=== PATIENT | male | born 1955 | race Caucasian/White ===

== ENCOUNTER 2016-10-01 12:19 | Emergency (ER) | payer OTHER ==
[~2016-10-01] VITALS: Ht 182.9 cm; Wt 81.6 kg
[~2016-10-01 12:19] MED LIST: ALBUTEROL 3 ML3 ML INH; ALBUTEROL NEB 0.083% INH; ALBUTEROL1.25 MG/1 INH/SOL; ARNUITY ELLIP100 MCG INH; ASPIRIN325 M2 PO; ATENOLOL25 MG PO; AUGMENTIN 875 M1 TAB PO; AUGMENTIN 875-1 EACH PO; AUGMENTIN 875875 MG PO; AZITHROMYCIN250 M1 PO; AZITHROMYCIN250 MG PO; BUPROPION SR150 MG PO; CITALOPRAM HBR40 MG PO; CYCLOBENZAPRINE10 M1 PO; GUAIFENESIN ER600 MG PO; IPRAT-ALBUT 0.5-3 ML IH; LEADER NIC14 MG/24 H TOP; LEVAQUIN500 MG PO; LOPRESSOR 25MG25 MG PO; LOVASTATIN20 M1 PO; LOVASTATIN40 MG PO; MEDROL DOSEPAK1 PAC PO; MELATONIN 3 MG-1 TAB PO; MELATONIN3 MG PO; Mucinex PO; NADOLOL20 MG PO; NAPROSYN500 M1 PO; NICODERM C21 MG/24 H TOP; NICOTINE7 MG/24 HR TOP; OMEGA-3 FISH O1 EAC4 PO; PREDNICOT10 MG PO; PREDNISONE 10MG10 M1 PO; PREDNISONE 10MG10 MG PO; PREDNISONE 20MG20 MG PO; PREDNISONE10 M2 PO; PREDNISONE10 MG PO; PREDNISONE20 MG PO; PREDNISONE50 M1 PO; PREDNISONE50 MG PO; PRILOSEC20 MG PO; PROAIR HFA0.09 MG/Ac INH; PROVENTIL HFA6.7 GM PO; SEREVENT DISKU50 MCG INH; SPIRIVA 18 MCG18 MCG INH; SYMBICORT 80/4.1 PUF INH; TAMIFLU 75MG75 MG PO; TESSALON PERLE100 M1 PO; TIOTROPIUM INH; TYLENOL TAB 32325 MG PO; VIBRAMYCIN 100100 MG PO; ZITHROMAX 500M500 MG PO; ZITHROMAX Z-PA250 M1 PO; ZITHROMAX Z-PA250 MG PO; [UNRECOGNIZED DRUG - OTHER] INH
[2016-10-01 12:39] VITALS: BP 145/86
--- NOTE | 2016-10-01 13:31 | RADIOLOGY REPORT ---
EXAMINATION: XR CHEST CLINICAL INFORMATION: Productive cough. COMPARISON: Portable chest x-ray 09/23/2016, PA and lateral views 05/16/2015. TECHNIQUE: 2 views of the chest were obtained. FINDINGS: The cardiomediastinal silhouette is stable appearing with prominence of the right hilum greater than left. The lungs are hyperexpanded with chronic appearing right apical scarring. Increased markings in the periphery of the lower lobes is stable as well most consistent with patient's known fibrosis. The lungs and pleural spaces otherwise appear clear without evidence of congestion, consolidation, or significant appearing effusion or atelectasis. There is no evidence of pneumothorax or pulmonary edema. Included osseous structures appear largely unremarkable. IMPRESSION: No evidence of an acute intrathoracic process. Stable COPD changes with stable right apical scarring and probable peripheral fibrosis at the bilateral lung bases.
--- NOTE | 2016-10-01 13:37 | ED INFLUENZA/URI COMPLAINT ---
History of Present Illness General Chief Complaint: Upper Respiratory Sx/Fever Stated Complaint: COUGH AND CONGESTION Source: patient Exam Limitations: no limitations Vital Signs & Intake/Output Vital Signs & Intake/Output Vital Signs Date Time Temp Pulse Resp B/P B/P Pulse O2 O2 Flow FiO2 Mean Ox Delivery Rate 10/01 1427 95 06 1411 95 / 1355 95 10/01 1239 97.6 86 16 145/86 94 Room Air Allergies Coded Allergies: budesonide (From SYMBICORT) (Severe, TOUNGE FELT LIKE A CACTUS 02/16/16) formoterol (From SYMBICORT) (Severe, TOUNGE FELT LIKE A CACTUS 02/16/16) codeine (SHAKEY 02/16/16) morphine (BRADYCARDIC 02/16/16) Reconcile Medications Albuterol Sulfate (Proventil Hfa) 6.7 GM HFA.AER.AD 2 PUFF PO 4 TIMES/DAY PRN WHEEZE Aspirin (Aspirin*) 325 MG TABLET 1 TAB PO DAILY HEART HEALTH (Reported) Atenolol 25 MG TABLET 1 TAB PO QPM BP (Reported) Ciprofloxacin HCl (Cipro) 500 MG TABLET 1 TAB PO BID copd exac Citalopram Hydrobromide (Citalopram HBr) 40 MG TABLET 1 TAB PO QPM ANXIETY ( Reported) Ipratropium/Albuterol Sulfate (Iprat-Albut 0.5-3(2.5) MG/3 Ml) 0.5 MG-3 MG (2.5 MG BASE)/3 ML AMPUL.NEB 1 AMP IH 4XD COPD (Reported) Ipratropium/Albuterol Sulfate (Iprat-Albut 0.5-3(2.5) MG/3 Ml) 0.5 MG-3 MG (2.5 MG BASE)/3 ML AMPUL.NEB 1 VIAL INH Q6 PRN COPD Lovastatin 20 MG TABLET CHOLESTEROL (Reported) [place]-3S/Dha/Epa/Fish Oil ([place]-3 Fish Oil 1,000 MG Sfgl) 300-1,000MG CAPSULE 1 CAP PO QPM SUPPLEMENT (Reported) Prednisone 50 MG TABLET 1 TAB PO DAILY copd exac Tiotropium [place] (Spiriva) 18 MCG CAP.W.DEV 1 CAP INH DAILY BREATHING PROBLEMS (Reported) Triage Note: 61 Y/O MALE C/O "CONGESTION" AND SOB SINCE YESTERDAY. STATES HX COPD AND PNEUMONIA, UNSURE IF THESE CURRENT SYMPTOMS FEEL LIKE EITHER - "IM NOT SURE IF ITS PNEMONIA OR MAYBE JUST ALLERGIES". REPORTS COUGH WITH "WHITE OR CLEAR" PHLEGM. HAS BEEN USING PROAIR WITH MINIMAL RELIEF, LAST USE 1 HOUR AGO. ALSO REPORTS DECREASED APPETITE/PO INTAKE. DENIES FEVERS. SAT 94%. AFEBRILE. Triage Nurses Notes Reviewed? yes HPI: Mr. Alvarenga is a 61 yo m w/ PMH of COPD, HTN, HLD, CAD w/ stents in place, is a current smoker presenting to ED for SOB. Patient states there is increased work of breathing started 3 days ago. He ran out of his duoneb solution around the same time. Patient endorses midchest congestion with difficulty clearing this congestion. Sputum produces white color. No blood in sputum. Patient denies any recent travel or immobilization. No history of any known cancers. Patient is unsure if she has an allergy attack or pneumonia. Currently smokes half a pack per day. (SCOTT VILLA MD) Past History Travel History Traveled to [place] past 21 day No Medical History Any Pertinent Medical History? see below for history Neurological: NONE EENT: NONE Cardiovascular: CAD, hypertension, hyperlipidemia, myocardial infarction, CAD WITH STENTS Respiratory: COPD, emphysema, pneumonia Gastrointestinal: NONE Hepatic: NONE Renal: NONE Musculoskeletal: NONE Psychiatric: anxiety Endocrine: NONE Blood Disorders: NONE Cancer(s): NONE ASSOCIATE PARTNER/Reproductive: NONE History of MRSA: No History of VRE: No History of CDIFF: No Surgical History Surgical History: none, left knee surgery for torn cartilage cartilage Psychosocial History Who do you live with Daughter Services at Home None What is your primary language Jamaican Tobacco Use: Current Daily Use Daily Tobacco Use Amount/Type: => 5 Cigarettes daily Family History Family History, If Any: (fallopian tube cancerDECEASED). FATHER (heart attack x 2). MOTHER (lymphoma and alzheimers). Relation not specified for: FH: hypertension Hx Contributory? No (SCOTT VILLA MD) Review of Systems Review of Systems Constitutional: Reports: see HPI. EENTM: Reports: no symptoms. Respiratory: Reports: cough, short of breath, wheezing. Cardiovascular: Reports: no symptoms. GI: Reports: no symptoms. Genitourinary: Reports: no symptoms. Musculoskeletal: Reports: no symptoms. Skin: Reports: no symptoms. Neurological/Psychological: Reports: no symptoms. Hematologic/Endocrine: Reports: no symptoms. Immunologic/Allergic: Reports: no symptoms. All Other Systems: Reviewed and Negative (SCOTT VILLA MD) Physical Exam Physical Exam General Appearance: well developed/nourished, alert, awake, anxious, moderate distress Head: atraumatic, normal appearance Eyes: Bilateral: normal appearance, PERRL, EOMI. Ears, Nose, Throat: normal ENT inspection, moist mucous membrane, hearing grossly normal Neck: normal inspection, supple, full range of motion Respiratory: decreased breath sounds, accessory muscle use, rhonchi, wheezing, moderate WOB w/ tripoding Cardiovascular: regular rate/rhythm Gastrointestinal: normal bowel sounds, soft, non-tender Back: normal inspection, normal range of motion Extremities: normal inspection, normal capillary refill, normal range of motion Neurologic/Psych: no motor/sensory deficits, awake, alert, oriented x 3, normal gait, normal mood/affect Skin: intact, warm/dry, pallor Core Measures Severe Sepsis Present: No Septic Shock Present: No (SCOTT VILLA MD) Progress Differential Diagnosis: influenza, pneumonia, pharyngitis, COPD exacerbation, ACS, pulmonary embolism Initial ED EKG: normal axis, normal intervals, normal p-waves, normal sinus rhythm, rate, no ST T wave changes, abnormal Q waves Prior EKG: unchanged (rate related changes) (SCOTT VILLA MD) Plan of Care: Orders Procedure Date/time Status ARTERIAL BLOOD GAS (GEN) 10/01 1342 Complete D-DIMER 10/01 1342 Complete COMPREHENSIVE METABOLIC PANEL 10/01 1342 Complete CBC WITHOUT DIFFERENTIAL 10/01 1342 Complete EKG 10/01 1338 Active Current Medications Sig/Adrián Start time Last Medication Dose Stop Time Status Admin Albuterol Sulfate 3 ML EVERY 5 MIN 10/01 1345 AC 10/01 (Proventil) 10/03 1346 1426 Ipratropium [place] 2.5 ML EVERY 5 MIN 10/01 1345 AC 10/01 (Atrovent) 10/03 1346 1426 Laboratory Tests 10/01/16 1410: pH 7.44, pCO2 37, pO2 68 L, HCO3 24, ABG O2 Sat (Measured) 95.0 L, P-50 (Temp Corrected) N, Carboxyhemoglobin 6.7 *H, O2 Concentration % .21, O2 Delivery Method RA, Phlebotomy Draw Site LEFT RADIAL 10/01/16 1400: Anion Gap 10, Estimated GFR > 60, BUN/Creatinine Ratio 16.3, Glucose 85, Calcium 9.0, Total Bilirubin 0.5, AST 20, ALT 28, Alkaline Phosphatase 86, Total Protein 6.9, Albumin 4.1, Globulin 2.8, Albumin/Globulin Ratio 1.5, D-Dimer High Sensitivty < 200, CBC w Diff NO MAN DIFF REQ, RBC 5.49, MCV 88.2, MCH 28.8, RDW 15.1 H, MPV 6.7 L, Gran % 87.6 H, Lymphocytes % 8.6 L, Monocytes % 3.0, Eosinophils % 0.8, Basophils % 0 L, Absolute Granulocytes 9.2 H, Absolute Lymphocytes 0.9 L, Absolute Monocytes 0.3, Absolute Eosinophils 0.1, Absolute Basophils 0, PUBS MCHC 32.7 L 61 yo m w/ extensive smoking history presenting to the emergency department for increased shortness of breath and chest congestion. Patient noted to be slightly hypoxic in triage with O2 saturation of 93%. Patient was noted to be wheezing significantly and tripoding position. Ran out of DuoNeb labs at home several days ago. Likely related to medication shortage. Patient denies any fever, chills, or other symptoms to suggest systemic infection such as pneumonia. We will obtain chest x-ray to confirm. Patient normotensive in triage. No risk factors to suggest PE but unable to PERC given the patient's age. D-dimer obtained as the patient is low risk to have a PE and it was within normal limits. Chest x-ray negative for obvious pneumonia. Given the significant wheezing and tripoding, this is likely a COPD exacerbation. Patient was ordered for Solu- Medrol 125 mg IV as well as 3 DuoNeb here in the emergency department. Wheezing improved significantly. Patient's shortness of breath also improved. He was no longer tripoding. Observe the patient for 1.5 hours without any returning symptoms. Given the long history of smoking, will administer ciprofloxacin here in the emergency department as an adjunct therapy for this COPD exacerbation. We'll discharge the patient on Cipro for 4 more days as well as prednisone 60 mg for a total of 5 days steroids. Patient also states he ran out of his DuoNeb solution and would like a refill for that for home. Will DC home with return precautions. Patient understands discharge instructions. (ALLEN WATTERS,SCOTT) Departure Departure Time of Disposition: 1546 Disposition: HOME OR SELF CARE Condition: Stable Clinical Impression Primary Impression: COPD exacerbation Secondary Impressions: Shortness of breath Referrals: HENNY CHAUDHARY MD (PCP/Family) Additional Instructions: Please take the full course of antibiotics and steroids. Use the duoneb nebulization as needed for your COPD. If you have a change in your sputum production, develop a fever, worsening shortness of breath, or any other concerning symptoms, please return to the emergency department for further evaluation. Otherwise, please follow-up with your primary care doctor in 1 week to re-assess your breathing. Departure Forms: Customer Survey General Discharge Information (ALLEN WATTERS,SCOTT) Departure Prescriptions: Current Visit Scripts Ipratropium/Albuterol Sulfate (Iprat-Albut 0.5-3(2.5) MG/3 Ml) 1 VIAL INH Q6 PRN COPD #30 VIAL Prednisone 1 TAB PO DAILY #5 TAB Ciprofloxacin HCl (Cipro) 1 TAB PO BID #10 TAB (IKE WATTERS,SILVANA Varghese)
[2016-10-01 14:05] LABS: ABSOLUTE BASOPHIL COUNT 0 /CUMM (0.0-0.2); ABSOLUTE EOSINOPHIL COUNT 0.1 /CUMM (0.0-0.7); ABSOLUTE GRANULOCYTE CT 9.2 /CUMM (1.4-6.5); ABSOLUTE LYMPH COUNT 0.9 /CUMM (1.2-3.4); ABSOLUTE MONOCYTE COUNT 0.3 /CUMM (0.10-0.60); BASOPHIL % 0 % (0.0-2.0); EOSINOPHIL % 0.8 % (0-5); HEMATOCRIT 48.5 % (42-52); MEAN CORPUSCULAR HGB 28.8 PG (27.0-31.0); MEAN CORPUSCULAR HGB CONC 32.7 G/DL (33.0-37.0); MEAN CORPUSCULAR VOLUME 88.2 FL (80.0-94.0); MEAN PLATELET VOLUME 6.7 FL (7.4-10.4); PLATELET COUNT 248 /CUMM (130-400); RBC DISTRIBUTION WIDTH 15.1 % (11.5-14.5); RED BLOOD CELL CT 5.49 /CUMM (4.70-6.10); WHITE BLOOD CELL COUNT 10.5 /CUMM (4.8-10.8)
[2016-10-01 14:21] LABS: GRANULOCYTE % 87.6 % (42.2-75.2)
[2016-10-01] MEDS ORDERED: IPRAT-ALBUT 0.5-3 ML PO (14:45)
[2016-10-01] MEDS ORDERED: ATENOLOL25 M1 PO (14:46)
[2016-10-01] MEDS ORDERED: SPIRIVA18 MCG INH (14:48)
[2016-10-01] MEDS ORDERED: PREDNISONE50 M1 PO (15:52)
[2016-10-01] MEDS ORDERED: CIPRO500 M1 PO (15:52)
[2016-10-01] MEDS ORDERED: IPRAT-ALBUT 0.5-3 ML INH (16:06)
== END 2016-10-01 16:17 ==
LOC: ERH 12:19
PROVIDERS: Emergency Medicine
DX: J44.1 Chronic obstructive pulmonary disease with (acute) exacerbation (principal); Z72.0 Tobacco use
CPT/HCPCS: 1263; 93005; 93010; 96374; J2930

== ENCOUNTER 2016-10-01 22:51 | Inpatient (IN) | payer OTHER ==
[~2016-10-01] VITALS: Ht 182.9 cm; Wt 81.6 kg
[~2016-10-01 22:51] MED LIST changes: +ATENOLOL25 M1 PO; +CIPRO500 M1 PO; +IPRAT-ALBUT 0.5-3 ML INH; +IPRAT-ALBUT 0.5-3 ML PO; +SPIRIVA18 MCG INH
--- NOTE | 2016-10-01 23:00 | ED DYSPNEA/ASTHMA COMPLAINT ---
History of Present Illness General Chief Complaint: Dyspnea (COPD, CHF, Other) Stated Complaint: BIBA SOB Source: patient, old records, EMS Exam Limitations: no limitations Vital Signs & Intake/Output Vital Signs & Intake/Output Vital Signs Date Time Temp Pulse Resp B/P B/P Pulse O2 O2 Flow FiO2 Mean Ox Delivery Rate 10/02 0521 93 Nasal 3.0L Cannula 10/02 0348 85 128/76 10/02 0348 94 Nasal 3.0L Cannula 10/02 0200 93 Nasal 3.0L Cannula 10/02 0103 98.8 82 22 134/68 92 Nasal 2.0L Cannula 10/02 0014 95 Nasal 2.0L Cannula 10/01 2356 98.0 78 20 1385/74 98 Nasal 2.0L Cannula 10/01 2347 95 Nasal 2.0L Cannula 10/01 2255 98.6 105 20 206/107 87 ED Intake and Output 10/02 0000 10/01 1200 Intake Total Output Total Balance Patient 180 lb Weight Weight Reported by Patient Measurement Method Allergies Coded Allergies: budesonide (From SYMBICORT) (Severe, TOUNGE FELT LIKE A CACTUS 02/16/16) formoterol (From SYMBICORT) (Severe, TOUNGE FELT LIKE A CACTUS 02/16/16) codeine (SHAKEY 02/16/16) morphine (BRADYCARDIC 02/16/16) Reconcile Medications Albuterol Sulfate (Proventil Hfa) 6.7 GM HFA.AER.AD 2 PUFF PO 4 TIMES/DAY PRN WHEEZE Aspirin (Aspirin*) 325 MG TABLET 1 TAB PO DAILY HEART HEALTH (Reported) Atenolol 25 MG TABLET 1 TAB PO QPM BP (Reported) Citalopram Hydrobromide (Citalopram HBr) 40 MG TABLET 1 TAB PO QPM ANXIETY ( Reported) Ipratropium/Albuterol Sulfate (Iprat-Albut 0.5-3(2.5) MG/3 Ml) 0.5 MG-3 MG (2.5 MG BASE)/3 ML AMPUL.NEB 1 VIAL INH Q6 PRN COPD Lovastatin 20 MG TABLET CHOLESTEROL (Reported) [place]-3S/Dha/Epa/Fish Oil ([place]-3 Fish Oil 1,000 MG Sfgl) 300-1,000MG CAPSULE 1 CAP PO QPM SUPPLEMENT (Reported) Tiotropium [place] (Spiriva) 18 MCG CAP.W.DEV 1 CAP INH DAILY BREATHING PROBLEMS (Reported) Triage Nurses Notes Reviewed? yes HPI: Patient was seen in the emergency room earlier today and diagnosed with COPD exacerbation patient felt better after 3 nebulizers, steroids and was sent home on steroids and antibiotics. Patient states his symptoms have been worsening and he can't even speak complete sentences. On EMS arrival patient was pursed lip breathing and speaking in 3 word sentences. Was given a DuoNeb and was brought in for evaluation. Patient denies any chest pain or chest tightness. Patient has a chronic nonproductive cough. There are no fevers or chills. Past History Travel History Traveled to [place] past 21 day No Medical History Any Pertinent Medical History? see below for history Neurological: NONE EENT: NONE Cardiovascular: CAD, hypertension, hyperlipidemia, myocardial infarction, CAD WITH STENTS Respiratory: COPD, emphysema, pneumonia Gastrointestinal: NONE Hepatic: NONE Renal: NONE Musculoskeletal: NONE Psychiatric: anxiety Endocrine: NONE Blood Disorders: NONE Cancer(s): NONE IP ARCHITECT/Reproductive: NONE History of MRSA: No History of VRE: No History of CDIFF: No Surgical History Surgical History: none, left knee surgery for torn cartilage cartilage Psychosocial History Who do you live with Daughter Services at Home None What is your primary language Swazi Tobacco Use: Current Daily Use Daily Tobacco Use Amount/Type: => 5 Cigarettes daily ETOH Use: denies use Illicit Drug Use: denies illicit drug use Family History Family History, If Any: (fallopian tube cancerDECEASED). FATHER (heart attack x 2). MOTHER (lymphoma and alzheimers). Relation not specified for: FH: hypertension Hx Contributory? No Review of Systems Review of Systems Constitutional: Reports: no symptoms. EENTM: Reports: no symptoms. Respiratory: Reports: see HPI, cough, short of breath, wheezing. Cardiovascular: Reports: no symptoms. GI: Reports: no symptoms. Genitourinary: Reports: no symptoms. Musculoskeletal: Reports: no symptoms. Skin: Reports: no symptoms. Neurological/Psychological: Reports: no symptoms. Hematologic/Endocrine: Reports: no symptoms. Immunologic/Allergic: Reports: no symptoms. All Other Systems: Reviewed and Negative Physical Exam Physical Exam General Appearance: well developed/nourished, alert, awake, anxious, moderate distress Head: atraumatic, normal appearance Eyes: Bilateral: PERRL, EOMI. Ears, Nose, Throat: normal pharynx, normal ENT inspection, hearing grossly normal Neck: normal inspection, supple, full range of motion Respiratory: decreased breath sounds, wheezing Cardiovascular: regular rate/rhythm, normal peripheral pulses Gastrointestinal: normal bowel sounds, soft, non-tender, no organomegaly Extremities: normal inspection, normal capillary refill, normal range of motion, no edema Neurologic/Psych: no motor/sensory deficits, awake, alert, oriented x 3, normal gait, normal mood/affect Skin: intact, normal color, warm/dry Lymphatic: no anterior cervical beata Core Measures ACS in differential dx? No Severe Sepsis Present: No Septic Shock Present: No Progress Differential Diagnosis: asthma, AMI, bronchitis, CHF, COPD, pulmonary embolism, pneumonia, pneumothorax Plan of Care: Orders Procedure Date/time Status Heart Healthy Diet 10/02 B Active CBC WITHOUT DIFFERENTIAL 10/02 599 Active BASIC ELECTROLYTES PLUS BUN&CR 10/02 06 Active THERAPIST ORDERS 10/02 0523 Complete Vital Signs 10/02 034 Active Teach/Educate 10/02 034 Active Pain Treatment and Response 10/02 034 Active Nutritional Intake, Monitor 10/02 034 Active Isolation 10/02 034 Active Intake & Output 10/02 0347 Active Patient Care Conference 10/02 0347 Active Activity/Ambulation 10/02 0347 Active Pathway - chart 10/02 0130 Active RAPID VIRAL INFLUENZA A 10/02 0130 Complete STREP PNEUMO URINARY ANTIGEN 10/02 0130 Active LEGIONELLA URINARY ANTIGEN 10/02 0130 Active LOWER RESPIRATORY CULTURE 10/02 0130 Active Code Status 10/02 0123 Active OXYGEN SETUP (GEN) 10/02 0114 Complete Saline Lock 10/02 0114 Active Misc Message 10/02 0114 Active ED Holding Orders 10/02 0114 Active Vital Signs 10/02 0114 Complete Activity/Ambulation 10/02 0114 Complete Code Status 10/02 0114 Complete Patient Data 10/02 0039 Active Admit to inpatient 10/02 0037 Active TRC EVALUATION (GEN) 10/02 UNK Active House Staff 10/02 UNK Active VTE Mechanical Prophylaxis 10/02 UNK Active Vital Signs 10/02 UNK Complete Intake & Output 10/01 2345 Complete ARTERIAL BLOOD GAS (GEN) 10/01 225 Complete BLOOD CULTURE 10/01 225 Active TROPONIN LEVEL 10/01 225 Complete COMPREHENSIVE METABOLIC PANEL 10/01 2258 Complete CBC WITHOUT DIFFERENTIAL 10/01 2258 Complete EKG 10/01 2258 Active Current Medications Sig/Adrián Start time Last Medication Dose Stop Time Status Admin Ondansetron HCl 4 MG ONCE ONE 10/02 2344 AC 10/02 (Zofran) 10/02 Atenolol 25 MG QPM 10/02 2199 AC (Tenormin) Azithromycin 500 MG 22010/02 220 AC (Zithromax) Sodium Chloride 250 ML (Normal Saline 0.9%) Atorvastatin Calcium 5 MG 1700 10/02 170 AC (Lipitor) Aspirin 325 MG DAILY 10/02 1000 AC (Aspirin) Citalopram 40 MG DAILY 10/02 1000 AC Hydrobromide (Celexa) Fish Oil 1,050 MG BID 10/02 1000 AC ([place]-3) Nicotine 21 MG DAILY 10/02 1000 AC (Nicoderm) Tiotropium [place] 1 PUF DAILY 10/02 1000 AC (Spiriva) Heparin Sodium 5,000 UNIT Q8 10/02 06 AC 10/02 (Porcine) 0525 Methylprednisolone 40 MG Q8 10/02 0600 AC 10/02 (Solumedrol) 0525 Melatonin 3 MG AT BEDTIME 10/02 0245 AC 10/02 (Melatonin) 0402 Albuterol Sulfate 2 PUF Q4P PRN 10/02 0200 AC (Ventolin) Ondansetron HCl 4 MG Q6P PRN 10/02 0200 AC (Zofran) Pantoprazole Sodium 40 MG DAILY 10/02 0145 AC 10/02 (Protonix) 0148 Acetaminophen 650 MG Q6P PRN 10/02 0130 AC 10/02 (Tylenol) 0403 Acetaminophen 1,000 MG Q6P PRN 10/02 0130 AC (Ofirmev) Guaifenesin 10 ML Q4P PRN 10/02 013 AC (Robitussin) Laboratory Tests 10/02/16 0005: pH 7.40, pCO2 41, pO2 81, HCO3 25, ABG O2 Sat (Measured) 92.0 L, P-50 (Temp Corrected) N, Carboxyhemoglobin 4.0, O2 Concentration % 2 LPM, Temperature 98.6, O2 Delivery Method N/C, Phlebotomy Draw Site RIGHT RADIAL 10/01/162205: Anion Gap 13, Estimated GFR > 60, BUN/Creatinine Ratio 25.0, Glucose 128 H, Calcium 9.4, Total Bilirubin 0.5, AST 24, ALT 35, Alkaline Phosphatase 86, Troponin I < 0.01, Total Protein 7.3, Albumin 4.5, Globulin 2.8, Albumin/ Globulin Ratio 1.6, CBC w Diff NO MAN DIFF REQ, RBC 5.61, MCV 87.9, MCH 29.0, RDW 15.0 H, MPV 7.1 L, Gran % 94.4 H, Lymphocytes % 4.5 L, Monocytes % 1.1 L, Eosinophils % 0, Basophils % 0 L, Absolute Granulocytes 9.9 H, Absolute Lymphocytes 0.5 L, Absolute Monocytes 0.1 L, Absolute Eosinophils 0, Absolute Basophils 0, PUBS MCHC 33.0 Microbiology 10/02 250 LOWER RESP: Respiratory Culture - RECD 10/02 250 LOWER RESP: Gram Stain - RECD 10/02 250 NASOPHARYN: Influenza Virus A & B Rapid Smear - COMP 10/02 129 URINE ROUT: Legionella Antigen - COLB 10/02 129 URINE ROUT: Streptococcus pneumoniae Antigen (M - COLB 10/01 2314 BLOOD: Blood Culture - RECD 10/01 2305 BLOOD: Blood Culture - RECD Diagnostic Imaging: Viewed by Me: Radiology Read. Discussed w/RAD: Radiology Read. CXR Impression: PATIENT: JORGE A SANTOYO JR PRESENT AGE: 61 PATIENT ACCOUNT NO: [id number] : 53 LOCATION: [facility] ORDERING PHYSICIAN: SHAQUILLE PRIDE MD SERVICE DATE: 10/01/16 EXAM TYPE: RAD - XRY-PORTABLE CHEST XRAY EXAMINATION: XR PORTABLE CHEST CLINICAL INFORMATION: Shortness of breath. COMPARISON: 10/01/2016 TECHNIQUE: Portable frontal view of the chest was obtained. FINDINGS: The lungs are hyperexpanded. Streaky opacities are seen at the lung bases. Persistent right apical opacity without change. No pleural effusion or pneumothorax. The cardiomediastinal silhouette is within normal limits. IMPRESSION: No change from recent prior. Hyperexpanded lungs with basilar scarring. Persistent right apical opacity. DICTATED BY: TAWNYA WATTERS, NIGEL DATE/TIME DICTATED:10/01/162323 [employer] COUNCIL MEMBER:MARGOT DATE/TIME TRANSCRIBED:10/01/162323 CONFIDENTIAL, DO NOT COPY WITHOUT APPROPRIATE AUTHORIZATION. <Electronically signed in Other Vendor System> SIGNED BY: TAWNYA WATTERS,NIGEL 10/01/162328 Initial ED EKG: NSR, nonspecific ST T wave chg Prior EKG: unchanged Departure Departure Disposition: STILL A PATIENT Condition: Fair Clinical Impression Primary Impression: COPD exacerbation Referrals: HENNY CHAUDHARY MD (PCP/Family) Departure Forms: Customer Survey General Discharge Information Admission Note Spoke With: BRITTON GROVER MD Documentation of Exam: Documentation of any treatments & extenuating circumstances including Concerns Regarding Discharge (functional status, medication knowledge or non-compliance, living conditions, etc.) that warrant an admission rather than observation: [ Patient requires admission to the hospital for IV steroids, IV antibiotics, nebulizers, pulmonary consultation. Patient was seen in the ER earlier today and was feeling better however he went home and again felt worse. Patient is at high risk for discharge at this point.] Critical Care Note Critical Care Note Critical Care Time: non-applicable
--- NOTE | 2016-10-01 23:29 | RADIOLOGY REPORT ---
EXAMINATION: XR PORTABLE CHEST CLINICAL INFORMATION: Shortness of breath. COMPARISON: 10/01/2016 TECHNIQUE: Portable frontal view of the chest was obtained. FINDINGS: The lungs are hyperexpanded. Streaky opacities are seen at the lung bases. Persistent right apical opacity without change. No pleural effusion or pneumothorax. The cardiomediastinal silhouette is within normal limits. IMPRESSION: No change from recent prior. Hyperexpanded lungs with basilar scarring. Persistent right apical opacity.
[2016-10-01 23:34] LABS: ABSOLUTE BASOPHIL COUNT 0 /CUMM (0.0-0.2); ABSOLUTE EOSINOPHIL COUNT 0 /CUMM (0.0-0.7); ABSOLUTE GRANULOCYTE CT 9.9 /CUMM (1.4-6.5); ABSOLUTE LYMPH COUNT 0.5 /CUMM (1.2-3.4); ABSOLUTE MONOCYTE COUNT 0.1 /CUMM (0.10-0.60); BASOPHIL % 0 % (0.0-2.0); EOSINOPHIL % 0 % (0-5); HEMATOCRIT 49.3 % (42-52); MEAN CORPUSCULAR VOLUME 87.9 FL (80.0-94.0); MEAN PLATELET VOLUME 7.1 FL (7.4-10.4); PLATELET COUNT 234 /CUMM (130-400); RED BLOOD CELL CT 5.61 /CUMM (4.70-6.10); WHITE BLOOD CELL COUNT 10.4 /CUMM (4.8-10.8)
[2016-10-01 23:38] LABS: GRANULOCYTE % 94.4 % (42.2-75.2)
--- NOTE | 2016-10-01 23:46 | NUR ---
GENNY FROM HOME, PT SEEN SARAH IN ER FOR SOB, REPORTS INCREASED SOB
--- NOTE | 2016-10-02 00:05 | NUR ---
MARIA T SHUT OFF D/T PT REPORTING FEELING NAUSEOUS, DR PRIDE AWARE
--- NOTE | 2016-10-02 00:05 | NUR ---
GENNY FROM HOME, PT SEEN SARAH IN ER FOR SOB, REPORTS INCREASED SOB
--- NOTE | 2016-10-02 00:45 | History & Physical ---
SUSAN JAEMS MD 10/02/16 0044: General Information and HPI MD Statement: I have seen and personally examined JORGE A SANTOYO JR and documented this H&P. The patient is a 61 year old M who presented with a patient stated chief complaint of [shortness of breath and cough]. Source of Information: patient Exam Limitations: no limitations History of Present Illness: 61-year-old male with PMH of COPD not on home O2, AR sp stent in 1988, came in for shortness of breath and cough. He was in his normal state of health up until saturday morning when he started to feel short of breath and ran out of his nebulizer at the same time. He was out mowing the lawn over the weekend. He has cough, minimally productive, clear/ white sputum. Reports chest congestion, orthopnea (uses 2 pillows, unchanged, usually sleeps on his side, normally wakes up around 2am short of breath, relieved with use of nebulizer), nausea, constipation, weight loss (does not know how much). Denies fever, chills, sick contacts, edema. At baseline, he is able to walk 500 feet without feeling short of breath. On 10/01, he walked 20 feet from living room to bathroom, and felt like he "was going to ". That prompted him to come to ED on 10/01/16 am, and was sent home on prednisone taper and ciprofloxacin. As his symptoms worsen, he presented again to the ED on 10/02/16pm. He has not been following up with any staffing mgr since his last admission 1 year prior. SH: lives with daughter. has a dog. 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 worked in [employer]. 8-10 years of soapstone dust exposure, smoked 0.5 ppd now, was 1ppd for about 49 years, he is trying to cut down. Allergies/Medications Allergies: Coded Allergies: budesonide (From SYMBICORT) (Severe, TOUNGE FELT LIKE A CACTUS 02/16/16) formoterol (From SYMBICORT) (Severe, TOUNGE FELT LIKE A CACTUS 02/16/16) codeine (SHAKEY 02/16/16) morphine (BRADYCARDIC 02/16/16) Past History Travel History Traveled to [place] past 21 day No Medical History Neurological: NONE EENT: NONE Cardiovascular: CAD, hypertension, hyperlipidemia, myocardial infarction, CAD WITH STENTS Respiratory: COPD, emphysema, pneumonia Gastrointestinal: NONE Hepatic: NONE Renal: NONE Musculoskeletal: NONE Psychiatric: anxiety Endocrine: NONE Blood Disorders: NONE Cancer(s): NONE CUT TO LENGTH OPERATOR/Reproductive: NONE History of MRSA: No History of VRE: No History of CDIFF: No Surgical History Surgical History: none, left knee surgery for torn cartilage cartilage Past Family/Social History Family History Relations & Conditions if any (fallopian tube cancerDECEASED). FATHER (heart attack x 2). MOTHER (lymphoma and alzheimers). Relation not specified for: FH: hypertension Psychosocial History Where do you live? Home Who Do You Live With? daughter Services at Home: None Primary Language: Italian Smoking Status: Current Everyday Smoker ([id number]) ETOH Use: denies use Illicit Drug Use: denies illicit drug use Living Will? no Functional Ability ADLs Independent: dressing, eating, toileting, bathing. Ambulation: independent IADLs Independent: shopping, housework, finances, food prep, telephone, transportation , medication admin. Employment History Employment Unemployed Profession/Employer soapstone dust exposure Review of Systems Review of Systems Constitutional: Denies: chills, fever. EENTM: Denies: visual changes. Cardiovascular: Denies: chest pain, palpitations, peripheral edema. Respiratory: Reports: cough, short of breath, sputum production, wheezing. GI: Reports: abdominal pain, constipation, nausea. Denies: vomiting. Genitourinary: Denies: dysuria. Exam & Diagnostic Data Last 24 Hrs of Vital Signs/I&O Vital Signs Date Time Temp Pulse Resp B/P B/P Pulse O2 O2 Flow FiO2 Mean Ox Delivery Rate 10/02 0200 93 Nasal 3.0L Cannula 10/02 0103 98.8 82 22 134/68 92 Nasal 2.0L Cannula 10/02 0014 95 Nasal 2.0L Cannula 10/01 2356 98.0 78 20 1385/74 98 Nasal 2.0L Cannula 10/01 2347 95 Nasal 2.0L Cannula 10/01 2255 98.6 105 20 206/107 87 Intake & Output 10/02 0800 10/02 0000 10/01 1600 Intake Total Output Total Balance Patient 81.647 kg Weight Weight Reported by Patient Measurement Method Physical Exam General Appearance Alert, Oriented X3, Cooperative, Mild Distress, audibly wheezing, able to speak in full sentences with significant effort Skin tanned on bilateral upper extremities , seborrheic keratosis on the back , back was wet due to sweats Skin Temp/Moisture Exam: Warm/Dry Sepsis Skin Exam (color): Normal for Ethnicity HEENT Atraumatic, PERRLA, EOMI, Mucous Membr. moist/pink Neck Supple, No JVD, No thryomegaly, +2 Carotid Pulse wo Bruit, No LAD Lymphatic Axillary nl, Cervical nl Cardiovascular Regular Rate, Normal S1, Normal S2, No Murmurs, Gallops, Rubs Lungs diffuse exp wheezing Abdomen Normal Bowel Sounds, Soft, No Tenderness, discomfort on abdominal palpation Neurological Normal Speech, Strength at 5/5 X4 Ext Extremities No Edema, Normal Pulses, No Tenderness/Swelling Vascular Normal Pulses, Pulses Symmetrical Last 24 Hrs of Labs/Poncho: Laboratory Tests 10/02/16 0005: pH 7.40, pCO2 41, pO2 81, HCO3 25, ABG O2 Sat (Measured) 92.0 L, P-50 (Temp Corrected) N, Carboxyhemoglobin 4.0, O2 Concentration % 2 LPM, Temperature 98.6, O2 Delivery Method N/C, Phlebotomy Draw Site RIGHT RADIAL 10/01/16 2206: Anion Gap 13, Estimated GFR > 60, BUN/Creatinine Ratio 25.0, Glucose 128 H, Calcium 9.4, Total Bilirubin 0.5, AST 24, ALT 35, Alkaline Phosphatase 86, Troponin I < 0.01, Total Protein 7.3, Albumin 4.5, Globulin 2.8, Albumin/ Globulin Ratio 1.6, CBC w Diff NO MAN DIFF REQ, RBC 5.61, MCV 87.9, MCH 29.0, RDW 15.0 H, MPV 7.1 L, Gran % 94.4 H, Lymphocytes % 4.5 L, Monocytes % 1.1 L, Eosinophils % 0, Basophils % 0 L, Absolute Granulocytes 9.9 H, Absolute Lymphocytes 0.5 L, Absolute Monocytes 0.1 L, Absolute Eosinophils 0, Absolute Basophils 0, PUBS MCHC 33.0 Microbiology 10/02 129 URINE ROUT: Legionella Antigen - ORD 10/02 129 URINE ROUT: Streptococcus pneumoniae Antigen (M - ORD 10/02 129 LOWER RESP: Respiratory Culture - ORD 10/02 013 LOWER RESP: Gram Stain - ORD 10/02 013 NASOPHARYN: Influenza Virus A & B Rapid Smear - ORD 10/01 2315 BLOOD: Blood Culture - RECD 10/01 230 BLOOD: Blood Culture - RECD Diagnostic Data EKG Results SR 85 Q wave II, III, AvF QTc 457 CXR Results EXAM TYPE: RAD - XRY-PORTABLE CHEST XRAY EXAMINATION: XR PORTABLE CHEST CLINICAL INFORMATION: Shortness of breath. COMPARISON: 10/01/2016 TECHNIQUE: Portable frontal view of the chest was obtained. FINDINGS: The lungs are hyperexpanded. Streaky opacities are seen at the lung bases. Persistent right apical opacity without change. No pleural effusion or pneumothorax. The cardiomediastinal silhouette is within normal limits. IMPRESSION: No change from recent prior. Hyperexpanded lungs with basilar scarring. Persistent right apical opacity. DICTATED BY: TAWNYA WATTERS,NIGEL DATE/TIME DICTATED:10/01/162323 Other Results SERVICE DATE: 08/20/16 EXAM TYPE: CAT - CT LUNG SURV WO IV CONTRAST EXAMINATION: LOW-DOSE SCREENING CT CHEST WITHOUT CONTRAST CLINICAL INFORMATION: 61-year-old male active smoker with 48 pack year history of cigarette smoking. History of chronic obstructive pulmonary disease. COMPARISON: Multiple prior chest CT exams, as mentioned on 04/20/2016, and including 04/20/2016. TECHNIQUE: Multidetector volumetric CT imaging of the chest was obtained noncontrast using low dose screening CT technique. Axial thin section 0.625 mm reformations in soft tissue and lung windows were obtained. Sagittal and coronal reformations were obtained. Axial MIP images were also created and reviewed. TOTAL EXAM DLP: 99.01 mGy-cm. CTDIvol: 2.39 mGy. FINDINGS: LUNGS: Severe pulmonary emphysema. Again, the previously noted thick-walled cavity abutting pleura at the right lung apex remains collapsed and, centrally, it has attenuation in the range of water (15 HU on these noncontrast images). The residual masslike opacity at the apex measures approximately 5 cm AP, 3.3 cm transverse and 4.8 cm craniocaudal, unchanged compared to 04/20/2016, and decreased in size compared to the thick-walled cavity observed on 12/10/2014. The persistent, irregular consolidative opacity extending to the adjacent pleura, anteriorly, remains unchanged. There is chronic volume loss of the right upper lobe. An old, 0.2 cm calcified granuloma is present within the left upper lobe. There is a stable, punctate nodular opacity within the medial basal segment of the left lower lobe (image 398, series 4). No interval development of a suspicious nodule, new mass or pleural effusion. Stable appearance of chronic, reticular opacities of fibrosis with subpleural honeycombing predominantly involving the inferior aspect of each lower lobe. LYMPHATIC STRUCTURES: No pathologic sized axillary, hilar or mediastinal lymph nodes. THYROID GLAND: Unremarkable to the extent seen. CARDIOVASCULAR STRUCTURES: The heart size is normal. Atherosclerotic calcification of the thoracic aorta without aneurysm. Again noted is [id number] three-vessel coronary artery atherosclerotic calcification. No pericardial effusion. Pulmonary arteries are chronically enlarged -- as may be seen in pulmonary arterial hypertension. UPPER ABDOMEN: Again noted are two small cysts in the left lobe of liver. Otherwise, the included portions of the solid organs in the upper abdomen unremarkable on noncontrast imaging. OSSEOUS STRUCTURES: No suspicious focal findings. IMPRESSION: The collapsed, thick-walled cavity of the right upper lobe centrally has water attenuation and remains stable in size compared to 04/20/2016. Note that the thickness of the wall of the cavity is suboptimally evaluated on this noncontrast exam. However, the overall stability of the abnormality compared to 04/20/2016 favors benign disease. No new, suspicious nodules or lymphadenopathy. Lung-RADS CATEGORY Lung RADS category: 2S. Benign appearance or behavior. Nodules with a very low likelihood of becoming a clinically active cancer due to size or lack of growth. Continue annual screening with low-dose CT in 12 months. Probability of malignancy less than 1%. Clinically significant or potentially clinically significant findings (non lung cancer). Management as appropriate to the specific finding. INCIDENTAL FINDINGS (S CATEGORY): - Severe pulmonary emphysema. - Chronic interstitial fibrosis with subpleural honeycombing predominantly involving the inferior aspect of each lower lobe. - [id number] atherosclerotic disease of coronary arteries. - Chronically enlarged pulmonary arteries, suggestive of pulmonary arterial hypertension. RECOMMENDATION: - Recommend cessation of cigarette smoking. - Recommend management of incidental findings, as deemed clinically appropriate. - Recommend low dose chest CT follow-up in 12 months. DICTATED BY: GABRIELA JARQUIN MD DATE/TIME DICTATED:08/20/161134 EXAM TYPE: CARD - ECHOCARDIOGRAM JORGE A SANTOYO Age: 58 : 1955 Gender: M Exam Date: 04/05/2014 10:07 Exam Location: ER Ht (in): 72 Wt (lb): 185 BSA: 2.07 BP: 128 / 81 Ordering Physician: Referring Physician: Technologist: Room Number: 3 Indications: Chest Pain Rhythm: Technical Quality: Fair, Technically difficult study FINDINGS Left Ventricle normal size left ventricle. No obvious regional wall motion abnormalities. Normal left ventricular ejection fraction estimated at 55-60%. Right Ventricle Right ventricle not well visualized, grossly normal. Right Atrium Right atrium not well visualized, grossly normal. Left Atrium Normal left atrial size. Mitral Valve Mitral valve thickened. Trace to mild mitral regurgitation. Aortic Valve Trileaflet aortic valve. Diffuse thickening (sclerosis) of the aortic valve cusps without reduced excursion. No aortic stenosis. No aortic regurgitation. Tricuspid Valve Tricuspid valve not well visualized, grossly normal. Trace to mild tricuspid regurgitation. Right ventricular systolic pressure estimated at 30 mmHg. Pulmonic Valve Pulmonic valve not well visualized. Pericardium No pericardial effusion. Great Vessels Aortic root and proximal ascending aorta not well visualized, grossly normal. CONCLUSIONS 1. This was a technically difficult and limited examination due to the patient' s body habitus. 2. Aortic sclerosis is present with no valvular stenosis or insufficiency. 3. Mitral leaflet thickening is present with minimal to mild mitral insufficiency. 4. There is no significant pericardial fluid present. 5. The left ventricular chamber size is normal. The ejection fraction is normal. There are no obvious resting wall motion abnormalities. 6. The right heart structures were not optimally assessed. Minimal to mild tricuspid insufficiency is present with no evidence of pulmonary hypertension. 7. Lipomatous atrial septal hypertrophy is present. Peerless Control: Do not remove! Max Romero M.D. (Electronically Signed) Final Date: 05 April 2014 20:28 Assessment/Plan Assessment: 61-year-old male with PMH of COPD not on home O2, AR sp stent in 1988, came in for shortness of breath and cough. Patient admitted to for acute hypoxic respiratory failure most likely secondary to COPD exacerbation. Problem list: # Acute hypoxic respiratory failure most likely secondary to COPD exacerbation # Nausea, abdominal discomfort # History of AR # Nicotine dependence # Acute hypoxic respiratory failure most likely secondary to COPD exacerbation - Given ceftriaxone and azithro in ed * Admit to [facility] * Continue azithromycin * TRC nebs * IV solumedrol 40 q8 * Robitussin 10 mg q4p cough * Pulm consult with Dr. St in am * f/u flu, urine legionella, strep pneumo, lrc # Nausea, abdominal discomfort * IV protonix 40 mg daily * Zofran 4 mg Q6P nausea/vomiting # History of AR, HLD * Continue atorvastatin 5 mg daily, aspirin 325 mg daily, atenolol 25 mg qpm # Nicotine dependence Nicotine patch 21 mg daily # Continue home meds citalopram 40 mg daily fish oil melatonin 3 mg Diet: heart healthy PP: tylenol po mild pain, tylenol iv moderate. allergic to morphine/codeine DVT ppx: alps and heparin sc FULL CODE As Ranked By This Provider Problem List: 1. COPD exacerbation Core Measures/Miscellaneous Acute Coronary Syndrome ACS Diagnosis: No Cerebrovascular Accident CVA/TIA Diagnosis: No Congestive Heart Failure CHF Diagnosis: No Venous Thromboembolism VTE Risk Factors: Acute medical illness, Age > 40 No [facility] VTE prophylaxis d/t: No contraindications No VTE Pharm Prophylaxis d/t: No contraindications VTE Diagnosis: No VTE Type: NONE VTE Confirmed by (Test): NONE Severe Sepsis Severe Sepsis Present: No Septic Shock Septic Shock Present: No Miscellaneous Documentation Attending Case Discussed With: ANDREZ GROVER MDSantos Primary Care Physician: JET WATTERS,HENNY Patient sees these Specialists Dr Romero cardiology Dr Gates lung cancer screening Level of Patient Care: General Medicine [facility] 10/02/16 0045: General Information and HPI Allergies/Medications Home Med list Albuterol Sulfate (Proventil Hfa) 6.7 GM HFA.AER.AD 2 PUFF PO 4 TIMES/DAY PRN WHEEZE Aspirin (Aspirin*) 325 MG TABLET 1 TAB PO DAILY HEART HEALTH (Reported) Atenolol 25 MG TABLET 1 TAB PO QPM BP (Reported) Citalopram Hydrobromide (Citalopram HBr) 40 MG TABLET 1 TAB PO QPM ANXIETY ( Reported) Ipratropium/Albuterol Sulfate (Iprat-Albut 0.5-3(2.5) MG/3 Ml) 0.5 MG-3 MG (2.5 MG BASE)/3 ML AMPUL.NEB 1 VIAL INH Q6 PRN COPD Lovastatin 20 MG TABLET CHOLESTEROL (Reported) Wetmore-3S/Dha/Epa/Fish Oil (Wetmore-3 Fish Oil 1,000 MG Sfgl) 300-1,000MG CAPSULE 1 CAP PO QPM SUPPLEMENT (Reported) Tiotropium [place] (Spiriva) 18 MCG CAP.W.DEV 1 CAP INH DAILY BREATHING PROBLEMS (Reported) Resident Review Statement Resident Statement: examined this patient, discussed with international tax manager, agreed with international tax manager, discussed with family, reviewed EMR data (avail), discussed with nursing , discussed with case mgmt, reviewed images, amended to note Other Findings: 61-year-old man with a past medical history of 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 According to the patient has been having increased difficulty breathing since Saturday morning. He states that he ran out of his nebulizers and since then his symptoms started. Endorses cough bringing up scant amount of clear phlegm. Endorses smoking setting that he smokes about half a pack a day and has been doing that for the past 49 years. Denies any chest discomfort, palpitations, nausea, vomiting, does endorse orthopnea and PND, denies any history of sick contact. States that he may have lost a few pounds. Denies any swelling in his lower extremities. Denies any headache, dizziness, lightheadedness. 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 Denies any fever or chills. States that he normally uses his rescue inhalers 1-2 times a day but for since Saturday has been requiring it more often. Vitals at the time of admission blood pressure 138/74, respiratory rate of 20, 25, afebrile saturating 98% on 2 L of oxygen via nasal cannula. On physical exam he is alert and oriented 3 and in mild respiratory distress sitting in bed. HEENT revealed PERRLA, dry mucous membranes. Damage the neck is difficult to appreciate JVD, no cervical lymphadenopathy felt. Cardiovascular exam revealed normal S1, S2, no murmurs rubs or gallops appreciated. Respiratory exam pertinent for bilateral wheezes more so on the right side. Abdominal exam pertinent for mild tenderness in the epigastrium, normal bowel sounds, abdomen soft, and nondistended. Examination of the lower extremities did not reveal any edema. Neuro exam is grossly unremarkable. Labs pertinent for normal white blood cell count 10,400, H&H of 16.3/49.3, normal MCV of 87.9 with a platelet count 234,000. Serum chemistries revealed a sodium of 136, potassium of 4.5, bicarbonate of 24 with an anion gap of 31 BUN 15 creatinine 2.6 with glucose of 128. LFTs unremarkable with an AST/alt of 24/ 75, pulse of 86, first set were negative less than 0.01. Blood gas revealed a pH of 7.4, normal PCO2 of 41, PO2 of 81. Chest x-ray showed hyperexpanded lungs, streaky opacities at lung bases, persistent right apical opacity without change, no pleural effusion or pneumothorax. In the ER he received ceftriaxone, azithromycin, treatment with albuterol as well as Zofran 4 mg IV 1. EKG revealed normal sinus rhythm with a heart rate of 85, Q waves in inferior leads 23 and aVF, unchanged from prior EKG, QTC of 457 with a normal AK interval of 152. Echo done in 2013 showed aortic sclerosis with no valvular stenosis or insufficiency, mitral leaflet thickening, no significant pericardial fluid, normal left ventricular ejection fraction with no obvious regional wall motion abnormalities. Pulmonary function tests done in November 2014 showed severe obstructive lung disease, severe reduction in DLCO findings consistent with emphysema along with significant bronchodilator response Assessment and plan Admit patient to [facility] #Acute hypoxic respiratory failure Most likely secondary to COPD exacerbation versus pneumonia unlikely given he does not have fevers, purulent productive cough. Check urinary antigen for Legionella and strep pneumo, lower respiratory cultures. Follow-up blood cultures 2 Solu-Medrol 40 mg IV every 8 Continue on azithromycin 500 mg daily IV TRC nebs Continue to titrate oxygen to maintain saturations greater than 88%. Pulmonary consult in a.m. with Dr. Redding. #Coronary artery disease status post stents Continue aspirin 325 mg daily, atenolol 25 mg daily, lovastatin 20 mg daily, Wetmore -3 daily #Epigastric pain Most likely secondary to gastritis with PUD Start him on Protonix 40 mg daily DVT prophylaxis Heparin 5000 international units 3 times a day subcutaneous Diet Heart healthy CODE STATUS Full code REILLY WATTERS, [facility] 10/02/16 0413: Attending MD Review Statement Attending Statement Attending MD Statement: examined this patient, discuss w/resident/PA/PROJECT ASST, agreed w/resident/PA/PROJECT ASST Attending Assessment/Plan: 61 yo M current smoker, with h/o severe COPD (not oxygen or steroid dependent) with significant bullous disease and 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 He ran out of his duo nebs. He was seen in the ER earlier today and was discharged on Cipro and prednisone. Returns because breathing did not get better. Denies sick contacts. He does not follow up with a Homicide Squad Sergeant. Of note, patient follows with Dr. Gates for yearly lung cancer screening with CT. Last CT (July 2016): collapsed, thick walled cavity of right upper lobe centrally has water attenuation is stable in size. severe pulmonary emphysema, chronic interstitial fibrosis with subpleural honeycombing inferior aspect of each lower lobe, chronically enlarged pulmonary arteries s/o pulmonary hypertension. Vitals stable except for sats 87% RA --> 93% on 3L. Exam: AAO, diaphoretic, mild respiratory distress, able to speak in full sentences, dry mucous membranes, Chest b/l reduced air entry with expiratory wheezes. Labs: no leukocytosis, granulocyte 94.4, Na 136, glucose 128, trop neg, AB.40/41/81/25, sats 92%. CXR: hyperexpanded lungs with basilar scarring, persistent right apical opacity. EKG: SR, inferior Q waves are old, Qtc 457. Echo (2014): EF 55-60%. Flu swab neg. 1. Acute hypoxic respiratory failure, COPD exacerbation, ongoing smoking. Stable appearance of RUL cavitary lesion, no new consolidation. GM admit, TRC nebs, sputum culture, IV steroids, IV azithromycin, Pulm consult. Smoking cessation counseling. GI ppx PPI. DVT ppx Hep SC. Full code.
--- NOTE | 2016-10-02 02:32 | NUR ---
PT SITTING ON SIDE OF BED, STATES BACK IS HURTING FROM STRETCHER.
--- NOTE | 2016-10-02 02:42 | NUR ---
[facility] ASSIGNMENT [phone]
--- NOTE | 2016-10-02 03:00 | NUR ---
REPORT CALLED TO MARQUIS CHU
[2016-10-02 03:48] VITALS: BP 128/76
--- NOTE | 2016-10-02 04:13 | Admission Certification ---
Admission Certification Certification Statement - As attending physician, I certify that at the time of - admission, based on clinical presentation, severity of - symptoms, need for further diagnostic testing and - therapeutic interventions, and risk of adverse outcomes - without in-hospital treatment, in my clinical assessment, - this patient requires an acute hospital stay for a minimum - of two nights or longer. I have also considered psychsocial - factors such as support system, advanced age, financial - issues, cognitive issues, and failed out-patient treatments, - past re-admission history, safety of patient, and lack of - compliance as applicable. Specific rationale supporting this admission is: Acute hypoxic respiratory failure, COPD exacerbation.
[2016-10-02 08:00] VITALS: BP 126/60
--- NOTE | 2016-10-02 08:22 | Cons- Pulmonary ---
General Information and HPI Consulting Request Date of Consult: 10/02/16 Requested By: too Reason for Consult: Exacerbation of COPD hypoxic respiratory failure History of Present Illness: Patient is 61-year-old with advanced bullous emphysema actively smoking is admitted with increased shortness of breath and hypoxic respiratory failure. He previously had an infected right upper lobe bulla which has collapsed and become fluid-filled and has been stable since 2015. He has oxygen at home but is nonadherent with its usage. He said no chest pain or hemoptysis. Allergies/Medications Allergies: Coded Allergies: budesonide (From SYMBICORT) (Severe, TOUNGE FELT LIKE A CACTUS 02/16/16) formoterol (From SYMBICORT) (Severe, TOUNGE FELT LIKE A CACTUS 02/16/16) codeine (SHAKEY 02/16/16) morphine (BRADYCARDIC 02/16/16) Home Med List: Albuterol Sulfate (Proventil Hfa) 6.7 GM HFA.AER.AD 2 PUFF PO 4 TIMES/DAY PRN WHEEZE Aspirin (Aspirin*) 325 MG TABLET 1 TAB PO DAILY HEART HEALTH (Reported) Atenolol 25 MG TABLET 1 TAB PO QPM BP (Reported) Citalopram Hydrobromide (Citalopram HBr) 40 MG TABLET 1 TAB PO QPM ANXIETY ( Reported) Ipratropium/Albuterol Sulfate (Iprat-Albut 0.5-3(2.5) MG/3 Ml) 0.5 MG-3 MG (2.5 MG BASE)/3 ML AMPUL.NEB 1 VIAL INH Q6 PRN COPD Lovastatin 20 MG TABLET CHOLESTEROL (Reported) [place]-3S/Dha/Epa/Fish Oil ([place]-3 Fish Oil 1,000 MG Sfgl) 300-1,000MG CAPSULE 1 CAP PO QPM SUPPLEMENT (Reported) Tiotropium [place] (Spiriva) 18 MCG CAP.W.DEV 1 CAP INH DAILY BREATHING PROBLEMS (Reported) Review of Systems Review of Systems Constitutional: Denies: chills, fever. Cardiovascular: Denies: chest pain, edema. Respiratory: Reports: cough, short of breath, sputum production. Denies: hemoptysis. GI: Denies: abdominal pain, bloating, diarrhea, melena. Past History Travel History Traveled to [place] past 21 day No Medical History Neurological: NONE EENT: NONE Cardiovascular: CAD, hypertension, hyperlipidemia, myocardial infarction, CAD WITH STENTS Respiratory: COPD, emphysema, pneumonia Gastrointestinal: NONE Hepatic: NONE Renal: NONE Musculoskeletal: NONE Psychiatric: anxiety Endocrine: NONE Blood Disorders: NONE Cancer(s): NONE ORTHO/PROSTHETIC AIDE/Reproductive: NONE Surgical History Surgical History: left knee surgery for torn cartilage 1 cartilage Family History Relations & Conditions If Any: (fallopian tube cancerDECEASED). FATHER (heart attack x 2). MOTHER (lymphoma and alzheimers). Relation not specified for: FH: hypertension Psychosocial History Where Do You Live? Home Who Do You Live With? daughter Services at Home: None Primary Language: Irish Smoking Status: Current Everyday Smoker ([id number]) ETOH Use: denies use Illicit Drug Use: denies illicit drug use Living Will? no Functional Ability ADLs Independent: dressing, eating, toileting, bathing. Ambulation: independent IADLs Independent: shopping, housework, finances, food prep, telephone, transportation , medication admin. Employment History Employment: Unemployed Profession/Employer: [email or web address] dust exposure Exam & Diagnostic Data Last 24 Hrs of Vital Signs/I&O Vital Signs Date Time Temp Pulse Resp B/P B/P Pulse O2 O2 Flow FiO2 Mean Ox Delivery Rate 10/02 0521 93 Nasal 3.0L Cannula 10/02 0348 85 128/76 10/02 0348 94 Nasal 3.0L Cannula 10/02 0200 93 Nasal 3.0L Cannula 10/02 0103 98.8 82 22 134/68 92 Nasal 2.0L Cannula 10/02 0014 95 Nasal 2.0L Cannula 10/01 2356 98.0 78 20 1385/74 98 Nasal 2.0L Cannula 10/01 2347 95 Nasal 2.0L Cannula 10/01 2255 98.6 105 20 206/107 87 Intake & Output 10/02 1600 10/02 0800 10/02 0000 Intake Total 100 Output Total 100 Balance 0 Intake, Oral 100 Output, Urine 100 Patient 180 lb Weight Weight Reported by Patient Measurement Method Oxygen saturation 3 L 93% exam of his chest shows diminished breath sounds there is decreased air entry there is no wheezing cardiac exam shows regular S1 and S2 without murmurs abdominal exam is soft nontender and he has no edema Last 48 Hrs of Labs/Poncho: Laboratory Tests 06/06/17 0005: pH 7.40, pCO2 41, pO2 81, HCO3 25, ABG O2 Sat (Measured) 92.0 L, P-50 (Temp Corrected) N, Carboxyhemoglobin 4.0, O2 Concentration % 2 LPM, Temperature 98.6, O2 Delivery Method N/C, Phlebotomy Draw Site RIGHT RADIAL 10/01/16 2206: Anion Gap 13, Estimated GFR > 60, BUN/Creatinine Ratio 25.0, Glucose 128 H, Calcium 9.4, Total Bilirubin 0.5, AST 24, ALT 35, Alkaline Phosphatase 86, Troponin I < 0.01, Total Protein 7.3, Albumin 4.5, Globulin 2.8, Albumin/ Globulin Ratio 1.6, CBC w Diff NO MAN DIFF REQ, RBC 5.61, MCV 87.9, MCH 29.0, RDW 15.0 H, MPV 7.1 L, Gran % 94.4 H, Lymphocytes % 4.5 L, Monocytes % 1.1 L, Eosinophils % 0, Basophils % 0 L, Absolute Granulocytes 9.9 H, Absolute Lymphocytes 0.5 L, Absolute Monocytes 0.1 L, Absolute Eosinophils 0, Absolute Basophils 0, PUBS MCHC 33.0 Microbiology 10/02 0251 NASOPHARYN: Influenza Virus A & B Rapid Smear - COMP Assessment/Plan Impression/Plan: 61-year-old gent with severe bullous emphysema actively smoking admitted with exacerbation of COPD and hypoxic history failure. Chronic findings right upper lobe appears stable. Decreasing size and duration of stability makes lung cancer extremely unlikely but continued monitoring is necessary with serial CAT scans. Continue IV steroids azithromycin and Taper oxygen as sats allow. He was counseled regarding the need for smoking cessation. Consult Acknowledgment - Thank you for your consult request.
--- NOTE | 2016-10-02 13:48 | PN- Att Addend ---
Attending Addendum Attending Brief Note Laboratory Tests 10/02/16 0005: pH 7.40, pCO2 41, pO2 81, HCO3 25, ABG O2 Sat (Measured) 92.0 L, P-50 (Temp Corrected) N, Carboxyhemoglobin 4.0, O2 Concentration % 2 LPM, Temperature 98.6, O2 Delivery Method N/C, Phlebotomy Draw Site RIGHT RADIAL 10/01/16 2206: Anion Gap 13, Estimated GFR > 60, BUN/Creatinine Ratio 25.0, Glucose 128 H, Calcium 9.4, Total Bilirubin 0.5, AST 24, ALT 35, Alkaline Phosphatase 86, Troponin I < 0.01, Total Protein 7.3, Albumin 4.5, Globulin 2.8, Albumin/ Globulin Ratio 1.6, CBC w Diff NO MAN DIFF REQ, RBC 5.61, MCV 87.9, MCH 29.0, RDW 15.0 H, MPV 7.1 L, Gran % 94.4 H, Lymphocytes % 4.5 L, Monocytes % 1.1 L, Eosinophils % 0, Basophils % 0 L, Absolute Granulocytes 9.9 H, Absolute Lymphocytes 0.5 L, Absolute Monocytes 0.1 L, Absolute Eosinophils 0, Absolute Basophils 0, PUBS MCHC 33.0 Microbiology 10/02 0251 NASOPHARYN: Influenza Virus A & B Rapid Smear - COMP Vital Signs Date Time Temp Pulse Resp B/P B/P Pulse O2 O2 Flow FiO2 Mean Ox Delivery Rate 10/02 0853 Nasal 3.0L Cannula 10/02 0800 98.3 70 20 126/60 95 Nasal 3.0L Cannula 10/02 0800 94 Nasal 3.0L Cannula 10/02 0521 93 Nasal 3.0L Cannula 10/02 0348 85 128/76 10/02 0348 94 Nasal 3.0L Cannula 10/02 0200 93 Nasal 3.0L Cannula 10/02 0103 98.8 82 22 134/68 92 Nasal 2.0L Cannula 10/02 0014 95 Nasal 2.0L Cannula 10/01 2356 98.0 78 20 1385/74 98 Nasal 2.0L Cannula 10/01 2347 95 Nasal 2.0L Cannula 10/01 2255 98.6 105 20 206/107 87 Patient seen and examined at bedside. Discussed with patient the care plan. Next On physical exam he continues to have mild bilateral wheezing at present. Acute hypoxic arrest during failure secondary to acute COPD exacerbation- continue on IV steroids and as a throat Meissen for now. Nicotine dependence-patient counseled against smoking and was told that it is really important to quit smoking. Patient continues to smoke half a pack a day. We'll give him nicotine patch at the time of discharge.
[2016-10-02 14:48] LABS: ABSOLUTE BASOPHIL COUNT 0 /CUMM (0.0-0.2); ABSOLUTE EOSINOPHIL COUNT 0 /CUMM (0.0-0.7); ABSOLUTE LYMPH COUNT 0.8 /CUMM (1.2-3.4); ABSOLUTE MONOCYTE COUNT 0.6 /CUMM (0.10-0.60); BASOPHIL % 0.1 % (0.0-2.0); EOSINOPHIL % 0 % (0-5); GRANULOCYTE % 84.5 % (42.2-75.2); HEMATOCRIT 46.1 % (42-52); MEAN CORPUSCULAR HGB CONC 32.8 G/DL (33.0-37.0); MEAN CORPUSCULAR VOLUME 88.3 FL (80.0-94.0); MEAN PLATELET VOLUME 6.8 FL (7.4-10.4); PLATELET COUNT 266 /CUMM (130-400); RBC DISTRIBUTION WIDTH 15.5 % (11.5-14.5); RED BLOOD CELL CT 5.23 /CUMM (4.70-6.10)
[2016-10-02 15:16] LABS: WHITE BLOOD CELL COUNT 9.5 /CUMM (4.8-10.8)
[2016-10-02 17:09] VITALS: BP 112/62
[2016-10-02 22:30] VITALS: BP 120/78
[2016-10-03 07:51] LABS: ABSOLUTE BASOPHIL COUNT 0 /CUMM (0.0-0.2); ABSOLUTE EOSINOPHIL COUNT 0.1 /CUMM (0.0-0.7); ABSOLUTE GRANULOCYTE CT 9.8 /CUMM (1.4-6.5); ABSOLUTE LYMPH COUNT 0.8 /CUMM (1.2-3.4); ABSOLUTE MONOCYTE COUNT 0.8 /CUMM (0.10-0.60); BASOPHIL % 0 % (0.0-2.0); EOSINOPHIL % 0.9 % (0-5); HEMATOCRIT 43.7 % (42-52); MEAN CORPUSCULAR HGB CONC 32.6 G/DL (33.0-37.0); MEAN PLATELET VOLUME 7.2 FL (7.4-10.4); RBC DISTRIBUTION WIDTH 15.5 % (11.5-14.5); RED BLOOD CELL CT 4.91 /CUMM (4.70-6.10); WHITE BLOOD CELL COUNT 11.4 /CUMM (4.8-10.8)
[2016-10-03 07:52] VITALS: BP 100/42
--- NOTE | 2016-10-03 08:18 | PN- Pulmonary ---
Subjective HPI/Critical Care Issues: Patient feels improved and was able to sleep last night shortness of breath is better Objective Current Medications: Current Medications Sig/Adrián Start time Last Medication Dose Route Stop Time Status Admin Acetaminophen 650 MG Q6P PRN 10/02 0130 AC 10/02 PO 0403 Acetaminophen 1,000 MG Q6P PRN 10/02 0130 AC IV Albuterol Sulfate 3 ML EVERY 4 HRS/AWAKE 10/02 1200 AC 10/03 INH 0109 Albuterol Sulfate 2 PUF Q4P PRN 10/02 0200 AC INH Aspirin 325 MG DAILY 10/02 1000 AC 10/02 PO 0942 Atenolol 25 MG QPM 10/02 2200 AC 10/02 PO 2110 Atorvastatin Calcium 5 MG 1700 10/02 1700 AC 10/02 PO 1709 Azithromycin 500 MG 2200 10/02 2200 AC 10/02 Sodium Chloride 250 ML IV 2110 Citalopram 40 MG DAILY 10/02 1000 AC 10/02 Hydrobromide PO 0943 Fish Oil 1,050 MG BID 10/02 1000 AC 10/02 PO 0942 Guaifenesin 10 ML Q4P PRN 10/02 0130 AC PO Heparin Sodium 5,000 UNIT Q8 10/02 0600 AC 10/02 (Porcine) SC 0525 Ipratropium [place] 2.5 ML EVERY 4 HRS/AWAKE 10/02 1200 AC 10/03 INH 0109 Melatonin 3 MG AT BEDTIME 10/02 0245 AC 10/02 PO 2109 Methylprednisolone 40 MG Q8 10/02 0600 AC 10/03 IV 0549 Nicotine 21 MG DAILY 10/02 1000 AC 10/02 TOP 0944 Ondansetron HCl 4 MG ONCE ONE 10/02 2345 DC 10/02 IV 10/02 2346 0007 Ondansetron HCl 4 MG Q6P PRN 10/02 0200 AC IV Pantoprazole Sodium 40 MG DAILY 10/02 0145 AC 10/02 IV 0944 Patient Medication 1 ED .STK-MED ONE 10/02 1344 DC Teaching ED 10/02 1345 Tiotropium [place] 1 PUF DAILY 10/02 1000 AC 10/02 INH 0943 Vital Signs & I&O Last 24 Hrs of Vitals and I&O: Vital Signs Date Time Temp Pulse Resp B/P B/P Pulse O2 O2 Flow FiO2 Mean Ox Delivery Rate 10/03 08 94 Nasal 3.0L Cannula 10/03 0752 97.5 20 100/42 10/03 0127 96 Nasal 3.0L Cannula 10/03 0000 Nasal 3.0L Cannula 10/02 2230 98.0 72 22 120/78 93 Nasal 3.0L Cannula 10/02 2110 72 120/78 10/02 1915 Nasal 3.0L Cannula 10/02 1709 98.0 111 18 112/62 95 Nasal 3.0L Cannula 10/02 0853 Nasal 3.0L Cannula Intake & Output 10/03 1600 10/03 0800 10/03 0000 Intake Total 50 1461 Output Total 250 1050 Balance -200 411 Intake, IV 281 Intake, Oral 50 1180 Number 0 0 Bowel Movements Output, Urine 250 1050 She saturation 3 L 94-96% exam of his chest shows faint bilateral expiratory wheezing cardiac exam shows regular S1 and S2 without murmurs Impression/Plan Impression/Plan Impression/Plan: 61-year-old gent with severe bullous emphysema actively smoking admitted with exacerbation of COPD and hypoxic history failure. Chronic findings right upper lobe appears stable. Decreasing size and duration of stability makes lung cancer extremely unlikely but continued monitoring is necessary with serial CAT scans. Continue IV steroids azithromycin and Taper oxygen as sats allow. He was counseled regarding the need for smoking cessation. Continue current medication regimen with expectation to switch to by mouth prednisone tomorrow.
--- NOTE | 2016-10-03 09:07 | PN- Housestaff ---
Subjective Follow-up For: COPD exacerbation Subjective: Patient seen and examined this morning he was lying comfortably in bed in no acute distress. He remains on 3 L of nasal cannula oxygen setting in mid 90s. He feels much better as compared to yesterday, denies any shortness of breath, wheezing has improved, remains afebrile, the right is within normal limits no other complaints. Review of Systems Constitutional: Denies: chills, fever. Cardiovascular: Denies: chest pain, palpitations. Respiratory: Reports: cough, sputum production. Denies: short of breath. Gastrointestinal: Denies: abdominal pain, constipation, diarrhea, nausea, vomiting. Objective Last 24 Hrs of Vital Signs/I&O Vital Signs Date Time Temp Pulse Resp B/P B/P Pulse O2 O2 Flow FiO2 Mean Ox Delivery Rate 10/03 0829 98 Nasal 3.0L Cannula 10/03 0800 94 Nasal 3.0L Cannula 10/03 0752 97.5 62 20 100/42 97 Nasal Cannula 10/03 0127 96 Nasal 3.0L Cannula 10/03 0000 Nasal 3.0L Cannula 10/02 2230 98.0 72 22 120/78 93 Nasal 3.0L Cannula 10/02 2110 72 120/78 10/02 1915 Nasal 3.0L Cannula 10/02 1709 98.0 111 18 112/62 95 Nasal 3.0L Cannula Intake & Output 10/03 1600 10/03 0800 10/03 0000 Intake Total 50 1461 Output Total 250 1050 Balance -200 411 Intake, IV 281 Intake, Oral 50 1180 Number 0 0 Bowel Movements Output, Urine 250 1050 Physical Exam General Appearance: Alert, Oriented X3, Cooperative, No Acute Distress Cardiovascular: Regular Rate, Normal S1, Normal S2, No Murmurs Lungs: b/l mild exp wheeze Abdomen: Normal Bowel Sounds, Soft, No Tenderness Extremities: No Clubbing, No Cyanosis, No Edema Assessment/Plan Assessment: 61-year-old male with PMH of COPD not on home O2, [place] sp stent in 1988, came in for shortness of breath and cough. Patient admitted to for acute hypoxic respiratory failure most likely secondary to COPD exacerbation. Problem list: # Acute hypoxic respiratory failure most likely secondary to COPD exacerbation # History of [place] # Nicotine dependence # Acute hypoxic respiratory failure most likely secondary to COPD exacerbation We'll continue azithromycin, Solu-Medrol to be discontinued, patient to be started on steroid taper, will continue with [facility] nebs, patient will be likely discharged on home oxygen, pulmonology onboard will follow recommendations. # History of [place], HLD * Continue atorvastatin 5 mg daily, aspirin 325 mg daily, atenolol 25 mg qpm # Nicotine dependence Nicotine patch 21 mg daily # Continue home meds citalopram 40 mg daily fish oil melatonin 3 mg Problem List: 1. Shortness of breath 2. COPD (chronic obstructive pulmonary disease) 3. COPD exacerbation Pain Ratin Pain Location: None Pain Goal: Remain pain free Pain Plan: Mild pain pathway Tomorrow's Labs & Rationales: CBC for WbC monitoring.
[2016-10-03 09:08] LABS: PLATELET COUNT 237 /CUMM (130-400)
[2016-10-03 09:10] LABS: GRANULOCYTE % 85.4 % (42.2-75.2)
--- NOTE | 2016-10-03 13:26 | PN- Att Addend ---
Attending MD Review Statement Attending Statement Attending MD Statement: examined this patient, discuss w/resident/PA/BUTTON BROACHER, agreed w/resident/PA/BUTTON BROACHER, reviewed EMR data (avail), discussed w/nursing, discussed w/ case mgmt Attending Assessment/Plan: Laboratory Tests 10/03/16 0632: Anion Gap 7, Estimated GFR > 60, BUN/Creatinine Ratio 37.5 H, CBC w Diff NO MAN DIFF REQ, RBC 4.91, MCV 89.0, MCH 29.0, RDW 15.5 H, MPV 7.2 L, Gran % 85.4 H, Lymphocytes % 7.0 L, Monocytes % 6.7, Eosinophils % 0.9, Basophils % 0 L, Absolute Granulocytes 9.8 H, Absolute Lymphocytes 0.8 L, Absolute Monocytes 0.8 H, Absolute Eosinophils 0.1, Absolute Basophils 0, PUBS MCHC 32.6 L 10/02/16 1430: Anion Gap 10, Estimated GFR > 60, BUN/Creatinine Ratio 27.8 H, CBC w Diff NO MAN DIFF REQ, RBC 5.23, MCV 88.3, MCH 29.0, RDW 15.5 H, MPV 6.8 L, Gran % 84.5 H, Lymphocytes % 8.7 L, Monocytes % 6.7, Eosinophils % 0, Basophils % 0.1, Absolute Granulocytes 8.0 H, Absolute Lymphocytes 0.8 L, Absolute Monocytes 0.6, Absolute Eosinophils 0, Absolute Basophils 0, PUBS MCHC 32.8 L Vital Signs Date Time Temp Pulse Resp B/P B/P Pulse O2 O2 Flow FiO2 Mean Ox Delivery Rate 10/03 0829 98 Nasal 3.0L Cannula 10/03 0800 94 Nasal 3.0L Cannula 10/03 0752 97.5 62 20 100/42 97 Nasal Cannula 10/03 0127 96 Nasal 3.0L Cannula 10/03 0000 Nasal 3.0L Cannula 10/02 2230 98.0 72 22 120/78 93 Nasal 3.0L Cannula 10/02 2110 72 120/78 10/02 1915 Nasal 3.0L Cannula 10/02 1709 98.0 111 18 112/62 95 Nasal 3.0L Cannula Patient seen and examined at bedside. Discussed with patient the care plan. Acute copd exacerbation with acute hypoxic respiratory failure. Patient's wheezing is better today and he also feels his shortness of breath is much better compared to admission. We will taper thus liters down to 40 mg IV every 12 hours for now. Possible dc in 1-2 days.
[2016-10-03 16:00] VITALS: BP 128/70
[2016-10-03 22:00] VITALS: BP 130/80
--- NOTE | 2016-10-04 07:09 | PN- Housestaff ---
Subjective Follow-up For: COPD exacerbation Subjective: Patient seen and examined this morning. He was lying comfortably in bed in no acute distress. Vitals stable, patient will reports improvement in his symptoms , denies any shortness of breath, does report productive cough improving, chest exam revealed minimal expiratory wheeze bilaterally. No other complaints. Review of Systems Constitutional: Denies: chills, fever. Respiratory: Reports: cough, sputum production. Denies: short of breath. Gastrointestinal: Denies: abdominal pain, constipation, diarrhea, nausea, vomiting. Objective Last 24 Hrs of Vital Signs/I&O Vital Signs Date Time Temp Pulse Resp B/P B/P Pulse O2 O2 Flow FiO2 Mean Ox Delivery Rate 10/04 0935 93 Nasal 2.0L Cannula 10/04 0842 97.5 64 20 102/58 97 Nasal 2.0L Cannula 10/04 0152 96 Nasal 2.0L Cannula 10/04 0000 Nasal 2.0L Cannula 10/03 2200 98.2 77 20 130/80 94 Nasal 2.0L Cannula 10/03 2129 77 30/80 10/03 1600 92 Nasal 2.0L Cannula 10/03 1600 98.3 70 20 128/70 92 Nasal 2.0L Cannula 10/03 1557 94 Nasal 2.0L Cannula Intake & Output 10/04 1600 08 0800 06/ 0000 Intake Total 800 200 Output Total 400 500 Balance 400 -300 Intake, IV 800 Intake, Oral 200 Output, Urine 400 500 Physical Exam General Appearance: Alert, Oriented X3, Cooperative, No Acute Distress Cardiovascular: Regular Rate, Normal S1, Normal S2, No Murmurs Lungs: Clear to Auscultation, Normal Air Movement, minimal bilateral basal wheezing Abdomen: Normal Bowel Sounds, Soft, No Tenderness Extremities: No Clubbing, No Cyanosis, No Edema Current Medications: Current Medications Sig/Adrián Start time Last Medication Dose Route Stop Time Status Admin Acetaminophen 650 MG Q6P PRN 10/02 0130 AC 10/04 PO 0959 Acetaminophen 1,000 MG Q6P PRN 10/02 0130 AC IV Albuterol Sulfate 3 ML EVERY 4 HRS/AWAKE 10/02 1200 AC 10/04 INH 0933 Albuterol Sulfate 2 PUF Q4P PRN 10/02 0200 AC INH Aspirin 325 MG DAILY 10/02 1000 AC 10/04 PO 0959 Atenolol 25 MG QPM 10/02 2200 AC 10/03 PO 2129 Atorvastatin Calcium 5 MG 1700 10/02 1700 AC 10/03 PO 1843 Azithromycin 500 MG 2200 10/02 2200 AC 10/03 Sodium Chloride 250 ML IV 2102 Citalopram 40 MG DAILY 10/02 1000 AC 10/04 Hydrobromide PO 1000 Fish Oil 1,050 MG BID 10/02 1000 AC 10/04 PO 1001 Guaifenesin 10 ML Q4P PRN 10/02 0130 AC PO Heparin Sodium 5,000 UNIT Q8 10/02 0600 AC 10/02 (Porcine) SC 0525 Ipratropium [place] 2.5 ML EVERY 4 HRS/AWAKE 10/02 1200 AC 10/04 INH 0933 Melatonin 3 MG AT BEDTIME 10/02 0245 AC 10/03 PO 2102 Methylprednisolone 40 MG Q12 10/03 2200 DC 10/03 IV 2102 Nicotine 21 MG DAILY 10/02 1000 AC 10/04 TOP 1001 Ondansetron HCl 4 MG Q6P PRN 10/02 0200 AC IV Pantoprazole Sodium 40 MG DAILY 10/02 0145 AC 10/04 IV 1005 Prednisone 40 MG DAILY 10/04 1000 AC PO Tiotropium [place] 1 PUF DAILY 10/02 1000 AC 10/04 INH 1001 Last 24 Hrs of Lab/Poncho Results Last 24 Hrs of Labs/Mics: Laboratory Tests 10/04/16 0615: CBC w Diff NO MAN DIFF REQ, RBC 5.05, MCV 88.9, MCH 29.0, RDW 15.5 H, MPV 7.2 L, Gran % 86.9 H, Lymphocytes % 7.2 L, Monocytes % 5.9, Eosinophils % 0, Basophils % 0 L, Absolute Granulocytes 11.4 H, Absolute Lymphocytes 0.9 L, Absolute Monocytes 0.8 H, Absolute Eosinophils 0, Absolute Basophils 0, PUBS MCHC 32.6 L Assessment/Plan Assessment: 61-year-old male with PMH of COPD not on home O2, [place] sp stent in 1988, came in for shortness of breath and cough. Patient admitted to for acute hypoxic respiratory failure most likely secondary to COPD exacerbation. Problem list: # Acute hypoxic respiratory failure most likely secondary to COPD exacerbation # History of [place] # Nicotine dependence # Acute hypoxic respiratory failure most likely secondary to COPD exacerbation We'll continue azithromycin, Solu-Medrol discontinued, patient started on steroid taper, 40 mg 2 days, 30 mg 2 days, 20 g 2 days, 10 mg 2 days then stop. Will continue with [facility] nebs, patient will be likely discharged on home oxygen, pulmonology onboard will follow recommendations. # History of [place], HLD * Continue atorvastatin 5 mg daily, aspirin 325 mg daily, atenolol 25 mg qpm # Nicotine dependence Nicotine patch 21 mg daily # Continue home meds citalopram 40 mg daily fish oil melatonin 3 mg Problem List: 1. COPD exacerbation Pain Ratin Pain Location: None Pain Goal: Remain pain free Pain Plan: Mild pathway Tomorrow's Labs & Rationales: CBC for WBC monitoring
[2016-10-04 08:08] LABS: ABSOLUTE BASOPHIL COUNT 0 /CUMM (0.0-0.2); ABSOLUTE EOSINOPHIL COUNT 0 /CUMM (0.0-0.7); ABSOLUTE GRANULOCYTE CT 11.4 /CUMM (1.4-6.5); ABSOLUTE LYMPH COUNT 0.9 /CUMM (1.2-3.4); ABSOLUTE MONOCYTE COUNT 0.8 /CUMM (0.10-0.60); BASOPHIL % 0 % (0.0-2.0); EOSINOPHIL % 0 % (0-5); GRANULOCYTE % 86.9 % (42.2-75.2); HEMATOCRIT 44.9 % (42-52); MEAN CORPUSCULAR HGB CONC 32.6 G/DL (33.0-37.0); MEAN CORPUSCULAR VOLUME 88.9 FL (80.0-94.0); MEAN PLATELET VOLUME 7.2 FL (7.4-10.4); PLATELET COUNT 259 /CUMM (130-400); RBC DISTRIBUTION WIDTH 15.5 % (11.5-14.5); RED BLOOD CELL CT 5.05 /CUMM (4.70-6.10); WHITE BLOOD CELL COUNT 13.1 /CUMM (4.8-10.8)
[2016-10-04 08:42] VITALS: BP 102/58
--- NOTE | 2016-10-04 08:50 | PN- Pulmonary ---
Subjective HPI/Critical Care Issues: Patient was short of breath overnight Objective Current Medications: Current Medications Sig/Adrián Start time Last Medication Dose Route Stop Time Status Admin Acetaminophen 650 MG .STK-MED ONE 10/03 09 DC PO 10/03 0941 Acetaminophen 650 MG Q6P PRN 10/02 0130 AC 10/03 PO 0941 Acetaminophen 1,000 MG Q6P PRN 10/02 0130 AC IV Albuterol Sulfate 3 ML EVERY 4 HRS/AWAKE 10/02 1200 AC 10/04 INH 0618 Albuterol Sulfate 2 PUF Q4P PRN 10/02 0200 AC INH Aspirin 325 MG DAILY 10/02 1000 AC 10/03 PO 0924 Atenolol 25 MG QPM 10/02 2200 AC 10/03 PO 2129 Atorvastatin Calcium 5 MG 1700 10/02 1700 AC 10/03 PO 1843 Azithromycin 500 MG 2200 10/02 2200 AC 10/03 Sodium Chloride 250 ML IV 2102 Citalopram 40 MG DAILY 10/02 1000 AC 10/03 Hydrobromide PO 0924 Fish Oil 1,050 MG BID 10/02 1000 AC 10/03 PO 2102 Guaifenesin 10 ML Q4P PRN 10/02 0130 AC PO Heparin Sodium 5,000 UNIT Q8 10/02 0600 AC 10/02 (Porcine) SC 0525 Ipratropium [place] 2.5 ML EVERY 4 HRS/AWAKE 10/02 1200 AC 10/04 INH 0618 Melatonin 3 MG AT BEDTIME 10/02 0245 AC 10/03 PO 2102 Methylprednisolone 40 MG Q12 10/03 2200 AC 10/03 IV 2102 Methylprednisolone 40 MG Q8 10/02 0600 DC 10/03 IV 0549 Nicotine 21 MG DAILY 10/02 1000 AC 10/03 TOP 0925 Ondansetron HCl 4 MG Q6P PRN 10/02 0200 AC IV Pantoprazole Sodium 40 MG DAILY 10/02 0145 AC 10/03 IV 0924 Tiotropium [place] 1 PUF DAILY 10/02 1000 AC 10/03 INH 0925 Vital Signs & I&O Last 24 Hrs of Vitals and I&O: Vital Signs Date Time Temp Pulse Resp B/P B/P Pulse O2 O2 Flow FiO2 Mean Ox Delivery Rate 10/05 0742 97.5 64 20 102/58 97 Nasal 2.0L Cannula 10/04 0152 96 Nasal 2.0L Cannula 10/04 0000 Nasal 2.0L Cannula 10/03 2200 98.2 77 20 130/80 94 Nasal 2.0L Cannula 10/03 2129 77 30/80 / 1600 92 Nasal 2.0L Cannula 10/03 1600 98.3 70 20 128/70 92 Nasal 2.0L Cannula 10/03 1557 94 Nasal 2.0L Cannula Intake & Output 10/04 1600 10/04 0800 06 0000 Intake Total 800 200 Output Total 400 500 Balance 400 -300 Intake, IV 800 Intake, Oral 200 Output, Urine 400 500 Oxygen saturation improved 2 L 97% exam of his chest shows diminished breath sounds are no wheezes heard cardiac exam shows regular S1 and S2 without murmurs Impression/Plan Impression/Plan Impression/Plan: 61-year-old gent with severe bullous emphysema actively smoking admitted with exacerbation of COPD and hypoxic history failure. Chronic findings right upper lobe appears stable. Decreasing size and duration of stability makes lung cancer extremely unlikely but continued monitoring is necessary with serial CAT scans. Begin oral prednisone and taper FiO2. Patient was again counseled regarding the need for smoking cessation. He can be followed up as an outpatient in the office and COPD clinic
--- NOTE | 2016-10-04 13:22 | Discharge Summary ---
Hospital Course Allergies: Coded Allergies: budesonide (From SYMBICORT) (Severe, TOUNGE FELT LIKE A CACTUS 02/16/16) formoterol (From SYMBICORT) (Severe, TOUNGE FELT LIKE A CACTUS 02/16/16) codeine (SHAKEY 02/16/16) morphine (BRADYCARDIC 02/16/16) Discharge Instructions Medications at Discharge Discharge Medications: Continue taking these medications: Citalopram Hydrobromide (Citalopram HBr) 40 MG TABLET 1 Tablet ORAL Every night Aspirin (Aspirin*) 325 MG TABLET 1 Tablet ORAL DAILY [place]-3S/Dha/Epa/Fish Oil ([place]-3 Fish Oil 1,000 MG Sfgl) 300-1,000MG CAPSULE 1 Capsule ORAL Every night Albuterol Sulfate (Proventil Hfa) 6.7 GM HFA.AER.AD 2 PUFF ORAL 4 TIMES A DAY as needed for WHEEZE Days = 30 Lovastatin (Lovastatin) 20 MG TABLET Tablet ORAL Every night Qty = 180 Atenolol (Atenolol) 25 MG TABLET 1 Tablet ORAL Every night Tiotropium [place] (Spiriva) 18 MCG CAP.W.DEV 1 Capsule Inhale through mouth DAILY Ipratropium/Albuterol Sulfate (Iprat-Albut 0.5-3(2.5) MG/3 Ml) 0.5 MG-3 MG (2.5 MG BASE)/3 ML AMPUL.NEB 1 VIAL Inhale through mouth EVERY SIX HOURS as needed for COPD Qty = 30 Start taking the following new medications: Prednisone (Prednisone) 10 MG TABLET 2 Tablet ORAL DAILY Qty = 4 No Refills Instructions: take 2 tab x 2 days then 1 tab for 2 days then stop then stop
--- NOTE | 2016-10-04 13:40 | PN- Att Addend ---
Attending MD Review Statement Attending Statement Attending MD Statement: examined this patient, discuss w/resident/PA/COMMUNICATIONS OPERATOR, agreed w/resident/PA/COMMUNICATIONS OPERATOR, reviewed EMR data (avail), discussed w/nursing, discussed w/ case mgmt Attending Assessment/Plan: Laboratory Tests 10/04/16 0615: CBC w Diff NO MAN DIFF REQ, RBC 5.05, MCV 88.9, MCH 29.0, RDW 15.5 H, MPV 7.2 L, Gran % 86.9 H, Lymphocytes % 7.2 L, Monocytes % 5.9, Eosinophils % 0, Basophils % 0 L, Absolute Granulocytes 11.4 H, Absolute Lymphocytes 0.9 L, Absolute Monocytes 0.8 H, Absolute Eosinophils 0, Absolute Basophils 0, PUBS MCHC 32.6 L Vital Signs Date Time Temp Pulse Resp B/P B/P Pulse O2 O2 Flow FiO2 Mean Ox Delivery Rate 10/04 0935 93 Nasal 2.0L Cannula 10/04 0842 97.5 64 20 102/58 97 Nasal 2.0L Cannula 10/04 0800 Nasal 2.0L Cannula 10/04 0152 96 Nasal 2.0L Cannula 10/04 0000 Nasal 2.0L Cannula 10/03 2200 98.2 77 20 130/80 94 Nasal 2.0L Cannula 10/03 2129 77 30/80 06/07 1600 92 Nasal 2.0L Cannula 10/03 1600 98.3 70 20 128/70 92 Nasal 2.0L Cannula 10/03 1557 94 Nasal 2.0L Cannula Patient seen and examined at bedside. Discussed with patient the care plan. Acute copd exacerbation with acute hypoxic respiratory failure. Patient's wheezing is better today and he also feels his shortness of breath is much better compared to admission. Changed steroids to po 40mg today. Possible dc tomorrow.
--- NOTE | 2016-10-04 13:42 | Patient Discharge Instructions ---
Discharge Instructions General Discharge Information You were seen/treated for: # Acute hypoxic respiratory failure most likely secondary to COPD exacerbation # Nausea, abdominal discomfort # History of [place] # Nicotine dependence Special Instructions: Please schedule a follow-up appointment with your primary care physician, feature writer in 1 week. Please finish the prednisone taper as prescribed. Lung-RADS CATEGORY Continue annual screening with chest CT in 12 months for evaluation of lung nodule. Acute Coronary Syndrome Inclusion Criteria At DC or during hospital stay patient has or had the following: ACS DIAGNOSIS No Discharge Core Measures Meds if any: Prescribed or Continued at Discharge Meds if any: NOT Prescribed or Continued at Discharge Congestive Heart Failure Inclusion Criteria At DC or during hospital stay patient has or had the following: CHF DIAGNOSIS No Discharge Core Measures Meds if any: Prescribed or Continued at Discharge Meds if any: NOT Prescribed or Continued at Discharge Cerebrovascular accident Inclusion Criteria At DC or during hospital stay patient has or had the following: CVA/TIA Diagnosis No Discharge Core Measures Meds if any: Prescribed or Continued at Discharge Meds if any: NOT Prescribed or Continued at Discharge Venous thromboembolism Inclusion Criteria VTE Diagnosis No VTE Type NONE VTE Confirmed by (Test) NONE Discharge Core Measures - Per Current guidelines, there needs to be overlap - treatment for the first 5 days of Warfarin therapy. - If discharged on Warfarin prior to 5 days of - overlap therapy, the patient will need to be - assessed for post discharge needs including - *Post discharge parental anticoagulation - *Warfarin and/or parental anticoagulation education - *Follow up date to check INR post discharge At least 5 days overlap therapy as Inpatient No Meds if any: Prescribed or Continued at Discharge Note: Overlap Therapy is Warfarin and Anticoagulant Meds if any: NOT Prescribed or Continued at Discharge
[2016-10-04] MEDS ORDERED: PREDNISONE10 M2 PO (15:57)
[2016-10-04 17:04] VITALS: BP 128/74
--- NOTE | 2016-10-04 19:27 | NUR ---
19:00 PM PT C/O FEELING CLAMMY, SOB. UPON ASSESSMENT PT IS TEARFUL. O2 SAT 94% ON RA. MISHA LI MADE AWARE. MEDICATED FOR ANXIETY. ONE TIME DOSE OF STEROIDS FOR DIMINISHED LUNGS. EMOTIONAL SUPPORT GIVEN. PT DENIES CP. WILL CONTINUE TO MONITOR.
[2016-10-04 21:00] VITALS: BP 122/78
--- NOTE | 2016-10-04 21:57 | NUR ---
PT ARRIVED TO FLOOR ACCOMPANIED BY DISTRIBUTION & DAUGHTER FROM ICU PT A&OX3, FORGETFUL. IV #20 RAC 6/5 & #20 RH 6/5 HL. FLUID RESITRICTION 1200ML. SIGN PLACED ABOVE BED. ANANT, COMMODE PROVIDED, PT OOB X1- DAUGHTER STAYING AT BEDSIDE. CALL LIGHT EXPLAINED AND WITHIN REACH, COT PROVIDED TO DAUGHTER. MST TO OBTAIN VITALS. LUNGS CLEAR- RA. + BOWEL SOUNDS, NO EDEMA NOTED, SKIN INTACT. PT & FAMILY ORIENTATED TO ROOM 204-2. NURSE TO NURSE REPORT GIVEN.
--- NOTE | 2016-10-04 22:20 | NUR ---
TRANSFER NOTE: PT ARRIVED TO FLOOR ACCOMPANIED BY DISTRIBUTION. PT A&OX3, 2L NC, LUNGS DIMINISHED THROUGHOUT, NO COUGH NOTED AT THIS TIME, HOME O2 TANK IN ROOM, PT HAS CELL PHONE AND GLASSED, +BOWEL SOUNDS SKINS INTACT NO EDEMA NOTED IV #20 LAC 6/5 HL. OOB IND, URINAL AT BEDSIDE, PROVIDED REFRESHMENTS AT THIS TIME, REVIEWED CALL LIGHT AND PLACED WITHIN REACH. REFUSE ALPS. NURSE TO NURSE REPORT GIVEN.
[2016-10-04 22:40] VITALS: BP 110/70
[2016-10-05 06:26] VITALS: BP 130/80
--- NOTE | 2016-10-05 07:58 | PN- Pulmonary ---
Subjective HPI/Critical Care Issues: Patient continues to have shortness of breath and reports increased shortness of breath overnight Objective Current Medications: Current Medications Sig/Adrián Start time Last Medication Dose Route Stop Time Status Admin Acetaminophen 650 MG .STK-MED ONE 10/05 2051 DC PO 10/04 2052 Acetaminophen 650 MG Q6P PRN 10/02 0130 AC 10/05 PO 0553 Acetaminophen 1,000 MG Q6P PRN 10/02 0130 AC IV Albuterol Sulfate 3 ML EVERY 4 HRS/AWAKE 10/02 1200 AC 10/05 INH 0607 Albuterol Sulfate 2 PUF Q4P PRN 10/02 0200 AC INH Alprazolam 0.5 MG ONCE ONE 10/04 1900 DC 10/04 PO 10/04 1901 1902 Aspirin 325 MG DAILY 10/02 1000 AC 10/04 PO 0959 Atenolol 25 MG QPM 10/02 2200 AC 10/04 PO 2045 Atorvastatin Calcium 5 MG 1700 10/02 1700 AC 10/04 PO 1638 Azithromycin 500 MG 2200 10/02 2200 AC 10/04 Sodium Chloride 250 ML IV 2045 Citalopram 40 MG DAILY 10/02 1000 AC 10/04 Hydrobromide PO 1000 Docusate Sodium 100 MG BID PRN 10/04 1800 AC PO Fish Oil 1,050 MG BID 10/02 1000 AC 10/04 PO 1001 Guaifenesin 600 MG Q12 10/04 2200 AC 10/04 PO 2045 Guaifenesin 10 ML Q4P PRN 10/02 0130 AC PO Heparin Sodium 5,000 UNIT Q8 10/02 0600 AC 10/02 (Porcine) SC 0525 Ipratropium [place] 2.5 ML EVERY 4 HRS/AWAKE 10/02 1200 AC 10/05 INH 0607 Melatonin 3 MG AT BEDTIME 10/02 0245 AC 10/04 PO 2045 Methylprednisolone 40 MG Q12 10/03 2200 DC 10/03 IV 2102 Nicotine 21 MG DAILY 10/02 1000 AC 10/04 TOP 1001 Ondansetron HCl 4 MG Q6P PRN 10/02 0200 AC IV Pantoprazole Sodium 40 MG DAILY 10/02 0145 AC 10/04 IV 1005 Patient Medication 1 ED .STK-MED ONE 10/04 1316 DC Teaching ED 10/04 1317 Prednisone 40 MG ONCE ONE 10/04 1830 DC 10/04 PO 10/04 1831 1901 Prednisone 40 MG DAILY 10/04 1000 AC 10/04 PO 1317 Tiotropium [place] 1 PUF DAILY 10/02 1000 AC 10/04 INH 1001 Vital Signs & I&O Last 24 Hrs of Vitals and I&O: Vital Signs Date Time Temp Pulse Resp B/P B/P Pulse O2 O2 Flow FiO2 Mean Ox Delivery Rate 10/05 06 97.6 58 20 130/80 98 Nasal 2.0L Cannula 10/05 0625 95 Nasal 2.0L Cannula 10/05 0000 Nasal 2.0L Cannula 10/04 2240 97.8 64 19 110/70 96 Nasal 2.0L Cannula 10/04 2100 74 122/78 97 Nasal Cannula 10/04 2045 74 122/78 10/04 1805 94 Nasal 2.0L Cannula 10/04 1704 97.8 68 22 128/74 93 Nasal 2.0L Cannula 10/04 0935 93 Nasal 2.0L Cannula 10/04 0842 97.5 64 20 102/58 97 Nasal 2.0L Cannula 10/04 0800 Nasal 2.0L Cannula Intake & Output 10/05 0800 10/05 0000 10/04 1600 Intake Total 480 730 500 Output Total 300 350 Balance 480 430 150 Intake, IV 250 Intake, Oral 480 480 500 Output, Urine 300 350 Action saturation 2 L 98% exam of his chest shows diminished breath sounds are no wheezes cardiac exam shows a regular S1 and S2 without murmurs Impression/Plan Impression/Plan Impression/Plan: 61-year-old gent with severe bullous emphysema actively smoking admitted with exacerbation of COPD and hypoxic history failure. Chronic findings right upper lobe appears stable. Decreasing size and duration of stability makes lung cancer extremely unlikely but continued monitoring is necessary with serial CAT scans. Begin oral prednisone and taper FiO2. Patient was again counseled regarding the need for smoking cessation. Patient continues to have shortness of breath with activities daily living I did discuss pulmonary rehabilitation with him which he refuses. Oxygen saturations are improved and FiO2 can be decreased. Patient can be followed in the office for pulmonary function testing
--- NOTE | 2016-10-05 08:05 | PN- Housestaff ---
CLAY WATTERS,TAMARA 10/05/16 0805: Subjective Follow-up For: COPD exacerbation Complaints: no complaints Subjective: Feels exhausted. Had a rough night last night due to developing acute shortness of breath and anxiety type attack and says he could not sleep well all through the night. Cough and shortness of breath overall improved. Review of Systems Constitutional: Reports: no symptoms. Objective Last 24 Hrs of Vital Signs/I&O Vital Signs Date Time Temp Pulse Resp B/P B/P Pulse O2 O2 Flow FiO2 Mean Ox Delivery Rate 10/05 08 96 Nasal 2.0L Cannula 10/05 06 97.6 58 20 130/80 98 Nasal 2.0L Cannula 10/05 0625 95 Nasal 2.0L Cannula 10/05 0000 Nasal 2.0L Cannula 10/04 2240 97.8 64 19 110/70 96 Nasal 2.0L Cannula 10/04 2100 74 122/78 97 Nasal Cannula 10/04 2045 74 122/78 10/04 1805 94 Nasal 2.0L Cannula 10/04 1704 97.8 68 22 128/74 93 Nasal 2.0L Cannula Intake & Output 10/05 1600 10/05 0800 10/05 0000 Intake Total 480 730 Output Total 300 Balance 480 430 Intake, IV 250 Intake, Oral 480 480 Output, Urine 300 Patient 180 lb Weight Physical Exam General Appearance: Alert, Oriented X3, Cooperative, No Acute Distress HEENT: PERRLA, EOMI, Mucous Membr. moist/pink Cardiovascular: Regular Rate, Normal S1, Normal S2 Lungs: Clear to Auscultation Abdomen: Normal Bowel Sounds, Soft, No Tenderness Extremities: No Edema, Normal Pulses Current Medications: Current Medications Sig/Adrián Start time Last Medication Dose Route Stop Time Status Admin Acetaminophen 650 MG .STK-MED ONE 10/05 0554 DC PO 10/05 05 Acetaminophen 650 MG .STK-MED ONE 10/05 2051 DC PO 10/04 2052 Acetaminophen 650 MG Q6P PRN 10/02 013 AC 10/05 PO 0553 Acetaminophen 1,000 MG Q6P PRN 10/02 0130 AC IV Albuterol Sulfate 3 ML EVERY 4 HRS/AWAKE 10/02 1200 AC 10/05 INH 1122 Albuterol Sulfate 2 PUF Q4P PRN 10/02 0200 AC INH Alprazolam 0.5 MG AT BEDTIME 10/05 2200 AC PO 10/12 215 Alprazolam 0.5 MG ONCE ONE 10/04 1900 DC 10/04 PO 10/04 190 190 Aspirin 325 MG DAILY 10/02 1000 AC 10/05 PO 0911 Atenolol 25 MG QPM 10/02 2200 AC 10/04 PO 2045 Atorvastatin Calcium 5 MG 1700 10/02 1700 AC 10/04 PO 1638 Azithromycin 500 MG 2200 10/02 2200 AC 10/04 Sodium Chloride 250 ML IV 204 Citalopram 40 MG DAILY 10/02 1000 AC 10/05 Hydrobromide PO 0911 Docusate Sodium 100 MG BID PRN 10/04 1800 AC 10/05 PO 0911 Fish Oil 1,050 MG BID 10/02 1000 AC 10/05 PO 0911 Guaifenesin 600 MG Q12 10/04 2200 AC 10/05 PO 0911 Guaifenesin 10 ML Q4P PRN 10/02 0130 AC PO Heparin Sodium 5,000 UNIT Q8 10/02 0600 AC 10/02 (Porcine) SC 0525 Ipratropium [place] 2.5 ML EVERY 4 HRS/AWAKE 10/02 1200 AC 10/05 INH 1122 Melatonin 3 MG AT BEDTIME 10/02 0245 AC 10/04 PO 2045 Nicotine 21 MG DAILY 10/02 1000 AC 10/05 TOP 0911 Ondansetron HCl 4 MG Q6P PRN 10/02 0200 AC IV Pantoprazole Sodium 40 MG DAILY 10/02 0145 AC 10/05 IV 0911 Prednisone 30 MG ONCE ONE 10/06 0900 AC PO 10/06 09 Prednisone 40 MG ONCE ONE 10/04 1830 DC 10/04 PO 10/04 183 1901 Prednisone 40 MG DAILY 10/04 1000 AC 10/05 PO 10/06 0000 0911 Tiotropium [place] 1 PUF DAILY 10/02 1000 AC 10/05 INH 0911 Last 24 Hrs of Lab/Poncho Results Last 24 Hrs of Labs/Mics: Laboratory Tests 10/05/16 0642: CBC w Diff NO MAN DIFF REQ, RBC 5.18, MCV 88.7, MCH 28.9, RDW 15.1 H, MPV 7.1 L, Gran % 79.7 H, Lymphocytes % 11.7 L, Monocytes % 8.4, Eosinophils % 0, Basophils % 0.2, Absolute Granulocytes 7.2 H, Absolute Lymphocytes 1.1 L, Absolute Monocytes 0.8 H, Absolute Eosinophils 0, Absolute Basophils 0, PUBS MCHC 32.6 L Lines/Diet/Fluids Lines: peripheral lines Assessment/Plan Assessment: 61-year-old male with PMH of COPD not on home O2, [place] sp stent in 1988, came in for shortness of breath and cough. Patient admitted to for acute hypoxic respiratory failure most likely secondary to COPD exacerbation. Problem list: # Acute hypoxic respiratory failure most likely secondary to COPD exacerbation # History of [place] # Nicotine dependence # Acute hypoxic respiratory failure most likely secondary to COPD exacerbation * We'll continue azithromycin, Solu-Medrol discontinued, patient started on steroid taper, 40 mg 2 days, 30 mg 2 days, 20 g 2 days, 10 mg 2 days then stop. Today is his 4th day on intravenous azithromycin, he will get his last dose tomorrow prior to discharge. Will continue with PSYCHIATRIC nebs, patient will be likely discharged on home oxygen, pulmonology onboard, will follow recommendations. Patient does not want to go to every pulmonary rehabilitation at is happy to attend COPD clinic on discharge. # History of [place], HLD * Continue atorvastatin 5 mg daily, aspirin 325 mg daily, atenolol 25 mg qpm # Nicotine dependence * Nicotine patch 21 mg daily * Smoking cessation counselling done-pt not yet ready to quit # Continue home meds * citalopram 40 mg daily * fish oil * melatonin 3 mg DVT ppx-Heparin Sq Heart healthy diet Problem List: 1. Acute respiratory failure with hypoxia 2. COPD exacerbation Pain Ratin Pain Location: n/a Pain Goal: n/a Pain Plan: N/A Tomorrow's Labs & Rationales: none-stable GAMALIEL DIAZ 10/05/16 1014: Attending MD Review Statement Attending Statement Attending MD Statement: examined this patient, discuss w/resident/PA/BASKET HAND BRAIDER, agreed w/resident/PA/BASKET HAND BRAIDER, discussed with family, reviewed EMR data (avail), discussed with nursing, discussed with case mgmt, reviewed images, amended to note Attending Assessment/Plan: Problem list: # Acute hypoxic respiratory failure most likely secondary to COPD exacerbation # History of [place] # Nicotine dependence Patient on po steorids, azithromycin, bd, pulm consulted, anticipate d/c soon.
[2016-10-05 08:20] LABS: ABSOLUTE BASOPHIL COUNT 0 /CUMM (0.0-0.2); ABSOLUTE EOSINOPHIL COUNT 0 /CUMM (0.0-0.7); ABSOLUTE GRANULOCYTE CT 7.2 /CUMM (1.4-6.5); ABSOLUTE LYMPH COUNT 1.1 /CUMM (1.2-3.4); ABSOLUTE MONOCYTE COUNT 0.8 /CUMM (0.10-0.60); BASOPHIL % 0.2 % (0.0-2.0); EOSINOPHIL % 0 % (0-5); GRANULOCYTE % 79.7 % (42.2-75.2); MEAN CORPUSCULAR HGB 28.9 PG (27.0-31.0); MEAN CORPUSCULAR HGB CONC 32.6 G/DL (33.0-37.0); MEAN CORPUSCULAR VOLUME 88.7 FL (80.0-94.0); MEAN PLATELET VOLUME 7.1 FL (7.4-10.4); PLATELET COUNT 246 /CUMM (130-400); RBC DISTRIBUTION WIDTH 15.1 % (11.5-14.5); RED BLOOD CELL CT 5.18 /CUMM (4.70-6.10)
--- NOTE | 2016-10-05 14:21 | NUR ---
PT PRESSED CALL RAMIRES, FELT LIKE HE COULDN'T BREATHE AFTER RETURNING TO BED FROM BATHROOM. LUNG SOUNDS DIMINISHED, WHEEZE HEARD IN RLL. O2 96% ON 3L, PULSE 72. RESPIRATORY THERAPIST CALLED. AT BEDSIDE, ADMINISTERING BREATHING TREATMENT AT THIS TIME. WILL CONTINUE TO MONITOR.
[2016-10-05 22:15] VITALS: BP 131/88
[2016-10-06 06:15] VITALS: BP 110/62
--- NOTE | 2016-10-06 08:11 | PN- Housestaff ---
DEE DEE WATTERS,[facility] 10/06/16 0811: Subjective Follow-up For: COPD exacerbation Complaints: no complaints Subjective: He had a much better night and was able to sleep well last night. Cough and shortness of breath are much improved. Review of Systems Constitutional: Denies: chills, fever, malaise. EENTM: Denies: blurred vision. Cardiovascular: Denies: chest pain, palpitations. Respiratory: Reports: short of breath, wheezing. Denies: cough, sputum production. Gastrointestinal: Denies: abdominal pain, diarrhea. Objective Last 24 Hrs of Vital Signs/I&O Vital Signs Date Time Temp Pulse Resp B/P B/P Pulse O2 O2 Flow FiO2 Mean Ox Delivery Rate 10/06 0515 97.6 57 16 110/62 93 10/06 0000 Nasal 2.0L Cannula 10/05 2215 98.3 92 20 131/88 94 Nasal 2.0L Cannula 10/05 2202 131/88 10/05 1819 96 Nasal 2.0L Cannula 10/05 1600 2.0L Intake & Output 10/06 1600 10/06 0800 10/06 0000 Intake Total 10 450 Output Total 401 Balance 10 49 Intake, IV 10 Intake, Oral 450 Output, Stool 1 Output, Urine 400 Physical Exam General Appearance: Alert, Oriented X3, Cooperative, No Acute Distress Skin: No Rashes Skin Temp/Moisture Exam: Warm/Dry Sepsis Skin Exam (color): Normal for Ethnicity HEENT: Atraumatic, PERRLA, EOMI, Mucous Membr. moist/pink Neck: Supple, No JVD, No thryomegaly Cardiovascular: Regular Rate, Normal S1, Normal S2, No Murmurs Lungs: Clear to Auscultation, Normal Air Movement Abdomen: Normal Bowel Sounds, Soft, No Tenderness Neurological: Normal Speech, Normal Tone Extremities: No Clubbing, No Edema Current Medications: Current Medications Sig/Adrián Start time Last Medication Dose Route Stop Time Status Admin Acetaminophen 650 MG Q6P PRN 10/02 0130 AC 10/05 PO 0553 Acetaminophen 1,000 MG Q6P PRN 10/02 0130 AC IV Albuterol Sulfate 3 ML EVERY 4 HRS/AWAKE 10/02 1200 AC 10/05 INH 2234 Albuterol Sulfate 2 PUF Q4P PRN 10/02 0200 AC INH Alprazolam 0.5 MG AT BEDTIME 10/05 2200 AC 10/05 PO 10/12 2159 2203 Aspirin 325 MG DAILY 10/02 1000 AC 10/05 PO 0911 Atenolol 25 MG QPM 10/02 2200 AC 10/05 PO 2202 Atorvastatin Calcium 5 MG 1700 10/02 1700 AC 10/05 PO 1644 Azithromycin 500 MG 2200 10/02 2200 AC 10/05 Sodium Chloride 250 ML IV 2204 Bisacodyl 5 MG DAILY 10/05 1508 AC 10/05 PO 1644 Citalopram 40 MG DAILY 10/02 1000 AC 10/05 Hydrobromide PO 0911 Docusate Sodium 100 MG BID PRN 10/04 1800 AC 10/05 PO 0911 Fish Oil 1,050 MG BID 10/02 1000 AC 10/05 PO 2202 Guaifenesin 600 MG Q12 10/04 2200 AC 10/05 PO 2203 Guaifenesin 10 ML Q4P PRN 10/02 0130 AC PO Heparin Sodium 5,000 UNIT Q8 10/02 0600 AC 10/02 (Porcine) SC 0525 Ipratropium [place] 2.5 ML EVERY 4 HRS/AWAKE 10/02 1200 AC 10/05 INH 2235 Melatonin 3 MG AT BEDTIME 10/02 0245 AC 10/05 PO 2202 Nicotine 21 MG DAILY 10/02 1000 AC 10/05 TOP 0911 Ondansetron HCl 4 MG Q6P PRN 10/02 0200 AC IV Pantoprazole Sodium 40 MG DAILY 10/02 0145 AC 10/05 IV 0911 Polyethylene Glycol 17 GM DAILY 10/05 1508 AC 10/05 PO 1645 Prednisone 30 MG ONCE ONE 10/06 0900 AC PO 10/06 0901 Prednisone 40 MG DAILY 10/04 1000 DC 10/05 PO 10/06 0000 0911 Senna/Docusate Sodium 2 TAB DAILY 10/05 1508 AC 10/05 PO 1646 Tiotropium [place] 1 PUF DAILY 10/02 1000 AC 10/05 INH 0911 Assessment/Plan Assessment: 61-year-old male with PMH of COPD not on home O2, [place] sp stent in 1988, came in for shortness of breath and cough. Patient admitted to for acute hypoxic respiratory failure most likely secondary to COPD exacerbation. Problem list: # Acute hypoxic respiratory failure most likely secondary to COPD exacerbation # History of [place] # Nicotine dependence # Acute hypoxic respiratory failure most likely secondary to COPD exacerbation * Can stop IV azithromycin after today's day 5 dose. Continue started on steroid taper, 30 mg 2 days, 20 mg 2 days, 10 mg 2 days then stop. He is stable for discharge today on home oxygen, follow up with pulmonology Dr. St as outpatient. Patient does not want to go to pulmonary rehabilitation but is happy to attend COPD clinic on discharge. # History of [place], HLD * Continue atorvastatin 5 mg daily, aspirin 325 mg daily, atenolol 25 mg qpm # Nicotine dependence * Nicotine patch 21 mg daily * Smoking cessation counselling done-pt not yet ready to quit # Continue home meds * citalopram 40 mg daily * fish oil * melatonin 3 mg DVT ppx-Heparin Sq Heart healthy diet Problem List: 1. Acute exacerbation of chronic obstructive airways disease 2. Acute respiratory failure with hypoxia Pain Ratin Pain Location: none Pain Goal: Remain pain free Pain Plan: N/A Tomorrow's Labs & Rationales: None needed DVT/Prophylaxis: pharmacological LEIGHTON WATTERS,MISSY 10/06/16 1349: Attending MD Review Statement Attending Statement Attending Assessment/Plan: Patient seen and examined. Plan of care discussed with the medical team and the patient. Available lab work and radiology test reports were reviewed. Patient states that he is not able to ambulate and gets short of breath very easily. His: 1 L of oxygen. He continues to have a mild coughing without any chest pain or fevers. His vital signs stable. No new labs done today. his exam shows a bilateral scattered crepitations with mild axillary wheeze. Abdomen soft nontender. Assessment plan COPD exacerbation-we'll continue to monitor for another 24 hours. Continue to ambulate with assist. Taper oxygen as tolerated. We'll reevaluate tomorrow for discharge.
--- NOTE | 2016-10-06 09:54 | PN- Pulmonary ---
Subjective HPI/Critical Care Issues: Patient's history status is slowly improving. Objective Current Medications: Current Medications Sig/Adrián Start time Last Medication Dose Route Stop Time Status Admin Acetaminophen 650 MG Q6P PRN 10/02 0130 AC 10/05 PO 0553 Acetaminophen 1,000 MG Q6P PRN 10/02 0130 AC IV Albuterol Sulfate 3 ML EVERY 4 HRS/AWAKE 10/02 1200 AC 10/06 INH 0832 Albuterol Sulfate 2 PUF Q4P PRN 10/02 0200 AC INH Alprazolam 0.5 MG AT BEDTIME 10/05 2200 AC 10/05 PO 10/12 2159 2203 Aspirin 325 MG DAILY 10/02 1000 AC 10/06 PO 0916 Atenolol 25 MG QPM 10/02 2200 AC 10/05 PO 2202 Atorvastatin Calcium 5 MG 1700 10/02 1700 AC 10/05 PO 1644 Azithromycin 500 MG 2200 10/02 2200 AC 10/05 Sodium Chloride 250 ML IV 2204 Bisacodyl 5 MG DAILY 10/05 1508 AC 10/06 PO 0917 Citalopram 40 MG DAILY 10/02 1000 AC 10/06 Hydrobromide PO 0916 Docusate Sodium 100 MG BID PRN 10/04 1800 AC 10/05 PO 0911 Fish Oil 1,050 MG BID 10/02 1000 AC 10/06 PO 0919 Guaifenesin 600 MG Q12 10/04 2200 AC 10/06 PO 0917 Guaifenesin 10 ML Q4P PRN 10/02 0130 AC PO Heparin Sodium 5,000 UNIT Q8 10/02 0600 AC 10/02 (Porcine) SC 0525 Ipratropium [place] 2.5 ML EVERY 4 HRS/AWAKE 10/02 1200 AC 10/06 INH 0832 Melatonin 3 MG AT BEDTIME 10/02 0245 AC 10/05 PO 2202 Nicotine 21 MG DAILY 10/02 1000 AC 10/06 TOP 0915 Ondansetron HCl 4 MG Q6P PRN 10/02 0200 AC IV Pantoprazole Sodium 40 MG DAILY 10/02 0145 AC 10/06 IV 0918 Polyethylene Glycol 17 GM DAILY 10/05 1508 AC 10/05 PO 1645 Prednisone 30 MG ONCE ONE 10/06 0900 DC 10/06 PO 10/06 0901 0916 Prednisone 40 MG DAILY 10/04 1000 DC 10/05 PO 10/06 0000 0911 Senna/Docusate Sodium 2 TAB DAILY 10/05 1508 AC 10/06 PO 0915 Tiotropium [place] 1 PUF DAILY 10/02 1000 AC 10/06 INH 0918 Vital Signs & I&O Last 24 Hrs of Vitals and I&O: Vital Signs Date Time Temp Pulse Resp B/P B/P Pulse O2 O2 Flow FiO2 Mean Ox Delivery Rate 10/06 0834 98 Nasal 2.0L Cannula 10/06 0615 97.6 57 16 110/62 93 10/06 0000 Nasal 2.0L Cannula 10/05 2215 98.3 92 20 131/88 94 Nasal 2.0L Cannula 10/05 2202 131/88 10/05 1819 96 Nasal 2.0L Cannula 10/05 1600 2.0L Intake & Output 10/06 1600 10/06 0800 10/06 0000 Intake Total 10 450 Output Total 401 Balance 10 49 Intake, IV 10 Intake, Oral 450 Output, Stool 1 Output, Urine 400 Since saturation 2 L 98% exam of his chest shows decreased breath sounds are no wheezes or crackles heard cardiac exam shows normal S1-S2 without murmurs Impression/Plan Impression/Plan Impression/Plan: 61-year-old gent with severe bullous emphysema actively smoking admitted with exacerbation of COPD and hypoxic history failure. Chronic findings right upper lobe appears stable. Decreasing size and duration of stability makes lung cancer extremely unlikely but continued monitoring is necessary with serial CAT scans. Begin oral prednisone and taper FiO2. Patient was again counseled regarding the need for smoking cessation. Patient continues to have shortness of breath with activities daily living I did discuss pulmonary rehabilitation with him which he refuses. Oxygen saturations are improved and FiO2 can be decreased. Patient can be followed in the office for pulmonary function testing assess room air oxygen saturation. Taper prednisone and arrange for outpatient follow-up.
--- NOTE | 2016-10-06 10:59 | NUR ---
SPOKE W/EFFIE #[id number] WHO CONFIRMED TITRATING PT FROM 2LNC TO SEE IF HE TOLERATES. IF SO PT CAN BE DISCHARGED TODAY. PT CALLED THIS RN INTO ROOM AND STATED "I AM NOT DOING WELL I'M SOB". ASSESSED O2 WHICH WAS 96% ON 2LNC. PRACTICED THERAPEUTIC BREATHING WITH PT. PT IMMEDIATELY CALMER. O2 NOW AT 1LNC. WILL REPORT TO ONCOMING RN TO ATTEMPT TAKING PT OFF AND AMBULATING AND TO REPORT RESULTS TO #[id number].
--- NOTE | 2016-10-06 11:15 | NUR ---
THIS NURSE TOOK OVER CARE FOR THIS PATIENT. ALERT ORIENTED X3. ON 1L NC. PATIENT REPORTING NOT FEELING READY TO GO HOME TODAY. REPORTS WEAK/TIRED, SOB WITH EXERTION. REVIEWED POC. CALL RAMIRES IN REACH. AWAITING MEDICAL DOCTOR FOR EVALUATION. SEE NURSING ASSESSMENT FLOWSHEETS FOR FURTHER DOCUMENTATION.
--- NOTE | 2016-10-06 11:16 | NUR ---
PT 02 TITRATED TO 1LNC FROM 2LNC. O2 SAT 96% WHILE RESTING.
[2016-10-06 15:29] VITALS: BP 101/70
[2016-10-06 21:21] VITALS: BP 128/72
[2016-10-07 07:14] VITALS: BP 111/56
--- NOTE | 2016-10-07 10:29 | PN- Housestaff ---
ARUNA WRIGHT 10/07/16 1029: Subjective Follow-up For: COPD exacerbation Complaints: shortness of breath Subjective: She was seen and examined this morning. He was lying comfortably in bed but was complaining of shortness of breath with mild walking. First he was not agreeable to go to rehabilitation but later on when the Dobuler saw the patient he seems agreeable to discharge to rehabilitation. We will look for bad and if we found one patient might go to rehabilitation today Review of Systems Constitutional: Denies: chills. EENTM: Denies: blurred vision, double vision. Cardiovascular: Denies: edema. Respiratory: Reports: orthopnea, short of breath. Gastrointestinal: Denies: bloating, diarrhea. Genitourinary: Denies: dysuria, frequency. Objective Last 24 Hrs of Vital Signs/I&O Vital Signs Date Time Temp Pulse Resp B/P B/P Pulse O2 O2 Flow FiO2 Mean Ox Delivery Rate 10/07 0800 93 Nasal 1.0L Cannula 10/07 0714 98.0 60 20 111/56 97 10/07 0000 Nasal 1.0L Cannula 10/06 2121 97.7 75 18 128/72 95 Nasal 1.0L Cannula 10/06 2115 75 128/72 10/06 1600 Nasal 1.0L Cannula 10/06 1553 96 Nasal 2.0L Cannula 10/06 1529 98.1 68 18 101/70 95 Nasal 1.0L Cannula 10/06 1200 Nasal 1.0L Cannula Intake & Output 10/07 1600 10/07 0800 10/07 0000 Intake Total 10 750 Output Total Balance 10 750 Intake, IV 10 250 Intake, Oral 500 Physical Exam General Appearance: Alert, Oriented X3, Cooperative, No Acute Distress Cardiovascular: Regular Rate, Normal S1, Normal S2, No Murmurs Lungs: Clear to Auscultation (reduced air entry), reduced air entry Abdomen: Soft, No Tenderness Current Medications: Current Medications Sig/Adrián Start time Last Medication Dose Route Stop Time Status Admin Acetaminophen 650 MG .STK-MED ONE 10/06 1732 DC PO 10/06 1733 Acetaminophen 650 MG .STK-MED ONE 10/06 1204 DC PO 10/06 1205 Acetaminophen 650 MG Q6P PRN 10/02 0130 AC 10/06 PO 1732 Acetaminophen 1,000 MG Q6P PRN 10/02 0130 AC IV Albuterol Sulfate 3 ML EVERY 4 HRS/AWAKE 10/02 1200 AC 10/07 INH 1018 Albuterol Sulfate 2 PUF Q4P PRN 10/02 0200 AC INH Alprazolam 0.5 MG AT BEDTIME 10/05 2200 AC 10/06 PO 10/12 2159 2115 Aspirin 325 MG DAILY 10/02 1000 AC 10/06 PO 0916 Atenolol 25 MG QPM 10/02 2200 AC 10/06 PO 2115 Atorvastatin Calcium 5 MG 1700 10/02 1700 AC 10/06 PO 1732 Azithromycin 500 MG 2200 10/02 2200 DC 10/06 Sodium Chloride 250 ML IV 2115 Bisacodyl 5 MG DAILY 10/05 1508 AC 10/06 PO 0917 Citalopram 40 MG DAILY 10/02 1000 AC 10/06 Hydrobromide PO 0916 Docusate Sodium 100 MG BID PRN 10/04 1800 AC 10/05 PO 0911 Fish Oil 1,050 MG BID 10/02 1000 AC 10/06 PO 2115 Guaifenesin 600 MG Q12 10/04 2200 AC 10/06 PO 2115 Guaifenesin 10 ML Q4P PRN 10/02 0130 AC PO Heparin Sodium 5,000 UNIT Q8 10/02 0600 AC 10/02 (Porcine) SC 0525 Ipratropium [place] 2.5 ML EVERY 4 HRS/AWAKE 10/02 1200 AC 10/07 INH 1018 Melatonin 3 MG AT BEDTIME 10/02 0245 AC 10/06 PO 2115 Nicotine 21 MG DAILY 10/02 1000 AC 10/06 TOP 0915 Ondansetron HCl 4 MG Q6P PRN 10/02 0200 AC IV Pantoprazole Sodium 40 MG DAILY 10/02 0145 AC 10/06 IV 0918 Polyethylene Glycol 17 GM DAILY 10/05 1508 AC 10/05 PO 1645 Prednisone 30 MG ONCE ONE 10/07 1000 DC PO 10/07 1001 Senna/Docusate Sodium 2 TAB DAILY 10/05 1508 AC 10/06 PO 0915 Tiotropium [place] 1 PUF DAILY 10/02 1000 AC 10/06 INH 0918 Last 24 Hrs of Lab/Poncho Results Last 24 Hrs of Labs/Mics: Laboratory Tests 10/07/16 0730: Anion Gap 3 L, Estimated GFR > 60, BUN/Creatinine Ratio 32.5 H Assessment/Plan Assessment: 61-year-old male with PMH of COPD not on home O2, [place] sp stent in 1988, came in for shortness of breath and cough. Patient admitted to for acute hypoxic respiratory failure most likely secondary to COPD exacerbation. Problem list: # Acute hypoxic respiratory failure most likely secondary to COPD exacerbation # History of [place] # Nicotine dependence # Acute hypoxic respiratory failure most likely secondary to COPD exacerbation * Patient completed a course of azithromycin. Currently he is on a tapering course of prednisone and he will take 20 mg for 2 days then 10 mg for 2 days * At the beginning patient was not agreeable to go to rehabilitation but today he is interested to be discharged to pulmonary rehabilitation and if we will find a bed we will discharge patient to rehabilitation today * Bicarp increased to 39, we will check ABGs to look for degree of hypercarbia # History of [place], HLD * Continue atorvastatin 5 mg daily, aspirin 325 mg daily, atenolol 25 mg qpm # Nicotine dependence * Nicotine patch 21 mg daily * Smoking cessation counselling done-pt not yet ready to quit # Continue home meds * citalopram 40 mg daily * fish oil * melatonin 3 mg DVT ppx-Heparin Sq Heart healthy diet Problem List: 1. Acute exacerbation of chronic obstructive airways disease Pain Ratin Pain Location: Not applicable Pain Goal: Remain pain free Pain Plan: Tylenol Tomorrow's Labs & Rationales: None LEIGHTON WATTERS,MISSY 10/07/16 1245: Attending MD Review Statement Attending Statement Attending Assessment/Plan: Patient seen and examined. Plan of care discussed with the medical team and the patient. Available lab work and radiology test reports were reviewed. Patient states that he is not able to ambulate and gets short of breath very easily upon ambulation. His: 1 L of oxygen with 96% saturation . He continues to have a mild coughing without any chest pain or fevers. His vital signs stable. No new labs done today. his exam shows a bilateral scattered crepitations with mild axillary wheeze. Abdomen soft nontender. Assessment plan COPD exacerbation-case discussed with Dr. Santoyo. Given patient's degree of dyspnea on exertion he will need short-term rehabilitation. Continue to ambulate with assist. Taper oxygen as tolerated. .
[2016-10-07] MEDS ORDERED: PREDNISONE10 M2 PO (10:50)
--- NOTE | 2016-10-07 10:55 | PN- Pulmonary ---
Subjective HPI/Critical Care Issues: Patient is to shortness breath with activities of daily living I did discuss with him the benefits of pulmonary rehabilitation and is now willing to consider going to pulmonary rehabilitation. Note that his bicarbonate has increased to 39 Objective Current Medications: Current Medications Sig/Adrián Start time Last Medication Dose Route Stop Time Status Admin Acetaminophen 650 MG .STK-MED ONE 10/06 1732 DC PO 10/06 1733 Acetaminophen 650 MG .STK-MED ONE 10/06 1204 DC PO 10/06 1205 Acetaminophen 650 MG Q6P PRN 10/02 0130 AC 10/06 PO 1732 Acetaminophen 1,000 MG Q6P PRN 10/02 0130 AC IV Albuterol Sulfate 3 ML EVERY 4 HRS/AWAKE 10/02 1200 AC 10/07 INH 1018 Albuterol Sulfate 2 PUF Q4P PRN 10/02 0200 AC INH Alprazolam 0.5 MG AT BEDTIME 10/05 2200 AC 10/06 PO 10/12 2159 2115 Aspirin 325 MG DAILY 10/02 1000 AC 10/06 PO 0916 Atenolol 25 MG QPM 10/02 2200 AC 10/06 PO 2115 Atorvastatin Calcium 5 MG 1700 10/02 1700 AC 10/06 PO 1732 Azithromycin 500 MG 2200 10/02 2200 DC 10/06 Sodium Chloride 250 ML IV 2115 Bisacodyl 5 MG DAILY 10/05 1508 AC 10/06 PO 0917 Citalopram 40 MG DAILY 10/02 1000 AC 10/06 Hydrobromide PO 0916 Docusate Sodium 100 MG BID PRN 10/04 1800 AC 10/05 PO 0911 Fish Oil 1,050 MG BID 10/02 1000 AC 10/06 PO 2115 Guaifenesin 600 MG Q12 10/04 2200 AC 10/06 PO 2115 Guaifenesin 10 ML Q4P PRN 10/02 0130 AC PO Heparin Sodium 5,000 UNIT Q8 10/02 0600 AC 10/02 (Porcine) SC 0525 Ipratropium [place] 2.5 ML EVERY 4 HRS/AWAKE 10/02 1200 AC 10/07 INH 1018 Melatonin 3 MG AT BEDTIME 10/02 0245 AC 10/06 PO 2115 Nicotine 21 MG DAILY 10/02 1000 AC 10/06 TOP 0915 Ondansetron HCl 4 MG Q6P PRN 10/02 0200 AC IV Pantoprazole Sodium 40 MG DAILY 10/02 0145 AC 10/06 IV 0918 Polyethylene Glycol 17 GM DAILY 10/05 1508 AC 10/05 PO 1645 Prednisone 30 MG ONCE ONE 10/07 1000 DC PO 10/07 1001 Senna/Docusate Sodium 2 TAB DAILY 10/05 1508 AC 10/06 PO 0915 Tiotropium [place] 1 PUF DAILY 10/02 1000 AC 10/06 INH 0918 Vital Signs & I&O Last 24 Hrs of Vitals and I&O: Vital Signs Date Time Temp Pulse Resp B/P B/P Pulse O2 O2 Flow FiO2 Mean Ox Delivery Rate 10/07 0800 93 Nasal 1.0L Cannula 10/07 0714 98.0 60 20 111/56 97 10/07 0000 Nasal 1.0L Cannula 10/06 2121 97.7 75 18 128/72 95 Nasal 1.0L Cannula 10/06 2115 75 128/72 10/06 1600 Nasal 1.0L Cannula 10/06 1553 96 Nasal 2.0L Cannula 10/06 1529 98.1 68 18 101/70 95 Nasal 1.0L Cannula 10/06 1200 Nasal 1.0L Cannula Intake & Output 10/07 1600 10/07 0800 10/07 0000 Intake Total 10 750 Output Total Balance 10 750 Intake, IV 10 250 Intake, Oral 500 Oxygen saturation on 1 L 9397% exam of his chest shows markedly diminished breath sounds are no wheezes or crackles or cardiac exam shows regular S1 and S2 without murmurs Impression/Plan Impression/Plan Impression/Plan: 61-year-old gent with severe bullous emphysema actively smoking admitted with exacerbation of COPD and hypoxic history failure. Chronic findings right upper lobe appears stable. Patient is now agreeable to consider home in a rehabilitation. Note his bicarbonate is increased at 39 and would obtain arterial blood gas to evaluate hypercarbia.
[2016-10-07 15:04] VITALS: BP 108/60
[2016-10-07 22:55] VITALS: BP 110/70
[2016-10-08 07:17] VITALS: BP 116/60
--- NOTE | 2016-10-08 07:31 | PN- Housestaff ---
CLAY WATTERS,TAMARA 10/08/16 0731: Subjective Follow-up For: COPD exacerbation Complaints: no complaints Subjective: Still feels SOB on mild exertion. Finally agreeable to Pulmonary rehab. Review of Systems Constitutional: Reports: no symptoms. Objective Last 24 Hrs of Vital Signs/I&O Vital Signs Date Time Temp Pulse Resp B/P B/P Pulse O2 O2 Flow FiO2 Mean Ox Delivery Rate 10/08 0854 94 Nasal 1.0L Cannula 10/08 0717 97.7 59 18 116/60 97 Room Air 10/08 0000 Nasal 1.0L Cannula 10/07 2255 97.9 67 20 110/70 98 Nasal 2.0L Cannula 10/07 2210 86 99/69 10/07 1559 98 Nasal 2.0L Cannula 10/07 1504 99.2 66 20 108/60 95 Nasal 1.0L Cannula 10/07 1228 96 Nasal 1.0L Cannula Intake & Output 10/08 1600 10/08 0800 10/08 0000 Intake Total Output Total 400 350 Balance -400 -350 Output, Urine 400 350 Physical Exam General Appearance: Alert, Oriented X3, Cooperative, No Acute Distress HEENT: PERRLA, EOMI, Mucous Membr. moist/pink Cardiovascular: Regular Rate, Normal S1, Normal S2 Lungs: Clear to Auscultation Abdomen: Normal Bowel Sounds, Soft, No Tenderness Extremities: No Edema, Normal Pulses Current Medications: Current Medications Sig/Adrián Start time Last Medication Dose Route Stop Time Status Admin Acetaminophen 650 MG .STK-MED ONE 10/07 1330 DC PO 10/07 1331 Acetaminophen 650 MG Q6P PRN 10/02 0130 AC 10/07 PO 1330 Acetaminophen 1,000 MG Q6P PRN 10/02 0130 AC IV Albuterol Sulfate 3 ML EVERY 4 HRS/AWAKE 10/02 1200 AC 10/08 INH 0839 Albuterol Sulfate 2 PUF Q4P PRN 10/02 0200 AC INH Alprazolam 0.5 MG AT BEDTIME 10/05 2199 AC 10/07 PO 10/12 215 2207 Aspirin 325 MG DAILY 10/02 1000 AC 10/07 PO 1108 Atenolol 25 MG QPM 10/02 2200 AC 10/06 PO 211 Atorvastatin Calcium 5 MG 1700 10/02 1700 AC 10/07 PO 1709 Azithromycin 500 MG 2200 10/02 2200 DC 10/06 Sodium Chloride 250 ML IV 2115 Bisacodyl 5 MG DAILY 10/05 1508 AC 10/06 PO 0917 Citalopram 40 MG DAILY 10/02 1000 AC 10/07 Hydrobromide PO 1108 Docusate Sodium 100 MG BID PRN 10/04 1800 AC 10/07 PO 1108 Fish Oil 1,050 MG BID 10/02 1000 AC 10/07 PO 2206 Guaifenesin 600 MG Q12 10/04 2200 AC 10/07 PO 1109 Guaifenesin 10 ML Q4P PRN 10/02 0130 AC PO Heparin Sodium 5,000 UNIT Q8 10/02 0600 AC 10/02 (Porcine) SC 0525 Ipratropium [facility] 2.5 ML EVERY 4 HRS/AWAKE 10/02 1200 AC 10/08 INH 0839 Melatonin 3 MG AT BEDTIME 10/02 0245 AC 10/07 PO 2207 Nicotine 21 MG DAILY 10/02 1000 AC 10/07 TOP 1104 Omeprazole 40 MG DAILY AC 10/08 0700 AC 10/08 PO 0627 Ondansetron HCl 4 MG Q6-PRN PRN 10/07 1900 AC PO Ondansetron HCl 4 MG Q6P PRN 10/02 0200 DC IV Pantoprazole Sodium 40 MG DAILY 10/02 0145 DC 10/07 IV 1103 Polyethylene Glycol 17 GM DAILY 10/05 1508 AC 10/07 PO 1116 Prednisone 20 MG DAILY 10/08 1000 AC PO 10/09 1001 Prednisone 30 MG ONCE ONE 10/07 1000 DC 10/07 PO 10/07 1001 1109 Senna/Docusate Sodium 2 TAB DAILY 10/05 1508 AC 10/06 PO 0915 Tiotropium [facility] 1 PUF DAILY 10/02 1000 AC 10/07 INH 1104 Last 24 Hrs of Lab/Poncho Results Last 24 Hrs of Labs/Mics: Laboratory Tests 10/08/16 0652: Sodium Pending, Potassium Pending, Chloride Pending, Carbon Dioxide Pending, Anion Gap Pending, BUN Pending, Creatinine Pending, BUN/Creatinine Ratio Pending 10/07/16 1135: pH 7.43, pCO2 48 H, pO2 89, HCO3 31 H, ABG O2 Sat (Measured) 96.0, P-50 (Temp Corrected) N, Carboxyhemoglobin 1.0 L, O2 Concentration % 1L, Temperature 98.0, O2 Delivery Method NC, Phlebotomy Draw Site RIGHT RADIAL Lines/Diet/Fluids Lines: peripheral lines Assessment/Plan Assessment: 61-year-old male with PMH of COPD not on home O2, [place] sp stent in 1988, came in for shortness of breath and cough. Patient admitted to for acute hypoxic respiratory failure most likely secondary to COPD exacerbation. Problem list: # Acute hypoxic respiratory failure most likely secondary to COPD exacerbation # History of [place] # Nicotine dependence # Acute hypoxic respiratory failure most likely secondary to COPD exacerbation * Patient completed a course of azithromycin. Currently he is on a tapering course of prednisone and he will take 20 mg for 2 days then 10 mg for 2 days * At the beginning patient was not agreeable to go to rehabilitation but today he is interested to be discharged to pulmonary rehabilitation and if we will find a bed we will discharge patient to rehabilitation today * Continue O2 supplementation, TRC/Nebs # History of [place], HLD * Continue atorvastatin 5 mg daily, aspirin 325 mg daily, atenolol 25 mg qpm # Nicotine dependence * Nicotine patch 21 mg daily * Smoking cessation counselling done-pt not yet ready to quit # Continue home meds * citalopram 40 mg daily * fish oil * melatonin 3 mg DVT ppx-Heparin Sq Heart healthy diet Problem List: 1. Acute respiratory failure with hypoxia 2. COPD exacerbation Pain Ratin Pain Location: n/a Pain Goal: n/a Pain Plan: n/a Tomorrow's Labs & Rationales: none-AM BEP pending but stable labs from the last available labs GAMALIEL DIAZ 10/08/16 0854: Attending MD Review Statement Attending Statement Attending MD Statement: examined this patient, discuss w/resident/PA/CHIP MACHINE OPERATOR, agreed w/resident/PA/CHIP MACHINE OPERATOR, discussed with family, reviewed EMR data (avail), discussed with nursing, discussed with case mgmt, reviewed images, amended to note Attending Assessment/Plan: Problem list: # Acute hypoxic respiratory failure most likely secondary to COPD exacerbation # History of [place] # Nicotine dependence Patient on po steorids, azithromycin, bd, pulm consulted, anticipate d/c soon to pulmonary rehab. awaiting placement.
--- NOTE | 2016-10-08 07:41 | Transfer of Care Summary ---
Hospital Course Course Hospital Course: 61-year-old male with PMH of COPD not on home O2, [place] sp stent in 1988, came in for shortness of breath and cough. Patient was admitted for acute hypoxic respiratory failure most likely secondary to COPD exacerbation. Problem list: # Acute hypoxic respiratory failure most likely secondary to COPD exacerbation # History of [place] # Nicotine dependence # Acute hypoxic respiratory failure most likely secondary to COPD exacerbation Patient was started on azithromycin and IV Solu-Medrol, followed by steroid taper, TRC nebs, oxygen supplementation as needed. He remained on 3L of [place] oxygen satting in mid 90s. Urine legionella, strep pneumo negative, follow up sputum Cx. Pulmonology was onboard, recommendations were followed. # History of [place], HLD We continued with atorvastatin 5 mg daily, aspirin 325 mg daily, atenolol 25 mg qpm, BP remained within normal limits. # Nicotine dependence Nicotine patch 21 mg daily # Continue home meds citalopram 40 mg daily fish oil melatonin 3 mg DVT prophylaxis Pain pathway Full code Complications: None Assessment/Plan: .
--- NOTE | 2016-10-08 08:04 | PN- Pulmonary ---
Subjective HPI/Critical Care Issues: Shortness of breath is mildly improved he continues to have dyspnea with activities of daily living and arterial blood gases show combined hypercarbic and hypoxic respiratory failure Objective Current Medications: Current Medications Sig/Adrián Start time Last Medication Dose Route Stop Time Status Admin Acetaminophen 650 MG .STK-MED ONE 10/07 1330 DC PO 10/07 1331 Acetaminophen 650 MG Q6P PRN 10/02 0130 AC 10/07 PO 1330 Acetaminophen 1,000 MG Q6P PRN 10/02 0130 AC IV Albuterol Sulfate 3 ML EVERY 4 HRS/AWAKE 10/02 1200 AC 10/07 INH 203 Albuterol Sulfate 2 PUF Q4P PRN 10/02 0200 AC INH Alprazolam 0.5 MG AT BEDTIME 10/05 2200 AC 10/07 PO 10/12 2158 220 Aspirin 325 MG DAILY 10/02 1000 AC 10/07 PO 1108 Atenolol 25 MG QPM 10/02 2200 AC 10/06 PO 2115 Atorvastatin Calcium 5 MG 1700 10/02 1700 AC 10/07 PO 1709 Azithromycin 500 MG 2200 10/02 2200 DC 10/06 Sodium Chloride 250 ML IV 2115 Bisacodyl 5 MG DAILY 10/05 1508 AC 10/06 PO 0917 Citalopram 40 MG DAILY 10/02 1000 AC 10/07 Hydrobromide PO 1108 Docusate Sodium 100 MG BID PRN 10/04 1800 AC 10/07 PO 1108 Fish Oil 1,050 MG BID 10/02 1000 AC 10/07 PO 2206 Guaifenesin 600 MG Q12 10/04 2200 AC 10/07 PO 1109 Guaifenesin 10 ML Q4P PRN 10/02 0130 AC PO Heparin Sodium 5,000 UNIT Q8 10/02 06 AC 10/02 (Porcine) SC 0525 Ipratropium [place] 2.5 ML EVERY 4 HRS/AWAKE 10/02 1200 AC 10/07 INH 2039 Melatonin 3 MG AT BEDTIME 10/02 0245 AC 10/07 PO 2207 Nicotine 21 MG DAILY 10/02 1000 AC 10/07 TOP 1104 Omeprazole 40 MG DAILY AC 10/08 0700 AC 10/08 PO 0627 Ondansetron HCl 4 MG Q6-PRN PRN 10/07 1900 AC PO Ondansetron HCl 4 MG Q6P PRN 10/02 0200 DC IV Pantoprazole Sodium 40 MG DAILY 10/02 0145 DC 10/07 IV 1103 Polyethylene Glycol 17 GM DAILY 10/05 1508 AC 10/07 PO 1116 Prednisone 20 MG DAILY 10/08 1000 AC PO 10/09 1001 Prednisone 30 MG ONCE ONE 10/07 1000 DC 10/07 PO 10/07 1001 1109 Senna/Docusate Sodium 2 TAB DAILY 10/05 1508 AC 10/06 PO 0915 Tiotropium [place] 1 PUF DAILY 10/02 1000 AC 10/07 INH 1104 Vital Signs & I&O Last 24 Hrs of Vitals and I&O: Vital Signs Date Time Temp Pulse Resp B/P B/P Pulse O2 O2 Flow FiO2 Mean Ox Delivery Rate 10/08 0717 97.7 59 18 116/60 97 Room Air 10/08 0000 Nasal 1.0L Cannula 10/07 2255 97.9 67 20 110/70 98 Nasal 2.0L Cannula 10/07 2210 86 99/69 10/07 1559 98 Nasal 2.0L Cannula 10/07 1504 99.2 66 20 108/60 95 Nasal 1.0L Cannula 10/07 1228 96 Nasal 1.0L Cannula Intake & Output 10/08 1600 10/08 0800 10/08 0000 Intake Total Output Total 400 350 Balance -400 -350 Output, Urine 400 350 Saturation 97% 1 L exam for chest diminished breath sounds and no wheezes cardiac exam shows normal S1 and S2 without murmurs Impression/Plan Impression/Plan Impression/Plan: 61-year-old gent with severe bullous emphysema actively smoking admitted with exacerbation of COPD and hypoxic history failure. Chronic findings right upper lobe appears stable. Patient is now agreeable to consider home in a rehabilitation. There is evidence of chronic compensated hypercapnic respiratory failure Recommendations: Complete course of prednisone await placement to short-term pulmonary rehabilitation maintain adequate hydration
--- NOTE | 2016-10-08 08:07 | Discharge Summary ---
Visit Information Visit Dates Admission Date: 10/02/16 Discharge Date: 10/08/16 Hospital Course Course Attending Physician: MAN WATTERS,[place] Primary Care Physician: JET WATTERS,[facility] Course: 61-year-old male with PMH of end stage COPD not on home Oxygen or steroids, CAD , [place] s/p stents in 1998, who came in for shortness of breath and cough. He states that he ran out of his nebulizers and since then his symptoms started. Endorses cough bringing up scant amount of clear phlegm. Endorses smoking, saying that he smokes about half a pack a day and has been doing that for the past 49 years. He normally uses his rescue inhalers 1-2 times a day but for since Saturday has been requiring it more often. Problem list: # Acute hypoxic respiratory failure most likely secondary to COPD exacerbation # History of [place] # Nicotine dependence # Acute hypoxic respiratory failure most likely secondary to COPD exacerbation Patient was started on azithromycin and IV Solu-Medrol, followed by steroid taper. He had TRC nebs and oxygen supplementation as needed. He was titrated down to 1L of [place] oxygen with his saturations in the mid 90s. He will be discharged on home oxygen and will be going to pulmonary rehab due to difficulty ambulating or undergoing mild exertional activity without feeling short of breath. # History of [place], HLD We continued with atorvastatin 5 mg daily, aspirin 325 mg daily, atenolol 25 mg qpm. His BP remained within normal limits. # Nicotine dependence Not yet ready to quit. Was given nicotine patch 21 mg daily while on admission # Continue home meds citalopram 40 mg daily fish oil melatonin 3 mg at bedtime DVT prophylaxis Pain pathway Full code Complications: none Allergies: Coded Allergies: budesonide (From SYMBICORT) (Severe, TOUNGE FELT LIKE A CACTUS 02/16/16) formoterol (From SYMBICORT) (Severe, TOUNGE FELT LIKE A CACTUS 02/16/16) codeine (SHAKEY 02/16/16) morphine (BRADYCARDIC 02/16/16) Significant Procedures: none Disposition Summary Disposition Principal Diagnosis: Acute hypoxic respiratory failure most likely secondary to COPD exacerbation Additional Diagnosis: History of [place], HLD, Nicotine dependence Discharge Disposition: STR-pulm rehab Discharge Instructions General Discharge Information Code Status: Full Code Patient's Diet: Heart Healthy Diet Patient's Activity: As tolerated Follow-Up Instructions/Appts: Please follow up with your PCP in 1 week Please follow up with your gelatin plant supervisor in 1 week Please complete your prednisone taper as prescribed Continue annual screening with chest CT in 12 months for evaluation of your lung nodules Medications at Discharge Discharge Medications: Continue taking these medications: Citalopram Hydrobromide (Citalopram HBr) 40 MG TABLET 1 Tablet ORAL Every night Aspirin (Aspirin*) 325 MG TABLET 1 Tablet ORAL DAILY [place]-3S/Dha/Epa/Fish Oil ([place]-3 Fish Oil 1,000 MG Sfgl) 300-1,000MG CAPSULE 1 Capsule ORAL Every night Albuterol Sulfate (Proventil Hfa) 6.7 GM HFA.AER.AD 2 PUFF ORAL 4 TIMES A DAY as needed for WHEEZE Days = 30 Lovastatin (Lovastatin) 20 MG TABLET Tablet ORAL Every night Qty = 180 Atenolol (Atenolol) 25 MG TABLET 1 Tablet ORAL Every night Tiotropium [place] (Spiriva) 18 MCG CAP.W.DEV 1 Capsule Inhale through mouth DAILY Ipratropium/Albuterol Sulfate (Iprat-Albut 0.5-3(2.5) MG/3 Ml) 0.5 MG-3 MG (2.5 MG BASE)/3 ML AMPUL.NEB 1 VIAL Inhale through mouth EVERY SIX HOURS as needed for COPD Qty = 30 Start taking the following new medications: Prednisone (Prednisone) 10 MG TABLET 2 Tablet ORAL DAILY Qty = 4 No Refills Instructions: take 2 tab x 1 day then 1 tab for 2 days then stop Copies To: JET WATTERS,HENNY
[2016-10-08] MEDS ORDERED: PREDNISONE10 M2 PO ×2 (14:52→15:40)
[2016-10-08 15:35] VITALS: BP 128/84
[2016-10-08 16:45] VITALS: BP 128/84
== END 2016-10-08 17:45 | DRG 140 ==
LOC: ERH 22:51 → 1NO 10-02 00:37 → ERHI 10-02 00:37 → 2NB 10-02 00:37 → ENRESERV 10-02 02:40 → 1NO 10-02 03:10 → 2NB 10-04 22:18 → ENPENDDIS 10-08 16:43 → 2NB 10-08 17:45
PROVIDERS: Emergency Medicine; Internal Medicine Infectious Disease; Student in an Organized Health Care Education/Training Program; ADMIT Student in an Organized Health Care Education/Training Program
DX: J44.1 Chronic obstructive pulmonary disease with (acute) exacerbation (principal); J96.22 Acute and chronic respiratory failure with hypercapnia; B44.9 Aspergillosis, unspecified; J96.21 Acute and chronic respiratory failure with hypoxia; I25.2 Old myocardial infarction; I10 Essential (primary) hypertension; I25.10 Atherosclerotic heart disease of native coronary artery without angina pectoris; E78.5 Hyperlipidemia, unspecified; K29.70 Gastritis, unspecified, without bleeding; F17.210 Nicotine dependence, cigarettes, uncomplicated
CPT/HCPCS: 1NP; 2NBSP; 36415; 82436; 87040; 87070; 87449; 87450; 87804; 87804-59; 93005; 93010; 96374; 96375; J0456; J0696; J1644; J2405; J2920; J2930; J3101; J7040; J7512

== ENCOUNTER 2017-05-14 21:58 | Inpatient (IN) | payer OTHER ==
[~2017-05-14] VITALS: Ht 182.9 cm; Wt 78.0 kg
[~2017-05-14 21:58] MED LIST changes: +ALBUTEROL2.5 MG/3 M INH/SOL; +ATORVASTATIN CA80 M1 PO; +BREO ELLIPTA 11 EACH INH; +CYCLOBENZAPRINE5 M2 PO; +IBUPROFEN600 M1 PO; +LOSARTAN POTASS25 M1 PO; +LOVASTATIN40 M1 PO; +MELATONIN3 M4 PO; +METOPROLOL TART25 M1 PO; +PRIMIDONE50 M1 PO; +PROAIR HFA8.5 GM INH; +PROPRANOLOL HCL20 M1 PO; +VITAMIN D2000 UNIT PO
--- NOTE | 2017-05-14 22:04 | ED DYSPNEA/ASTHMA COMPLAINT ---
History of Present Illness General Chief Complaint: Dyspnea (COPD, CHF, Other) Stated Complaint: SOB Source: patient, old records, EMS Exam Limitations: clinical condition Allergies Coded Allergies: budesonide (From SYMBICORT) (Severe, TOUNGE FELT LIKE A CACTUS 02/16/16) formoterol (From SYMBICORT) (Severe, TOUNGE FELT LIKE A CACTUS 02/16/16) codeine (SHAKEY 02/16/16) morphine (BRADYCARDIC 02/16/16) Reconcile Medications Albuterol Sulfate (Proair Hfa) 90 MCG HFA.AER.AD 2 PUF INH AD PRN COPD ( Reported) Albuterol Sulfate 2.5 MG/3 ML (0.083 %) VIAL.NEB 1 Vial INH/SHE 5XDAILY COPD (Reported) Aspirin (Aspirin*) 325 MG TABLET 1 TAB PO DAILY HEART HEALTH (Reported) Atorvastatin Calcium 80 MG TABLET 80 MG PO 1700 HYPERLIPIDEMIA . Cholecalciferol (Vitamin D3) (Vitamin D) 2,000 UNIT CAPSULE 1 CAP PO QAM SUPPLEMENT (Reported) Citalopram Hydrobromide (Citalopram HBr) 40 MG TABLET 1 TAB PO QPM ANXIETY ( Reported) Cyclobenzaprine HCl 5 MG TABLET 1 TAB PO TIDPRN PRN pain Fluticasone/Vilanterol (Breo Ellipta 100-25 Mcg INH) 100 MCG-25 MCG/DOSE BLST.W.DEV 1 PUFF INH QAM COPD (Reported) Ibuprofen 600 MG TABLET 1 TAB PO Q8 PRN PAIN with food Melatonin 3 MG TABLET 1 TAB PO QHS SUPPLEMENT (Reported) Metoprolol Tartrate 25 MG TABLET 12.5 MG PO BID HEART . Bath-3S/Dha/Epa/Fish Oil (Bath-3 Fish Oil 1,000 MG Sfgl) 300-1,000MG CAPSULE 1 CAP PO QPM SUPPLEMENT (Reported) Prednisone 10 MG TABLET 1 TAB PO DAILY COPD . Primidone 50 MG TABLET 50 MG PO AT BEDTIME tremors . Tiotropium [place] (Spiriva) 18 MCG CAP.W.DEV 1 CAP INH DAILY BREATHING PROBLEMS (Reported) Triage Nurses Notes Reviewed? yes Onset: Abrupt Duration: day(s): (1) Timing: multiple episodes today Severity: moderate, severe Activities at Onset: rest Modifying Factors: Worsens With: movement. Associated Symptoms: anxiety, cough, DYSPNEA HPI: This is a 62-year-old male with history of coronary artery disease with cardiac stent, emphysema, chronic O2 dependence 1.5 L nasal cannula at home who presents by EMS from home for chief complaint of respiratory distress. According to the medics was found hypoxic on 1.5 L and it was turned up to 4 L. Upon prolonged extrication from the house he was then tripoding, cyanotic and in the low 80s despite 4 L nasal cannula. On route to the hospital patient was placed on CPAP, given 3 in-line DuoNeb as well as 2 g of magnesium and IV Solu-Medrol 125 mg. Patient did use his nebulizer at home prior to that. He still actively smoking about 5 cigarettes per day. He denies any fever but reports chills and shortness of breath. Nonproductive cough but he feels like he needs to cough up some sputum. (Michelle Tompkins MD) Vital Signs & Intake/Output Vital Signs & Intake/Output Vital Signs Date Time Temp Pulse Resp B/P B/P Pulse O2 O2 Flow FiO2 Mean Ox Delivery Rate 05/15 1011 74 122/74 05/15 0902 98.0 74 18 121/79 99 Nasal 1.5L Cannula 05/15 0720 Nasal 1.5L Cannula 05/15 0720 98 Nasal 1.5L Cannula 05/15 0539 97 Nasal 2.0L Cannula 05/15 0502 98.0 82 18 113/72 95 Nasal 2.0L Cannula 05/15 0214 95 Nasal 1.5L Cannula 05/15 0214 97.5 69 20 111/61 95 Nasal 1.5L Cannula 05/15 0213 97.5 69 20 111/61 05/14 2246 94 Nasal 1.5L Cannula 05/14 2243 80 98 05/14 2219 73 98 05/14 2212 97.5 86 26 131/78 98 BIPAP 45% ED Intake and Output 05/15 0000 05/14 1200 Intake Total Output Total Balance Patient 172 lb Weight Weight Reported by Patient Measurement Method SEE TRIAGE (Michelle Tompkins MD) (Alycia WATTERS,Yoandy Mcqueen) Past History Travel History Traveled to [place] past 21 day No Medical History Any Pertinent Medical History? see below for history Neurological: NONE EENT: NONE Cardiovascular: hypertension, hyperlipidemia, myocardial infarction, CAD s/p stents placement Respiratory: COPD, emphysema, pneumonia Gastrointestinal: NONE Hepatic: NONE Renal: NONE Musculoskeletal: NONE Psychiatric: anxiety Endocrine: NONE Blood Disorders: NONE Cancer(s): NONE HUMAN RESOURCE STATISTICIAN/Reproductive: NONE History of MRSA: No History of VRE: No History of CDIFF: No Surgical History Surgical History: left knee surgery for torn cartilage cartilage Tonsillectomy Psychosocial History Who do you live with Son Services at Home None What is your primary language Latvian Daily Tobacco Use Amount/Type: => 5 Cigarettes daily Family History Family History, If Any: (fallopian tube cancerDECEASED). FATHER (heart attack x 2). MOTHER (lymphoma and alzheimers). Hx Contributory? No (Michelle Tompkins MD) Review of Systems Review of Systems Constitutional: Reports: chills. Denies: fever. EENTM: Reports: no symptoms. Respiratory: Reports: cough, short of breath. Denies: sputum production. Cardiovascular: Denies: chest pain, palpitations, peripheral edema. GI: Denies: bloating. Genitourinary: Reports: no symptoms. Musculoskeletal: Reports: no symptoms. Skin: Reports: no symptoms. Neurological/Psychological: Reports: anxiety. Hematologic/Endocrine: Denies: bruising, bleeding, polyuria, polydipsia. Immunologic/Allergic: Reports: no symptoms. All Other Systems: Reviewed and Negative (Michelle Tompkins MD) Physical Exam Physical Exam General Appearance: alert, awake, anxious, mild distress, moderate distress, thin Head: atraumatic, normal appearance Eyes: Bilateral: normal appearance, PERRL, EOMI. Ears, Nose, Throat: normal pharynx, normal ENT inspection, hearing grossly normal Neck: normal inspection, supple, full range of motion Respiratory: decreased breath sounds, accessory muscle use, respiratory distress Cardiovascular: tachycardia Peripheral Pulses: 2+ radial (R), 2+ radial (L) Gastrointestinal: normal bowel sounds, soft Extremities: normal inspection, normal capillary refill, normal range of motion, no edema Neurologic/Psych: no motor/sensory deficits, awake, alert, oriented x 3 Skin: intact, normal color, warm/dry Core Measures ACS in differential dx? No CVA/TIA Diagnosis No Sepsis Present: No Sepsis Focused Exam Completed? No (Michelle Tompkins MD) Progress Differential Diagnosis: CHF, COPD, pneumonia Diagnostic Imaging: Viewed by Me: Radiology Read. Discussed w/RAD: Radiology Read. CXR Impression: PATIENT: JORGE A SANTOYO JR PRESENT AGE: 62 PATIENT ACCOUNT NO: [id number] : 53 LOCATION: [facility] ORDERING PHYSICIAN: Michelle Tompkins MD SERVICE DATE: 05/14/17 EXAM TYPE: RAD - XRY -PORTABLE CHEST XRAY EXAMINATION: XR PORTABLE CHEST CLINICAL INFORMATION: Respiratory distress COMPARISON: CT of chest 04/01/2017. Chest x-ray 10/01/2016 TECHNIQUE: Portable frontal view of the chest was obtained. FINDINGS: There is a known ovoid right apical mass again noted. Severe emphysematous changes of lungs. No acute abnormality. No infiltrate. No pulmonary vascular congestion. No pneumothorax. Cardiomediastinal contours are normal. Heart size is normal. IMPRESSION: Known mass right upper lobe. Severe emphysematous changes of lung. No acute abnormality of chest DICTATED BY: Dariel Aviles MD DATE/TIME DICTATED:2256 HAND QUILTER:MARGOT DATE/TIME TRANSCRIBED:05/14/172256 CONFIDENTIAL, DO NOT COPY WITHOUT APPROPRIATE AUTHORIZATION. <Electronically signed in Other Vendor System> SIGNED BY: Dariel Aviles MD 05/14/17 8461 Initial ED EKG: NSR, PROMINENT P WAVES (Turner WATTERS,Michelle) Plan of Care: Orders Procedure Date/time Status Heart Healthy Diet 05/15 B Active TROPONIN LEVEL 05/15 1130 Active EKG 05/15 1130 Active URINALYSIS 05/15 1041 Active Change service to 05/15 0900 Active Change service to 05/15 0739 Active RT: Evaluation 05/15 0732 Active CBC WITHOUT DIFFERENTIAL 05/15 0600 Complete BASIC ELECTROLYTES PLUS BUN&CR 05/15 0600 Complete Teach/Educate 05/15 0530 Active Pain Treatment and Response 05/15 0530 Active Nutritional Intake, Monitor 05/15 0530 Active Isolation 05/15 0530 Active Patient Care Conference 05/15 0530 Active Activity/Ambulation 05/15 0530 Active D-DIMER 05/15 0436 Complete TROPONIN LEVEL 05/15 0400 Complete EKG 05/15 0400 Active Pathway - chart 05/15 0048 Active House Staff 05/15 0048 Active Patient Data 05/15 0048 Active Patient Data 05/15 0003 Active TRC EVALUATION (GEN) 05/15 UNK Complete THERAPIST ORDERS 05/15 UNK Complete OXYGEN SETUP (GEN) 05/15 UNK Complete VTE Mechanical Prophylaxis 05/[address] ABD & PELVIS W/O IV CONTRAS 05/15 UNK Active ED Holding Orders 05/14 2314 Active Vital Signs 05/14 2314 Active Code Status 05/14 2314 Active Admit to inpatient 05/14 2312 Active Intake & Output 05/14 2222 Active ARTERIAL BLOOD GAS (GEN) 05/14 2205 Complete RAPID VIRAL INFLUENZA A 05/14 2205 Active BLOOD CULTURE 05/14 220 Active TROPONIN LEVEL 05/14 2205 Complete PARTIAL THROMBOPLASTIN TIME 05/14 2205 Complete PROTHROMBIN TIME 05/14 2205 Complete LACTIC ACID 05/14 2205 Complete COMPREHENSIVE METABOLIC PANEL 05/14 2205 Complete CBC WITHOUT DIFFERENTIAL 05/14 2205 Complete EKG 05/14 2205 Active Current Medications Sig/Adrián Start time Last Medication Dose Stop Time Status Admin Prednisone 10 MG DAILY 05/18 1000 CAN 05/18 1001 Prednisone 20 MG DAILY 05/17 1000 CAN 05/17 1001 Azithromycin 250 MG DAILY 05/16 1000 AC (Zithromax) Prednisone 30 MG DAILY 05/16 1000 CAN 05/16 1001 Prednisone 40 MG DAILY 05/16 1000 AC 05/19 1001 Primidone 50 MG AT BEDTIME 05/15 2200 AC (Mysoline 50MG. Tablet) Atorvastatin Calcium 80 MG 1700 05/15 1700 AC (Lipitor) Aspirin 325 MG DAILY 05/15 1000 AC 05/15 (Aspirin) 1011 Citalopram 40 MG DAILY 05/15 1000 AC 05/15 Hydrobromide 1011 (Celexa) Enoxaparin Sodium 40 MG DAILY 05/15 1000 AC (Lovenox) Nicotine 21 MG DAILY 05/15 1000 AC 05/15 (Nicoderm) 1103 Prednisone 10 MG DAILY 05/15 1000 CAN Tiotropium [place] 1 PUF DAILY 05/15 1000 AC 05/15 (Spiriva) 1011 Ibuprofen 600 MG Q6P PRN 05/15 0830 AC 05/15 (Motrin) 0849 Albuterol Sulfate 3 ML EVERY 4 HRS/AWAKE 05/15 0800 AC 05/15 (Proventil) 0732 Lidocaine 1 PAT DAILY 05/15 0145 AC 05/15 (Lidoderm) 0241 Cyclobenzaprine HCl 5 MG TIDPRN PRN 0199 AC 05/15 (Flexeril 5MG Tab) 0735 Fluticasone 2 PUF BID 05/15 99 AC 05/15 Propionate 1018 (Flovent) Ibuprofen 600 MG Q8 PRN 05/15 99 CAN (Motrin) Melatonin 3 MG AT BEDTIME 05/15 99 AC 05/15 (Melatonin) 0241 Metoprolol Tartrate 12.5 MG BID 05/15 005 AC 05/15 (Lopressor) 1011 Acetaminophen 650 MG Q6P PRN 05/15 004 AC (Tylenol) Acetaminophen 1,000 MG Q6P PRN 05/15 0045 AC (Ofirmev) Laboratory Tests 05/15/17 1129: Troponin I Pending 05/15/17 0655: D-Dimer High Sensitivty 264 H 05/15/17 0521: Troponin I 0.02 05/15/17 0521: Anion Gap 9, Estimated GFR > 60, BUN/Creatinine Ratio 28.6 H, CBC w Diff MAN DIFF ORDERED, RBC 4.82, MCV 89.8, MCH 30.0, RDW 15.0 H, MPV 6.9 L, Gran % 90.2 H, Lymphocytes % 9.0 L, Monocytes % 0.5 L, Eosinophils % 0, Basophils % 0.3, Absolute Granulocytes 6.3, Segmented Neutrophils 85 H, Absolute Lymphocytes 0.6 L, Lymphocytes 12 L, Monocytes 2, Absolute Monocytes 0 L, Absolute Eosinophils 0, Basophils 1, Absolute Basophils 0, Platelet Estimate ADEQUATE, Polychromasia 1+, Poikilocytosis 1+, Ovalocytes 1+, PUBS MCHC 33.4, Fld Total RBCs Counted 100 05/15/17 010: Lactic Acid Cancelled 05/14/17 2300: pH 7.42, pCO2 41, pO2 70 L, HCO3 27, ABG O2 Sat (Measured) 90.0 L, P-50 (Temp Corrected) Y, Carboxyhemoglobin 5, O2 Concentration % 1.5L, Temperature 97.9, O2 Delivery Method NC, Phlebotomy Draw Site RIGHT RADIAL 05/14/172207: Anion Gap 12, Estimated GFR > 60, BUN/Creatinine Ratio 28.6 H, Glucose 103 H, Lactic Acid 1.3, Calcium 8.8, Total Bilirubin 0.3, AST 22, ALT 36, Alkaline Phosphatase 67, Troponin I 0.01, Total Protein 6.3, Albumin 4.0, Globulin 2.3, Albumin/Globulin Ratio 1.7, PT 11.3, INR 1.08, APTT 35, CBC w Diff NO MAN DIFF REQ, RBC 4.99, MCV 90.5, MCH 30.1, RDW 15.2 H, MPV 6.7 L, Gran % 72.0, Lymphocytes % 16.1 L, Monocytes % 9.6 H, Eosinophils % 2.0, Basophils % 0.3, Absolute Granulocytes 9.2 H, Absolute Lymphocytes 2.0, Absolute Monocytes 1.2 H, Absolute Eosinophils 0.3, Absolute Basophils 0, PUBS MCHC 33.3 Microbiology 05/14 2217 BLOOD: Blood Culture - RECD 05/14 2214 BLOOD: Blood Culture - RECD 05/14 2205 NASOPHARYN: Influenza Virus A & B Rapid Smear - COLB (Alycia WATTERS,Yoandy Mcqueen) Departure Departure Time of Disposition: 2327 Disposition: STILL A PATIENT Condition: Stable Clinical Impression Primary Impression: COPD exacerbation Referrals: Nabila López MD (PCP/Family) Departure Forms: Customer Survey General Discharge Information Admission Note Spoke With: Lamonte Pan MD Documentation of Exam: Documentation of any treatments & extenuating circumstances including Concerns Regarding Discharge (functional status, medication knowledge or non-compliance, living conditions, etc.) that warrant an admission rather than observation: [trc /nebx, iv steroids, supplemental oxygen, evaluate for continued need of bipap, pulmonary consultation, smoke cessation (Michelle Tompkins MD) Departure Comments pt admitted prior to [place] assuming care of patient. (Yoandy Tong MD) Critical Care Note Critical Care Note Critical Care Time: non-applicable (Michelle Tompkins MD)
[2017-05-14 22:21] LABS: ABSOLUTE BASOPHIL COUNT 0 /CUMM (0.0-0.2); ABSOLUTE EOSINOPHIL COUNT 0.3 /CUMM (0.0-0.7); ABSOLUTE GRANULOCYTE CT 9.2 /CUMM (1.4-6.5); ABSOLUTE MONOCYTE COUNT 1.2 /CUMM (0.10-0.60); BASOPHIL % 0.3 % (0.0-2.0); HEMATOCRIT 45.2 % (42-52); MEAN CORPUSCULAR HGB 30.1 PG (27.0-31.0); MEAN CORPUSCULAR HGB CONC 33.3 G/DL (33.0-37.0); MEAN CORPUSCULAR VOLUME 90.5 FL (80.0-94.0); MEAN PLATELET VOLUME 6.7 FL (7.4-10.4); PLATELET COUNT 244 /CUMM (130-400); RBC DISTRIBUTION WIDTH 15.2 % (11.5-14.5); RED BLOOD CELL CT 4.99 /CUMM (4.70-6.10); WHITE BLOOD CELL COUNT 12.7 /CUMM (4.8-10.8)
[2017-05-14 22:28] LABS: PT 11.3 SEC (9.4-12.5); PTT 35 SEC (25-37)
--- NOTE | 2017-05-14 23:04 | RADIOLOGY REPORT ---
EXAMINATION: XR PORTABLE CHEST CLINICAL INFORMATION: Respiratory distress COMPARISON: CT of chest 04/01/2017. Chest x-ray 10/01/2016 TECHNIQUE: Portable frontal view of the chest was obtained. FINDINGS: There is a known ovoid right apical mass again noted. Severe emphysematous changes of lungs. No acute abnormality. No infiltrate. No pulmonary vascular congestion. No pneumothorax. Cardiomediastinal contours are normal. Heart size is normal. IMPRESSION: Known mass right upper lobe. Severe emphysematous changes of lung. No acute abnormality of chest
--- NOTE | 2017-05-14 23:48 | History & Physical ---
Goyo WATTERS,[facility] 05/14/17 6367: General Information and HPI MD Statement: I have seen and personally examined JORGE A SANTOYO JR and documented this H&P. The patient is a 62 year old M who presented with a patient stated chief complaint of [SOB]. Source of Information: patient, old records Exam Limitations: no limitations History of Present Illness: The patient is 62-year-old gentleman with past medical history of CAD status post stent 1997, hypertension, hyperlipidemia, anxiety, emphysema and COPD on 1.5 L O2 at home. The patient presented to [facility] on 05/14 2017 with complaint of shortness of breath. The patient was in usual state of health until Saturday morning when he woke up and started experiencing left-sided flank pain that was radiating to right shoulder and right side of chest (ribs). It felt like a pulled muscle. There is no history of trauma. Today he became anxious and started experiencing shortness of breath, chest discomfort and palpitations as well. Patient has been experiencing pain with deep respiration and cough. Patient became extremely short of breath later during the day and was brought in by ambulance. In route patient received IV magnesium sulfate, IV and 25 methylprednisone and was put on CPAP. At time of presentation patient was tripoding and was tachypneic and was put on BiPAP initially. Of note patient recently lost his daughter and has been in a lot of stress for the past few months and increases smoking on becoming anxious. Patient was recently discharged on 03/20/2017 hospital being treated for COPD exacerbation. Patient continues to smoke half pack per day. He uses oxygen every night and sometimes during the day as well. He has never been intubated. As per patient he becomes winded shortly after little exertion. Review of system is negative for fevers chills chest pain and urinary symptoms Allergies/Medications Allergies: Coded Allergies: budesonide (From SYMBICORT) (Severe, TOUNGE FELT LIKE A CACTUS 02/16/16) formoterol (From SYMBICORT) (Severe, TOUNGE FELT LIKE A CACTUS 02/16/16) codeine (SHAKEY 02/16/16) morphine (BRADYCARDIC 02/16/16) Home Med list Albuterol Sulfate (Proair Hfa) 90 MCG HFA.AER.AD 2 PUF INH AD PRN COPD ( Reported) Albuterol Sulfate 2.5 MG/3 ML (0.083 %) VIAL.NEB 1 Vial INH/SHE 5XDAILY COPD (Reported) Aspirin (Aspirin*) 325 MG TABLET 1 TAB PO DAILY HEART HEALTH (Reported) Atorvastatin Calcium 80 MG TABLET 80 MG PO 1700 HYPERLIPIDEMIA . Cholecalciferol (Vitamin D3) (Vitamin D) 2,000 UNIT CAPSULE 1 CAP PO QAM SUPPLEMENT (Reported) Citalopram Hydrobromide (Citalopram HBr) 40 MG TABLET 1 TAB PO QPM ANXIETY ( Reported) Cyclobenzaprine HCl 5 MG TABLET 1 TAB PO TIDPRN PRN pain Fluticasone/Vilanterol (Breo Ellipta 100-25 Mcg INH) 100 MCG-25 MCG/DOSE BLST.W.DEV 1 PUFF INH QAM COPD (Reported) Ibuprofen 600 MG TABLET 1 TAB PO Q8 PRN PAIN with food Melatonin 3 MG TABLET 1 TAB PO QHS SUPPLEMENT (Reported) Metoprolol Tartrate 25 MG TABLET 12.5 MG PO BID HEART . Mcfall-3S/Dha/Epa/Fish Oil (Mcfall-3 Fish Oil 1,000 MG Sfgl) 300-1,000MG CAPSULE 1 CAP PO QPM SUPPLEMENT (Reported) Prednisone 10 MG TABLET 1 TAB PO DAILY COPD . Primidone 50 MG TABLET 50 MG PO AT BEDTIME tremors . Tiotropium Driscoll (Spiriva) 18 MCG CAP.W.DEV 1 CAP INH DAILY BREATHING PROBLEMS (Reported) Past History Travel History Traveled to [place] past 21 day No Medical History Neurological: NONE EENT: NONE Cardiovascular: hypertension, hyperlipidemia, myocardial infarction, CAD s/p stents placement Respiratory: COPD, emphysema, pneumonia Gastrointestinal: NONE Hepatic: NONE Renal: NONE Musculoskeletal: NONE Psychiatric: anxiety Endocrine: NONE Blood Disorders: NONE Cancer(s): NONE BUILDING CODE ADMINISTRATOR/Reproductive: NONE History of MRSA: No History of VRE: No History of CDIFF: No Surgical History Surgical History: left knee surgery for torn cartilage cartilage Tonsillectomy Past Family/Social History Family History Relations & Conditions if any (fallopian tube cancerDECEASED). FATHER (heart attack x 2). MOTHER (lymphoma and alzheimers). Psychosocial History Where do you live? Home Who Do You Live With? self Services at Home: None Primary Language: Swiss Smoking Status: Current Everyday Smoker ETOH Use: occasional use Living Will? no Functional Ability ADLs Independent: dressing, eating, toileting, bathing. Ambulation: independent IADLs Independent: shopping, housework, finances, food prep, telephone, transportation , medication admin. Review of Systems Review of Systems Constitutional: Reports: see HPI. Denies: chills, malaise. EENTM: Reports: no symptoms. Cardiovascular: Denies: chest pain, edema. Respiratory: Reports: cough, short of breath, sputum production. GI: Reports: no symptoms. Genitourinary: Reports: no symptoms. Musculoskeletal: Reports: muscle pain. Exam & Diagnostic Data Last 24 Hrs of Vital Signs/I&O Vital Signs Date Time Temp Pulse Resp B/P B/P Pulse O2 O2 Flow FiO2 Mean Ox Delivery Rate 05/15 213 95 Nasal 1.5L Cannula 05/15 021 97.5 69 20 111/61 95 Nasal 1.5L Cannula 05/15 021 97.5 69 20 111/61 05/14 2246 94 Nasal 1.5L Cannula 05/14 2243 80 98 05/14 2219 73 98 05/14 221 97.5 86 26 131/78 98 BIPAP 45% Intake & Output 05/15 0800 05/15 0000 05/14 1600 Intake Total Output Total Balance Patient 172 lb Weight Weight Reported by Patient Measurement Method Physical Exam General Appearance Alert, Oriented X3, Cooperative, No Acute Distress Skin No Rashes HEENT Atraumatic, PERRLA, EOMI, Mucous Membr. moist/pink Neck Supple, No JVD Cardiovascular Normal S1, Normal S2 Lungs decreased lung sounds on bases Abdomen Normal Bowel Sounds, Soft, No Tenderness Neurological Normal Speech Last 24 Hrs of Labs/Poncho: Laboratory Tests 05/15/17 0106: Lactic Acid Cancelled 05/14/17 2300: pH 7.42, pCO2 41, pO2 70 L, HCO3 27, ABG O2 Sat (Measured) 90.0 L, P-50 (Temp Corrected) Y, Carboxyhemoglobin 5, O2 Concentration % 1.5L, Temperature 97.9, O2 Delivery Method NC, Phlebotomy Draw Site RIGHT RADIAL 05/14/172207: Anion Gap 12, Estimated GFR > 60, BUN/Creatinine Ratio 28.6 H, Glucose 103 H, Lactic Acid 1.3, Calcium 8.8, Total Bilirubin 0.3, AST 22, ALT 36, Alkaline Phosphatase 67, Troponin I 0.01, Total Protein 6.3, Albumin 4.0, Globulin 2.3, Albumin/Globulin Ratio 1.7, PT 11.3, INR 1.08, APTT 35, CBC w Diff NO MAN DIFF REQ, RBC 4.99, MCV 90.5, MCH 30.1, RDW 15.2 H, MPV 6.7 L, Gran % 72.0, Lymphocytes % 16.1 L, Monocytes % 9.6 H, Eosinophils % 2.0, Basophils % 0.3, Absolute Granulocytes 9.2 H, Absolute Lymphocytes 2.0, Absolute Monocytes 1.2 H, Absolute Eosinophils 0.3, Absolute Basophils 0, PUBS MCHC 33.3 Microbiology 05/14 2217 BLOOD: Blood Culture - RECD 05/14 2214 BLOOD: Blood Culture - RECD 05/14 2205 NASOPHARYN: Influenza Virus A & B Rapid Smear - ORD Diagnostic Data CXR Results IMPRESSION: Known mass right upper lobe. Severe emphysematous changes of lung. No acute abnormality of chest Assessment/Plan Assessment: The patient is 62-year-old gentleman with past medical history of CAD status post stent 1997, hypertension, hyperlipidemia, anxiety, emphysema and COPD on 1.5 L O2 at home. The patient presented to [facility] on 05/14 2017 with complaint of shortness of breath. -VS at time of presentation patient was tripoding and was put on BiPAP and later transitioned to 1.5 NC satting 94% -Pertinent labs white count 12.7 BMP WNL ABG pH 7.4, PCO2 41, PCO2 70, HCO3 27 -The patient is being admitted to general medicine floor and is being pretreated evaluated for following conditions #R sided shoulder and chest pain Patient is presenting with right-sided shoulder and chest pain radiating from left sided flank pain. Patient presented with acute shortness of breath history of sciatica panic attack. It is a possibility that the pain is musculoskeletal in origin. Other possible differentials include costochondritis. There is possibility of PE as well -Pain pathway -Follow-up d-dimer -Consider CTA if patient worsens desaturation/sinus tachycardia -TRC -Lidoderm patch, hot compressions -Starting Prednisone 40 mg, quick taper in 5 days -Pulm consult with ( pt wants him involved) #L sided flank pain Patient does not offer any urinary symptoms CVA tenderness? -CT of abdomen and pelvis to rule out hydronephrosis, nephrolithiasis or any other intra-abdominal pathology. #Smoker -Nicotine patch and smoking cessation counseling #Chronic medical conditions COPD, hyperlipidemia, hypertension, CAD, anxiety continue Flovent, Spiriva, Lipitor, aspirin, metoprolol, citalopram #FC/heart healthy diet/DVT prophylaxis with Lovenox As Ranked By This Provider Problem List: 1. COPD 2. Tobacco user Core Measures/Misc (01/13) Acute Coronary Syndrome ACS Diagnosis: No Congestive Heart Failure Congestive Heart Failure Diagnosis No Cerebrovascular Accident CVA/TIA Diagnosis: No VTE (View Protocol) VTE Risk Factors Age>40 No Mechanical VTE Prophylaxis d/t N/A MechProphylax Ordered No VTE Pharm Prophylaxis d/t NA PharmProphylax ordered Sepsis (View protocol) Sepsis Present: No Lamonte Pan 05/15/17 0457: Attending MD Review Statement Attending Statement Attending MD Statement: examined this patient, discuss w/resident/PA/SCRAP STRIPPER [employer], agreed w/resident/PA/SCRAP STRIPPER [employer], reviewed EMR data (avail), reviewed images, amended to note Attending Assessment/Plan: CC: SOB PMH: CAD S/P stent 2, COPD on 1.5 L nasal cannula oxygen, HTN, ?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 As described by the patient he noticed left-sided flank pain yesterday and he woke up, sharp, radiating up to his chest then to his neck, no aggravating or relieving factors, does not recall any trauma or muscle pull, not associated with excessive cough or shortness of breath. He had similar pain approximately 10 days back when he was in ER and was treated with ibuprofen at that time. Patient took ibuprofen for 3 days at that time and peak improved but had another episode yesterday and pain persisted through today so he was very worried about the pain and kept thinking about it again and again and became anxious and severe Aure short of breath. "I almost had a panic attack". By the time EMS arrived patient was extremely hypoxic, tripoding. Patient denied any chest pain, palpitations during that episode, no loss of consciousness. Patient was transiently kept on BiPAP which was decreased to to nasal cannula. Currently he still has pain in his left flank but breathing is much better now. Vitals: Afebrile, pulse in 60s, RR 26 on arrival improved to 20, blood pressure 131/78, saturating 98% on BiPAP on arrival improved to 95% on 1.5 L On exam: A O 3, cooperative, no acute distress, neck supple, JVD normal, no lymphadenopathy, mucosa moist, no focal neurological deficit, no dependent edema , no obvious skin rashes or inflammation CVS: S1-S2, RRR. RS: Decreased breath sounds but no obvious wheezing or crackles. Abdomen: Soft, NT, ND, bowel sounds present. Tenderness to touch on left flank area even with minimal touch, no obvious rashes noticed. Labs: WBC 12.7, otherwise CBC unremarkable, sodium 141, potassium 4.2, chloride 102, bicarbonate 28, BUN 20, creatinine 0.7, glucose 103, calcium 8.8, LFT unremarkable, troponin 0.01 AB.42/41/70/27 and 1.5 L CXR: Known mass right upper lobe. Severe emphysematous changes of lung. No acute abnormality of chest Assessment and plan 62-year-old male with PMH significant for CAD S/P [place] S/P stent, COPD on 1.5 L nocturnal oxygen and daytime options oxygen, HTN, pulmonary aspergillosis presented in ER for acute worsening of shortness of breath or short time duration started this evening. He was tripoding, desaturating when EMS arrived. Patient states that he noticed left flank pain that recurred yesterday morning and was persistent, sharp, radiating up through his chest up to his neck and shoulder, he was unclear why he was having pain, tried to take ibuprofen without much relief, was extremely anxious about the pain when the shortness of breath precipitated. Patient denied any pleuritic chest pain, precordial chest pain, chest tightness, palpitations. While in EMS patient received Solu-Medrol, albuterol ipratropium inhalation, magnesium and was placed on BiPAP, patient was on BiPAP for short duration of time in the ER followed by 1.5 L nasal cannula. He has decreased air entry bilaterally but no obvious wheezing or crackles. He had symptomatic relief for the shortness of breath after the treatment in EMS but currently he still has left-sided flank pain which is unclear etiology. Patient was in the ER for similar complaint on April 01 and April 03 when he was investigated with CTA chest, CT abdomen and pelvis without IV contrast in both of the tests were unremarkable without any significant cause for left-sided flank pain. Probably this is musculoskeletal in origin, no obvious skin rashes or inflammation in that area. + Mild COPD exacerbation + Left flank pain of unclear etiology + History of CAD S/P stent 2, COPD on 1.5 L nasal cannula oxygen, HTN, ? 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 Lockett, please consult - Serial troponin and EKG his 3 sets - Adequate pain control, lidocaine patch, heat or cold - DVT prophylaxis - Continue all his home medications Nazia Ravi 05/15/17 0630: Resident Review Statement Resident Statement: examined this patient, discussed with art gallery internship Other Findings: Patient is on 62-year-old gentleman with a past medical history significant for COPD on 1.5 L of oxygen through nasal cannula, history coronary artery disease status post stent 1997, history of hypertension/hyperlipidemia, and injury depression, presented to the ED for the evaluation of left-sided flank pain with acute shortness of breath. Patient mentioned that he woke up with the left-sided flank pain pain on Saturday morning radiating to his chest shoulder blades, aggravated with deep breaths. Denied any recent infections denied any fever or chills. Patient was seen in the ER about 10 days ago with a similar kind of pain, that improved after taking NSAIDs, however he had another episode of pain on Saturday. Patient became very anxious, and started having agonal breathing as if he was having a panic attack, and called EMS for help. Upon arrival patient was found to be in acute respiratory distress and was put on on BiPAP. Patient improved on BiPAP and was transitioned to nasal cannula afterwards. At the time of evaluation patient denied any chest discomfort or shortness of breath however he was still reporting left-sided flank pain, worse on deep breaths. Vitals on admission: Afebrile pulse 60's., Respiratory 26 improved to 20, blood pressure stable, initially on BiPAP now on 1.5 L saturating. On examination: General Appearance:alert oriented 3, mild to moderate distress Skin: Grossly normal HEENT: PERRLA Neck: Supple, No JVD Cardiovascular: Regular Rate, Normal S1, Normal S2. Lungs: Lungs clear to auscultation bilaterally, positive left flank tenderness Abdominal exam : Normal bowel sounds without any tenderness Neurological: Grossly intact Extremities : No edema in the lower extremities Pertinent labs on admission: Leukocytosis without any bandemia, bep Chest x-ray clear except for severe emphysematous changes of lung. 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 Problem list Left flank pain etiology unclear(probably can be musculoskeletal in origin/ costochondritis) Acute shortness of breath likely due to panic attack Mild COPD exacerbation History of coronary artery disease Plan Left flank pain etiology unclear(probably can be musculoskeletal in origin/ costochondritis) * Admit the patient GenMed floor. * We'll start the patient on 40 mg of prednisone for 5 days for possible costochondritis. * Will obtain CT abdomen and pelvis with contrast for further assessment of the left flank pain. * Pain control with lidocaine patch and IV Tylenol. Acute shortness of breath likely due to panic attack(history of anxiety/ depression) * Continued antianxiety medications. Mild COPD exacerbation * Obtain pulmonology consult Dr. Lockett in the morning. History of coronary artery disease * Continue home medications. Severe pain control with IV Tylenol (patient is allergic to morphine) DVT prophylaxis with Lovenox Patient is full code
--- NOTE | 2017-05-15 05:00 | Admission Certification ---
Admission Certification Certification Statement - As attending physician, I certify that at the time of - admission, based on clinical presentation, severity of - symptoms, need for further diagnostic testing and - therapeutic interventions, and risk of adverse outcomes - without in-hospital treatment, in my clinical assessment, - this patient requires an acute hospital stay for a minimum - of two nights or longer. I have also considered psychsocial - factors such as support system, advanced age, financial - issues, cognitive issues, and failed out-patient treatments, - past re-admission history, safety of patient, and lack of - compliance as applicable. Specific rationale supporting this admission is: COPD exacerbation, left flank pain
[2017-05-15 05:34] LABS: ABSOLUTE BASOPHIL COUNT 0 /CUMM (0.0-0.2); ABSOLUTE EOSINOPHIL COUNT 0 /CUMM (0.0-0.7); ABSOLUTE GRANULOCYTE CT 6.3 /CUMM (1.4-6.5); ABSOLUTE LYMPH COUNT 0.6 /CUMM (1.2-3.4); ABSOLUTE MONOCYTE COUNT 0 /CUMM (0.10-0.60); BASOPHIL % 0.3 % (0.0-2.0); EOSINOPHIL % 0 % (0-5); GRANULOCYTE % 90.2 % (42.2-75.2); HEMATOCRIT 43.3 % (42-52); MEAN CORPUSCULAR HGB CONC 33.4 G/DL (33.0-37.0); MEAN CORPUSCULAR VOLUME 89.8 FL (80.0-94.0); MEAN PLATELET VOLUME 6.9 FL (7.4-10.4); PLATELET COUNT 241 /CUMM (130-400); RED BLOOD CELL CT 4.82 /CUMM (4.70-6.10); WHITE BLOOD CELL COUNT 6.9 /CUMM (4.8-10.8)
--- NOTE | 2017-05-15 07:30 | PN- Housestaff ---
Subjective Follow-up For: Acute on chronic respiratory Left flank pain Complaints: left flank pain Subjective: Patient was seen and examined this morning. Sitting on bed with mild to moderate left flank pain. Patient mentioned that his pain is significantly improved after Flexeril and ibuprofen most likely musculoskeletal in origin but we will like rule out any nephrolithiasis/hydronephrosis. He remained hemodynamically stable Review of Systems Constitutional: Denies: chills, diaphoresis. Cardiovascular: Denies: chest pain, edema. Respiratory: Reports: short of breath. Denies: hemoptysis, orthopnea. Gastrointestinal: Denies: abdominal pain, bloating. Genitourinary: Denies: discharge, dysuria, frequency. Musculoskeletal: Reports: muscle pain, muscle stiffness. Objective Last 24 Hrs of Vital Signs/I&O Vital Signs Date Time Temp Pulse Resp B/P B/P Pulse O2 O2 Flow FiO2 Mean Ox Delivery Rate 05/15 1303 98.0 76 18 122/78 99 Nasal 1.5L Cannula 05/15 1246 95 Nasal 1.5L Cannula 05/15 1011 74 122/74 05/15 0902 98.0 74 18 121/79 99 Nasal 1.5L Cannula 05/15 0720 Nasal 1.5L Cannula 05/15 0720 98 Nasal 1.5L Cannula 05/15 0539 97 Nasal 2.0L Cannula 05/15 0502 98.0 82 18 113/72 95 Nasal 2.0L Cannula 05/15 0214 95 Nasal 1.5L Cannula 05/15 0214 97.5 69 20 111/61 95 Nasal 1.5L Cannula 05/15 0213 97.5 69 20 111/61 05/14 2246 94 Nasal 1.5L Cannula 05/14 2243 80 98 05/14 2219 73 98 05/14 221 97.5 86 26 131/78 98 BIPAP 45% Intake & Output 05/15 1600 05/15 0800 05/15 0000 Intake Total 500 Output Total Balance 500 Intake, Oral 500 Patient 172 lb 172 lb Weight Weight Reported by Patient Reported by Patient Measurement Method Physical Exam General Appearance: Alert, Oriented X3, Cooperative, No Acute Distress Skin: No Rashes Cardiovascular: Regular Rate, Normal S1, Normal S2 Lungs: Normal Air Movement Abdomen: Soft, No Tenderness, No Hepatospenomegaly Neurological: Normal Speech Extremities: No Clubbing, No Cyanosis Current Medications: Current Medications Sig/Adrián Start time Last Medication Dose Route Stop Time Status Admin Acetaminophen 650 MG Q6P PRN 05/15 0045 AC PO Acetaminophen 1,000 MG Q6P PRN 05/15 0045 AC IV Albuterol Sulfate 3 ML EVERY 4 HRS/AWAKE 05/15 0800 AC 05/15 INH 1245 Aspirin 325 MG DAILY 05/15 1000 AC 05/15 PO 1011 Atorvastatin Calcium 80 MG 1700 05/15 1700 AC PO Azithromycin 250 MG DAILY 05/16 1000 AC PO Azithromycin 0 .STK-MED ONE 05/15 1219 DC PO Azithromycin 500 MG ONCE ONE 05/15 1045 DC 05/15 PO 05/15 1046 1219 Citalopram 40 MG DAILY 05/15 1000 AC 05/15 Hydrobromide PO 1011 Cyclobenzaprine HCl 0 .STK-MED ONE 05/15 1324 DC PO Cyclobenzaprine HCl 5 MG TIDPRN PRN 05/15 0100 05/15 PO 1352 Enoxaparin Sodium 40 MG DAILY 05/15 1000 AC SC Fluticasone 2 PUF BID 05/15 0100 AC 05/15 Propionate INH 1018 Ibuprofen 0 .STK-MED ONE 05/15 1325 DC PO Ibuprofen 0 .STK-MED ONE 05/15 0831 DC PO Ibuprofen 600 MG Q6P PRN 05/15 0830 05/15 PO 1352 Ibuprofen 600 MG Q8 PRN 05/15 0100 CAN PO Lidocaine 1 PAT DAILY 05/15 1000 DC EXT Lidocaine 1 PAT DAILY 05/15 0145 AC 05/15 EXT 0241 Melatonin 3 MG AT BEDTIME 05/15 0100 05/15 PO 0241 Metoprolol Tartrate 12.5 MG BID 05/15 0052 AC 05/15 PO 1011 Nicotine 21 MG DAILY 05/15 1000 AC 05/15 TOP 1103 Nicotine 0 .STK-MED ONE 05/15 0206 DC TOP Nicotine 21 MG ONCE ONE 05/14 2345 DC 05/15 TOP 05/14 2346 0212 Prednisone 10 MG DAILY 05/18 1000 CAN PO 05/18 1001 Prednisone 20 MG DAILY 05/17 1000 CAN PO 05/17 1001 Prednisone 30 MG DAILY 05/16 1000 CAN PO 05/16 1001 Prednisone 40 MG DAILY 05/16 1000 AC PO 05/19 1001 Prednisone 10 MG DAILY 05/15 1000 CAN PO Prednisone 0 .STK-MED ONE 05/15 0206 DC PO Prednisone 40 MG ONCE ONE 05/15 0200 DC 05/15 PO 05/15 020 0212 Primidone 50 MG AT BEDTIME 05/15 2200 AC PO Sodium Chloride 500 ML BOLUS ONE 05/14 2315 DC 05/15 IV 05/15 0014 0212 Tiotropium [place] 1 PUF DAILY 05/15 1000 AC 05/15 INH 1011 Last 24 Hrs of Lab/Poncho Results Last 24 Hrs of Labs/Mics: Laboratory Tests 05/15/17 1129: Troponin I < 0.01 05/15/17 0655: D-Dimer High Sensitivty 264 H 05/15/17 0521: Troponin I 0.02 05/15/17 0521: Anion Gap 9, Estimated GFR > 60, BUN/Creatinine Ratio 28.6 H, CBC w Diff MAN DIFF ORDERED, RBC 4.82, MCV 89.8, MCH 30.0, RDW 15.0 H, MPV 6.9 L, Gran % 90.2 H, Lymphocytes % 9.0 L, Monocytes % 0.5 L, Eosinophils % 0, Basophils % 0.3, Absolute Granulocytes 6.3, Segmented Neutrophils 85 H, Absolute Lymphocytes 0.6 L, Lymphocytes 12 L, Monocytes 2, Absolute Monocytes 0 L, Absolute Eosinophils 0, Basophils 1, Absolute Basophils 0, Platelet Estimate ADEQUATE, Polychromasia 1+, Poikilocytosis 1+, Ovalocytes 1+, PUBS MCHC 33.4, Fld Total RBCs Counted 100 05/15/17 0106: Lactic Acid Cancelled 05/14/17 2300: pH 7.42, pCO2 41, pO2 70 L, HCO3 27, ABG O2 Sat (Measured) 90.0 L, P-50 (Temp Corrected) Y, Carboxyhemoglobin 5, O2 Concentration % 1.5L, Temperature 97.9, O2 Delivery Method NC, Phlebotomy Draw Site RIGHT RADIAL 05/14/172207: Anion Gap 12, Estimated GFR > 60, BUN/Creatinine Ratio 28.6 H, Glucose 103 H, Lactic Acid 1.3, Calcium 8.8, Total Bilirubin 0.3, AST 22, ALT 36, Alkaline Phosphatase 67, Troponin I 0.01, Total Protein 6.3, Albumin 4.0, Globulin 2.3, Albumin/Globulin Ratio 1.7, PT 11.3, INR 1.08, APTT 35, CBC w Diff NO MAN DIFF REQ, RBC 4.99, MCV 90.5, MCH 30.1, RDW 15.2 H, MPV 6.7 L, Gran % 72.0, Lymphocytes % 16.1 L, Monocytes % 9.6 H, Eosinophils % 2.0, Basophils % 0.3, Absolute Granulocytes 9.2 H, Absolute Lymphocytes 2.0, Absolute Monocytes 1.2 H, Absolute Eosinophils 0.3, Absolute Basophils 0, PUBS MCHC 33.3 Microbiology 05/14 2217 BLOOD: Blood Culture - RES 05/14 2214 BLOOD: Blood Culture - RES 05/14 2205 NASOPHARYN: Influenza Virus A & B Rapid Smear - COLB Assessment/Plan Assessment: Patient is 62-year-old man with past medical history significant for COPD on 1.5 L of oxygen, status post stent placement, 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 We will address following issues problem #1 acute on chronic respiratory failure most likely due to COPD exacerbation/acute bronchitis Patient was started on azithromycin and oral steroid. We will continue his steroid 40 mg prednisone for total of 5 days. Supplemental oxygen to keep oxygen saturation more than 90%. TRC and nebulization Problem #2 left flank pain could be musculoskeletal in origin but we will rule out nephrolithiasis/hydronephrosis CT abdomen and pelvis was done and we ruled out nephrolithiasis and hydronephrosis. He has stable aortic aneurysm which can be taken care as outpatient. We will continue ibuprofen and Flexeril as needed. If he remained stable we will consider discharging him tomorrow Problem #3 history of anxiety We will continue his home medication and on patient's request psychiatry evaluation was placed Patient is full code Pharmacological DVT prophylaxis Regular diet Problem List: 1. Aneurysm of infrarenal abdominal aorta 2. Shortness of breath Pain Ratin Pain Location: left flank Pain Goal: Remain pain free Pain Plan: ibuprufen Tomorrow's Labs & Rationales: cbc and bep
--- NOTE | 2017-05-15 11:15 | PN- Att Addend ---
Attending Addendum Attending Brief Note Patient seen and examined, feeling slightly better now. Breathing is slightly better, left flank/under the rib cage pain is better with Flexeril and ibuprofen. Vital Signs Date Time Temp Pulse Resp B/P B/P Pulse O2 O2 Flow FiO2 Mean Ox Delivery Rate 05/15 1011 74 122/74 05/15 0902 98.0 74 18 121/79 99 Nasal 1.5L Cannula 05/15 0720 Nasal 1.5L Cannula 05/15 0720 98 Nasal 1.5L Cannula 05/15 0539 97 Nasal 2.0L Cannula 05/15 0502 98.0 82 18 113/72 95 Nasal 2.0L Cannula 05/15 0214 95 Nasal 1.5L Cannula 05/15 0214 97.5 69 20 111/61 95 Nasal 1.5L Cannula 05/15 0213 97.5 69 20 111/61 05/14 2246 94 Nasal 1.5L Cannula 05/14 2243 80 98 05/14 2219 73 98 05/14 221 97.5 86 26 131/78 98 BIPAP 45% on exam; aox3, nad. cv; s1,s2, rrr resp; clear abd; soft, nt, bs+. no CVA tenderness. ext; no edema. Laboratory Tests 05/15 05/15 05/15 0655 0521 0521 Chemistry Sodium (137 - 145 mmol/L) 139 Potassium (3.5 - 5.1 mmol/L) 4.3 Chloride (98 - 107 mmol/L) 103 Carbon Dioxide (22 - 30 mmol/L) 27 Anion Gap (5 - 16) 9 BUN (9 - 20 mg/dL) 20 Creatinine (0.7 - 1.2 mg/dL) 0.7 Estimated GFR (>60 ml/min) > 60 BUN/Creatinine Ratio (7 - 25 %) 28.6 H Troponin I (<0.11 ng/ml) 0.02 Coagulation D-Dimer High Sensitivty (0 - 243 ng/ml) 264 H Hematology CBC w Diff MAN DIFF ORDERED WBC (4.8 - 10.8 /CUMM) 6.9 RBC (4.70 - 6.10 /CUMM) 4.82 Hgb (14.0 - 18.0 G/DL) 14.5 Hct (42 - 52 %) 43.3 MCV (80.0 - 94.0 FL) 89.8 MCH (27.0 - 31.0 PG) 30.0 RDW (11.5 - 14.5 %) 15.0 H Plt Count (130 - 400 /CUMM) 241 MPV (7.4 - 10.4 FL) 6.9 L Gran % (42.2 - 75.2 %) 90.2 H Lymphocytes % (20.5 - 51.1 %) 9.0 L Monocytes % (1.7 - 9.3 %) 0.5 L Eosinophils % (0 - 5 %) 0 Basophils % (0.0 - 2.0 %) 0.3 Absolute Granulocytes (1.4 - 6.5 /CUMM) 6.3 Segmented Neutrophils (42.2 - 75.2 %) 85 H Absolute Lymphocytes (1.2 - 3.4 /CUMM) 0.6 L Lymphocytes (20.5 - 51.1 %) 12 L Monocytes (1.7 - 9.3 %) 2 Absolute Monocytes (0.10 - 0.60 /CUMM) 0 L Absolute Eosinophils (0.0 - 0.7 /CUMM) 0 Basophils (0.0 - 2.0 %) 1 Absolute Basophils (0.0 - 0.2 /CUMM) 0 Platelet Estimate (ADEQUATE) ADEQUATE Polychromasia 1+ Poikilocytosis 1+ Ovalocytes 1+ PUBS MCHC (33.0 - 37.0 G/DL) 33.4 Other Body Source Fld Total RBCs Counted (%) 100 05/15 05/14 0106 2300 Blood Gas pH (7.35 - 7.45 PH) 7.42 pCO2 (35 - 45 TORR) 41 pO2 (80 - 100 TORR) 70 L HCO3 (21 - 28 MEQ/L) 27 ABG O2 Sat (Measured) (>96.0 %) 90.0 L P-50 (Temp Corrected) Y Carboxyhemoglobin (1.5 - 5.0 %) 5 O2 Concentration % 1.5L Temperature (97.0 - 100.0 FARH) 97.9 O2 Delivery Method NC Chemistry Lactic Acid Cancelled Miscellaneous Phlebotomy Draw Site RIGHT RADIAL 05/14 2207 Chemistry Sodium (137 - 145 mmol/L) 141 Potassium (3.5 - 5.1 mmol/L) 4.2 Chloride (98 - 107 mmol/L) 102 Carbon Dioxide (22 - 30 mmol/L) 28 Anion Gap (5 - 16) 12 BUN (9 - 20 mg/dL) 20 Creatinine (0.7 - 1.2 mg/dL) 0.7 Estimated GFR (>60 ml/min) > 60 BUN/Creatinine Ratio (7 - 25 %) 28.6 H Glucose (65 - 99 mg/dL) 103 H Lactic Acid (0.7 - 2.1 mmol/L) 1.3 Calcium (8.4 - 10.2 mg/dL) 8.8 Total Bilirubin (0.2 - 1.3 mg/dL) 0.3 AST (17 - 59 U/L) 22 ALT (21 - 72 U/L) 36 Alkaline Phosphatase (< 127 U/L) 67 Troponin I (<0.11 ng/ml) 0.01 Total Protein (6.3 - 8.2 g/dL) 6.3 Albumin (3.5 - 5.0 g/dL) 4.0 Globulin (1.9 - 4.2 gm/dL) 2.3 Albumin/Globulin Ratio (1.1 - 2.2 %) 1.7 Coagulation PT (9.4 - 12.5 SEC) 11.3 INR (0.90 - 1.17) 1.08 APTT (25 - 37 SEC) 35 Hematology CBC w Diff NO MAN DIFF REQ WBC (4.8 - 10.8 /CUMM) 12.7 H RBC (4.70 - 6.10 /CUMM) 4.99 Hgb (14.0 - 18.0 G/DL) 15.1 Hct (42 - 52 %) 45.2 MCV (80.0 - 94.0 FL) 90.5 MCH (27.0 - 31.0 PG) 30.1 RDW (11.5 - 14.5 %) 15.2 H Plt Count (130 - 400 /CUMM) 244 MPV (7.4 - 10.4 FL) 6.7 L Gran % (42.2 - 75.2 %) 72.0 Lymphocytes % (20.5 - 51.1 %) 16.1 L Monocytes % (1.7 - 9.3 %) 9.6 H Eosinophils % (0 - 5 %) 2.0 Basophils % (0.0 - 2.0 %) 0.3 Absolute Granulocytes (1.4 - 6.5 /CUMM) 9.2 H Absolute Lymphocytes (1.2 - 3.4 /CUMM) 2.0 Absolute Monocytes (0.10 - 0.60 /CUMM) 1.2 H Absolute Eosinophils (0.0 - 0.7 /CUMM) 0.3 Absolute Basophils (0.0 - 0.2 /CUMM) 0 PUBS MCHC (33.0 - 37.0 G/DL) 33.3 A/P: 62 y/o M with pmh sig for ch resp failure, CAD status post stent 1998, hypertension, hyperlipidemia, anxiety, emphysema and COPD on 1.5 L O2 at home admitted with acute on chronic resp failure, Ac COPD exacerbation, left flank pain. Will continue the patient on steroids and azithromycin. We'll follow-up on the results of CAT scan abdomen and pelvis. If negative, this might be musculoskeletal pain. Currently patient's pain is controlled with a combination of ibuprofen and Flexeril. Continue TRC nebs in the rest of the medications. DVT prophylaxis: Lovenox.
--- NOTE | 2017-05-15 12:44 | CT SCAN REPORT ---
EXAMINATION: CT ABDOMEN AND PELVIS WITHOUT CONTRAST CLINICAL INFORMATION: Left flank pain, evaluate for hydronephrosis or nephrolithiasis. COMPARISON: CT scan of the abdomen and pelvis dated 04/03/2017. TECHNIQUE: Multidetector volumetric imaging was performed from the superior aspect of the liver through the pubic symphysis. Sagittal and coronal reformatted images were obtained on the technologist's workstation. DLP: 280.9 mGy-cm FINDINGS: LUNG BASES: Emphysematous changes are present in the bilateral lung bases, most prominent in the right middle lobe. Increased density in the bilateral lung bases, right greater than left suggest presence of noncalcified pleural plaque. No soft tissue pulmonary nodules are identified. 05/15/2017. LIVER, GALLBLADDER, AND BILIARY TREE: Again noted are 2 hypodense subcentimeter foci present at the margin of the right lobe of liver and the margin of the anterior aspect of the left lobe of the liver, these were present on the prior study and are unchanged in size and attenuation. The liver is normal in size, shape, and attenuation. No biliary ductal dilatation is present. The gallbladder is nondistended, which limits evaluation, no focal findings are noted. PANCREAS: Unremarkable. SPLEEN: Unremarkable. ADRENAL GLANDS: Unremarkable. KIDNEYS AND URETERS: No renal or ureteral calculi are identified. No focal lesions within the renal parenchyma are identified. The caliber of the upper renal collecting systems and visualized portions of the ureters are normal. BLADDER: Moderately distended, no calcific densities are present within the bladder lumen. GASTROINTESTINAL TRACT: The small and large bowel are unremarkable. The appendix is identified.. ABDOMINAL WALL: No significant hernia is appreciated. LYMPH NODES: No pathologically enlarged lymph nodes are present.. VASCULAR: Again noted is the abdominal aortic aneurysm, which measures approximately 4.9 cm in anterior posterior dimension at the greatest region. The aneurysm is infrarenal as described on the prior study, and extends over a length of approximately 7.4 cm of the abdominal aorta. A small area of aneurysm is present in the proximal right common iliac artery, measuring 1.4 cm, the corresponding area of the left common iliac artery measures 1.0 cm in size. Heavy atherosclerotic plaque is present throughout the abdominal aorta and extending into the iliac arteries, as well as minimally within the proximal celiac axis and left renal artery.. PELVIC VISCERA: Coarse calcifications are present within the prostate gland which is not enlarged, measuring 3.8 x 3.8 x 3.3 cm in size. OSSEOUS STRUCTURES: No aggressive osseous lesions.. IMPRESSION: 1. No renal or ureteral calculi are present, the caliber of the upper renal collecting systems and ureters is within normal limits. The bladder is normal with no calcific densities present within the bladder lumen, no focal bladder wall thickening is noted. 2. Stable infrarenal abdominal aortic aneurysm as described. No significant interval change compared to the prior study of 04/03/2017. 3. Prominent emphysematous changes present in the bilateral lungs, most prominent in the right middle lobe. No acute findings are noted throughout.
[2017-05-15 16:07] VITALS: BP 116/62
[2017-05-15 17:30] VITALS: BP 122/60
[2017-05-15 20:42] VITALS: BP 110/54
[2017-05-16 06:37] VITALS: BP 112/60
--- NOTE | 2017-05-16 07:58 | PN- Housestaff ---
Kiki Loomis 05/16/17 0757: Subjective Follow-up For: COPD exacerbation Left flank pain most likely musculoskeletal in the region Complaints: no complaints Subjective: Patient was seen and examined this morning. He was lying comfortably on bed but still was experiencing left flank pain from 4-5 on pain scale. His respiratory status remained stable. Review of Systems Constitutional: Denies: chills, diaphoresis. EENTM: Denies: double vision, eye pain. Cardiovascular: Denies: chest pain, edema. Respiratory: Reports: short of breath. Gastrointestinal: Denies: diarrhea, distention. Musculoskeletal: Reports: muscle pain, muscle stiffness. Objective Last 24 Hrs of Vital Signs/I&O Vital Signs Date Time Temp Pulse Resp B/P B/P Pulse O2 O2 Flow FiO2 Mean Ox Delivery Rate 05/16 1405 98.2 68 20 100/60 98 Nasal 1.5L Cannula 05/16 0928 68 122/60 05/16 0743 98 Nasal 1.5L Cannula 05/16 0735 95 Nasal 1.5L Cannula 05/16 0637 98.5 70 20 112/60 95 Nasal 1.5L Cannula 05/16 0000 Nasal 1.5L Cannula 05/15 2217 67 110/54 05/15 2042 97.8 67 20 110/54 100 Nasal 1.5L Cannula 05/15 1730 Nasal 1.5L Cannula 05/15 1730 98.1 77 22 122/60 93 Nasal 1.5L Cannula 05/15 1635 98.1 18 116/62 97 Nasal 1.5L Cannula 05/15 1624 94 Nasal 1.5L Cannula 05/15 1613 96 Nasal 2.0L Cannula 05/15 1607 98.0 18 116/62 97 Nasal 2.0L Cannula Intake & Output 05/16 1600 05/16 0800 05/16 0000 Intake Total 50 Output Total 500 300 Balance -450 -300 Intake, Oral 50 Output, Urine 500 300 Physical Exam General Appearance: Alert, Oriented X3, Cooperative, No Acute Distress Cardiovascular: Regular Rate, Normal S1, Normal S2, No Murmurs Lungs: Normal Air Movement Abdomen: Soft, No Tenderness Neurological: Normal Gait Current Medications: Current Medications Sig/Adrián Start time Last Medication Dose Route Stop Time Status Admin Acetaminophen 650 MG Q6P PRN 05/15 0045 AC PO Acetaminophen 1,000 MG Q6P PRN 05/15 0045 AC IV Albuterol Sulfate 3 ML EVERY 4 HRS/AWAKE 05/15 0800 AC 05/16 INH 1257 Aspirin 325 MG DAILY 05/15 1000 AC 05/16 PO 0929 Atorvastatin Calcium 80 MG 1700 05/15 1700 AC 05/15 PO 1621 Azithromycin 250 MG DAILY 05/16 1000 AC 05/16 PO 1131 Citalopram 40 MG 1900 05/16 1900 AC Hydrobromide PO Citalopram 40 MG DAILY 05/15 1000 DC 05/15 Hydrobromide PO 1011 Cyclobenzaprine HCl 5 MG TIDPRN PRN 05/15 0100 AC 05/16 PO 0731 Enoxaparin Sodium 40 MG DAILY 05/15 1000 AC SC Fluticasone 2 PUF BID 05/15 0100 AC 05/16 Propionate INH 0928 Ibuprofen 800 MG Q8 PRN 05/16 1003 AC PO Ibuprofen 600 MG Q6P PRN 05/15 0830 DC 05/16 PO 0731 Lidocaine 1 PAT DAILY 05/16 1045 AC 05/16 EXT 1131 Lidocaine 1 PAT DAILY 05/15 0145 AC 05/15 EXT 0241 Melatonin 3 MG AT BEDTIME 05/15 0100 AC 05/15 PO 2216 Metoprolol Tartrate 12.5 MG BID 05/15 0052 AC 05/16 PO 0928 Nicotine 21 MG DAILY 05/15 1000 AC 05/16 TOP 0927 Prednisone 40 MG DAILY 05/16 1000 AC 05/16 PO 05/19 1001 1131 Primidone 50 MG AT BEDTIME 05/15 2200 AC 05/16 PO 0055 Tiotropium [place] 1 PUF DAILY 05/15 1000 AC 05/16 INH 0928 Last 24 Hrs of Lab/Poncho Results Last 24 Hrs of Labs/Mics: Laboratory Tests 05/16/17 0800: Anion Gap 10, Estimated GFR > 60, BUN/Creatinine Ratio 27.1 H, CBC w Diff NO MAN DIFF REQ, RBC 4.59 L, MCV 89.7, MCH 29.7, RDW 15.6 H, MPV 7.3 L, Gran % 66.5, Lymphocytes % 22.8, Monocytes % 9.1, Eosinophils % 1.2, Basophils % 0.4, Absolute Granulocytes 6.1, Absolute Lymphocytes 2.1, Absolute Monocytes 0.8 H, Absolute Eosinophils 0.1, Absolute Basophils 0, PUBS MCHC 33.1 05/15/172039: Urine Color YEL, Urine Clarity CLEAR, Urine pH 6.0, Ur Specific [place] 1.015, Urine Protein NEG, Urine Ketones NEG, Urine Nitrite NEG, Urine Bilirubin NEG, Urine Urobilinogen 0.2, Ur Leukocyte Esterase NEG, Ur Microscopic EXAM NOT REQUIRED, Urine Hemoglobin NEG, Urine Glucose NEG Microbiology 05/15 161 NASOPHARYN: Influenza Virus A & B Rapid Smear - COMP Assessment/Plan Assessment: Patient is 62-year-old man with past medical history significant for COPD on 1.5 L of oxygen, status post stent placement, 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 We will address following issues problem #1 acute on chronic respiratory failure most likely due to COPD exacerbation/acute bronchitis Patient was started on azithromycin and oral steroid. We will continue his steroid 40 mg prednisone for total of 5 days. Patient is stable enough to go home today. We will give him azithromycin for 3 more days along with 40 mg of prednisone. Problem #2 left flank pain most likely musculoskeletal in origin as nephrolithiasis and hydronephrosis were ruled out. Patient showed significant improvement in his pain with Flexeril and ibuprofen. We will send him on ibuprofen and antispasmodic with PPI. Problem #3 history of anxiety We will continue his home medication and psychiatry evaluation was appreciated and he will follow-up with outpatient psychiatry on May 20 at 1:15 at their office. Patient is full code Pharmacological DVT prophylaxis Regular diet Problem List: 1. COPD exacerbation Pain Ratin Pain Location: left flank Pain Goal: Pain 4 or less Pain Plan: ibuprufen Tomorrow's Labs & Rationales: none Renetta Carreon MD 05/16/17 1324: Attending MD Review Statement Attending Statement Attending MD Statement: examined this patient, discuss w/resident/PA/TANK PUMPER, agreed w/resident/PA/TANK PUMPER, reviewed EMR data (avail), discussed with nursing, discussed with case mgmt, reviewed images, amended to note Attending Assessment/Plan: Patient seen and examined, feels ok overall in terms of respiration. The left sided under the rib cage pain is still therre but on 09/05 in intensity. Vital Signs Date Time Temp Pulse Resp B/P B/P Pulse O2 O2 Flow FiO2 Mean Ox Delivery Rate 05/16 0928 68 122/60 05/16 0743 98 Nasal 1.5L Cannula 05/16 0735 95 Nasal 1.5L Cannula 05/16 0637 98.5 70 20 112/60 95 Nasal 1.5L Cannula 05/16 0000 Nasal 1.5L Cannula 05/15 2217 67 110/54 05/15 2042 97.8 67 20 110/54 100 Nasal 1.5L Cannula 05/15 1730 Nasal 1.5L Cannula 05/15 1730 98.1 77 22 122/60 93 Nasal 1.5L Cannula 05/15 1635 98.1 67 18 116/62 97 Nasal 1.5L Cannula 05/15 1624 94 Nasal 1.5L Cannula 05/15 1613 96 Nasal 2.0L Cannula 05/15 1607 98.0 67 18 116/62 97 Nasal 2.0L Cannula on exam; aox3, nad. cv; s1,s2, rrr resp; clear abd; soft, nt, bs+ ext; no edema ms: + point tenderness in left flank. Laboratory Tests 05/16 05/15 0800 2040 Chemistry Sodium (137 - 145 mmol/L) 142 Potassium (3.5 - 5.1 mmol/L) 4.1 Chloride (98 - 107 mmol/L) 101 Carbon Dioxide (22 - 30 mmol/L) 31 H Anion Gap (5 - 16) 10 BUN (9 - 20 mg/dL) 19 Creatinine (0.7 - 1.2 mg/dL) 0.7 Estimated GFR (>60 ml/min) > 60 BUN/Creatinine Ratio (7 - 25 %) 27.1 H Hematology CBC w Diff NO MAN DIFF REQ WBC (4.8 - 10.8 /CUMM) 9.2 RBC (4.70 - 6.10 /CUMM) 4.59 L Hgb (14.0 - 18.0 G/DL) 13.6 L Hct (42 - 52 %) 41.2 L MCV (80.0 - 94.0 FL) 89.7 MCH (27.0 - 31.0 PG) 29.7 RDW (11.5 - 14.5 %) 15.6 H Plt Count (130 - 400 /CUMM) 208 MPV (7.4 - 10.4 FL) 7.3 L Gran % (42.2 - 75.2 %) 66.5 Lymphocytes % (20.5 - 51.1 %) 22.8 Monocytes % (1.7 - 9.3 %) 9.1 Eosinophils % (0 - 5 %) 1.2 Basophils % (0.0 - 2.0 %) 0.4 Absolute Granulocytes (1.4 - 6.5 /CUMM) 6.1 Absolute Lymphocytes (1.2 - 3.4 /CUMM) 2.1 Absolute Monocytes (0.10 - 0.60 /CUMM) 0.8 H Absolute Eosinophils (0.0 - 0.7 /CUMM) 0.1 Absolute Basophils (0.0 - 0.2 /CUMM) 0 PUBS MCHC (33.0 - 37.0 G/DL) 33.1 Urines Urine Color (YEL,AMB,STR) YEL Urine Clarity (CLEAR) CLEAR Urine pH (5.0 - 8.0) 6.0 Ur Specific [place] (1.001 - 1.035) 1.015 Urine Protein (NEG,<30 MG/DL) NEG Urine Ketones (NEG) NEG Urine Nitrite (NEG) NEG Urine Bilirubin (NEG) NEG Urine Urobilinogen (0.1 - 1.0 EU/dl) 0.2 Ur Leukocyte Esterase (NEG) NEG Ur Microscopic EXAM NOT REQUIRED Urine Hemoglobin (NEG) NEG Urine Glucose (N MG/DL) NEG A/P; 62 y/o M with pmh sig for ch resp failure, CAD status post stent 1997, hypertension, hyperlipidemia, anxiety, emphysema and COPD on 1.5 L O2 at home admitted with acute on chronic resp failure, Ac COPD exacerbation, left flank pain. Continue prednisone. Continue ibuprofen and Flexeril. We'll add Lidoderm patch. Patient otherwise at his baseline. CT scan results reviewed there was no acute finding. Patient will be discharged home later today. He has home oxygen which he uses at night.
[2017-05-16 09:24] LABS: ABSOLUTE BASOPHIL COUNT 0 /CUMM (0.0-0.2); ABSOLUTE EOSINOPHIL COUNT 0.1 /CUMM (0.0-0.7); ABSOLUTE GRANULOCYTE CT 6.1 /CUMM (1.4-6.5); ABSOLUTE LYMPH COUNT 2.1 /CUMM (1.2-3.4); ABSOLUTE MONOCYTE COUNT 0.8 /CUMM (0.10-0.60); BASOPHIL % 0.4 % (0.0-2.0); EOSINOPHIL % 1.2 % (0-5); GRANULOCYTE % 66.5 % (42.2-75.2); HEMATOCRIT 41.2 % (42-52); MEAN CORPUSCULAR HGB 29.7 PG (27.0-31.0); MEAN CORPUSCULAR HGB CONC 33.1 G/DL (33.0-37.0); MEAN CORPUSCULAR VOLUME 89.7 FL (80.0-94.0); MEAN PLATELET VOLUME 7.3 FL (7.4-10.4); PLATELET COUNT 208 /CUMM (130-400); RBC DISTRIBUTION WIDTH 15.6 % (11.5-14.5); RED BLOOD CELL CT 4.59 /CUMM (4.70-6.10); WHITE BLOOD CELL COUNT 9.2 /CUMM (4.8-10.8)
--- NOTE | 2017-05-16 11:34 | Patient Discharge Instructions ---
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 Diet Recommended Diet: Heart Healthy Activity Additional ACTIVITY Info: As tolerated Acute Coronary Syndrome Inclusion Criteria At DC or during hospital stay patient has or had the following: ACS DIAGNOSIS No Discharge Core Measures Meds if any: Prescribed or Continued at Discharge Meds if any: NOT Prescribed or Continued at Discharge Congestive Heart Failure Inclusion Criteria At DC or during hospital stay patient has or had the following: CHF DIAGNOSIS No Discharge Core Measures Meds if any: Prescribed or Continued at Discharge Meds if any: NOT Prescribed or Continued at Discharge Cerebrovascular accident Inclusion Criteria At DC or during hospital stay patient has or had the following: CVA/TIA Diagnosis No Discharge Core Measures Meds if any: Prescribed or Continued at Discharge Meds if any: NOT Prescribed or Continued at Discharge Venous thromboembolism Inclusion Criteria VTE Diagnosis No VTE Type NONE VTE Confirmed by (Test) NONE Discharge Core Measures - Per Current guidelines, there needs to be overlap - treatment for the first 5 days of Warfarin therapy. - If discharged on Warfarin prior to 5 days of - overlap therapy, the patient will need to be - assessed for post discharge needs including - *Post discharge parental anticoagulation - *Warfarin and/or parental anticoagulation education - *Follow up date to check INR post discharge At least 5 days overlap therapy as Inpatient No Meds if any: Prescribed or Continued at Discharge Note: Overlap Therapy is Warfarin and Anticoagulant Meds if any: NOT Prescribed or Continued at Discharge
[2017-05-16] MEDS ORDERED: PREDNISONE20 M1 PO ×2 (11:39→13:49)
[2017-05-16] MEDS ORDERED: LIDODERM1 EACH EXT (11:39)
--- NOTE | 2017-05-16 13:30 | Cons- Psychiatry ---
Psychiatric Consult Date of Consult: 05/16/17 Reason for Consult: depression History of Present Illness: 62 M to the ED 05/14/17 with a CC of SOB. He was admitted for COPD exacerbation. He reports his daughter close to 03/08/17, and he has been very depressed, with a panic event on that day. He also had a panic event leading to this hospitalization. He has been prescribed citalopram since his heart attack in 1998, while in his mid-40s. He also used to see a psychiatrist here at [facility] for depression, who has since retired, after which the patient stopped office visits. Citalopram is currently prescribed by his PCP, Dr. López. He also had a trial on Wellbutrin last fall, which was probably stopped after the first panic attack in February,. Allergies: Coded Allergies: budesonide (From SYMBICORT) (Severe, TOUNGE FELT LIKE A CACTUS 02/16/16) formoterol (From SYMBICORT) (Severe, TOUNGE FELT LIKE A CACTUS 02/16/16) codeine (SHAKEY 02/16/16) morphine (BRADYCARDIC 02/16/16) Current Medications: Current Medications Sig/Adrián Start time Last Medication Dose Route Stop Time Status Admin Acetaminophen 650 MG Q6P PRN 05/15 0045 AC PO Acetaminophen 1,000 MG Q6P PRN 05/15 0045 AC IV Albuterol Sulfate 3 ML EVERY 4 HRS/AWAKE 05/15 0800 AC 05/16 INH 1257 Aspirin 325 MG DAILY 05/15 1000 AC 05/16 PO 0929 Atorvastatin Calcium 80 MG 1700 05/15 1700 AC 05/15 PO 1621 Azithromycin 250 MG DAILY 05/16 1000 AC 05/16 PO 1131 Citalopram 40 MG 1900 05/16 1900 AC Hydrobromide PO Citalopram 40 MG DAILY 05/15 1000 DC 05/15 Hydrobromide PO 1011 Cyclobenzaprine HCl 5 MG TIDPRN PRN 05/15 0100 AC 05/16 PO 0731 Enoxaparin Sodium 40 MG DAILY 05/15 1000 AC SC Fluticasone 2 PUF BID 05/15 0100 AC 05/16 Propionate INH 0928 Ibuprofen 800 MG Q8 PRN 05/16 1003 AC PO Ibuprofen 600 MG Q6P PRN 05/15 0830 DC 05/16 PO 0731 Lidocaine 1 PAT DAILY 05/16 1045 AC 05/16 EXT 1131 Lidocaine 1 PAT DAILY 05/15 0145 AC 05/15 EXT 0241 Melatonin 3 MG AT BEDTIME 05/15 0100 AC 05/15 PO 2216 Metoprolol Tartrate 12.5 MG BID 05/15 0052 AC 05/16 PO 0928 Nicotine 21 MG DAILY 05/15 1000 AC 05/16 TOP 0927 Prednisone 40 MG DAILY 05/16 1000 AC 05/16 PO 05/19 1001 1131 Primidone 50 MG AT BEDTIME 05/15 2200 AC 05/16 PO 0055 Tiotropium Creole 1 PUF DAILY 05/15 1000 AC 05/16 INH 0928 Past History Past Medical History Neurological: NONE EENT: NONE Cardiovascular: hypertension, hyperlipidemia, myocardial infarction, CAD s/p stents placement Respiratory: COPD, emphysema, pneumonia Gastrointestinal: NONE Hepatic: NONE Renal: NONE Musculoskeletal: NONE Psychiatric: anxiety, depression, Recent panic event Endocrine: NONE Blood Disorders: NONE Cancer(s): NONE RECEPTION SPECIALIST/Reproductive: NONE Past Surgical History Surgical History: left knee surgery for torn cartilage cartilage Tonsillectomy Psychosocial History Strengths/Capabilities: Seekinghelp and motivated for treatment Physical Limitations (Interventions): Multiple medical issues, including COPD and oxygen-dependence. Psychiatric Treatment History Psych Treatment Psychiatric Treatment Yes Inpatient Treatment No Outpatient Treatment Yes Location of Treatment Unclear with the limited history, but possibly at [facility] Reason for Treatment Depression Dates of Treatment Several years ago Response to Treatment Pt reports improvement Diagnosis: Panic disorder without agoraphobia Unspecified depressive disorder Risk Factors: chronic/serious med cond., lives alone, male Substance Use/Abuse History Drug Use/Abuse Substances Used/Abused No Substance Abuse Treatment Substance Abuse Treatment Past Substance Abuse [place] No Assessment/Plan Mental Status Orientation: Person, Place, Situation Affect: Depressed, Sad Speech: Soft Neuro-vegetative: Helpless Mental Status Exam: Alert, oriented. Denies AH or VH, and presents no angel delusions. Denies SI or HI. He is deeply saddened by the of his daughter last February, and had a first panic attack at that time. His second panic attack led to his hospitalization now. He denies hopelessness and worthlessness, but feels some helplessness. Lab Results: Laboratory Tests 05/16 05/15 0800 2040 Chemistry Sodium (137 - 145 mmol/L) 142 Potassium (3.5 - 5.1 mmol/L) 4.1 Chloride (98 - 107 mmol/L) 101 Carbon Dioxide (22 - 30 mmol/L) 31 H Anion Gap (5 - 16) 10 BUN (9 - 20 mg/dL) 19 Creatinine (0.7 - 1.2 mg/dL) 0.7 Estimated GFR (>60 ml/min) > 60 BUN/Creatinine Ratio (7 - 25 %) 27.1 H Hematology CBC w Diff NO MAN DIFF REQ WBC (4.8 - 10.8 /CUMM) 9.2 RBC (4.70 - 6.10 /CUMM) 4.59 L Hgb (14.0 - 18.0 G/DL) 13.6 L Hct (42 - 52 %) 41.2 L MCV (80.0 - 94.0 FL) 89.7 MCH (27.0 - 31.0 PG) 29.7 RDW (11.5 - 14.5 %) 15.6 H Plt Count (130 - 400 /CUMM) 208 MPV (7.4 - 10.4 FL) 7.3 L Gran % (42.2 - 75.2 %) 66.5 Lymphocytes % (20.5 - 51.1 %) 22.8 Monocytes % (1.7 - 9.3 %) 9.1 Eosinophils % (0 - 5 %) 1.2 Basophils % (0.0 - 2.0 %) 0.4 Absolute Granulocytes (1.4 - 6.5 /CUMM) 6.1 Absolute Lymphocytes (1.2 - 3.4 /CUMM) 2.1 Absolute Monocytes (0.10 - 0.60 /CUMM) 0.8 H Absolute Eosinophils (0.0 - 0.7 /CUMM) 0.1 Absolute Basophils (0.0 - 0.2 /CUMM) 0 PUBS MCHC (33.0 - 37.0 G/DL) 33.1 Urines Urine Color (YEL,AMB,STR) YEL Urine Clarity (CLEAR) CLEAR Urine pH (5.0 - 8.0) 6.0 Ur Specific Logan (1.001 - 1.035) 1.015 Urine Protein (NEG,<30 MG/DL) NEG Urine Ketones (NEG) NEG Urine Nitrite (NEG) NEG Urine Bilirubin (NEG) NEG Urine Urobilinogen (0.1 - 1.0 EU/dl) 0.2 Ur Leukocyte Esterase (NEG) NEG Ur Microscopic EXAM NOT REQUIRED Urine Hemoglobin (NEG) NEG Urine Glucose (N MG/DL) NEG Diffential Diagnosis: Major depresive disorder with anxious distress Generalized anxiety disorder Panic disorder without agoraphobia F43.23 Adjustment disorder with mixed anxiety and depressed mood Impression: The patient has had some benefit over the last 19 years from his citalopram 40 mg, considered the maximum dose for depression and anxiety. He would benefit from a review of this medication as an outpatient, especially since the trauma of his daughter's two months ago. He is agreeable to coming to [facility] for an intake for evaluation, talk therapy and medication following. He is not suicidal, psychotic, nor delirious. Provisional Treatment Plan: 1. Please inform the patient that he has an appointment at Outpatient Psychiatry on 05/20/17, at 1:15 PM, at [address] [place] [address]. He can park in the lot there. Please bring photo ID and incurance card. 2. Avoid benzodiazepines, as they represent an increased risk for delirium, falls and fracture in the elderly. 3. If the patient is still in the hospital on 05/17/17, I will bring him an appointment card.
[2017-05-16] MEDS ORDERED: IBUPROFEN800 M1 PO ×2 (13:49→15:05)
[2017-05-16] MEDS ORDERED: CYCLOBENZAPRINE5 M2 PO (13:49)
[2017-05-16] MEDS ORDERED: AZITHROMYCIN250 M1 PO (13:51)
[2017-05-16 14:05] VITALS: BP 100/60
[2017-05-16] MEDS ORDERED: OMEPRAZOLE40 M1 PO (15:05)
--- NOTE | 2017-05-16 15:57 | Discharge Summary ---
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 Patient was admitted on general medical floor and during his hospital stay following issues were addressed Problem #1 acute on chronic respiratory failure most likely due to COPD exacerbation/acute bronchitis. Patient was started on azithromycin and oral steroid for total of 5 days. Patient was provided with supplemental oxygen and TRC and nebulization. He progressively doing better and was discharged home on antibiotics and short course of prednisone. Problem #2 left flank pain most likely musculoskeletal in origin as nephrolithiasis and hydronephrosis were ruled out on CT abdomen and pelvis. Patient showed significant improvement in his pain with Flexeril and ibuprofen. He was sent home on analgesics, antispasmodic and proton pump inhibitors. Problem #3 history of anxiety. Patient was seen by psychiatrist and was instructed to avoid benzos. And he was scheduled with outpatient psychiatry on May 20 at 1:15 PM. Problem #4 abdominal aortic aneurysm On CAT scan it showed he has stable abdominal aortic aneurysm and patient was instructed to follow-up as outpatient. Complications: None Allergies: Coded Allergies: budesonide (From SYMBICORT) (Severe, TOUNGE FELT LIKE A CACTUS 02/16/16) formoterol (From SYMBICORT) (Severe, TOUNGE FELT LIKE A CACTUS 02/16/16) codeine (SHAKEY 02/16/16) morphine (BRADYCARDIC 02/16/16) Significant Procedures: SERVICE DATE: 05/15/17- EXAM TYPE: CAT - CT ABD & PELVIS W/O IV CONTRAS EXAMINATION: CT ABDOMEN AND PELVIS WITHOUT CONTRAST CLINICAL INFORMATION: Left flank pain, evaluate for hydronephrosis or nephrolithiasis. COMPARISON: CT scan of the abdomen and pelvis dated 04/03/2017. TECHNIQUE: Multidetector volumetric imaging was performed from the superior aspect of the liver through the pubic symphysis. Sagittal and coronal reformatted images were obtained on the technologist's workstation. DLP: 280.9 mGy-cm FINDINGS: LUNG BASES: Emphysematous changes are present in the bilateral lung bases, most prominent in the right middle lobe. Increased density in the bilateral lung bases, right greater than left suggest presence of noncalcified pleural plaque. No soft tissue pulmonary nodules are identified. 05/15/2017. LIVER, GALLBLADDER, AND BILIARY TREE: Again noted are 2 hypodense subcentimeter foci present at the margin of the right lobe of liver and the margin of the anterior aspect of the left lobe of the liver, these were present on the prior study and are unchanged in size and attenuation. The liver is normal in size, shape, and attenuation. No biliary ductal dilatation is present. The gallbladder is nondistended, which limits evaluation, no focal findings are noted. PANCREAS: Unremarkable. SPLEEN: Unremarkable. ADRENAL GLANDS: Unremarkable. KIDNEYS AND URETERS: No renal or ureteral calculi are identified. No focal lesions within the renal parenchyma are identified. The caliber of the upper renal collecting systems and visualized portions of the ureters are normal. BLADDER: Moderately distended, no calcific densities are present within the bladder lumen. GASTROINTESTINAL TRACT: The small and large bowel are unremarkable. The appendix is identified.. ABDOMINAL WALL: No significant hernia is appreciated. LYMPH NODES: No pathologically enlarged lymph nodes are present.. VASCULAR: Again noted is the abdominal aortic aneurysm, which measures approximately 4.9 cm in anterior posterior dimension at the greatest region. The aneurysm is infrarenal as described on the prior study, and extends over a length of approximately 7.4 cm of the abdominal aorta. A small area of aneurysm is present in the proximal right common iliac artery, measuring 1.4 cm, the corresponding area of the left common iliac artery measures 1.0 cm in size. Heavy atherosclerotic plaque is present throughout the abdominal aorta and extending into the iliac arteries, as well as minimally within the proximal celiac axis and left renal artery.. PELVIC VISCERA: Coarse calcifications are present within the prostate gland which is not enlarged, measuring 3.8 x 3.8 x 3.3 cm in size. OSSEOUS STRUCTURES: No aggressive osseous lesions.. IMPRESSION: 1. No renal or ureteral calculi are present, the caliber of the upper renal collecting systems and ureters is within normal limits. The bladder is normal with no calcific densities present within the bladder lumen, no focal bladder wall thickening is noted. 2. Stable infrarenal abdominal aortic aneurysm as described. No significant interval change compared to the prior study of 04/03/2017. 3. Prominent emphysematous changes present in the bilateral lungs, most prominent in the right middle lobe. No acute findings are noted throughout. Disposition Summary Disposition Principal Diagnosis: Left-sided flank pain most likely musculoskeletal Additional Diagnosis: COPD exacerbation/acute bronchitis Discharge Disposition: home or self care Discharge Instructions General Discharge Information Code Status: Full Code Patient's Diet: Regular diet Patient's Activity: As tolerated Follow-Up Instructions/Appts: Please follow-up with your primary care physician in one to 2 weeks of discharge Please follow-up with community service technician in 1-2 weeks of discharge You have scheduled outpatient psych appointment on May 20 at 1:15 PM at [address] [facility]. Medications at Discharge Discharge Medications: Stop taking the following medications: Prednisone (Prednisone) 10 MG TABLET ORAL DAILY Qty = 57 Cyclobenzaprine HCl (Cyclobenzaprine HCl) 5 MG TABLET ORAL THREE TIMES A DAY NEEDED as needed for pain Qty = 12 Ibuprofen (Ibuprofen) 600 MG TABLET ORAL EVERY 8 HOURS as needed for PAIN Qty = 30 Continue taking these medications: Citalopram Hydrobromide (Citalopram HBr) 40 MG TABLET 1 Tablet ORAL Every night Comments: Last Taken: 05/15/17 Time: 1100AM Aspirin (Aspirin*) 325 MG TABLET 1 Tablet ORAL DAILY Comments: Last Taken: 05/16/17 Time: 0900AM Butner-3S/Dha/Epa/Fish Oil (Butner-3 Fish Oil 1,000 MG Sfgl) 300-1,000MG CAPSULE 1 Capsule ORAL Every night Comments: NOT GIVEN IN HOSPITAL Tiotropium Pearl (Spiriva) 18 MCG CAP.W.DEV 1 Capsule Inhale through mouth DAILY Comments: Last Taken: 05/16/17 Time: 0900 AM Albuterol Sulfate (Proair Hfa) 90 MCG HFA.AER.AD 2 Puff Inhale through mouth As Directed as needed for COPD Comments: NOT GIVEN IN HOSPITAL Fluticasone/Vilanterol (Breo Ellipta 100-25 Mcg INH) 100 MCG-25 MCG/DOSE BLST.W.DEV 1 PUFF Inhale through mouth Every Morning Qty = 60 Comments: NOT GIVEN IN HOSPITAL Albuterol Sulfate (Albuterol Sulfate) 2.5 MG/3 ML (0.083 %) VIAL.NEB 1 Vial Inhale Solution 5XDAILY Comments: Last Taken: 05/16/17 Time: 1200PM Cholecalciferol (Vitamin D3) (Vitamin D) 2,000 UNIT CAPSULE 1 Capsule ORAL Every Morning Comments: NOT GIVEN IN HOSPITAL Melatonin (Melatonin) 3 MG TABLET 1 Tablet ORAL TAKE AT BEDTIME Comments: NOT GIVEN IN HOSPITAL Primidone (Primidone) 50 MG TABLET 50 Milligram ORAL AT BEDTIME Qty = 30 Instructions: . Comments: Last Taken:05/15/17 Time:2300PM Metoprolol Tartrate (Metoprolol Tartrate) 25 MG TABLET 12.5 Milligram ORAL TWICE DAILY Qty = 60 Instructions: . Comments: Last Taken: 05/16/17 Time: 0900AM Atorvastatin Calcium (Atorvastatin Calcium) 80 MG TABLET 80 Milligram ORAL 5 PM Qty = 30 Instructions: . Comments: Last Taken: 05/15/17 Time: 1700PM Start taking the following new medications: Ibuprofen (Ibuprofen) 800 MG TABLET 800 Milligram ORAL EVERY 8 HOURS as needed for PAIN SCALE 4-6 (MODERATE) Qty = 15 No Refills Comments: IBUPROFEN 600MG GIVEN 05/16/17 @0730AM Lidocaine (Lidoderm) 5 % ADH..PATCH 1 Patch ON SKIN DAILY Qty = 30 No Refills Comments: Last Taken: 05/16/17 Time: 1130AM Cyclobenzaprine HCl (Cyclobenzaprine HCl) 5 MG TABLET 5 Milligram ORAL THREE TIMES A DAY NEEDED as needed for pain Qty = 14 No Refills Comments: Last Taken: 05/16/17 Time: 0730AM Azithromycin (Azithromycin) 250 MG TABLET 250 Milligram ORAL DAILY Qty = 3 No Refills Comments: Last Taken: 05/16/17 Time: 1130AM Prednisone (Prednisone) 20 MG TABLET 40 Milligram ORAL DAILY Qty = 6 No Refills Comments: Last Taken: 05/16/17 Time: 1130AM Omeprazole (Omeprazole) 40 MG CAPSULE.DR 1 Capsule ORAL DAILY Qty = 14 No Refills Copies To: Rene WATTERS,Nabila
== END 2017-05-16 16:30 | DRG 140 ==
LOC: ERH 21:58 → 2NB 23:12 → ERHI 23:12 → ENRESERV 05-15 16:05 → ENTRNSPT 05-15 16:50 → EDTRNSPTSTS 05-15 16:51 → EDTRNSPT 05-15 16:51 → 2NB 05-15 17:10 → CMPTRNSPT 05-15 17:18 → ENPENDDIS 05-16 14:17 → ENTRNSPT 05-16 16:18 → EDTRNSPTSTS 05-16 16:24 → 2NB 05-16 16:30 → CMPTRNSPT 05-16 16:43
PROVIDERS: Emergency Medicine; Internal Medicine; Student in an Organized Health Care Education/Training Program
DX: J44.1 Chronic obstructive pulmonary disease with (acute) exacerbation (principal); M79.1 Myalgia; J96.20 Acute and chronic respiratory failure, unspecified whether with hypoxia or hypercapnia; J20.9 Acute bronchitis, unspecified; Z99.81 Dependence on supplemental oxygen; I10 Essential (primary) hypertension; I25.10 Atherosclerotic heart disease of native coronary artery without angina pectoris; Z95.5 Presence of coronary angioplasty implant and graft; F41.9 Anxiety disorder, unspecified; J44.0 Chronic obstructive pulmonary disease with (acute) lower respiratory infection; I71.4 Abdominal aortic aneurysm, without rupture; E78.5 Hyperlipidemia, unspecified; F17.210 Nicotine dependence, cigarettes, uncomplicated; I25.2 Old myocardial infarction
CPT/HCPCS: 2NBSP; ERO; 71045; 74176; 81003; 82436; 87040; 87804; 87804-59; 93005; 93010; 96360; J0131; J0456; J1650; J3490; J7040; J7512

== ENCOUNTER 2017-05-20 00:10 | Inpatient (IN) | payer OTHER ==
[~2017-05-20] VITALS: Ht 182.9 cm; Wt 78.0 kg
[~2017-05-20 00:10] MED LIST changes: +IBUPROFEN800 M1 PO; +LIDODERM1 EACH EXT; +OMEPRAZOLE40 M1 PO; +PREDNISONE20 M1 PO
--- NOTE | 2017-05-20 00:20 | ED DYSPNEA/ASTHMA COMPLAINT ---
History of Present Illness General Chief Complaint: Dyspnea (COPD, CHF, Other) Stated Complaint: BIBA SOB Source: patient Exam Limitations: no limitations Vital Signs & Intake/Output Vital Signs & Intake/Output Vital Signs Date Time Temp Pulse Resp B/P B/P Pulse O2 O2 Flow FiO2 Mean Ox Delivery Rate 05/20 0210 94 Nasal 4.0L Cannula 05/20 0209 99.4 97 30 132/64 96 Aerosol 10L Mask 05/20 0112 98 Nasal 3.0L Cannula 05/20 0037 97 Nasal 3.0L Cannula 05/20 0014 99.6 107 24 177/94 96 Nasal 4.0L Cannula Allergies Coded Allergies: budesonide (From SYMBICORT) (Severe, TOUNGE FELT LIKE A CACTUS 02/16/16) formoterol (From SYMBICORT) (Severe, TOUNGE FELT LIKE A CACTUS 02/16/16) codeine (SHAKEY 02/16/16) morphine (BRADYCARDIC 02/16/16) Reconcile Medications Albuterol Sulfate (Proair Hfa) 90 MCG HFA.AER.AD 2 PUF INH AD PRN COPD ( Reported) Albuterol Sulfate 2.5 MG/3 ML (0.083 %) VIAL.NEB 1 Vial INH/SHE 5XDAILY COPD (Reported) Aspirin (Aspirin*) 325 MG TABLET 1 TAB PO DAILY HEART HEALTH (Reported) Atorvastatin Calcium 80 MG TABLET 80 MG PO 1700 HYPERLIPIDEMIA . Azithromycin 250 MG TABLET 250 MG PO DAILY COPD Cholecalciferol (Vitamin D3) (Vitamin D) 2,000 UNIT CAPSULE 1 CAP PO QAM SUPPLEMENT (Reported) Citalopram Hydrobromide (Citalopram HBr) 40 MG TABLET 1 TAB PO QPM ANXIETY ( Reported) Cyclobenzaprine HCl 5 MG TABLET 5 MG PO TIDPRN PRN pain Fluticasone/Vilanterol (Breo Ellipta 100-25 Mcg INH) 100 MCG-25 MCG/DOSE BLST.W.DEV 1 PUFF INH QAM COPD (Reported) Ibuprofen 800 MG TABLET 800 MG PO Q8 PRN PAIN SCALE 4-6 (MODERATE) Lidocaine (Lidoderm) 5 % ADH..PATCH 1 PAT EXT DAILY MUSCLE PAIN Melatonin 3 MG TABLET 1 TAB PO QHS SUPPLEMENT (Reported) Metoprolol Tartrate 25 MG TABLET 12.5 MG PO BID HEART . [place]-3S/Dha/Epa/Fish Oil ([place]-3 Fish Oil 1,000 MG Sfgl) 300-1,000MG CAPSULE 1 CAP PO QPM SUPPLEMENT (Reported) Omeprazole 40 MG CAPSULE. 1 CAP PO DAILY ACID REFLUX Prednisone 20 MG TABLET 40 MG PO DAILY COPD Primidone 50 MG TABLET 50 MG PO AT BEDTIME tremors . Tiotropium [place] (Spiriva) 18 MCG CAP.W.DEV 1 CAP INH DAILY BREATHING PROBLEMS (Reported) Triage Nurses Notes Reviewed? yes Onset: Gradual Duration: day(s):, continues in ED, getting worse, waxing and waning Timing: recent history Severity: moderate Activities at Onset: none Prior Episodes/Possible Cause: frequent episodes Modifying Factors: Improves With: other (02). Associated Symptoms: cough, wheezing HPI: 62 YO gentleman h/o copd on 1.5 liters at baseline, discharged on 05/16/17, finished his steroids and antibiotics today. He noted increased dyspnea, breathlessness, and needed to increased his home 02, not improved with nebs. 911 called. The medics found him at 89% on 4 liters nasal cannula, improving to 98% with duoneb. They found him tripoding, unable to speak in complete sentences. He notes no fever, chills, diaphoresis, chest pain. Past History Travel History Traveled to [place] past 21 day No Medical History Any Pertinent Medical History? see below for history Neurological: NONE EENT: NONE Cardiovascular: hypertension, hyperlipidemia, myocardial infarction, CAD s/p stents placement Respiratory: COPD, emphysema, pneumonia Gastrointestinal: NONE Hepatic: NONE Renal: NONE Musculoskeletal: NONE Psychiatric: anxiety Endocrine: NONE Blood Disorders: NONE Cancer(s): NONE DISTRICT CAPTAIN/Reproductive: NONE History of MRSA: No History of VRE: No History of CDIFF: No Surgical History Surgical History: left knee surgery for torn cartilage cartilage Tonsillectomy Psychosocial History Who do you live with Patient/Self Services at Home None What is your primary language Icelandic Family History Family History, If Any: (fallopian tube cancerDECEASED). FATHER (heart attack x 2). MOTHER (lymphoma and alzheimers). Hx Contributory? No Review of Systems Review of Systems Constitutional: Reports: no symptoms. EENTM: Reports: no symptoms. Respiratory: Reports: no symptoms. Cardiovascular: Reports: no symptoms. GI: Reports: no symptoms. Genitourinary: Reports: no symptoms. Musculoskeletal: Reports: no symptoms. Skin: Reports: no symptoms. Neurological/Psychological: Reports: no symptoms. Hematologic/Endocrine: Reports: no symptoms. Immunologic/Allergic: Reports: no symptoms. All Other Systems: Reviewed and Negative Physical Exam Physical Exam General Appearance: well developed/nourished, moderate distress Head: atraumatic, normal appearance Eyes: Bilateral: normal appearance. Ears, Nose, Throat: normal pharynx, normal ENT inspection, dry mucosa Neck: normal inspection, supple, full range of motion Respiratory: bilateral wheezing with prolonged expiratory phase Cardiovascular: regular rate/rhythm Gastrointestinal: normal bowel sounds, soft, non-tender, no organomegaly Extremities: normal inspection, normal capillary refill, normal range of motion, no edema Neurologic/Psych: no motor/sensory deficits, awake, alert, oriented x 3 Skin: intact, normal color, warm/dry Core Measures ACS in differential dx? No CVA/TIA Diagnosis No Sepsis Present: No Sepsis Focused Exam Completed? No Progress Differential Diagnosis: asthma, AMI, bronchitis, COPD, musculoskeletal pain, pneumonia Plan of Care: Orders Procedure Date/time Status ARTERIAL BLOOD GAS (GEN) 05/20 0314 Active BLOOD CULTURE 05/20 0035 Active BLOOD CULTURE 05/20 0030 Active PARTIAL THROMBOPLASTIN TIME 05/20 0026 Complete PROTHROMBIN TIME 05/20 0026 Complete LACTIC ACID 05/20 0026 Complete ARTERIAL BLOOD GAS (GEN) 05/20 0023 Complete TROPONIN LEVEL 05/20 0023 Complete LIPASE 05/20 0023 Complete HEPATIC FUNCTION PANEL 05/20 0023 Complete CBC WITHOUT DIFFERENTIAL 05/20 0023 Complete BASIC METABOLIC PANEL 05/20 0023 Complete AMYLASE 05/20 0023 Complete EKG 05/20 0023 Active Current Medications Sig/Adrián Start time Last Medication Dose Stop Time Status Admin Magnesium Sulfate 1 GM ONCE ONE 05/20 0030 AC 05/20 (Mag Sulfate in D5) 05/20 0429 0058 Dextrose/Water 100 ML (D5W) Laboratory Tests 05/20/17 0203: Lactic Acid 1.1 05/20/17 0203: Anion Gap 7, Estimated GFR > 60, BUN/Creatinine Ratio 27.1 H, Glucose 118 H, Calcium 8.9, Total Bilirubin 0.4, Direct Bilirubin 0.3, AST 26, ALT 47, Alkaline Phosphatase 79, Troponin I 0.02, Total Protein 6.2 L, Albumin 3.8, Amylase < 30 L, Lipase 36 05/20/17 0030: pH 7.42, pCO2 41, pO2 84, HCO3 27, ABG O2 Sat (Measured) 89.0 L, P-50 (Temp Corrected) Y, Carboxyhemoglobin 7.1 *H, O2 Concentration % 3 LPM, Temperature 99.6, O2 Delivery Method N/C, Phlebotomy Draw Site RIGHT RADIAL 05/20/17 0027: PT 11.0, INR 1.05, APTT 32, CBC w Diff NO MAN DIFF REQ, RBC 5.33, MCV 90.4, MCH 29.7, RDW 15.7 H, MPV 6.7 L, Gran % 77.0 H, Lymphocytes % 10.0 L, Monocytes % 12.6 H, Eosinophils % 0.3, Basophils % 0.1, Absolute Granulocytes 9.9 H, Absolute Lymphocytes 1.3, Absolute Monocytes 1.6 H, Absolute Eosinophils 0, Absolute Basophils 0, PUBS MCHC 32.9 L Microbiology 05/20 58 BLOOD: Blood Culture - RECD 05/20 49 BLOOD: Blood Culture - RECD Diagnostic Imaging: Viewed by Me: Radiology Read. Discussed w/RAD: Radiology Read. Initial ED EKG: SINUS TACH, INFERIOR Q'S, NO ACUTE CHANGE FROM PRIOR. Departure Departure Disposition: STILL A PATIENT Condition: Stable Clinical Impression Primary Impression: COPD exacerbation Secondary Impressions: Sepsis Referrals: Nabila López MD (PCP/Family) Departure Forms: Customer Survey General Discharge Information Comments 05/20/17, 3:20am... pt breathing more comfortably, speaking in complete sentences , trop negative. pt stable for gen med. Admission Note Spoke With: Lamonte Pan MD Documentation of Exam: Documentation of any treatments & extenuating circumstances including Concerns Regarding Discharge (functional status, medication knowledge or non-compliance, living conditions, etc.) that warrant an admission rather than observation: pt with increased 02 requirement... 1.5 to 3-4 lpm, pt tripoding upon arrival, now improved Critical Care Note Critical Care Note Critical Care Time: 30-74 min Comments: pt requires continues nebs, increased 02, magnesium sulfate. Critical Care Note Critical Care Time: 30-74 min Comments: pt requires continues nebs, increased 02, magnesium sulfate.
[2017-05-20 00:42] LABS: ABSOLUTE BASOPHIL COUNT 0 /CUMM (0.0-0.2); ABSOLUTE EOSINOPHIL COUNT 0 /CUMM (0.0-0.7); ABSOLUTE GRANULOCYTE CT 9.9 /CUMM (1.4-6.5); ABSOLUTE LYMPH COUNT 1.3 /CUMM (1.2-3.4); ABSOLUTE MONOCYTE COUNT 1.6 /CUMM (0.10-0.60); BASOPHIL % 0.1 % (0.0-2.0); EOSINOPHIL % 0.3 % (0-5); MEAN CORPUSCULAR HGB 29.7 PG (27.0-31.0); MEAN CORPUSCULAR HGB CONC 32.9 G/DL (33.0-37.0); MEAN CORPUSCULAR VOLUME 90.4 FL (80.0-94.0); MEAN PLATELET VOLUME 6.7 FL (7.4-10.4); PLATELET COUNT 291 /CUMM (130-400); RBC DISTRIBUTION WIDTH 15.7 % (11.5-14.5); RED BLOOD CELL CT 5.33 /CUMM (4.70-6.10); WHITE BLOOD CELL COUNT 12.9 /CUMM (4.8-10.8)
[2017-05-20 00:53] LABS: PTT 32 SEC (25-37)
[2017-05-20 00:57] LABS: HEMATOCRIT 48.2 % (42-52)
--- NOTE | 2017-05-20 03:04 | RADIOLOGY REPORT ---
EXAMINATION: XR PORTABLE CHEST CLINICAL INFORMATION: Dyspnea, hypoxia COMPARISON: 05/14/2017 TECHNIQUE: Portable frontal view of the chest was obtained. FINDINGS: The lungs appear hyperinflated, suspicious for underlying COPD. Previously identified right upper lobe mass is redemonstrated and appears stable. There are minimal streaky bibasilar opacities favoring atelectasis. No additional consolidation bilaterally. No evidence of pneumothorax or significant pleural effusion. The cardiomediastinal contour is unremarkable. No acute osseous findings are seen. IMPRESSION: Minimal streaky bibasilar opacities suggesting atelectasis. Redemonstrated right upper lobe mass.
--- NOTE | 2017-05-20 04:34 | History & Physical ---
Goyo WATTERS,[facility] 05/20/17 0355: General Information and HPI MD Statement: I have seen and personally examined JORGE A SANTOYO JR and documented this H&P. The patient is a 62 year old M who presented with a patient stated chief complaint of [SOB]. 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 The patient presented to [facility] on with chief complaint of shortness of breath. The patient was recently discharged on 05/16 and was treated for acute on chronic respiratory failure secondary to COPD exacerbation. He finished steriod taper yesterday. Patient was in usual state of health until around 10 PM when he started feeling short of breath. As per patient he became very anxious and had kind of a panic attack. He reports having cough for the past 3 weeks without phlegm production. He states that it hurts to cough so he is unable to produce phlegm. Patient also reports 10 out of 10 sharp back pain which starts from left rib cage and radiates up to her right shoulder blade which has been going on for past few months, aggravated by certain kind of movement and not completely relieved with Flexeril or ibuprofen. Patient has been sleeping in a recliner states that he needs to use nebulization treatment as soon as he gets up and cannot make it to the living room without getting extremely short of breath from the bedroom hence opts for sleeping in the recliner. Today the patient was brought in by ambulance for shortness of breath. EMS found the patient to be tripoding along with decreased aeration in all lung estes and desaturating up to 89%. Patient received DuoNeb in ED and was placed on 4 L of nasal cannula he was satting at 95%. In ED patient kept complaining of shortness of breath and was sitting upright with increased work of breathing, offered BiPAP but he refused. Patient has been having multiple anxiety/panic episodes ever since of his daughter. He had a follow-up appointment with psychiatry today. Review of systems patient reports epigastric pain of note patient has been consuming high doses of NSAID for relief of back pain. Patient continues to smoke has cut down to 6 cigarettes per day. He uses oxygen every night and sometimes during the day as well. He has never been intubated in the past During the encounter patient was extremely anxious and wanted his problems to be fixed. Allergies/Medications Allergies: Coded Allergies: budesonide (From SYMBICORT) (Severe, TOUNGE FELT LIKE A CACTUS 02/16/16) formoterol (From SYMBICORT) (Severe, TOUNGE FELT LIKE A CACTUS 02/16/16) codeine (SHAKEY 02/16/16) morphine (BRADYCARDIC 02/16/16) Home Med list Albuterol Sulfate (Proair Hfa) 90 MCG HFA.AER.AD 2 PUF INH AD PRN COPD ( Reported) Albuterol Sulfate 2.5 MG/3 ML (0.083 %) VIAL.NEB 1 Vial INH/SHE 5XDAILY COPD (Reported) Aspirin (Aspirin*) 325 MG TABLET 1 TAB PO DAILY HEART HEALTH (Reported) Atorvastatin Calcium 80 MG TABLET 80 MG PO 1700 HYPERLIPIDEMIA . Cholecalciferol (Vitamin D3) (Vitamin D) 2,000 UNIT CAPSULE 1 CAP PO QAM SUPPLEMENT (Reported) Citalopram Hydrobromide (Citalopram HBr) 40 MG TABLET 1 TAB PO QPM ANXIETY ( Reported) Cyclobenzaprine HCl 5 MG TABLET 5 MG PO TIDPRN PRN pain Fluticasone/Vilanterol (Breo Ellipta 100-25 Mcg INH) 100 MCG-25 MCG/DOSE BLST.W.DEV 1 PUFF INH QAM COPD (Reported) Ibuprofen 800 MG TABLET 800 MG PO Q8 PRN PAIN SCALE 4-6 (MODERATE) Lidocaine (Lidoderm) 5 % ADH..PATCH 1 PAT EXT DAILY MUSCLE PAIN Melatonin 3 MG TABLET 1 TAB PO QHS SUPPLEMENT (Reported) Metoprolol Tartrate 25 MG TABLET 12.5 MG PO BID HEART . Gillett-3S/Dha/Epa/Fish Oil (Gillett-3 Fish Oil 1,000 MG Sfgl) 300-1,000MG CAPSULE 1 CAP PO QPM SUPPLEMENT (Reported) Omeprazole 40 MG CAPSULE.DR 1 CAP PO DAILY ACID REFLUX Primidone 50 MG TABLET 50 MG PO AT BEDTIME tremors . Tiotropium [place] (Spiriva) 18 MCG CAP.W.DEV 1 CAP INH DAILY BREATHING PROBLEMS (Reported) Compliance With Home Meds: GOOD Past History Travel History Traveled to [place] past 21 day No Medical History Neurological: NONE EENT: NONE Cardiovascular: hypertension, hyperlipidemia, myocardial infarction, CAD s/p stents placement Respiratory: COPD, emphysema, pneumonia Gastrointestinal: NONE Hepatic: NONE Renal: NONE Musculoskeletal: NONE Psychiatric: anxiety Endocrine: NONE Blood Disorders: NONE Cancer(s): NONE STRATEGY SPECIALIST/Reproductive: NONE History of MRSA: No History of VRE: No History of CDIFF: No Surgical History Surgical History: left knee surgery for torn cartilage cartilage Tonsillectomy Past Family/Social History Family History Relations & Conditions if any (fallopian tube cancer ). FATHER (heart attack x 2). MOTHER (lymphoma and alzheimers). DAUGHTER (Lupus nephritis ). Psychosocial History Where do you live? Home Who Do You Live With? self Services at Home: None Primary Language: French Smoking Status: Current Some Day Smoker ETOH Use: denies use Illicit Drug Use: denies illicit drug use Living Will? no Functional Ability ADLs Independent: dressing, eating, toileting, bathing. Ambulation: independent IADLs Independent: shopping, housework, finances, food prep, telephone, transportation , medication admin. Review of Systems Review of Systems Constitutional: Reports: see HPI. Denies: diaphoresis, malaise. EENTM: Reports: no symptoms. Cardiovascular: Reports: no symptoms. Respiratory: Reports: cough, short of breath, sputum production. GI: Reports: abdominal pain. Genitourinary: Reports: no symptoms. Musculoskeletal: Reports: back pain. Exam & Diagnostic Data Last 24 Hrs of Vital Signs/I&O Vital Signs Date Time Temp Pulse Resp B/P B/P Pulse O2 O2 Flow FiO2 Mean Ox Delivery Rate 05/20 0210 94 Nasal 4.0L Cannula 05/20 0209 99.4 97 30 132/64 96 Aerosol 10L Mask 05/20 0112 98 Nasal 3.0L Cannula 05/20 0037 97 Nasal 3.0L Cannula 05/20 0014 99.6 107 24 177/94 96 Nasal 4.0L Cannula Intake & Output 05/20 0800 05/20 0000 05/19 1600 Intake Total Output Total Balance Patient 137 lb Weight Weight Estimated Measurement Method Physical Exam General Appearance Alert, Oriented X3, Cooperative Skin No Rashes HEENT Atraumatic, PERRLA, EOMI, Mucous Membr. moist/pink Neck Supple Cardiovascular Normal S1, Normal S2 Lungs decreased breath sounds through out Abdomen Normal Bowel Sounds, Soft, epigastric tenderness Neurological Normal Speech Last 24 Hrs of Labs/Poncho: Laboratory Tests 05/20/17 0326: Lactic Acid Cancelled 05/20/17 0203: Lactic Acid 1.1 05/20/17 020: Anion Gap 7, Estimated GFR > 60, BUN/Creatinine Ratio 27.1 H, Glucose 118 H, Calcium 8.9, Total Bilirubin 0.4, Direct Bilirubin 0.3, AST 26, ALT 47, Alkaline Phosphatase 79, Troponin I 0.02, Total Protein 6.2 L, Albumin 3.8, Amylase < 30 L, Lipase 36 05/20/17 0030: pH 7.42, pCO2 41, pO2 84, HCO3 27, ABG O2 Sat (Measured) 89.0 L, P-50 (Temp Corrected) Y, Carboxyhemoglobin 7.1 *H, O2 Concentration % 3 LPM, Temperature 99.6, O2 Delivery Method N/C, Phlebotomy Draw Site RIGHT RADIAL 05/20/17 0027: PT 11.0, INR 1.05, APTT 32, CBC w Diff NO MAN DIFF REQ, RBC 5.33, MCV 90.4, MCH 29.7, RDW 15.7 H, MPV 6.7 L, Gran % 77.0 H, Lymphocytes % 10.0 L, Monocytes % 12.6 H, Eosinophils % 0.3, Basophils % 0.1, Absolute Granulocytes 9.9 H, Absolute Lymphocytes 1.3, Absolute Monocytes 1.6 H, Absolute Eosinophils 0, Absolute Basophils 0, PUBS MCHC 32.9 L Microbiology 05/20 435 LOWER RESP: Respiratory Culture - ORD 05/20 435 LOWER RESP: Gram Stain - ORD 05/20 040 NASOPHARYN: Influenza Virus A & B Rapid Smear - ORD 05/20 005 BLOOD: Blood Culture - RECD 05/20 49 BLOOD: Blood Culture - RECD Diagnostic Data CXR Results Minimal streaky bibasilar opacities suggesting atelectasis. Redemonstrated right upper lobe mass. 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 The patient presented to [facility] on with chief complaint of shortness of breath. The patient was recently discharged on 05/16 and was treated for acute on chronic respiratory failure secondary to COPD exacerbation. He finished steriod taper yesterday, -VS 99.6, HR 107, RR 24-30, 96% on 4 L -Pertinent labs WBC count 12.9, ABGs pH 7.040, PCO2 41. PO2 of 84 HCO3 27 carboxyhemoglobin 7.1 -CXR x-ray findings dictated above -Patient received 125 mg of Solu-Medrol and 1 g magnesium sulfate along with one dose of azithromycin and Rocephin in ED -The patient is being admitted to general medicine floor and is being evaluated and treated for following conditions #Dyspnea panic attack versus COPD exacerbation Patient desaturated to 89% on arrival of EMS, along with tripoding and inability to complete sentences. He has been maintaining his oxygen saturation 90s on 4 L of oxygen. His baseline oxygen is 1.5 L prn and nocturnal. He has elevated WBC count of 12.9 which is likely secondary to steroid taper he finished yesterday. His shortness of breath is likely multifactorial likely secondary to panic attack with component of COPD exacerbating it. -Monitor fever and WBC curve -IV steroids -Oxygen supplementation to maintain oxygen saturation above 92% -Psychiatric evaluation in the morning -Pulm consult Dr. Lockett in the morning -Follow up blood culture and sputum cultures -Follow up Flu Swab -Continue Flovent and Spiriva #Back pain Appears to be musculoskeletal in origin possibly secondary to use of Recliner instead of sleeping in bed. -Pain Management with Lidoderm patch, hot compressions,Tylenol and Flexeril #Epigastric pain Patient is complaining of epigastric pain, not related with food intake. Amylase and lipase within normal limits. He has been using high doses of NSAIDs 800 mg ibuprofen Q8. Epigastric pain can be secondary to gastric pathology versus secondary to cough -Monitor H&H -Guaiac all stools -Continue PPI -Avoid NSAIDs #Smoker -Nicotine patch and smoking cessation counseling #Chronic medical conditions COPD, hyperlipidemia, hypertension, CAD, tremors continue Lipitor, aspirin, metoprolol Primidone #FC/heart healthy diet/DVT prophylaxis with Lovenox As Ranked By This Provider Problem List: 1. Anxiety 2. COPD 3. 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 He was recently admitted in [facility] on May 14 for acute on chronic hypoxic respiratory failure secondary to COPD exacerbation. He was treated with Zithromax and steroids that he just finished yesterday. He is also complaining of sharp stabbing pain that starts from his lower back and goes up to his shoulder blades. He is also coughing but unable to bring up any phlegm. He also reports epigastric pain. He denies any fever, chills, palpitations, nausea, vomiting, diarrhea, constipation, any change in the color of his stool and urinary symptoms. He lives alone and denies any sick contacts. Vitals on admission: Temperature 99.6, pulse 107, respiratory rate 24, blood pressure 177/94 and oxygen saturation 89% on room air. He was placed on 4 L of oxygen and given DuoNeb. Sats up to 95%. Pertinent physical exam findings: He is very anxious and tearful. No pharyngeal erythema. No cervical lymphadenopathy. Lungs diminished breath sounds bilaterally. Heart regular rate and rhythm without murmurs. Abdomen tenderness on palpation of epigastric area. No guarding or rigidity. Positive bowel sounds. No pedal edema. Pertinent labs: WBC count 12.9. ABGs pH 7.42, PCO2 41, PaO2 84 and bicarbonate 27 Chest x-ray showed minimal streaky bibasilar opacities. Right upper lobe mass appears stable. No consolidation bilaterally. In ER he was given respiratory treatment, IV antibiotics (ceftriaxone and azithromycin), steroids and mag sulfate. Assessment and plan His 62-year-old man with moderate to severe COPD on 1.5 L of oxygen by nasal cannula as needed at home, tobacco dependence enrolled in LDCT program in [place], stable RUL mass, coronary artery disease status post CA with PCI in 1998 and severe anxiety presented to ER and found to be in acute on chronic hypoxic respiratory failure likely secondary to COPD exacerbation. We will admit him under general medicine floor. Vitals every shift. Continue supplemental oxygen and keep oxygen saturation more than 92%. Continue TRC nebs and steroids. Follow blood and sputum cultures. Will do rapid flu swab. For his severe anxiety he was supposed to see psychiatrist today but as he is admitted now so we will request psych to see him in hospital. Consider pulmonary consult in a.m. Will continue on his home medications. Tylenol and Flexeril for back pain. Continue Lidoderm patch. DVT prophylaxis. 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 Patient was recently discharged when he was admitted with left flank pain. This was thought to be musculoskeletal pain. He was discharged on Flexeril, ibuprofen and Lidoderm patch. He said that he was using ibuprofen and Flexeril with some relief but could not apply the Lidoderm patch at the site. He felt okay for the couple of days but then started last night he started to feel short of breath because he was feeling anxious. He gets these anxiety attacks that brings on the shortness of breath. He lost his daughter in February of last year that has pushed him off. He still smokes 4-5 cigarettes a day. He feels depressed. He has a son who lives couple of miles away from. He has lost his about 11 years ago. He does complain of cough but unable to bring up any sputum. He denies any fevers or chills. Vital Signs Date Time Temp Pulse Resp B/P B/P Pulse O2 O2 Flow FiO2 Mean Ox Delivery Rate 05/20 1343 Nasal 1.5L Cannula 05/20 1343 96 Nasal 2.0L Cannula 05/20 0900 95 Nasal 2.0L Cannula 05/20 0900 97.9 74 18 122/58 95 Nasal 2.0L Cannula 05/20 0833 Nasal 2.0L Cannula 05/20 0713 98.9 80 20 104/55 98 Nasal 3.0L Cannula 05/20 0619 99.1 80 20 99/57 98 Nasal 3.0L Cannula 05/20 0609 98.0 05/20 0526 98.0 81 20 108/59 97 Nasal 3.5L Cannula 05/20 0210 94 Nasal 4.0L Cannula 05/20 0209 99.4 97 30 132/64 96 Aerosol 10L Mask 05/20 0112 98 Nasal 3.0L Cannula 05/20 0037 97 Nasal 3.0L Cannula 05/20 0014 99.6 107 24 177/94 96 Nasal 4.0L Cannula on exam; aox3, nad. cv; s1,s2, rrr resp; decreased bs overall. abd; soft, nt, bs+ ext; no edema. Laboratory Tests 05/20 05/20 05/20 05/20 0326 0203 0203 0030 Blood Gas pH (7.35 - 7.45 PH) 7.42 pCO2 (35 - 45 TORR) 41 pO2 (80 - 100 TORR) 84 HCO3 (21 - 28 MEQ/L) 27 ABG O2 Sat (Measured) (>96.0 %) 89.0 L P-50 (Temp Corrected) Y Carboxyhemoglobin (1.5 - 5.0 %) 7.1 *H O2 Concentration % 3 LPM Temperature (97.0 - 100.0 FARH) 99.6 O2 Delivery Method N/C Chemistry Sodium (137 - 145 mmol/L) 138 Potassium (3.5 - 5.1 mmol/L) 3.9 Chloride (98 - 107 mmol/L) 102 Carbon Dioxide (22 - 30 mmol/L) 28 Anion Gap (5 - 16) 7 BUN (9 - 20 mg/dL) 19 Creatinine (0.7 - 1.2 mg/dL) 0.7 Estimated GFR (>60 ml/min) > 60 BUN/Creatinine Ratio (7 - 25 %) 27.1 H Glucose (65 - 99 mg/dL) 118 H Lactic Acid (0.7 - 2.1 mmol/L) Cancelled 1.1 Calcium (8.4 - 10.2 mg/dL) 8.9 Magnesium (1.6 - 2.3 mg/dL) 1.8 Total Bilirubin (0.2 - 1.3 mg/dL) 0.4 Direct Bilirubin (< 0.4 mg/dL) 0.3 AST (17 - 59 U/L) 26 ALT (21 - 72 U/L) 47 Alkaline Phosphatase (< 127 U/L) 79 Troponin I (<0.11 ng/ml) 0.02 Total Protein (6.3 - 8.2 g/dL) 6.2 L Albumin (3.5 - 5.0 g/dL) 3.8 Amylase (30 - 110 U/L) < 30 L Lipase (23 - 300 U/L) 36 Miscellaneous Phlebotomy Draw Site RIGHT RADIAL 05/20 0027 Coagulation PT (9.4 - 12.5 SEC) 11.0 INR (0.90 - 1.17) 1.05 APTT (25 - 37 SEC) 32 Hematology CBC w Diff NO MAN DIFF REQ WBC (4.8 - 10.8 /CUMM) 12.9 H RBC (4.70 - 6.10 /CUMM) 5.33 Hgb (14.0 - 18.0 G/DL) 15.8 Hct (42 - 52 %) 48.2 MCV (80.0 - 94.0 FL) 90.4 MCH (27.0 - 31.0 PG) 29.7 RDW (11.5 - 14.5 %) 15.7 H Plt Count (130 - 400 /CUMM) 291 MPV (7.4 - 10.4 FL) 6.7 L Gran % (42.2 - 75.2 %) 77.0 H Lymphocytes % (20.5 - 51.1 %) 10.0 L Monocytes % (1.7 - 9.3 %) 12.6 H Eosinophils % (0 - 5 %) 0.3 Basophils % (0.0 - 2.0 %) 0.1 Absolute Granulocytes (1.4 - 6.5 /CUMM) 9.9 H Absolute Lymphocytes (1.2 - 3.4 /CUMM) 1.3 Absolute Monocytes (0.10 - 0.60 /CUMM) 1.6 H Absolute Eosinophils (0.0 - 0.7 /CUMM) 0 Absolute Basophils (0.0 - 0.2 /CUMM) 0 PUBS MCHC (33.0 - 37.0 G/DL) 32.9 L A/P; 62 y/o M with pmh sig for ch resp failure, COPD on 1.5 L of oxygen at home , right upper lobe mass (stable), CAD status post stent placement, 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 Patient admitted to medicine floor. He will be treated with IV steroids, TRC nebs. We'll try to obtain sputum culture. Appreciate pulmonary input. Will be continued on inhalers. Psychiatry consult has been obtained. Please follow recommendations. Patient continues to have this left flank pain. Will continue Flexeril and Lidoderm patch. Would add tramadol when necessary. DVT prophylaxis: Lovenox. Patient is a full code.
--- NOTE | 2017-05-20 07:51 | PN- Housestaff ---
Kiki Loomis 05/20/17 0751: Subjective Follow-up For: Acute on chronic respiratory failure most likely due to COPD exacerbation Anxiety/depression/panic attacks Subjective: Patient was seen and examined this morning. He was sitting on bed slightly depressed and tearful. He is worried about his shoulder blade pain and bilateral flank/back pain. He is still very short of breath and struggle for keeping. He remained afebrile and hemodynamically stable. Review of Systems Constitutional: Reports: malaise, weakness. Denies: chills, diaphoresis. Cardiovascular: Denies: chest pain, edema. Respiratory: Reports: short of breath, wheezing. Gastrointestinal: Denies: constipation, diarrhea. Genitourinary: Denies: frequency, hematuria. Musculoskeletal: Reports: back pain, muscle pain, muscle stiffness. Objective Last 24 Hrs of Vital Signs/I&O Vital Signs Date Time Temp Pulse Resp B/P B/P Pulse O2 O2 Flow FiO2 Mean Ox Delivery Rate 05/20 0900 95 Nasal 2.0L Cannula 05/20 0900 97.9 74 18 122/58 95 Nasal 2.0L Cannula 05/20 0833 Nasal 2.0L Cannula 05/20 0713 98.9 80 20 104/55 98 Nasal 3.0L Cannula 05/20 0619 99.1 80 20 99/57 98 Nasal 3.0L Cannula 05/20 0609 98.0 05/20 0526 98.0 81 20 108/59 97 Nasal 3.5L Cannula 05/20 0210 94 Nasal 4.0L Cannula 05/20 0209 99.4 97 30 132/64 96 Aerosol 10L Mask 05/20 0112 98 Nasal 3.0L Cannula 05/20 0037 97 Nasal 3.0L Cannula 05/20 0014 99.6 107 24 177/94 96 Nasal 4.0L Cannula Intake & Output 05/20 1600 05/20 0800 05/20 0000 Intake Total Output Total Balance Patient 172 lb 137 lb Weight Weight Reported by Patient Estimated Measurement Method Physical Exam General Appearance: Alert, Oriented X3, Cooperative, Mild Distress Cardiovascular: Regular Rate, Normal S1, Normal S2, No Murmurs Lungs: BILATERAL WHEEZING AND MODERATELY REDUCED AIR ENTRY Abdomen: Normal Bowel Sounds, No Tenderness Current Medications: Current Medications Sig/Adrián Start time Last Medication Dose Route Stop Time Status Admin Acetaminophen 0 .STK-MED ONE 05/20 0606 DC PO Acetaminophen 650 MG Q8 05/20 0600 AC 05/20 PO 0609 Albuterol Sulfate 3 ML Q4 HRS NEEDED PRN 05/20 0430 AC 05/20 INH 0833 Albuterol Sulfate 3 ML ONCE ONE 05/20 0215 DC 05/20 INH 05/20 0216 0210 Albuterol Sulfate 3 ML ONCE ONE 05/20 0030 DC 05/20 INH 05/20 0031 0037 Albuterol Sulfate 3 ML ONCE ONE 05/20 0030 DC 05/20 INH 05/20 0031 0037 Albuterol Sulfate 3 ML ONCE ONE 05/20 0030 DC 05/20 INH 05/20 0031 0037 Albuterol Sulfate 3 ML ONCE ONE 05/20 0030 DC 05/20 INH 05/20 0031 0037 Albuterol Sulfate 3 ML ONCE ONE 05/20 0030 DC 05/20 INH 05/20 0031 0037 Albuterol Sulfate 3 ML ONCE ONE 05/20 0030 DC 05/20 INH 05/20 0031 0037 Alprazolam 0 .STK-MED ONE 05/20 0607 DC PO Alprazolam 0.25 MG ONCE ONE 05/20 0445 DC 05/20 PO 05/20 0446 0609 Aspirin 325 MG DAILY 05/20 1000 AC PO Atorvastatin Calcium 80 MG 1700 05/20 1700 AC PO Azithromycin 500 MG ONCE ONE 05/20 0200 DC 05/20 Sodium Chloride 250 ML IV 05/20 258 0222 Ceftriaxone Sodium 0 .STK-MED ONE 05/20 0230 DC .ROUTE Ceftriaxone Sodium 1,000 MG ONCE ONE 05/20 0200 DC 05/20 IV 05/20 020 0237 Citalopram 40 MG DAILY 05/20 1000 AC Hydrobromide PO Cyclobenzaprine HCl 5 MG TIDPRN PRN 05/20 0445 AC 05/20 PO 0609 Enoxaparin Sodium 40 MG DAILY 05/20 1000 AC SC Ipratropium [place] 2.5 ML Q4P PRN 05/20 0445 AC INH Ipratropium [place] 2.5 ML ONCE ONE 05/20 0030 DC 05/20 INH 05/20 0031 0037 Lidocaine 1 PAT DAILY 05/20 1000 AC EXT Magnesium Sulfate 1 GM ONCE ONE 05/20 0030 DC 05/20 Dextrose/Water 100 ML IV 05/20 428 0058 Melatonin 3 MG AT BEDTIME 05/20 2199 AC PO Methylprednisolone 40 MG Q6 05/20 1200 AC IV Methylprednisolone 40 MG Q8 05/20 0600 DC IV Methylprednisolone 0 .STK-MED ONE 05/20 0039 DC .ROUTE Methylprednisolone 125 MG ONCE ONE 05/20 0030 DC 05/20 IV 05/20 30 0038 Metoprolol Tartrate 12.5 MG BID 05/20 1000 AC PO Omeprazole 40 MG DAILY AC 05/20 0700 AC 05/20 PO 0609 Omeprazole 0 .STK-MED ONE 05/20 0607 DC PO Primidone 50 MG AT BEDTIME 05/20 2199 AC PO Tramadol HCl 50 MG TIDPRN 05/20 1000 AC PO Last 24 Hrs of Lab/Poncho Results Last 24 Hrs of Labs/Mics: Laboratory Tests 05/20/17 0326: Lactic Acid Cancelled 05/20/17 020: Lactic Acid 1.1 05/20/17202: Anion Gap 7, Estimated GFR > 60, BUN/Creatinine Ratio 27.1 H, Glucose 118 H, Calcium 8.9, Magnesium 1.8, Total Bilirubin 0.4, Direct Bilirubin 0.3, AST 26, ALT 47, Alkaline Phosphatase 79, Troponin I 0.02, Total Protein 6.2 L, Albumin 3.8, Amylase < 30 L, Lipase 36 05/20/1729: pH 7.42, pCO2 41, pO2 84, HCO3 27, ABG O2 Sat (Measured) 89.0 L, P-50 (Temp Corrected) Y, Carboxyhemoglobin 7.1 *H, O2 Concentration % 3 LPM, Temperature 99.6, O2 Delivery Method N/C, Phlebotomy Draw Site RIGHT RADIAL 05/20/177: PT 11.0, INR 1.05, APTT 32, CBC w Diff NO MAN DIFF REQ, RBC 5.33, MCV 90.4, MCH 29.7, RDW 15.7 H, MPV 6.7 L, Gran % 77.0 H, Lymphocytes % 10.0 L, Monocytes % 12.6 H, Eosinophils % 0.3, Basophils % 0.1, Absolute Granulocytes 9.9 H, Absolute Lymphocytes 1.3, Absolute Monocytes 1.6 H, Absolute Eosinophils 0, Absolute Basophils 0, PUBS MCHC 32.9 L Microbiology 05/20 07 NASOPHARYN: Influenza Virus A & B Rapid Smear - COMP 05/20 435 LOWER RESP: Respiratory Culture - ORD 05/20 435 LOWER RESP: Gram Stain - ORD 05/20 005 BLOOD: Blood Culture - RECD 05/20 49 BLOOD: Blood Culture - RECD Assessment/Plan Assessment: His 62-year-old man with moderate to severe COPD on 1.5 L of oxygen by nasal cannula as needed at home, tobacco dependence enrolled in LDCT program in [place], stable RUL mass, coronary artery disease status post ID with PCI in 1998 and severe anxiety presented to ER and found to be in acute on chronic hypoxic respiratory failure likely secondary to COPD exacerbation and he is very anxious that might be contributing factor in his respiratory status. Patient was admitted on general medical floor and we will address following problems Problem #1 acute on chronic respiratory failure most likely COPD exacerbation with underlying right upper lobe mass Patient was started on IV Solu-Medrol. Pulmonary evaluation by Dr. Lockett appreciated. We will continue IV Solu-Medrol 40 mg every 8. His pain recently treated with Zithromax no need to restart it again. TRC and nebulization round- the-clock. Problem #2 severe anxiety and depression Patient was scheduled for outpatient psych evaluation today which is already being canceled being admitted in the hospital. Psychiatry evaluation was requested and we will follow their recommendations regarding changing his anxiolytic as is not effectively treating his underlying severe anxiety and depression. We would avoid benzodiazepines given his compromised respiratory status. Problem #3 generalized body aches including shoulder blades and lower back pain. Patient has severe body spasms most likely due to underlying severe anxiety and depression. We will start him on tramadol as high dose of ibuprofen was giving him epigastric pain. We will continue his proton pump inhibitors. Problem #4 chronic issues including abdominal aortic aneurysm He is stable abdominal aortic aneurysm, he had recent CAT scan showed stable aortic aneurysm which could be follow-up as outpatient. Problem List: 1. COPD (chronic obstructive pulmonary disease) 2. Anxiety Pain Ratin Pain Location: SHOULDER BLADES AND BILATERA; BACK PAIN Pain Goal: Pain 4 or less Pain Plan: TRAMADOL Tomorrow's Labs & Rationales: CBC AND BEP Lauri WATTERS,Renetta 05/20/17 7545: Attending MD Review Statement Attending Statement Attending MD Statement: examined this patient, discuss w/resident/PA/DRAFTER [employer]IVIL ENGINEERING, agreed w/resident/PA/[employer]AF[employer]IVIL ENGINEERING, reviewed EMR data (avail), discussed with nursing, discussed with case mgmt, reviewed images, amended to note Attending Assessment/Plan: See my addendum to H&P today.
[2017-05-20 09:00] VITALS: BP 122/58
--- NOTE | 2017-05-20 10:48 | Cons- Pulmonary ---
General Information and HPI Consulting Request Date of Consult: 05/20/17 Requested By: Dr. Mcghee Reason for Consult: Exacerbation of COPD Source of Information: patient Exam Limitations: no limitations History of Present Illness: 62 year old man. Moderately Severe COPD. Had significant anxiety at home prompting calling 911 and presented to the emergency room department with significant wheezing. On Spiriva/Symbicort/Duonebs. He is enrolled in the LDCT. Chronic RUL changes. Recently daughter from SLE. Continues to smoke and has increased intake due to recent news regarding his daughter. wbc 12.9. Minimal streaky bibasilar opacities suggesting atelectasis. Redemonstrated right upper lobe changes. Feels better than admission. Was to see psychiatry today, requesting psych input. Allergies/Medications Allergies: Coded Allergies: budesonide (From SYMBICORT) (Severe, TOUNGE FELT LIKE A CACTUS 02/16/16) formoterol (From SYMBICORT) (Severe, TOUNGE FELT LIKE A CACTUS 02/16/16) codeine (SHAKEY 02/16/16) morphine (BRADYCARDIC 02/16/16) Home Med List: Albuterol Sulfate (Proair Hfa) 90 MCG HFA.AER.AD 2 PUF INH AD PRN COPD ( Reported) Albuterol Sulfate 2.5 MG/3 ML (0.083 %) VIAL.NEB 1 Vial INH/SHE 5XDAILY COPD (Reported) Aspirin (Aspirin*) 325 MG TABLET 1 TAB PO DAILY HEART HEALTH (Reported) Atorvastatin Calcium 80 MG TABLET 80 MG PO 1700 HYPERLIPIDEMIA . Cholecalciferol (Vitamin D3) (Vitamin D) 2,000 UNIT CAPSULE 1 CAP PO QAM SUPPLEMENT (Reported) Citalopram Hydrobromide (Citalopram HBr) 40 MG TABLET 1 TAB PO QPM ANXIETY ( Reported) Cyclobenzaprine HCl 5 MG TABLET 5 MG PO TIDPRN PRN pain Fluticasone/Vilanterol (Breo Ellipta 100-25 Mcg INH) 100 MCG-25 MCG/DOSE BLST.W.DEV 1 PUFF INH QAM COPD (Reported) Ibuprofen 800 MG TABLET 800 MG PO Q8 PRN PAIN SCALE 4-6 (MODERATE) Lidocaine (Lidoderm) 5 % ADH..PATCH 1 PAT EXT DAILY MUSCLE PAIN Melatonin 3 MG TABLET 1 TAB PO QHS SUPPLEMENT (Reported) Metoprolol Tartrate 25 MG TABLET 12.5 MG PO BID HEART . [place]-3S/Dha/Epa/Fish Oil ([place]-3 Fish Oil 1,000 MG Sfgl) 300-1,000MG CAPSULE 1 CAP PO QPM SUPPLEMENT (Reported) Omeprazole 40 MG CAPSULE.DR 1 CAP PO DAILY ACID REFLUX Primidone 50 MG TABLET 50 MG PO AT BEDTIME tremors . Tiotropium [place] (Spiriva) 18 MCG CAP.W.DEV 1 CAP INH DAILY BREATHING PROBLEMS (Reported) Current Medications: Current Medications Sig/Adrián Start time Last Medication Dose Route Stop Time Status Admin Acetaminophen 0 .STK-MED ONE 05/20 0606 DC PO Acetaminophen 650 MG Q8 05/20 0600 AC 05/20 PO 0609 Albuterol Sulfate 3 ML Q4 HRS NEEDED PRN 05/20 0430 AC 05/20 INH 0833 Albuterol Sulfate 3 ML ONCE ONE 05/20 0215 DC 05/20 INH 05/20 0216 0210 Albuterol Sulfate 3 ML ONCE ONE 05/20 0030 DC 05/20 INH 05/20 0031 0037 Albuterol Sulfate 3 ML ONCE ONE 05/20 0030 DC 05/20 INH 05/20 0031 0037 Albuterol Sulfate 3 ML ONCE ONE 05/20 0030 DC 05/20 INH 05/20 0031 0037 Albuterol Sulfate 3 ML ONCE ONE 05/20 0030 DC 05/20 INH 05/20 0031 0037 Albuterol Sulfate 3 ML ONCE ONE 05/20 0030 DC 05/20 INH 05/20 0031 0037 Albuterol Sulfate 3 ML ONCE ONE 05/20 0030 DC 05/20 INH 05/20 0031 0037 Alprazolam 0 .STK-MED ONE 05/20 0607 DC PO Alprazolam 0.25 MG ONCE ONE 05/20 0445 DC 05/20 PO 05/20 0446 0609 Aspirin 325 MG DAILY 05/20 1000 AC PO Atorvastatin Calcium 80 MG 1700 05/20 1700 AC PO Azithromycin 500 MG ONCE ONE 05/20 0200 DC 05/20 Sodium Chloride 250 ML IV 05/20 0259 0222 Ceftriaxone Sodium 0 .STK-MED ONE 05/20 0230 DC .ROUTE Ceftriaxone Sodium 1,000 MG ONCE ONE 05/20 0200 DC 05/20 IV 05/20 200 0237 Citalopram 40 MG DAILY 05/20 1000 AC Hydrobromide PO Cyclobenzaprine HCl 5 MG TIDPRN PRN 05/20 0445 AC 05/20 PO 0609 Enoxaparin Sodium 40 MG DAILY 05/20 1000 AC SC Ipratropium [place] 2.5 ML Q4P PRN 05/20 0445 AC INH Ipratropium [place] 2.5 ML ONCE ONE 05/20 0030 DC 05/20 INH 05/20 0031 0037 Lidocaine 1 PAT DAILY 05/20 1000 AC EXT Magnesium Sulfate 1 GM ONCE ONE 05/20 0030 DC 05/20 Dextrose/Water 100 ML IV 05/20 0429 0058 Melatonin 3 MG AT BEDTIME 05/20 2200 AC PO Methylprednisolone 40 MG Q6 05/20 1200 AC IV Methylprednisolone 40 MG Q8 05/20 0600 DC IV Methylprednisolone 0 .STK-MED ONE 05/20 0039 DC .ROUTE Methylprednisolone 125 MG ONCE ONE 05/20 0030 DC 05/20 IV 05/20 003 0038 Metoprolol Tartrate 12.5 MG BID 05/20 1000 AC PO Omeprazole 40 MG DAILY AC 05/20 0700 AC 05/20 PO 0609 Omeprazole 0 .STK-MED ONE 05/20 0607 DC PO Primidone 50 MG AT BEDTIME 05/20 2200 AC PO Tramadol HCl 50 MG TIDPRN 05/20 1000 AC PO Review of Systems Comments 18 point review of systems was performed and reviewed. Please see pertinent positives and pertinent negatives in the HPI. Otherwise ROS is negative. 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 FATHER (heart attack x 2). MOTHER (lymphoma and alzheimers). DAUGHTER (Lupus nephritis ). Psychosocial History Where Do You Live? Home Who Do You Live With? self Services at Home: None Primary Language: Sami Smoking Status: Current Some Day Smoker ETOH Use: denies use Illicit Drug Use: denies illicit drug use Living Will? no Functional Ability ADLs Independent: dressing, eating, toileting, bathing. Ambulation: independent IADLs Independent: shopping, housework, finances, food prep, telephone, transportation , medication admin. Exam & Diagnostic Data Last 24 Hrs of Vital Signs/I&O Vital Signs Date Time Temp Pulse Resp B/P B/P Pulse O2 O2 Flow FiO2 Mean Ox Delivery Rate 05/20 0833 Nasal 2.0L Cannula 05/20 0713 98.9 80 20 104/55 98 Nasal 3.0L Cannula 05/20 0619 99.1 80 20 99/57 98 Nasal 3.0L Cannula 05/20 0609 98.0 05/20 0526 98.0 81 20 108/59 97 Nasal 3.5L Cannula 05/20 0210 94 Nasal 4.0L Cannula 05/20 0209 99.4 97 30 132/64 96 Aerosol 10L Mask 05/20 0112 98 Nasal 3.0L Cannula 05/20 0037 97 Nasal 3.0L Cannula 05/20 0014 99.6 107 24 177/94 96 Nasal 4.0L Cannula Intake & Output 05/20 1600 05/20 0800 05/20 0000 Intake Total Output Total Balance Patient 137 lb Weight Weight Estimated Measurement Method Physical Exam Other Physical Findings: Gen - alert and awake HEENT - NCAT CVS - S1, S2, no murmurs, rubs or gallops Lungs - rare bibasilar rhonchi Abdomen - soft, non-tender, bs+ Ext - no edema, no cyanosis Last 48 Hrs of Labs/Poncho: Laboratory Tests 05/20/17 0326: Lactic Acid Cancelled 05/20/17 0203: Lactic Acid 1.1 05/20/17 020: Anion Gap 7, Estimated GFR > 60, BUN/Creatinine Ratio 27.1 H, Glucose 118 H, Calcium 8.9, Total Bilirubin 0.4, Direct Bilirubin 0.3, AST 26, ALT 47, Alkaline Phosphatase 79, Troponin I 0.02, Total Protein 6.2 L, Albumin 3.8, Amylase < 30 L, Lipase 36 05/20/17 0030: pH 7.42, pCO2 41, pO2 84, HCO3 27, ABG O2 Sat (Measured) 89.0 L, P-50 (Temp Corrected) Y, Carboxyhemoglobin 7.1 *H, O2 Concentration % 3 LPM, Temperature 99.6, O2 Delivery Method N/C, Phlebotomy Draw Site RIGHT RADIAL 05/20/17 0027: PT 11.0, INR 1.05, APTT 32, CBC w Diff NO MAN DIFF REQ, RBC 5.33, MCV 90.4, MCH 29.7, RDW 15.7 H, MPV 6.7 L, Gran % 77.0 H, Lymphocytes % 10.0 L, Monocytes % 12.6 H, Eosinophils % 0.3, Basophils % 0.1, Absolute Granulocytes 9.9 H, Absolute Lymphocytes 1.3, Absolute Monocytes 1.6 H, Absolute Eosinophils 0, Absolute Basophils 0, PUBS MCHC 32.9 L Microbiology 05/20 0735 NASOPHARYN: Influenza Virus A & B Rapid Smear - COMP Assessment/Plan Impression/Plan: Impression 62 year old man * Exacerbation of COPD * Tobacco dependence * Anxiety/depression Plan -change solumedrol to 40mg iv q8h -Continue trc and nebs -Enrolled in LDCT program -Follow up with psychiatry -just completed course of zithromax -smoking cessation counseled DVT prophylaxis at all times Consult Acknowledgment - Thank you for your consult request.
--- NOTE | 2017-05-20 11:04 | Cons- Psychiatry ---
Psychiatric Consult Date of Consult: 05/20/17 Reason for Consult: panic attacks History of Present Illness: 62 M GENNY to the ED 05/20/17 @ 0010 with a CC of worsening SOB. He was admitted for COPD exacerbation. As we noted on our visit of 05/14/17, he reports his daughter close to 03/08/17, and he has been very depressed, with a panic event on that day. He also had a panic event leading to this hospitalization. New this visit, is his report that he has been having 2-3 panic events per week. He has not had psychotherapy to help wtih this, since he saw Dr. Shankar Hugo more than [address] Hugo retired, the patient lost his insurance soon thereafter, could not afford to pay out of pocket, and stopped his visits. He has been prescribed citalopram since his heart attack in 1998, while in his mid-40s. Citalopram is currently prescribed by his PCP, Dr. López. He also had a trial on Wellbutrin last fall, which was probably stopped after the a panic attack in February,. Allergies: Coded Allergies: budesonide (From SYMBICORT) (Severe, TOUNGE FELT LIKE A CACTUS 02/16/16) formoterol (From SYMBICORT) (Severe, TOUNGE FELT LIKE A CACTUS 02/16/16) codeine (SHAKEY 02/16/16) morphine (BRADYCARDIC 02/16/16) Current Medications: Current Medications Sig/Adrián Start time Last Medication Dose Route Stop Time Status Admin Acetaminophen 0 .STK-MED ONE 05/20 0606 DC PO Acetaminophen 650 MG Q8 05/20 0600 AC 05/20 PO 0609 Albuterol Sulfate 3 ML Q4 HRS NEEDED PRN 05/20 0430 AC 05/20 INH 0833 Albuterol Sulfate 3 ML ONCE ONE 05/20 0215 DC 05/20 INH 05/20 0216 0210 Albuterol Sulfate 3 ML ONCE ONE 05/20 0030 DC 05/20 INH 05/20 0031 0037 Albuterol Sulfate 3 ML ONCE ONE 05/20 0030 DC 05/20 INH 05/20 0031 0037 Albuterol Sulfate 3 ML ONCE ONE 05/20 0030 DC 05/20 INH 05/20 0031 0037 Albuterol Sulfate 3 ML ONCE ONE 05/20 0030 DC 05/20 INH 05/20 0031 0037 Albuterol Sulfate 3 ML ONCE ONE 05/20 0030 DC 05/20 INH 05/20 0031 0037 Albuterol Sulfate 3 ML ONCE ONE 05/20 0030 DC 05/20 INH 05/20 0031 0037 Alprazolam 0 .STK-MED ONE 05/20 0607 DC PO Alprazolam 0.25 MG ONCE ONE 05/20 0445 DC 05/20 PO 05/20 0446 0609 Aspirin 325 MG DAILY 05/20 1000 AC PO Atorvastatin Calcium 80 MG 1700 05/20 1700 AC PO Azithromycin 500 MG ONCE ONE 05/20 0200 DC 05/20 Sodium Chloride 250 ML IV 05/20 025 0222 Ceftriaxone Sodium 0 .STK-MED ONE 05/20 0230 DC .ROUTE Ceftriaxone Sodium 1,000 MG ONCE ONE 05/20 0200 DC 05/20 IV 05/20 020 0237 Citalopram 40 MG DAILY 05/20 1000 AC Hydrobromide PO Cyclobenzaprine HCl 5 MG TIDPRN PRN 05/20 0445 AC 05/20 PO 0609 Enoxaparin Sodium 40 MG DAILY 05/20 1000 AC SC Ipratropium [place] 2.5 ML Q4P PRN 05/20 0445 AC INH Ipratropium [place] 2.5 ML ONCE ONE 05/20 0030 DC 05/20 INH 05/20 0031 0037 Lidocaine 1 PAT DAILY 05/20 1000 AC EXT Magnesium Sulfate 1 GM ONCE ONE 05/20 0030 DC 05/20 Dextrose/Water 100 ML IV 05/20 042 0058 Melatonin 3 MG AT BEDTIME 05/20 2200 AC PO Methylprednisolone 40 MG Q6 05/20 1200 AC IV Methylprednisolone 40 MG Q8 05/20 0600 DC IV Methylprednisolone 0 .STK-MED ONE 05/20 0039 DC .ROUTE Methylprednisolone 125 MG ONCE ONE 05/20 0030 DC 05/20 IV 05/20 0031 0038 Metoprolol Tartrate 12.5 MG BID 05/20 1000 AC PO Omeprazole 40 MG DAILY AC 05/20 0700 AC 05/20 PO 0609 Omeprazole 0 .STK-MED ONE 05/20 0607 DC PO Primidone 50 MG AT BEDTIME 05/20 2200 AC PO Tramadol HCl 50 MG TIDPRN 05/20 1000 AC PO Past History Past Medical History Neurological: NONE EENT: NONE Cardiovascular: hypertension, hyperlipidemia, myocardial infarction, CAD s/p stents placement Respiratory: COPD, emphysema, pneumonia Gastrointestinal: NONE Hepatic: NONE Renal: NONE Musculoskeletal: NONE Psychiatric: anxiety Endocrine: NONE Blood Disorders: NONE Cancer(s): NONE COMPONENTS ENGINEER/Reproductive: NONE Past Surgical History Surgical History: left knee surgery for torn cartilage cartilage Tonsillectomy STENT PLACEMENT Psychosocial History Strengths/Capabilities: Help seeking Physical Limitations (Interventions): Multiple medical issues Psychiatric Treatment History Psych Treatment Psychiatric Treatment Yes Inpatient Treatment No Outpatient Treatment Yes Location of Treatment [facility] Reason for Treatment Depression and anxiety Dates of Treatment Probably aaround 1999 Response to Treatment Improved Diagnosis: Panic disorder without agoraphobia Unspecified depressive disorder Risk Factors: chronic/serious med cond., high anxiety/distress, lives alone, male Substance Use/Abuse History Drug Use/Abuse Substances Used/Abused No (Denies) Substance Abuse Treatment Substance Abuse Treatment Past Substance Abuse [place] No Assessment/Plan Mental Status Orientation: Person, Place, Situation Affect: Anxious Speech: WNL Neuro-vegetative: Sleep Disturbance Mental Status Exam: The patient is a 62 y.o. male, appearing older than his stated age. He is alert and oriented. Sitting up in bed, nasal cannula in place, calm and in no distress. He reports increased work of breathing, but is not laboring to breathe. He denies AH or VH, and presents no angel delusions. He denies SI or HI. Insight and judgement are intact. He states he is looking forward to attending outpatient psychiatry, "I have a lot to talk about." Safety plan reviewed; he verbalizes understanding taht he will call 911 if he feels insafe or suicidal. Lab Results: Laboratory Tests 05/20 05/20 05/20 05/20 0326 0203 0203 0030 Blood Gas pH (7.35 - 7.45 PH) 7.42 pCO2 (35 - 45 TORR) 41 pO2 (80 - 100 TORR) 84 HCO3 (21 - 28 MEQ/L) 27 ABG O2 Sat (Measured) (>96.0 %) 89.0 L P-50 (Temp Corrected) Y Carboxyhemoglobin (1.5 - 5.0 %) 7.1 *H O2 Concentration % 3 LPM Temperature (97.0 - 100.0 FARH) 99.6 O2 Delivery Method N/C Chemistry Sodium (137 - 145 mmol/L) 138 Potassium (3.5 - 5.1 mmol/L) 3.9 Chloride (98 - 107 mmol/L) 102 Carbon Dioxide (22 - 30 mmol/L) 28 Anion Gap (5 - 16) 7 BUN (9 - 20 mg/dL) 19 Creatinine (0.7 - 1.2 mg/dL) 0.7 Estimated GFR (>60 ml/min) > 60 BUN/Creatinine Ratio (7 - 25 %) 27.1 H Glucose (65 - 99 mg/dL) 118 H Lactic Acid (0.7 - 2.1 mmol/L) Cancelled 1.1 Calcium (8.4 - 10.2 mg/dL) 8.9 Total Bilirubin (0.2 - 1.3 mg/dL) 0.4 Direct Bilirubin (< 0.4 mg/dL) 0.3 AST (17 - 59 U/L) 26 ALT (21 - 72 U/L) 47 Alkaline Phosphatase (< 127 U/L) 79 Troponin I (<0.11 ng/ml) 0.02 Total Protein (6.3 - 8.2 g/dL) 6.2 L Albumin (3.5 - 5.0 g/dL) 3.8 Amylase (30 - 110 U/L) < 30 L Lipase (23 - 300 U/L) 36 Miscellaneous Phlebotomy Draw Site RIGHT RADIAL 05/20 0027 Coagulation PT (9.4 - 12.5 SEC) 11.0 INR (0.90 - 1.17) 1.05 APTT (25 - 37 SEC) 32 Hematology CBC w Diff NO MAN DIFF REQ WBC (4.8 - 10.8 /CUMM) 12.9 H RBC (4.70 - 6.10 /CUMM) 5.33 Hgb (14.0 - 18.0 G/DL) 15.8 Hct (42 - 52 %) 48.2 MCV (80.0 - 94.0 FL) 90.4 MCH (27.0 - 31.0 PG) 29.7 RDW (11.5 - 14.5 %) 15.7 H Plt Count (130 - 400 /CUMM) 291 MPV (7.4 - 10.4 FL) 6.7 L Gran % (42.2 - 75.2 %) 77.0 H Lymphocytes % (20.5 - 51.1 %) 10.0 L Monocytes % (1.7 - 9.3 %) 12.6 H Eosinophils % (0 - 5 %) 0.3 Basophils % (0.0 - 2.0 %) 0.1 Absolute Granulocytes (1.4 - 6.5 /CUMM) 9.9 H Absolute Lymphocytes (1.2 - 3.4 /CUMM) 1.3 Absolute Monocytes (0.10 - 0.60 /CUMM) 1.6 H Absolute Eosinophils (0.0 - 0.7 /CUMM) 0 Absolute Basophils (0.0 - 0.2 /CUMM) 0 PUBS MCHC (33.0 - 37.0 G/DL) 32.9 L Diffential Diagnosis: Panic disorder without agoraphobia Generalized anxiety disorder Major depressive disorder with anxious distress F43.23 Adjustment disorder with mixed anxiety and depressed mood Impression: Sarbjit reports that his panic events are more frequent than he had reported previously. His citalopram is not effective for managing these attacks, and we will consider another medication for panic and anxiety. I have cancelled his intake appointment for [facility] today, and will reschedule when we know his disposition. The patient lives alone at home on the first floor of a two story home with his dog. He reports he ambulates without assistive device, and does not have a history of falls. We will start gabapentin for anxiety. R/B/SE, and off-label status reviewed with the patient, who verbalizes understanding, and wishes to try this medication. Provisional Treatment Plan: Please avoid benzodiazepines, if possible, as there is an increased risk of fall in the elderly. 1. We will start gabapentin 100 mg PO 3X/day, an off-label use for anxiety. If the patient tolerates this medication at this dose, it may be advanced to gabapentin 300 mg PO 3X/day. 2. Continue citalopram 40 mg PO daily. We will review this medication at [facility]. 3. Please advise when the patient's discharge plan is known, and we will arrange for another intake appointment at [facility]. You may call [phone] or page us at [phone]. Thank you for this consult, we will continue to follow along.
[2017-05-20 22:59] VITALS: BP 106/52
[2017-05-21 06:56] VITALS: BP 110/74
--- NOTE | 2017-05-21 08:13 | PN- Housestaff ---
Kiki Loomis 05/21/1713: Subjective Follow-up For: Acute on chronic respiratory failure most likely due to COPD exacerbation Anxiety/depression/panic attacks Subjective: Patient was seen and examined this morning. He was sitting in mild distress and look anxious. He is complaining of anxiety and blaming it to the current situations. He remained pleasant but definitely worried about all his current circumstances. I offered him for outside rigger but he said he is okay to document psychiatry. He remained hemodynamically stable Review of Systems Constitutional: Denies: chills, diaphoresis. EENTM: Denies: double vision, eye pain. Cardiovascular: Denies: chest pain, orthopena. Respiratory: Reports: short of breath. Gastrointestinal: Denies: diarrhea, distention. Genitourinary: Denies: dysuria, hematuria. Musculoskeletal: Denies: joint pain, muscle pain. Skin: Reports: no symptoms. Objective Last 24 Hrs of Vital Signs/I&O Vital Signs Date Time Temp Pulse Resp B/P B/P Pulse O2 O2 Flow FiO2 Mean Ox Delivery Rate 05/21 1550 98 Nasal 1.5L Cannula 05/21 1414 98.2 75 20 106/64 96 Nasal 1.5L Cannula 05/21 0920 86 20 130/80 05/21 0911 92 Nasal 2.0L Cannula 05/21 0800 92 Nasal 2.0L Cannula 05/21 0800 89 Nasal 1.5L Cannula 05/21 0656 97.3 68 20 110/74 97 Nasal Cannula 05/21 0000 Nasal 1.5L Cannula 05/20 2259 97.9 85 18 106/52 96 Nasal 1.5L Cannula 05/20 2221 85 106/52 Intake & Output 05/21 1600 05/21 0800 05/21 0000 Intake Total 400 480 Output Total Balance 400 480 Intake, IV 0 Intake, Oral 400 480 Number 1 Bowel Movements Physical Exam General Appearance: Alert, Oriented X3, Cooperative, Mild Distress Cardiovascular: Regular Rate, Normal S1, Normal S2 Lungs: Normal Air Movement Abdomen: Soft Extremities: No Clubbing, No Cyanosis (is a), No Edema Current Medications: Current Medications Sig/Adrián Start time Last Medication Dose Route Stop Time Status Admin Acetaminophen 650 MG Q8 05/20 0600 AC 05/21 PO 1322 Albuterol Sulfate 3 ML EVERY 4 HRS/AWAKE 05/20 1600 AC 05/21 INH 1550 Albuterol Sulfate 3 ML Q4 HRS NEEDED PRN 05/20 0430 AC 05/20 INH 0833 Aspirin 325 MG DAILY 05/20 1000 AC 05/21 PO 0920 Atorvastatin Calcium 80 MG 1700 05/20 1700 AC 05/21 PO 1627 Citalopram 40 MG DAILY 05/20 1000 AC 05/21 Hydrobromide PO 0920 Cyclobenzaprine HCl 5 MG TIDPRN PRN 05/20 0445 AC 05/20 PO 0609 Enoxaparin Sodium 40 MG DAILY 05/20 1000 AC SC Gabapentin 100 MG Q8 05/20 1400 DC 05/21 PO 0518 Hydroxyzine HCl 25 MG BID 05/21 2200 AC PO Lidocaine 1 PAT DAILY 05/20 1000 AC 05/21 EXT 0920 Melatonin 3 MG AT BEDTIME 05/20 2200 AC 05/20 PO 2220 Methylprednisolone 40 MG Q8 05/20 1400 AC 05/21 IV 1321 Metoprolol Tartrate 12.5 MG BID 05/20 1000 AC 05/21 PO 0920 Nicotine 21 MG DAILY 05/21 1000 AC 05/21 TOP 0920 Omeprazole 40 MG DAILY AC 05/20 0700 AC 05/21 PO 0518 Primidone 50 MG AT BEDTIME 05/20 2200 AC 05/20 PO 2220 Tiotropium [place] 1 PUF DAILY 05/20 1343 AC 05/21 INH 0844 Tramadol HCl 50 MG TIDPRN 05/20 1000 AC 05/21 PO 1401 Last 24 Hrs of Lab/Poncho Results Last 24 Hrs of Labs/Mics: Laboratory Tests 05/21/17 0736: Anion Gap 11, Estimated GFR > 60, BUN/Creatinine Ratio 33.3 H, CBC w Diff NO MAN DIFF REQ, RBC 4.32 L, MCV 90.2, MCH 30.1, RDW 15.7 H, MPV 7.1 L, Gran % 87.8 H, Lymphocytes % 4.1 L, Monocytes % 8.0, Eosinophils % 0, Basophils % 0.1 , Absolute Granulocytes 8.4 H, Absolute Lymphocytes 0.4 L, Absolute Monocytes 0.8 H, Absolute Eosinophils 0, Absolute Basophils 0, PUBS MCHC 33.4 Assessment/Plan Assessment: His 62-year-old man with moderate to severe COPD on 1.5 L of oxygen by nasal cannula as needed at home, tobacco dependence enrolled in LDCT program in Jan, stable RUL mass, coronary artery disease status post AL with PCI in 1998 and severe anxiety presented to ER and found to be in acute on chronic hypoxic respiratory failure likely secondary to COPD exacerbation and he is very anxious that might be contributing factor in his respiratory status. Patient was admitted on general medical floor and we will address following problems Problem #1 acute on chronic respiratory failure most likely COPD exacerbation with underlying right upper lobe mass Patient was started on IV Solu-Medrol. Pulmonary evaluation by Dr. Lockett appreciated. We will continue IV Solu-Medrol 40 mg every12 hrs.. His pain recently treated with Zithromax no need to restart it again. TRC and nebulization [id number]. Problem #2 severe anxiety and depression Patient was scheduled for outpatient psych evaluation today which is already being canceled being admitted in the hospital. Psychiatry evaluation was requested and we will follow their recommendations regarding changing his anxiolytic as is not effectively treating his underlying severe anxiety and depression. We would avoid benzodiazepines given his compromised respiratory status. He was started on gabapentin yesterday that was not tolerated by him and he became very tremulous and jittery. Gabapentin was discontinued and we started him on hydroxyzine. Problem #3 generalized body aches including shoulder blades and lower back pain. Patient has severe body spasms most likely due to underlying severe anxiety and depression. We will start him on tramadol as high dose of ibuprofen was giving him epigastric pain. We will continue his proton pump inhibitors. Problem #4 chronic issues including abdominal aortic aneurysm He is stable abdominal aortic aneurysm, he had recent CAT scan showed stable aortic aneurysm which could be follow-up as outpatient. Problem List: 1. Acute exacerbation of chronic obstructive airways disease Pain Ratin Pain Location: na Pain Goal: Remain pain free Pain Plan: tylenol Tomorrow's Labs & Rationales: cbc,bep Lauri WATTERS,Renetta 05/21/17 1234: Attending MD Review Statement Attending Statement Attending MD Statement: examined this patient, discuss w/resident/PA/VEGETABLE LOADER, agreed w/resident/PA/VEGETABLE LOADER, reviewed EMR data (avail), discussed with nursing, discussed with case mgmt, reviewed images, amended to note Attending Assessment/Plan: Patient seen and examined, not feeling well this morning. Still feeling short of breath and having anxiety. Also claims that the new medicine that he was started by psychiatrist (gabapentin) is giving him tremors. Vital Signs Date Time Temp Pulse Resp B/P B/P Pulse O2 O2 Flow FiO2 Mean Ox Delivery Rate 05/21 0920 86 20 130/80 05/21 0911 92 Nasal 2.0L Cannula 05/21 0800 92 Nasal 2.0L Cannula 05/21 0800 89 Nasal 1.5L Cannula 05/21 0656 97.3 68 20 110/74 97 Nasal Cannula 05/21 0000 Nasal 1.5L Cannula 05/20 2259 97.9 85 18 106/52 96 Nasal 1.5L Cannula 05/20 2221 85 106/52 05/20 1630 97 Nasal 1.5L Cannula 05/20 1600 Nasal 1.5L Cannula 05/20 1343 Nasal 1.5L Cannula 05/20 1343 96 Nasal 2.0L Cannula on exam; aox3, nad. cv; s1,s2, rrr resp; b/l scattered wheeze. abd; soft, nt, bs+ ext; no edema Laboratory Tests 05/21 0736 Chemistry Sodium (137 - 145 mmol/L) 139 Potassium (3.5 - 5.1 mmol/L) 4.8 Chloride (98 - 107 mmol/L) 98 Carbon Dioxide (22 - 30 mmol/L) 29 Anion Gap (5 - 16) 11 BUN (9 - 20 mg/dL) 20 Creatinine (0.7 - 1.2 mg/dL) 0.6 L Estimated GFR (>60 ml/min) > 60 BUN/Creatinine Ratio (7 - 25 %) 33.3 H Hematology CBC w Diff NO MAN DIFF REQ WBC (4.8 - 10.8 /CUMM) 9.5 RBC (4.70 - 6.10 /CUMM) 4.32 L Hgb (14.0 - 18.0 G/DL) 13.0 L Hct (42 - 52 %) 38.9 L MCV (80.0 - 94.0 FL) 90.2 MCH (27.0 - 31.0 PG) 30.1 RDW (11.5 - 14.5 %) 15.7 H Plt Count (130 - 400 /CUMM) 215 MPV (7.4 - 10.4 FL) 7.1 L Gran % (42.2 - 75.2 %) 87.8 H Lymphocytes % (20.5 - 51.1 %) 4.1 L Monocytes % (1.7 - 9.3 %) 8.0 Eosinophils % (0 - 5 %) 0 Basophils % (0.0 - 2.0 %) 0.1 Absolute Granulocytes (1.4 - 6.5 /CUMM) 8.4 H Absolute Lymphocytes (1.2 - 3.4 /CUMM) 0.4 L Absolute Monocytes (0.10 - 0.60 /CUMM) 0.8 H Absolute Eosinophils (0.0 - 0.7 /CUMM) 0 Absolute Basophils (0.0 - 0.2 /CUMM) 0 PUBS MCHC (33.0 - 37.0 G/DL) 33.4 A/P; 62 y/o M with pmh sig for ch resp failure, COPD on 1.5 L of oxygen at home , right upper lobe mass (stable), CAD status post stent placement, 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 Will continue steroids at present dose today. Continue TRC nebs. I discussed with Modesto Walden about the gabapentin. He recommends decreasing the dose 100 mg daily instead of 300 a day. Patient has not required any Tylenol. Continue the rest of the medications including Flexeril and Lidoderm patch for pain control in the left flank. This is likely muscular skeletal pain. DVT prophylaxis: Lovenox.
[2017-05-21 08:55] LABS: ABSOLUTE BASOPHIL COUNT 0 /CUMM (0.0-0.2); ABSOLUTE EOSINOPHIL COUNT 0 /CUMM (0.0-0.7); ABSOLUTE LYMPH COUNT 0.4 /CUMM (1.2-3.4); BASOPHIL % 0.1 % (0.0-2.0); EOSINOPHIL % 0 % (0-5); MEAN CORPUSCULAR HGB 30.1 PG (27.0-31.0); MEAN CORPUSCULAR HGB CONC 33.4 G/DL (33.0-37.0); MEAN CORPUSCULAR VOLUME 90.2 FL (80.0-94.0); RBC DISTRIBUTION WIDTH 15.7 % (11.5-14.5); RED BLOOD CELL CT 4.32 /CUMM (4.70-6.10)
[2017-05-21 09:33] LABS: ABSOLUTE GRANULOCYTE CT 8.4 /CUMM (1.4-6.5); ABSOLUTE MONOCYTE COUNT 0.8 /CUMM (0.10-0.60); MEAN PLATELET VOLUME 7.1 FL (7.4-10.4); PLATELET COUNT 215 /CUMM (130-400); WHITE BLOOD CELL COUNT 9.5 /CUMM (4.8-10.8)
[2017-05-21 09:50] LABS: HEMATOCRIT 38.9 % (42-52)
[2017-05-21 10:43] LABS: GRANULOCYTE % 87.8 % (42.2-75.2)
--- NOTE | 2017-05-21 11:40 | PN- Pulmonary ---
Subjective HPI/Critical Care Issues: Patient seen and examined this morning. He appears to be more stable from a respiratory perspective but he feels that he is on the verge of a panic attack we will continue follow-up psychiatry recommendations closely. Objective Current Medications: Current Medications Sig/Adrián Start time Last Medication Dose Route Stop Time Status Admin Acetaminophen 650 MG Q8 05/20 0600 AC 05/21 PO 0518 Albuterol Sulfate 3 ML EVERY 4 HRS/AWAKE 05/20 1600 AC 05/21 INH 0938 Albuterol Sulfate 3 ML Q4 HRS NEEDED PRN 05/20 0430 AC 05/20 INH 0833 Aspirin 325 MG DAILY 05/20 1000 AC 05/21 PO 0920 Atorvastatin Calcium 80 MG 1700 05/20 1700 AC 05/20 PO 1706 Citalopram 40 MG DAILY 05/20 1000 AC 05/21 Hydrobromide PO 0920 Cyclobenzaprine HCl 5 MG TIDPRN PRN 05/20 0445 AC 05/20 PO 0609 Enoxaparin Sodium 40 MG DAILY 05/20 1000 AC SC Gabapentin 100 MG Q8 05/20 1400 AC 05/21 PO 0518 Ipratropium [place] 2.5 ML Q4P PRN 05/20 0445 DC INH Lidocaine 1 PAT DAILY 05/20 1000 AC 05/21 EXT 0920 Melatonin 3 MG AT BEDTIME 05/20 2200 AC 05/20 PO 2220 Methylprednisolone 40 MG Q8 05/20 1400 AC 05/21 IV 0518 Metoprolol Tartrate 12.5 MG BID 05/20 1000 AC 05/21 PO 0920 Nicotine 21 MG DAILY 05/21 1000 AC 05/21 TOP 0920 Omeprazole 40 MG DAILY AC 05/20 0700 AC 05/21 PO 0518 Primidone 50 MG AT BEDTIME 05/20 2200 AC 05/20 PO 2220 Tiotropium [place] 1 PUF DAILY 05/20 1343 AC 05/21 INH 0844 Tramadol HCl 50 MG TIDPRN 05/20 1000 AC PO Vital Signs & I&O Last 24 Hrs of Vitals and I&O: Vital Signs Date Time Temp Pulse Resp B/P B/P Pulse O2 O2 Flow FiO2 Mean Ox Delivery Rate 05/21 09 86 20 130/80 05/21 0911 92 Nasal 2.0L Cannula 05/21 08 92 Nasal 2.0L Cannula 05/21 0800 89 Nasal 1.5L Cannula 05/21 0656 97.3 68 20 110/74 97 Nasal Cannula 05/21 0000 Nasal 1.5L Cannula 05/20 2259 97.9 85 18 106/52 96 Nasal 1.5L Cannula 05/20 2221 85 106/52 05/20 1630 97 Nasal 1.5L Cannula 05/20 1600 Nasal 1.5L Cannula 05/20 1343 Nasal 1.5L Cannula 05/20 1343 96 Nasal 2.0L Cannula Intake & Output 05/21 1600 05/21 0800 05/21 0000 Intake Total 480 Output Total Balance 480 Intake, Oral 480 Number 1 Bowel Movements Exam Other Physical Findings: Gen - alert and awake HEENT - NCAT CVS - S1, S2, no murmurs, rubs or gallops Lungs - rare bibasilar rhonchi Abdomen - soft, non-tender, bs+ Ext - no edema, no cyanosis Results Last 24 Hrs of Lab Results: Laboratory Tests 05/21/17 0736: Anion Gap 11, Estimated GFR > 60, BUN/Creatinine Ratio 33.3 H, CBC w Diff NO MAN DIFF REQ, RBC 4.32 L, MCV 90.2, MCH 30.1, RDW 15.7 H, MPV 7.1 L, Gran % 87.8 H, Lymphocytes % 4.1 L, Monocytes % 8.0, Eosinophils % 0, Basophils % 0.1 , Absolute Granulocytes 8.4 H, Absolute Lymphocytes 0.4 L, Absolute Monocytes 0.8 H, Absolute Eosinophils 0, Absolute Basophils 0, PUBS MCHC 33.4 Impression/Plan Impression/Plan Impression/Plan: Impression 62 year old man * Exacerbation of COPD * Tobacco dependence * Anxiety/depression Plan -reduce solumedrol to 40mg iv q12h -Continue tr and nebs -Enrolled in LDCT program -Follow up with psychiatry - on verge of panic attack per patient -just completed course of zithromax -smoking cessation counseled DVT prophylaxis at all times
[2017-05-21 14:14] VITALS: BP 106/64
[2017-05-21 22:47] VITALS: BP 128/64
--- NOTE | 2017-05-21 22:53 | Incdntl Nt Psy ---
Incidental Note Notation: Patient complained of worsening tremor after 3 doses of gabapentin, off-label for anxiety. 1. Stop gabapentin 2. Consider hydroxyzine 25 mg PO up to 2X/day as needed for anxiety. Monitor EKG and hold for arrhythmia or QTC greater than 475 mS. 3. Please advise when discharge known, so that a replacement intake appt. can be scheduled for Outpatient Psychiatry. Discussed with Dr. Renetta Carreon, attending, and Dr. Yoandy Barahona, agricultural education professor psychiatrist. We will follow up on 05/22/17
[2017-05-22 06:59] VITALS: BP 102/62
--- NOTE | 2017-05-22 08:10 | PN- Housestaff ---
Kiki Loomis 05/22/17 0810: Subjective Follow-up For: COPD exacerbation Severe anxiety Subjective: Patient was seen and examined this morning. He was sitting on edge of bed and seems like in mild respiratory distress using his accessory muscles and anxiety is playing a role mostly. He remained afebrile and his white cell count is normal. His oxygen requirement is almost same as his baseline. Review of Systems Constitutional: Denies: diaphoresis, fever, malaise. Cardiovascular: Denies: chest pain, orthopena. Respiratory: Reports: cough, short of breath, wheezing. Gastrointestinal: Denies: constipation, distention. Genitourinary: Denies: dysuria, hematuria. Musculoskeletal: Reports: muscle pain. Objective Last 24 Hrs of Vital Signs/I&O Vital Signs Date Time Temp Pulse Resp B/P B/P Pulse O2 O2 Flow FiO2 Mean Ox Delivery Rate 05/22 1027 76 102/62 05/22 0827 94 Nasal 1.5L Cannula 05/22 0659 98.2 76 20 102/62 95 05/22 0402 97 Nasal 1.5L Cannula 05/22 0000 Nasal 2.0L Cannula 05/21 2247 98.2 70 20 128/64 97 Nasal 1.5L Cannula 05/21 2246 73 128/64 05/21 1600 Nasal 2.0L Cannula 05/21 1550 98 Nasal 1.5L Cannula 05/21 1414 98.2 75 20 106/64 96 Nasal 1.5L Cannula Intake & Output 05/22 1600 05/22 0800 05/22 0000 Intake Total 480 Output Total Balance 480 Intake, Oral 480 Physical Exam General Appearance: Alert, Oriented X3, Cooperative, Mild Distress Cardiovascular: Regular Rate, Normal S1, Normal S2, No Murmurs Lungs: moderately reduced air entry Abdomen: Soft, No Tenderness Current Medications: Current Medications Sig/Adrián Start time Last Medication Dose Route Stop Time Status Admin Acetaminophen 650 MG Q8 05/20 0600 AC 05/22 PO 0517 Albuterol Sulfate 3 ML EVERY 4 HRS/AWAKE 05/20 1600 AC 05/22 INH 1143 Albuterol Sulfate 3 ML Q4 HRS NEEDED PRN 05/20 0430 AC 05/20 INH 0833 Aspirin 325 MG DAILY 05/20 1000 AC 05/22 PO 1027 Atorvastatin Calcium 80 MG 1700 05/20 1700 AC 05/21 PO 1627 Benzonatate 100 MG TID 05/22 1000 AC PO Citalopram 40 MG DAILY 05/20 1000 AC 05/22 Hydrobromide PO 1026 Cyclobenzaprine HCl 5 MG TIDPRN PRN 05/20 0445 AC 05/22 PO 1025 Enoxaparin Sodium 40 MG DAILY 05/20 1000 AC SC Gabapentin 100 MG Q8 05/20 1400 DC 05/21 PO 0518 Hydroxyzine HCl 25 MG TID 05/22 1000 AC 05/22 PO 1026 Hydroxyzine HCl 25 MG BID 05/21 2200 DC 05/21 PO 2246 Lidocaine 1 PAT DAILY 05/20 1000 AC 05/22 EXT 1029 Melatonin 3 MG AT BEDTIME 05/20 2200 AC 05/21 PO 2246 Methylprednisolone 40 MG Q12 05/21 2200 AC 05/22 IV 1028 Methylprednisolone 40 MG Q8 05/20 1400 DC 05/21 IV 1321 Metoprolol Tartrate 12.5 MG BID 05/20 1000 AC 05/22 PO 1027 Nicotine 21 MG DAILY 05/21 1000 AC 05/22 TOP 1028 Omeprazole 40 MG DAILY AC 05/20 0700 AC 05/22 PO 0516 Patient Medication 1 ED ONE ONE 05/22 1100 DC Teaching ED 05/22 1101 Primidone 50 MG AT BEDTIME 05/20 2200 AC 05/21 PO 2247 Tiotropium [place] 1 PUF DAILY 05/20 1343 AC 05/22 INH 1029 Tramadol HCl 25 MG TIDPRN PRN 05/22 1000 AC 05/22 PO 1025 Tramadol HCl 50 MG TIDPRN 05/20 1000 DC 05/21 PO 2023 Last 24 Hrs of Lab/Poncho Results Last 24 Hrs of Labs/Mics: Laboratory Tests 05/22/17 0705: Anion Gap 10, Estimated GFR > 60, BUN/Creatinine Ratio 36.7 H, CBC w Diff NO MAN DIFF REQ, RBC 4.47 L, MCV 89.7, MCH 30.1, RDW 15.7 H, MPV 7.1 L, Gran % 85.0 H, Lymphocytes % 5.1 L, Monocytes % 9.9 H, Eosinophils % 0, Basophils % 0, Absolute Granulocytes 8.9 H, Absolute Lymphocytes 0.5 L, Absolute Monocytes 1.0 H, Absolute Eosinophils 0, Absolute Basophils 0, PUBS MCHC 33.5 Assessment/Plan Assessment: His 62-year-old man with moderate to severe COPD on 1.5 L of oxygen by nasal cannula as needed at home, tobacco dependence enrolled in LDCT program in [place], stable RUL mass, coronary artery disease status post [place] with PCI in 1998 and severe anxiety presented to ER and found to be in acute on chronic hypoxic respiratory failure likely secondary to COPD exacerbation and he is very anxious that might be contributing factor in his respiratory status. Patient was admitted on general medical floor and we will address following problems Problem #1 acute on chronic respiratory failure most likely COPD exacerbation with underlying right upper lobe mass Patient was started on IV Solu-Medrol. Pulmonary evaluation by Dr. Lockett appreciated. We will continue IV Solu-Medrol 40 mg every12 hrs.. His pain recently treated with Zithromax no need to restart it again. TRC and nebulization [id number]. Problem #2 severe anxiety and depression Patient was scheduled for outpatient psych evaluation today which is already being canceled being admitted in the hospital. Psychiatry evaluation was requested and we will follow their recommendations regarding changing his anxiolytic as is not effectively treating his underlying severe anxiety and depression. We would avoid benzodiazepines given his compromised respiratory status. He was initially started on gabapentin which she did not tolerate and increase his tremors. Gabapentin was discontinued and he was started on hydroxyzine with minimal effect. Problem #3 generalized body aches including shoulder blades and lower back pain. Patient has severe body spasms most likely due to underlying severe anxiety and depression. We will start him on tramadol as high dose of ibuprofen was giving him epigastric pain. We will continue his proton pump inhibitors. Problem #4 chronic issues including abdominal aortic aneurysm He is stable abdominal aortic aneurysm, he had recent CAT scan showed stable aortic aneurysm which could be follow-up as outpatient. Problem List: 1. Acute exacerbation of chronic obstructive airways disease 2. Anxiety Pain Ratin Pain Location: Back pain Pain Goal: Remain pain free Pain Plan: Flexeril and tramadol Tomorrow's Labs & Rationales: Basic electrolyte panel Renetta Carreon MD 05/22/17 1245: Attending MD Review Statement Attending Statement Attending MD Statement: examined this patient, discuss w/resident/PA/BARGEMAN, agreed w/resident/PA/BARGEMAN, reviewed EMR data (avail), discussed with nursing, discussed with case mgmt, reviewed images, amended to note Attending Assessment/Plan: Patient seen and examined, was not feeling well this am. Was feeling SOB this am. Was feeling anxious. Vital Signs Date Time Temp Pulse Resp B/P B/P Pulse O2 O2 Flow FiO2 Mean Ox Delivery Rate 05/22 1027 76 102/62 05/22 0827 94 Nasal 1.5L Cannula 05/22 0659 98.2 76 20 102/62 95 05/22 0402 97 Nasal 1.5L Cannula 05/22 0000 Nasal 2.0L Cannula 05/21 2247 98.2 70 20 128/64 97 Nasal 1.5L Cannula 05/21 2246 73 128/64 05/21 1600 Nasal 2.0L Cannula 05/21 1550 98 Nasal 1.5L Cannula 05/21 1414 98.2 75 20 106/64 96 Nasal 1.5L Cannula on exam; aox3, looks anxious. cv; s1,s2, rrr resp; decreased bs overall. abd; soft, nt, bs+ ext; no edema. Laboratory Tests 05/22 07 Chemistry Sodium (137 - 145 mmol/L) 138 Potassium (3.5 - 5.1 mmol/L) 4.4 Chloride (98 - 107 mmol/L) 96 L Carbon Dioxide (22 - 30 mmol/L) 33 H Anion Gap (5 - 16) 10 BUN (9 - 20 mg/dL) 22 H Creatinine (0.7 - 1.2 mg/dL) 0.6 L Estimated GFR (>60 ml/min) > 60 BUN/Creatinine Ratio (7 - 25 %) 36.7 H Hematology CBC w Diff NO MAN DIFF REQ WBC (4.8 - 10.8 /CUMM) 10.5 RBC (4.70 - 6.10 /CUMM) 4.47 L Hgb (14.0 - 18.0 G/DL) 13.4 L Hct (42 - 52 %) 40.1 L MCV (80.0 - 94.0 FL) 89.7 MCH (27.0 - 31.0 PG) 30.1 RDW (11.5 - 14.5 %) 15.7 H Plt Count (130 - 400 /CUMM) 240 MPV (7.4 - 10.4 FL) 7.1 L Gran % (42.2 - 75.2 %) 85.0 H Lymphocytes % (20.5 - 51.1 %) 5.1 L Monocytes % (1.7 - 9.3 %) 9.9 H Eosinophils % (0 - 5 %) 0 Basophils % (0.0 - 2.0 %) 0 Absolute Granulocytes (1.4 - 6.5 /CUMM) 8.9 H Absolute Lymphocytes (1.2 - 3.4 /CUMM) 0.5 L Absolute Monocytes (0.10 - 0.60 /CUMM) 1.0 H Absolute Eosinophils (0.0 - 0.7 /CUMM) 0 Absolute Basophils (0.0 - 0.2 /CUMM) 0 PUBS MCHC (33.0 - 37.0 G/DL) 33.5 A/P; 62 y/o M with pmh sig for ch resp failure, COPD on 1.5 L of oxygen at home , right upper lobe mass (stable), CAD status post stent placement, 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 Hydroxyzine was added yesterday. Patient was still complaining of pain in his back. Will try combination of Flexeril, Lidoderm patch and tramadol. Continue IV steroids today. Continue TRC nebs. Tessalon was added for cough. Please discuss with psychiatry if there is any other recommendations for patient 's anxiety. Continue the rest of the medications. DVT prophylaxis: Lovenox. Possible discharge home tomorrow.
[2017-05-22 08:23] LABS: ABSOLUTE BASOPHIL COUNT 0 /CUMM (0.0-0.2); ABSOLUTE EOSINOPHIL COUNT 0 /CUMM (0.0-0.7); ABSOLUTE GRANULOCYTE CT 8.9 /CUMM (1.4-6.5); ABSOLUTE LYMPH COUNT 0.5 /CUMM (1.2-3.4); BASOPHIL % 0 % (0.0-2.0); EOSINOPHIL % 0 % (0-5); HEMATOCRIT 40.1 % (42-52); MEAN CORPUSCULAR HGB 30.1 PG (27.0-31.0); MEAN CORPUSCULAR HGB CONC 33.5 G/DL (33.0-37.0); MEAN CORPUSCULAR VOLUME 89.7 FL (80.0-94.0); MEAN PLATELET VOLUME 7.1 FL (7.4-10.4); PLATELET COUNT 240 /CUMM (130-400); RBC DISTRIBUTION WIDTH 15.7 % (11.5-14.5); RED BLOOD CELL CT 4.47 /CUMM (4.70-6.10)
[2017-05-22 09:53] LABS: WHITE BLOOD CELL COUNT 10.5 /CUMM (4.8-10.8)
--- NOTE | 2017-05-22 14:15 | PN- Pulmonary ---
Subjective HPI/Critical Care Issues: Patient seen and examined this morning. He appears to be in mild respiratory distress not worsened but certainly not better. He has moments of panic attacks as well. Objective Current Medications: Current Medications Sig/Adrián Start time Last Medication Dose Route Stop Time Status Admin Acetaminophen 650 MG Q8 05/20 0600 AC 05/22 PO 0517 Albuterol Sulfate 3 ML EVERY 4 HRS/AWAKE 05/20 1600 AC 05/22 INH 1143 Albuterol Sulfate 3 ML Q4 HRS NEEDED PRN 05/20 0430 AC 05/20 INH 0833 Aspirin 325 MG DAILY 05/20 1000 AC 05/22 PO 1027 Atorvastatin Calcium 80 MG 1700 05/20 1700 AC 05/21 PO 1627 Benzonatate 100 MG TID 05/22 1000 AC PO Citalopram 40 MG DAILY 05/20 1000 AC 05/22 Hydrobromide PO 1026 Cyclobenzaprine HCl 5 MG TIDPRN PRN 05/20 0445 AC 05/22 PO 1025 Enoxaparin Sodium 40 MG DAILY 05/20 1000 AC SC Gabapentin 100 MG Q8 05/20 1400 DC 05/21 PO 0518 Hydroxyzine HCl 25 MG TID 05/22 1000 AC 05/22 PO 1026 Hydroxyzine HCl 25 MG BID 05/21 2200 DC 05/21 PO 2246 Lidocaine 1 PAT DAILY 05/20 1000 AC 05/22 EXT 1029 Melatonin 3 MG AT BEDTIME 05/20 2200 AC 05/21 PO 2246 Methylprednisolone 40 MG Q12 05/21 2200 AC 05/22 IV 1028 Methylprednisolone 40 MG Q8 05/20 1400 DC 05/21 IV 1321 Metoprolol Tartrate 12.5 MG BID 05/20 1000 AC 05/22 PO 1027 Nicotine 21 MG DAILY 05/21 1000 AC 05/22 TOP 1028 Omeprazole 40 MG DAILY AC 05/20 0700 AC 05/22 PO 0516 Patient Medication 1 ED ONE ONE 05/22 1100 DC Teaching ED 05/22 1101 Primidone 50 MG AT BEDTIME 05/20 2200 AC 05/21 PO 2247 Tiotropium [place] 1 PUF DAILY 05/20 1343 AC 05/22 INH 1029 Tramadol HCl 25 MG TIDPRN PRN 05/22 1000 AC 05/22 PO 1025 Tramadol HCl 50 MG TIDPRN 05/20 1000 DC 05/21 PO 2024 Vital Signs & I&O Last 24 Hrs of Vitals and I&O: Vital Signs Date Time Temp Pulse Resp B/P B/P Pulse O2 O2 Flow FiO2 Mean Ox Delivery Rate 05/22 1027 76 102/62 05/22 0827 94 Nasal 1.5L Cannula 05/22 0800 96 Nasal 1.5L Cannula 05/22 0659 98.2 76 20 102/62 95 05/22 0402 97 Nasal 1.5L Cannula 05/22 0000 Nasal 2.0L Cannula 05/21 2247 98.2 70 20 128/64 97 Nasal 1.5L Cannula 05/21 2246 73 128/64 05/21 1600 Nasal 2.0L Cannula 05/21 1550 98 Nasal 1.5L Cannula Intake & Output 05/22 1600 05/22 0800 05/22 0000 Intake Total 720 480 Output Total 200 Balance 520 480 Intake, Oral 720 480 Number 1 Bowel Movements Output, Urine 200 Exam Other Physical Findings: en - alert and awake HEENT - NCAT CVS - S1, S2, no murmurs, rubs or gallops Lungs - rare bibasilar rhonchi Abdomen - soft, non-tender, bs+ Ext - no edema, no cyanosis Results Last 24 Hrs of Lab Results: Laboratory Tests 05/22/17 0705: Anion Gap 10, Estimated GFR > 60, BUN/Creatinine Ratio 36.7 H, CBC w Diff NO MAN DIFF REQ, RBC 4.47 L, MCV 89.7, MCH 30.1, RDW 15.7 H, MPV 7.1 L, Gran % 85.0 H, Lymphocytes % 5.1 L, Monocytes % 9.9 H, Eosinophils % 0, Basophils % 0, Absolute Granulocytes 8.9 H, Absolute Lymphocytes 0.5 L, Absolute Monocytes 1.0 H, Absolute Eosinophils 0, Absolute Basophils 0, PUBS MCHC 33.5 Impression/Plan Impression/Plan Impression/Plan: Impression 62 year old man * Exacerbation of COPD * Tobacco dependence * Anxiety/depression Plan -keep solumedrol to 40mg iv q12h -Continue trc and nebs -Enrolled in LDCT program -Follow up with psychiatry -just completed course of zithromax -smoking cessation counseled DVT prophylaxis at all times
[2017-05-22 14:50] VITALS: BP 138/80
[2017-05-22 22:40] VITALS: BP 120/68
[2017-05-23 05:23] VITALS: BP 122/68
--- NOTE | 2017-05-23 08:23 | PN- Housestaff ---
Kiki Loomis 05/23/17 0823: Subjective Follow-up For: COPD exacerbation Severe anxiety Positive blood cultures Subjective: Patient was seen and examined this morning. His breathing is slightly better than before. He still using his accessory muscles and complaining of not sleeping well at night. His blood culture second bottle also came back positive for gram-positive cocci in clusters. He remained afebrile and hemodynamically stable. His white cell count remained stable. Review of Systems Constitutional: Denies: diaphoresis, fever. Cardiovascular: Denies: chest pain, orthopena. Respiratory: Reports: cough, short of breath, wheezing. Gastrointestinal: Denies: constipation, bowel incontinence. Genitourinary: Denies: dysuria, hesitation. Objective Last 24 Hrs of Vital Signs/I&O Vital Signs Date Time Temp Pulse Resp B/P B/P Pulse O2 O2 Flow FiO2 Mean Ox Delivery Rate 05/23 0829 95 Nasal 1.5L Cannula 05/23 0800 97 Nasal 1.5L Cannula 05/23 0523 97.5 70 20 122/68 94 Nasal 1.5L Cannula 05/23 0205 97 Nasal 1.5L Cannula 05/23 0000 Nasal 1.5L Cannula 05/22 2240 98.4 79 20 120/68 97 Room Air 05/22 2130 120/68 05/22 1611 95 Nasal 1.5L Cannula 05/22 1450 98.3 75 20 138/80 94 Nasal 1.0L Cannula Intake & Output 05/23 1600 05/23 0800 05/23 0000 Intake Total 480 480 Output Total 300 Balance -300 480 480 Intake, Oral 480 480 Output, Urine 300 Physical Exam General Appearance: Alert, Oriented X3, Cooperative Cardiovascular: Regular Rate, Normal S1, Normal S2 Lungs: very reduced air entry Abdomen: Soft, No Tenderness Extremities: No Clubbing, No Cyanosis, No Edema Current Medications: Current Medications Sig/Adrián Start time Last Medication Dose Route Stop Time Status Admin Acetaminophen 650 MG Q8 05/20 0600 AC 05/23 PO 0520 Albuterol Sulfate 3 ML EVERY 4 HRS/AWAKE 05/20 1600 AC 05/23 INH 1131 Albuterol Sulfate 3 ML Q4 HRS NEEDED PRN 05/20 0430 AC 05/20 INH 0833 Aspirin 325 MG DAILY 05/20 1000 AC 05/23 PO 0951 Atorvastatin Calcium 80 MG 1700 05/20 1700 AC 05/22 PO 1618 Benzonatate 100 MG TID 05/22 1000 AC 05/23 PO 0952 Citalopram 40 MG DAILY 05/20 1000 AC 05/23 Hydrobromide PO 0952 Cyclobenzaprine HCl 5 MG .STK-MED ONE 05/23 0525 DC PO 05/23 0526 Cyclobenzaprine HCl 5 MG .STK-MED ONE 05/22 1815 DC PO 05/22 1816 Cyclobenzaprine HCl 5 MG TIDPRN PRN 05/20 0445 AC 05/23 PO 0525 Diclofenac Sodium 1 NENA ONCE ONE 05/23 0545 DC 05/23 TOP 05/23 0546 0647 Enoxaparin Sodium 40 MG DAILY 05/20 1000 AC SC Hydroxyzine HCl 25 MG TID 05/22 1000 AC 05/23 PO 0952 Ibuprofen 800 MG .STK-MED ONE 05/22 1804 DC PO 05/22 1805 Ibuprofen 800 MG ONCE ONE 05/22 1730 DC 05/22 PO 05/22 1731 1810 Lidocaine 1 PAT DAILY 05/20 1000 AC 05/23 EXT 0951 Melatonin 3 MG AT BEDTIME 05/20 2200 AC 05/22 PO 2130 Methylprednisolone 40 MG Q12 05/21 2200 AC 05/23 IV 0953 Metoprolol Tartrate 12.5 MG BID 05/20 1000 AC 05/23 PO 0952 Nicotine 21 MG DAILY 05/21 1000 AC 05/23 TOP 0952 Omeprazole 40 MG DAILY AC 05/20 0700 AC 05/23 PO 0520 Primidone 50 MG AT BEDTIME 05/20 2200 AC 05/22 PO 2130 Tiotropium [place] 1 PUF DAILY 05/20 1343 AC 05/23 INH 0953 Tramadol HCl 25 MG TIDPRN PRN 05/22 1000 AC 05/22 PO 1025 Vancomycin HCl 1,000 MG DAILY 05/23 1023 AC Dextrose/Water 250 ML IV Assessment/Plan Assessment: His 62-year-old man with moderate to severe COPD on 1.5 L of oxygen by nasal cannula as needed at home, tobacco dependence enrolled in LDCT program in [place], stable RUL mass, coronary artery disease status post [place] with PCI in 1998 and severe anxiety presented to ER and found to be in acute on chronic hypoxic respiratory failure likely secondary to COPD exacerbation and he is very anxious that might be contributing factor in his respiratory status. Patient was admitted on general medical floor and we will address following problems Problem #1 acute on chronic respiratory failure most likely COPD exacerbation with underlying right upper lobe mass Patient was started on IV Solu-Medrol. Pulmonary evaluation by Dr. Lockett appreciated. We will continue IV Solu-Medrol 40 mg every12 hrs.. His pain recently treated with Zithromax no need to restart it again. TRC and nebulization [id number]. Problem #2 severe anxiety and depression Patient was scheduled for outpatient psych evaluation today which is already being canceled being admitted in the hospital. Psychiatry evaluation was requested and we will follow their recommendations regarding changing his anxiolytic as is not effectively treating his underlying severe anxiety and depression. We would avoid benzodiazepines given his compromised respiratory status. He was initially started on gabapentin which she did not tolerate and increase his tremors. Gabapentin was discontinued and he was started on hydroxyzine with minimal effect. Problem #3 generalized body aches including shoulder blades and lower back pain. Patient has severe body spasms most likely due to underlying severe anxiety and depression. We will start him on tramadol as high dose of ibuprofen was giving him epigastric pain. We will continue his proton pump inhibitors. Problem #4 chronic issues including abdominal aortic aneurysm He is stable abdominal aortic aneurysm, he had recent CAT scan showed stable aortic aneurysm which could be follow-up as outpatient. Problem #5 positive blood cultures His blood cultures from admission grew gram-positive cocci in cluster. Empirically was started on vancomycin. ID consultation was placed. We will follow final sensitivity Problem List: 1. Acute exacerbation of chronic obstructive airways disease Pain Ratin Pain Location: Back pain Pain Goal: Remain pain free Pain Plan: Flexeril and tramadol Tomorrow's Labs & Rationales: CbC and BEP Lauri WATTERS,Renetta 05/23/17 1353: Attending MD Review Statement Attending Statement Attending MD Statement: examined this patient, discuss w/resident/PA/HEAVY EQUIPMENT TECHNICIAN, agreed w/resident/PA/HEAVY EQUIPMENT TECHNICIAN, reviewed EMR data (avail), discussed with nursing, discussed with case mgmt, reviewed images, amended to note Attending Assessment/Plan: Patient seen and examined, not doing well this morning. He was complaining of feeling short of breath. Patient is now bacteremic with gram-positive cocci in clusters in both sets of blood cultures. Vital Signs Date Time Temp Pulse Resp B/P B/P Pulse O2 O2 Flow FiO2 Mean Ox Delivery Rate 05/23 0829 95 Nasal 1.5L Cannula 05/23 0800 97 Nasal 1.5L Cannula 05/23 0523 97.5 70 20 122/68 94 Nasal 1.5L Cannula 05/23 0205 97 Nasal 1.5L Cannula 05/23 0000 Nasal 1.5L Cannula 05/22 2240 98.4 79 20 120/68 97 Room Air 05/22 2130 120/68 05/22 1611 95 Nasal 1.5L Cannula 05/22 1450 98.3 75 20 138/80 94 Nasal 1.0L Cannula on exam; aox3, mild distress, looks anxious. cv; s1,s2, rrr resp; overall decreased bs. abd; soft, nt, bs+ ext; no edema no labs. 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 Patient now bacteremic with gram-positive cocci in clusters in 2 out of septal cultures. We'll give a dose of vancomycin and consult infectious disease. Continue hydroxyzine for anxiety. Continue current pain regimen. Continue patient on IV steroids for now, TRC nebs and inhalers. DVT prophylaxis: Lovenox.
--- NOTE | 2017-05-23 12:06 | PN- Pulmonary ---
Subjective HPI/Critical Care Issues: Patient seen and examined. He is somewhat better however has anxiety that is remaining. Objective Current Medications: Current Medications Sig/Adrián Start time Last Medication Dose Route Stop Time Status Admin Acetaminophen 650 MG Q8 05/20 0600 AC 05/23 PO 0520 Albuterol Sulfate 3 ML EVERY 4 HRS/AWAKE 05/20 1600 AC 05/23 INH 1131 Albuterol Sulfate 3 ML Q4 HRS NEEDED PRN 05/20 0430 AC 05/20 INH 0833 Aspirin 325 MG DAILY 05/20 1000 AC 05/23 PO 0951 Atorvastatin Calcium 80 MG 1700 05/20 1700 AC 05/22 PO 1618 Benzonatate 100 MG TID 05/22 1000 AC 05/23 PO 0952 Citalopram 40 MG DAILY 05/20 1000 AC 05/23 Hydrobromide PO 0952 Cyclobenzaprine HCl 5 MG .STK-MED ONE 05/22 1815 DC PO 05/22 1816 Cyclobenzaprine HCl 5 MG TIDPRN PRN 05/20 0445 AC 05/23 PO 0525 Diclofenac Sodium 1 NENA ONCE ONE 05/23 0545 DC 05/23 TOP 05/23 0546 0647 Enoxaparin Sodium 40 MG DAILY 05/20 1000 AC SC Hydroxyzine HCl 25 MG TID 05/22 1000 AC 05/23 PO 0952 Ibuprofen 800 MG .STK-MED ONE 05/22 1804 DC PO 05/22 1805 Ibuprofen 800 MG ONCE ONE 05/22 1730 DC 05/22 PO 05/22 1731 1810 Lidocaine 1 PAT DAILY 05/20 1000 AC 05/23 EXT 0951 Melatonin 3 MG AT BEDTIME 05/20 2200 AC 05/22 PO 2130 Methylprednisolone 40 MG Q12 05/21 2200 AC 05/23 IV 0953 Metoprolol Tartrate 12.5 MG BID 05/20 1000 AC 05/23 PO 0952 Nicotine 21 MG DAILY 05/21 1000 AC 05/23 TOP 0952 Omeprazole 40 MG DAILY AC 05/20 0700 AC 05/23 PO 0520 Primidone 50 MG AT BEDTIME 05/20 2200 AC 05/22 PO 2130 Tiotropium [place] 1 PUF DAILY 05/20 1343 AC 05/23 INH 0953 Tramadol HCl 25 MG TIDPRN PRN 05/22 1000 AC 05/22 PO 1025 Vancomycin HCl 1,000 MG DAILY 05/23 1023 AC Dextrose/Water 250 ML IV Vital Signs & I&O Last 24 Hrs of Vitals and I&O: Vital Signs Date Time Temp Pulse Resp B/P B/P Pulse O2 O2 Flow FiO2 Mean Ox Delivery Rate 05/23 0829 95 Nasal 1.5L Cannula 05/23 0800 97 Nasal 1.5L Cannula 05/23 0523 97.5 70 20 122/68 94 Nasal 1.5L Cannula 05/23 0205 97 Nasal 1.5L Cannula 05/23 0000 Nasal 1.5L Cannula 05/22 2240 98.4 79 20 120/68 97 Room Air 05/22 2130 120/68 05/22 1611 95 Nasal 1.5L Cannula 05/22 1450 98.3 75 20 138/80 94 Nasal 1.0L Cannula Intake & Output 05/23 1600 05/23 0800 05/23 0000 Intake Total 480 480 Output Total 300 Balance -300 480 480 Intake, Oral 480 480 Output, Urine 300 Exam Other Physical Findings: Gen - alert and awake HEENT - NCAT CVS - S1, S2, no murmurs, rubs or gallops Lungs - rare bibasilar rhonchi Abdomen - soft, non-tender, bs+ Ext - no edema, no cyanosis Impression/Plan Impression/Plan Impression/Plan: Impression 62 year old man * Exacerbation of COPD * Tobacco dependence * Anxiety/depression Plan -keep solumedrol to 40mg iv q12h -f/u bcx -Continue trc and nebs -Enrolled in LDCT program -Follow up with psychiatry -just completed course of zithromax -smoking cessation counseled DVT prophylaxis at all times
[2017-05-23 14:00] VITALS: BP 124/80
--- NOTE | 2017-05-23 17:58 | Cons- Infect Disease ---
General Information and HPI Consulting Request Date of Consult: 05/23/17 Requested By: Renetta Carreon MD Reason for Consult: Positive blood cultures for gram-positive cocci in clusters Source of Information: patient, old records History of Present Illness: This is a 62-year-old man with a history of hypertension, anxiety, COPD, maintained on 1 1/2 L of oxygen, coronary artery disease, status post stent placement nearly 20 years prior to admission, status post several MIs, one recently, with a chronic right upper lobe cavity, which was noted to have collapsed and completely replaced with soft tissue and/or fluid attenuation on a CT of the chest one year prior to admission, with the etiology never identified, status post multiple hospitalizations for COPD exacerbation, most recently one week prior to admission, at which time he was treated with Azithromycin and Solumedrol and discharged on these medications, with a nearly 2 month history of left posterior rib pain, radiating anteriorly to the abdomen and worse with coughing, with no history of trauma, seen in the emergency room twice, with a CTA of the chest and a CT of the abdomen and pelvis negative for any acute process, admitted on May 20 with increasing shortness of breath and anxiety. On admission he was afebrile, with an O2 sat of 89% on 1 L. Laboratory data revealed a white blood cell count of 13,000, BUN/creatinine 19 and 0.7, coags normal, ABG 7.42/41/84 on 3 L/m. Chest x-ray revealed minimal streaky bibasilar opacities. He was given Ceftriaxone and Azithromycin and then followed off antibiotics. He was also begun on Solumedrol which has been continued. On May 22 blood cultures 2 were reported positive for gram-positive cocci in clusters and he was begun on Vancomycin today. He has been afebrile since admission (on steroids) and his white blood cell count normalized after admission. He continues to complain of shortness of breath, though he has no cough or chest discomfort. He does complain of left upper back pain, radiating anteriorly to the left chest and superiorly to the left shoulder and interscapular area. Allergies/Medications Allergies: Coded Allergies: budesonide (From SYMBICORT) (Severe, TOUNGE FELT LIKE A CACTUS 02/16/16) formoterol (From SYMBICORT) (Severe, TOUNGE FELT LIKE A CACTUS 02/16/16) codeine (SHAKEY 02/16/16) morphine (BRADYCARDIC 02/16/16) Home Med List: Albuterol Sulfate (Proair Hfa) 90 MCG HFA.AER.AD 2 PUF INH AD PRN COPD ( Reported) Albuterol Sulfate 2.5 MG/3 ML (0.083 %) VIAL.NEB 1 Vial INH/SHE 5XDAILY COPD (Reported) Aspirin (Aspirin*) 325 MG TABLET 1 TAB PO DAILY HEART HEALTH (Reported) Atorvastatin Calcium 80 MG TABLET 80 MG PO 1700 HYPERLIPIDEMIA . Cholecalciferol (Vitamin D3) (Vitamin D) 2,000 UNIT CAPSULE 1 CAP PO QAM SUPPLEMENT (Reported) Citalopram Hydrobromide (Citalopram HBr) 40 MG TABLET 1 TAB PO QPM ANXIETY ( Reported) Cyclobenzaprine HCl 5 MG TABLET 5 MG PO TIDPRN PRN pain Fluticasone/Vilanterol (Breo Ellipta 100-25 Mcg INH) 100 MCG-25 MCG/DOSE BLST.W.DEV 1 PUFF INH QAM COPD (Reported) Ibuprofen 800 MG TABLET 800 MG PO Q8 PRN PAIN SCALE 4-6 (MODERATE) Lidocaine (Lidoderm) 5 % ADH..PATCH 1 PAT EXT DAILY MUSCLE PAIN Melatonin 3 MG TABLET 1 TAB PO QHS SUPPLEMENT (Reported) Metoprolol Tartrate 25 MG TABLET 12.5 MG PO BID HEART . Shepherd-3S/Dha/Epa/Fish Oil (Shepherd-3 Fish Oil 1,000 MG Sfgl) 300-1,000MG CAPSULE 1 CAP PO QPM SUPPLEMENT (Reported) Omeprazole 40 MG CAPSULE.DR 1 CAP PO DAILY ACID REFLUX Primidone 50 MG TABLET 50 MG PO AT BEDTIME tremors . Tiotropium [place] (Spiriva) 18 MCG CAP.W.DEV 1 CAP INH DAILY BREATHING PROBLEMS (Reported) Past History Travel History Traveled to [place] past 21 day No Medical History Blood Transfusion Hx: No Neurological: NONE EENT: NONE Cardiovascular: CAD (stent 1998), hypertension, hyperlipidemia, myocardial infarction, CAD s/p stents placement Respiratory: COPD, emphysema, pneumonia, chronic RUL cavity/mass Gastrointestinal: NONE Hepatic: NONE Renal: NONE Musculoskeletal: NONE Psychiatric: anxiety Endocrine: NONE Blood Disorders: NONE Cancer(s): NONE AMUSEMENT CENTRE MANAGER/Reproductive: NONE History of MRSA: No History of VRE: No History of CDIFF: No Isolation History: Standard Influenza Vaccine: 03/29/17 Surgical History Surgical History: left knee surgery for torn cartilage Tonsillectomy Family History Relations & Conditions If Any: (fallopian tube cancer ). FATHER (heart attack x 2). MOTHER (lymphoma and alzheimers). DAUGHTER (Lupus nephritis ). Psychosocial History Where Do You Live? Home Who Do You Live With? self Services at Home: None Primary Language: [place] Citizen Smoking Status: Current Some Day Smoker ETOH Use: denies use Illicit Drug Use: denies illicit drug use Living Will? no Functional Ability ADLs Independent: dressing, eating, toileting, bathing. Ambulation: independent IADLs Independent: shopping, housework, finances, food prep, telephone, transportation , medication admin. Review of Systems Review of Systems All Other Systems: Reviewed and Negative Exam & Diagnostic Data Last 24 Hrs of Vital Signs/I&O Vital Signs Date Time Temp Pulse Resp B/P B/P Pulse O2 O2 Flow FiO2 Mean Ox Delivery Rate 05/23 1630 98 Nasal 1.5L Cannula 05/23 1400 97.7 69 20 124/80 96 Nasal 1.0L Cannula 05/23 0829 95 Nasal 1.5L Cannula 05/23 0800 97 Nasal 1.5L Cannula 05/23 0523 97.5 70 20 122/68 94 Nasal 1.5L Cannula 05/23 0205 97 Nasal 1.5L Cannula 05/23 0000 Nasal 1.5L Cannula 05/22 2240 98.4 79 20 120/68 97 Room Air 05/22 2130 120/68 Intake & Output 05/23 1600 05/23 0800 05/23 0000 Intake Total 1920 480 480 Output Total 300 Balance 1620 480 480 Intake, IV 20 Intake, Oral 1900 480 480 Number 1 Bowel Movements Output, Urine 300 Physical Exam Other Physical Findings: Afebrile on steroids. He is awake and alert in no acute distress. Skin reveals no rash. HEENT negative. Neck is supple with no adenopathy. Lungs decreased breath sounds bilaterally. Heart regular rhythm with no murmur. Abdomen is soft, tender in the epigastrium, with no guarding or rebound, with positive bowel sounds. filter press tender head over the left upper back. Extremities no cyanosis, clubbing or edema. Neuro is without focality. Last 24 Hours of Lab Results: Laboratory Tests 05/22 0705 Chemistry Sodium (137 - 145 mmol/L) 138 Potassium (3.5 - 5.1 mmol/L) 4.4 Chloride (98 - 107 mmol/L) 96 L Carbon Dioxide (22 - 30 mmol/L) 33 H Anion Gap (5 - 16) 10 BUN (9 - 20 mg/dL) 22 H Creatinine (0.7 - 1.2 mg/dL) 0.6 L Estimated GFR (>60 ml/min) > 60 BUN/Creatinine Ratio (7 - 25 %) 36.7 H Hematology CBC w Diff NO MAN DIFF REQ WBC (4.8 - 10.8 /CUMM) 10.5 RBC (4.70 - 6.10 /CUMM) 4.47 L Hgb (14.0 - 18.0 G/DL) 13.4 L Hct (42 - 52 %) 40.1 L MCV (80.0 - 94.0 FL) 89.7 MCH (27.0 - 31.0 PG) 30.1 RDW (11.5 - 14.5 %) 15.7 H Plt Count (130 - 400 /CUMM) 240 MPV (7.4 - 10.4 FL) 7.1 L Gran % (42.2 - 75.2 %) 85.0 H Lymphocytes % (20.5 - 51.1 %) 5.1 L Monocytes % (1.7 - 9.3 %) 9.9 H Eosinophils % (0 - 5 %) 0 Basophils % (0.0 - 2.0 %) 0 Absolute Granulocytes (1.4 - 6.5 /CUMM) 8.9 H Absolute Lymphocytes (1.2 - 3.4 /CUMM) 0.5 L Absolute Monocytes (0.10 - 0.60 /CUMM) 1.0 H Absolute Eosinophils (0.0 - 0.7 /CUMM) 0 Absolute Basophils (0.0 - 0.2 /CUMM) 0 PUBS MCHC (33.0 - 37.0 G/DL) 33.5 Last 24 Hours of [place] Results: Blood cultures May 20 positive for gram-positive cocci in clusters Rapid flu swab May 20 negative Diagnostic Data Recent Imaging Findings: Chest x-ray May 20 reveals minimal streaky bibasilar opacities and a chronic right upper lobe mass Assessment/Plan Assessment/Plan Impression: This is a 62-year-old man with a history of hypertension, anxiety, COPD, maintained on 1 1/2 L of oxygen, coronary artery disease, status post stents, with a chronic right upper lobe cavity, which has collapsed and been replaced with soft tissue and/or fluid attenuation, with the etiology never identified, status post multiple hospitalizations for COPD exacerbation, most recently one week prior to admission, with a nearly 2 month history of left posterior rib pain, radiating anteriorly and worse with coughing, admitted on May 20 with increasing shortness of breath and anxiety, found to be afebrile with a mild leukocytosis and with no acute process on chest x-ray, now with blood cultures 2 reported positive for gram-positive cocci in clusters. The significance of the positive blood culture is unclear. He has no obvious source of sepsis, with his chest x-ray negative for any acute process, and he remains afebrile (though on steroids) with a normal white blood cell count off antibiotics; therefore the possibility that these represent contaminants must be considered. Endocarditis must always be considered, particularly in the absence of any obvious focus. His left upper back pain is of unclear etiology. It appears to be musculoskeletal and the possibility that this represents radiation from a thoracic spine process, either a compression fracture, metastatic disease or osteomyelitis, given the positive blood cultures, must be considered. He has been recently imaged with a CTA of the chest and a CT of the abdomen and pelvis, neither of which revealed any osseous abnormalities, though these were not dedicated to the spine. He does have stents in place, which may preclude him from having an MRI, and this can be investigated. He can continue to be covered with antibiotics pending final ID of the blood cultures. With regard to his chronic right upper lobe mass, the etiology has never been determined, with concern about a fungal process raised in the past, with positive Aspergillus antibodies, but this does not appear to be relevant to his current problem. Suggestion: 1. Await ID of the recent positive blood cultures 2. MRI or, if his stents are not compatible, CT of the thoracic spine 3. Increase Vancomycin to 1 g IV every 12 hours pending above Consult Acknowledgment - Thank you for your consult request.
[2017-05-23 22:29] VITALS: BP 132/82
[2017-05-24 05:31] VITALS: BP 100/64
--- NOTE | 2017-05-24 07:36 | PN- Housestaff ---
Kiki Loomis 05/24/17 0735: Subjective Follow-up For: COPD exacerbation Severe anxiety Musculoskeletal pain Subjective: Patient was seen and examined this morning. He is still short of breath but on auscultation slightly improved air entry. He still complaining of a lot of anxiety and we will increase his hydroxyzine today. On reviewing the his old CAT scan for April 03 it was found out that he has rib fracture at that point it's not clear whether it is pathological or traumatic as he was denying any injury. Review of Systems Constitutional: Denies: chills, diaphoresis. Cardiovascular: Denies: chest pain, edema. Respiratory: Reports: short of breath, wheezing. Gastrointestinal: Denies: constipation, bowel incontinence. Musculoskeletal: Reports: back pain, muscle pain. Objective Last 24 Hrs of Vital Signs/I&O Vital Signs Date Time Temp Pulse Resp B/P B/P Pulse O2 O2 Flow FiO2 Mean Ox Delivery Rate 05/24 1351 98.5 68 20 120/72 96 Nasal 1.0L Cannula 05/24 0927 72 118/86 05/24 0851 96 Nasal 1.0L Cannula 05/24 0800 94 Nasal 1.5L Cannula 05/24 0531 97.8 59 22 100/64 96 Nasal 1.0L Cannula 05/24 0140 95 Nasal 1.5L Cannula 05/24 0000 Nasal 1.5L Cannula 05/23 2229 98.2 76 20 132/82 97 Nasal 1.0L Cannula 05/23 2147 76 132/82 05/23 1630 98 Nasal 1.5L Cannula 05/23 1600 Nasal 1.5L Cannula Intake & Output 05/24 1600 05/24 0800 05/24 0000 Intake Total 250 Output Total 325 Balance -325 250 Intake, IV 250 Output, Urine 325 Patient 172 lb Weight Physical Exam General Appearance: Alert, Oriented X3, Cooperative, Mild Distress Cardiovascular: Regular Rate, Normal S1, Normal S2 Lungs: reduced air entry Abdomen: Soft, No Tenderness Neurological: Normal Speech, Normal Tone Current Medications: Current Medications Sig/Adrián Start time Last Medication Dose Route Stop Time Status Admin Acetaminophen 650 MG Q8 05/20 0600 AC 05/24 PO 1415 Albuterol Sulfate 3 ML EVERY 4 HRS/AWAKE 05/20 1600 AC 05/24 INH 1140 Albuterol Sulfate 3 ML Q4 HRS NEEDED PRN 05/20 0430 AC 05/20 INH 0833 Aspirin 325 MG DAILY 05/20 1000 AC 05/24 PO 0927 Atorvastatin Calcium 80 MG 1700 05/20 1700 AC 05/23 PO 1650 Benzonatate 100 MG TID 05/22 1000 AC 05/24 PO 0926 Citalopram 40 MG DAILY 05/20 1000 AC 05/24 Hydrobromide PO 0927 Cyclobenzaprine HCl 5 MG TIDPRN PRN 05/20 0445 AC 05/23 PO 0525 Enoxaparin Sodium 40 MG DAILY 05/20 1000 AC SC Hydroxyzine HCl 50 MG TID 05/24 1600 AC PO Hydroxyzine HCl 25 MG TID 05/22 1000 DC 05/24 PO 0927 Lidocaine 1 PAT DAILY 05/20 1000 AC 05/24 EXT 0938 Melatonin 3 MG AT BEDTIME 05/20 2200 AC 05/23 PO 2147 Methylprednisolone 40 MG Q12 05/21 2200 AC 05/24 IV 0928 Metoprolol Tartrate 12.5 MG BID 05/20 1000 AC 05/24 PO 0927 Nicotine 21 MG DAILY 05/21 1000 AC 05/24 TOP 0925 Omeprazole 40 MG DAILY AC 05/20 0700 AC 05/24 PO 0538 Primidone 50 MG AT BEDTIME 05/20 2200 AC 05/23 PO 2147 Tiotropium [place] 1 PUF DAILY 05/20 1343 AC 05/24 INH 0926 Tramadol HCl 25 MG TIDPRN PRN 05/22 1000 AC 05/24 PO 0216 Vancomycin HCl 1,000 MG Q12 05/23 2200 DC 05/23 Dextrose/Water 250 ML IV 2147 Vancomycin HCl 1,000 MG DAILY 05/23 1023 DC 05/23 Dextrose/Water 250 ML IV 1650 Last 24 Hrs of Lab/[place] Results Last 24 Hrs of Labs/Mics: Laboratory Tests 05/24/17 0747: Anion Gap 8, Estimated GFR > 60, BUN/Creatinine Ratio 38.6 H, CBC w Diff NO MAN DIFF REQ, RBC 4.85, MCV 90.4, MCH 29.6, MCHC 32.8 L, RDW 15.2 H, MPV 6.7 L, Gran % 75.4 H, Lymphocytes % 13.3 L, Monocytes % 11.3 H, Eosinophils % 0, Basophils % 0, Absolute Granulocytes 6.6 H, Absolute Lymphocytes 1.2, Absolute Monocytes 1.0 H, Absolute Eosinophils 0, Absolute Basophils 0 Assessment/Plan Assessment: His 62-year-old man with moderate to severe COPD on 1.5 L of oxygen by nasal cannula as needed at home, tobacco dependence enrolled in LDCT program in [place], stable RUL mass, coronary artery disease status post NV with PCI in 1998 and severe anxiety presented to ER and found to be in acute on chronic hypoxic respiratory failure likely secondary to COPD exacerbation and he is very anxious that might be contributing factor in his respiratory status. Patient was admitted on general medical floor and we will address following problems Problem #1 acute on chronic respiratory failure most likely COPD exacerbation with underlying right upper lobe mass Patient was started on IV Solu-Medrol. Pulmonary evaluation by Dr. Lockett appreciated. We will continue IV Solu-Medrol 40 mg every12 hrs.. His pain recently treated with Zithromax no need to restart it again. TRC and nebulization [id number]. Patient could be changed to oral steroids with slow tapering course from tomorrow and possible discharge on Saturday or Saturday depending his respiratory status. Problem #2 severe anxiety and depression Patient was scheduled for outpatient psych evaluation today which is already being canceled being admitted in the hospital. Psychiatry evaluation was requested and we will follow their recommendations regarding changing his anxiolytic as is not effectively treating his underlying severe anxiety and depression. We would avoid benzodiazepines given his compromised respiratory status. He was initially started on gabapentin which she did not tolerate and increase his tremors. Gabapentin was discontinued and he was started on hydroxyzine with minimal effec and we will increase dose to 50 3 times a day today. Problem #3 generalized body aches including shoulder blades and lower back pain. Patient has severe body spasms most likely due to underlying severe anxiety and depression. We will start him on tramadol as high dose of ibuprofen was giving him epigastric pain. We will continue his proton pump inhibitors. Of note on reviewing his CAT scan from April [address] Mitchell it was found out that he had a fracture that point but explains his pain and we will treat it symptomatically. Problem #4 chronic issues including abdominal aortic aneurysm He is stable abdominal aortic aneurysm, he had recent CAT scan showed stable aortic aneurysm which could be follow-up as outpatient. Problem #5 positive blood cultures Blood cultures were coagulase negative most likely contamination and his vancomycin was discontinued. Problem List: 1. Lung mass 2. Contusion of rib on left side Pain Ratin Pain Location: Back pain Pain Goal: Pain 4 or less Pain Plan: Tramadol Tomorrow's Labs & Rationales: None Renetta Carreon MD 05/24/17 1415: Attending MD Review Statement Attending Statement Attending MD Statement: examined this patient, discuss w/resident/PA/SHOW HOST/HOSTESS, agreed w/resident/PA/SHOW HOST/HOSTESS, reviewed EMR data (avail), discussed with nursing, discussed with case mgmt, reviewed images, amended to note Attending Assessment/Plan: Patient seen and examined, still very anxious. Blood cultures are growing coag negative staph. Per infectious disease, this is likely a contaminant as no obvious source. Tristan Allen MD discuss with radiologist and patient found to have added fracture on the previous CAT scan. Likely he has the pain secondary to that. I have asked psychiatry to see him again for reasons ID. We 'll increase the dose of hydroxyzine for now. Continue current management and patient will be a possible weakened discharged on oral prednisone taper.
[2017-05-24 08:44] LABS: ABSOLUTE BASOPHIL COUNT 0 /CUMM (0.0-0.2); ABSOLUTE EOSINOPHIL COUNT 0 /CUMM (0.0-0.7); ABSOLUTE GRANULOCYTE CT 6.6 /CUMM (1.4-6.5); ABSOLUTE LYMPH COUNT 1.2 /CUMM (1.2-3.4); BASOPHIL % 0 % (0.0-2.0); EOSINOPHIL % 0 % (0-5); GRANULOCYTE % 75.4 % (42.2-75.2); HEMATOCRIT 43.8 % (42-52); MEAN CORPUSCULAR HGB 29.6 PG (27.0-31.0); MEAN CORPUSCULAR HGB CONC 32.8 G/DL (33.0-37.0); MEAN CORPUSCULAR VOLUME 90.4 FL (80.0-94.0); MEAN PLATELET VOLUME 6.7 FL (7.4-10.4); PLATELET COUNT 248 /CUMM (130-400); RBC DISTRIBUTION WIDTH 15.2 % (11.5-14.5); RED BLOOD CELL CT 4.85 /CUMM (4.70-6.10); WHITE BLOOD CELL COUNT 8.7 /CUMM (4.8-10.8)
--- NOTE | 2017-05-24 12:18 | PN- Infect Dx ---
Subjective Subjective: Afebrile on steroids. He continues to report significant anxiety. He has mild discomfort in the left upper back. Objective Last 24 Hrs of Vital Signs/I&O Vital Signs Date Time Temp Pulse Resp B/P B/P Pulse O2 O2 Flow FiO2 Mean Ox Delivery Rate 05/24 0927 72 118/86 05/24 0851 96 Nasal 1.0L Cannula 05/24 0531 97.8 59 22 100/64 96 Nasal 1.0L Cannula 05/24 0140 95 Nasal 1.5L Cannula 05/24 0000 Nasal 1.5L Cannula 05/23 2229 98.2 76 20 132/82 97 Nasal 1.0L Cannula 05/23 2147 76 132/82 05/23 1630 98 Nasal 1.5L Cannula 05/23 1600 Nasal 1.5L Cannula 05/23 1400 97.7 69 20 124/80 96 Nasal 1.0L Cannula Intake & Output 05/24 1600 05/24 0800 05/24 0000 Intake Total 250 Output Total 325 Balance -325 250 Intake, IV 250 Output, Urine 325 Patient 172 lb Weight Physical Exam Other Physical Findings: He is awake and alert in no acute distress Lungs decreased breath sounds bilaterally Heart regular rhythm with no murmur Back mildly tender on palpation over the left upper back Extremities no cyanosis, clubbing or edema Results Last 24 Hours of Lab Results: Laboratory Tests 05/24 0747 Chemistry Sodium (137 - 145 mmol/L) 140 Potassium (3.5 - 5.1 mmol/L) 4.5 Chloride (98 - 107 mmol/L) 95 L Carbon Dioxide (22 - 30 mmol/L) 38 H Anion Gap (5 - 16) 8 BUN (9 - 20 mg/dL) 27 H Creatinine (0.7 - 1.2 mg/dL) 0.7 Estimated GFR (>60 ml/min) > 60 BUN/Creatinine Ratio (7 - 25 %) 38.6 H Hematology CBC w Diff NO MAN DIFF REQ WBC (4.8 - 10.8 /CUMM) 8.7 RBC (4.70 - 6.10 /CUMM) 4.85 Hgb (14.0 - 18.0 G/DL) 14.4 Hct (42 - 52 %) 43.8 MCV (80.0 - 94.0 FL) 90.4 MCH (27.0 - 31.0 PG) 29.6 MCHC (33.0 - 37.0 G/DL) 32.8 L RDW (11.5 - 14.5 %) 15.2 H Plt Count (130 - 400 /CUMM) 248 MPV (7.4 - 10.4 FL) 6.7 L Gran % (42.2 - 75.2 %) 75.4 H Lymphocytes % (20.5 - 51.1 %) 13.3 L Monocytes % (1.7 - 9.3 %) 11.3 H Eosinophils % (0 - 5 %) 0 Basophils % (0.0 - 2.0 %) 0 Absolute Granulocytes (1.4 - 6.5 /CUMM) 6.6 H Absolute Lymphocytes (1.2 - 3.4 /CUMM) 1.2 Absolute Monocytes (0.10 - 0.60 /CUMM) 1.0 H Absolute Eosinophils (0.0 - 0.7 /CUMM) 0 Absolute Basophils (0.0 - 0.2 /CUMM) 0 Last 24 Hours of [place] Results: Blood cultures May 20 positive for coag-negative Staph Assessment/Plan Impression: Stable, with temperatures remaining normal (on steroids) and with white blood cell count normal, on Vancomycin, begun yesterday for positive blood cultures for gram-positive cocci, which have been identified as coag-negative Staph. Suspect these represent contaminants and, in the absence of any obvious focus of infection, feel that his antibiotics can be discontinued. Upon review of his CT scans from his ER visits last month, it appears that he had a new left rib fracture, which likely explains his chronic left upper back pain. Suggestion: 1. Symptomatic treatment for his left rib fracture 2. Discontinue Vancomycin and follow off antibiotics
[2017-05-24 13:51] VITALS: BP 120/72
[2017-05-24] MEDS ORDERED: BENZONATATE100 M1 PO (14:27)
[2017-05-24] MEDS ORDERED: HYDROXYZINE HCL50 M1 PO (14:27)
[2017-05-24] MEDS ORDERED: TRAMADOL HCL50 M1 PO (14:27)
--- NOTE | 2017-05-24 14:54 | PN- Pulmonary ---
Subjective HPI/Critical Care Issues: Patient seen and examined this morning. He appears to be doing somewhat better but still short of breath. Objective Current Medications: Current Medications Sig/Adrián Start time Last Medication Dose Route Stop Time Status Admin Acetaminophen 650 MG Q8 05/20 0600 AC 05/24 PO 1415 Albuterol Sulfate 3 ML EVERY 4 HRS/AWAKE 05/20 1600 AC 05/24 INH 1140 Albuterol Sulfate 3 ML Q4 HRS NEEDED PRN 05/20 0430 AC 05/20 INH 0833 Aspirin 325 MG DAILY 05/20 1000 AC 05/24 PO 0927 Atorvastatin Calcium 80 MG 1700 05/20 1700 AC 05/23 PO 1650 Benzonatate 100 MG TID 05/22 1000 AC 05/24 PO 0926 Citalopram 40 MG DAILY 05/20 1000 AC 05/24 Hydrobromide PO 0927 Cyclobenzaprine HCl 5 MG TIDPRN PRN 05/20 0445 AC 05/23 PO 0525 Enoxaparin Sodium 40 MG DAILY 05/20 1000 AC SC Hydroxyzine HCl 50 MG TID 05/24 1600 AC PO Hydroxyzine HCl 25 MG TID 05/22 1000 DC 05/24 PO 0927 Lidocaine 1 PAT DAILY 05/20 1000 AC 05/24 EXT 0938 Melatonin 3 MG AT BEDTIME 05/20 2200 AC 05/23 PO 2147 Methylprednisolone 40 MG Q12 05/21 2200 AC 05/24 IV 0928 Metoprolol Tartrate 12.5 MG BID 05/20 1000 AC 05/24 PO 0927 Nicotine 21 MG DAILY 05/21 1000 AC 05/24 TOP 0925 Omeprazole 40 MG DAILY AC 05/20 0700 AC 05/24 PO 0538 Primidone 50 MG AT BEDTIME 05/20 2200 AC 05/23 PO 2147 Tiotropium [place] 1 PUF DAILY 05/20 1343 AC 05/24 INH 0926 Tramadol HCl 25 MG TIDPRN PRN 05/22 1000 AC 05/24 PO 0216 Vancomycin HCl 1,000 MG Q12 05/23 2200 DC 05/23 Dextrose/Water 250 ML IV 2147 Vancomycin HCl 1,000 MG DAILY 05/23 1023 DC 05/23 Dextrose/Water 250 ML IV 1650 Vital Signs & I&O Last 24 Hrs of Vitals and I&O: Vital Signs Date Time Temp Pulse Resp B/P B/P Pulse O2 O2 Flow FiO2 Mean Ox Delivery Rate 05/24 1351 98.5 68 20 120/72 96 Nasal 1.0L Cannula 05/24 0927 72 118/86 05/24 0851 96 Nasal 1.0L Cannula 05/24 0800 94 Nasal 1.5L Cannula 05/24 0531 97.8 59 22 100/64 96 Nasal 1.0L Cannula 05/24 0140 95 Nasal 1.5L Cannula 05/24 0000 Nasal 1.5L Cannula 05/23 2229 98.2 76 20 132/82 97 Nasal 1.0L Cannula 05/23 2147 76 132/82 05/23 1630 98 Nasal 1.5L Cannula 05/23 1600 Nasal 1.5L Cannula Intake & Output 05/24 1600 05/24 0800 05/24 0000 Intake Total 250 Output Total 325 Balance -325 250 Intake, IV 250 Output, Urine 325 Patient 172 lb Weight Exam Other Physical Findings: Gen - alert and awake HEENT - NCAT CVS - S1, S2, no murmurs, rubs or gallops Lungs - rare bibasilar rhonchi Abdomen - soft, non-tender, bs+ Ext - no edema, no cyanosis Results Last 24 Hrs of Lab Results: Laboratory Tests 05/24/17 0747: Anion Gap 8, Estimated GFR > 60, BUN/Creatinine Ratio 38.6 H, CBC w Diff NO MAN DIFF REQ, RBC 4.85, MCV 90.4, MCH 29.6, MCHC 32.8 L, RDW 15.2 H, MPV 6.7 L, Gran % 75.4 H, Lymphocytes % 13.3 L, Monocytes % 11.3 H, Eosinophils % 0, Basophils % 0, Absolute Granulocytes 6.6 H, Absolute Lymphocytes 1.2, Absolute Monocytes 1.0 H, Absolute Eosinophils 0, Absolute Basophils 0 Impression/Plan Impression/Plan Impression/Plan: Impression 62 year old man * Exacerbation of COPD * Tobacco dependence * Anxiety/depression Plan -keep solumedrol to 40mg iv q12h - taper over the weekend -Continue trc and nebs -Enrolled in LDCT program -Follow up with psychiatry -just completed course of zithromax -smoking cessation counseled DVT prophylaxis at all times
--- NOTE | 2017-05-24 20:14 | Incdntl Nt Psy ---
See Addendum Incidental Note Notation: Sarbjit is calm and oriented. He reports that his breathing is "pretty labored," some use of accessory muscles noted, but he is in no acute distress. He denies AH or VH and presents no angel delusions. He reports anxiety is 2/10 now, but 8/10 previously when he was worried about a blood virus, which he reports has been ruled out. 02/05 is the worst. He used to sleep through the night until 3-4 months ago, at about the time his daughter , who used to help calm him. After that, he needed to awaken for a breathing treatment, and would then go back to sleep. He is not refreshed with the current sleep regimen. He states that last night before bed, he had three panic attacks, and was able to self-calm. Plan: 1. I will increase the frequency of hydroxyzine to 25 mg PO 4X/day for anxiety. 2. We have avoided benzodiazepines, due to fear of respiratory depression and increased risk of fall. However, if the patient is in severe distress with panic , consider a one-time dose of lorazepam 0.5 mg. 3. The patient has an intake appointment at [facility] on 06/05/17 at 10:15 AM, at [address] [place] [address], , with Dr. Weston. We will continue to follow along, and expect to visit the patient again on 05/27/17.
[2017-05-24 22:21] VITALS: BP 114/70
[2017-05-25 06:33] VITALS: BP 102/64
--- NOTE | 2017-05-25 09:59 | PN- Housestaff ---
[facility] 05/25/17 0959: Subjective Follow-up For: COPD exacerbation Severe anxiety Musculoskeletal pain Subjective: Patient remained afebrile overnight. Seen and examined this morning. He is using a little for oxygen and maintaining saturation 95%. Patient had panic attack last night. Patient reported having short of breath on exertion and also he is feeling weak. Patient also reported having anxiety attacks and during that episode he has difficulty in breathing and palpitation. He denied any chest pain, palpitation, nausea, vomiting, cough, fever, abdominal pain and dysuria. Patient doesn't want to go home today. Review of Systems Constitutional: Reports: weakness. EENTM: Reports: no symptoms. Cardiovascular: Reports: no symptoms. Respiratory: Reports: short of breath. Gastrointestinal: Reports: no symptoms. Genitourinary: Reports: no symptoms. Musculoskeletal: Reports: see HPI. Neurological/Psychological: Reports: anxiety. Objective Last 24 Hrs of Vital Signs/I&O Vital Signs Date Time Temp Pulse Resp B/P B/P Pulse O2 O2 Flow FiO2 Mean Ox Delivery Rate 05/25 0633 97.4 83 20 102/64 95 05/25 0523 96 Nasal 3.0L Cannula 05/25 0000 99 Nasal 1.0L Cannula 05/24 2221 98.2 73 18 114/70 99 Nasal 1.0L Cannula 05/24 2052 73 114/70 05/24 1623 97 Nasal 1.0L Cannula 05/24 1351 98.5 68 20 120/72 96 Nasal 1.0L Cannula Intake & Output 05/25 1600 05/25 0800 05/25 0000 Intake Total 250 260 Output Total 350 Balance -100 260 Intake, IV 10 20 Intake, Oral 240 240 Output, Urine 350 Physical Exam General Appearance: Alert, Oriented X3, Cooperative Skin Temp/Moisture Exam: Warm/Dry Sepsis Skin Exam (color): Normal for Ethnicity HEENT: Atraumatic, PERRLA, EOMI Neck: Supple Cardiovascular: Normal S1, Normal S2 Lungs: Clear to Auscultation Abdomen: Soft, No Tenderness Neurological: Normal Speech, Strength at 5/5 X4 Ext, Normal Tone, Sensation Intact Extremities: No Edema Assessment/Plan Assessment: His 62-year-old man with moderate to severe COPD on 1.5 L of oxygen by nasal cannula as needed at home, tobacco dependence enrolled in LDCT program in [place], stable RUL mass, coronary artery disease status post [place] with PCI in 1998 and severe anxiety presented to ER and found to be in acute on chronic hypoxic respiratory failure likely secondary to COPD exacerbation and he is very anxious that might be contributing factor in his respiratory status. Patient was admitted on general medical floor and we will address following problems Acute on chronic hypoxic respiratory failure due to COPD exacerbation and underlying lung mass: -Supplemental oxygen as needed to maintain saturation above 90% -Continue Solu-Medrol 30 mg IV every 12 hourly -TRC nebulization as needed -We will follow the pulmonology recommendations Severe anxiety and depression: -Patient was scheduled for outpatient psych evaluation today which is already being canceled being admitted in the hospital. - Psychiatry evaluation was requested and we will follow their recommendations regarding changing his anxiolytic as is not effectively treating his underlying severe anxiety and depression. -We would avoid benzodiazepines given his compromised respiratory status. -We will continue citalopram -We'll continue Atarax Generalized body aches including shoulder blades and lower back pain. Patient has severe body spasms most likely due to underlying severe anxiety and depression. We will start him on tramadol as high dose of ibuprofen was giving him epigastric pain. We will continue his proton pump inhibitors. Of note on reviewing his CAT scan from April [address] Mitchell it was found out that he had a fracture that point but explains his pain and we will treat it symptomatically. Chronic issues including abdominal aortic aneurysm He is stable abdominal aortic aneurysm, he had recent CAT scan showed stable aortic aneurysm which could be follow-up as outpatient. positive blood cultures Blood cultures were coagulase negative most likely contamination and his vancomycin was discontinued. CODE STATUS: Full Code DVT prophylaxis: Mechanical and Lovenox Problem List: 1. COPD (chronic obstructive pulmonary disease) Pain Ratin Pain Location: none Pain Goal: Remain pain free Pain Plan: tylenol for mild pain Tomorrow's Labs & Rationales: none Renetta Carreon MD 05/25/17 7196: Attending MD Review Statement Attending Statement Attending Statement: examined this patient, discuss w/resident/PA/PROCESS TRAINER, agreed w/resident/PA/PROCESS TRAINER, reviewed EMR data (avail), discussed with nursing, discussed with case mgmt, reviewed images, amended to note Attending Assessment/Plan: Patient seen and examined, continue sipping that he's feeling anxious. His breathing gets worse because of anxiety. His vital signs are stable. On lung exam he has overall decreased breath sounds. Appreciate pulmonology input. His steroids will be decreased to 30 mg every 12. Likely tomorrow his prednisone will be switched to oral. Please order 0.5 mg of lorazepam daily on when necessary basis as it seems like that hydroxyzine is not working enough. Continue the rest of the management. Patient will be discharged home in the next 24-48 hours once his anxiety is under decent control.
--- NOTE | 2017-05-25 11:02 | PN- Pulmonary ---
Subjective HPI/Critical Care Issues: Patient is complaining of anxiety. Objective Current Medications: Current Medications Sig/Adrián Start time Last Medication Dose Route Stop Time Status Admin Acetaminophen 650 MG .STK-MED ONE 05/24 1413 DC PO 05/24 1414 Acetaminophen 650 MG Q8 05/20 0600 AC 05/25 PO 0537 Albuterol Sulfate 3 ML EVERY 4 HRS/AWAKE 05/20 1600 AC 05/25 INH 0844 Albuterol Sulfate 3 ML Q4 HRS NEEDED PRN 05/20 0430 AC 05/20 INH 0833 Aspirin 325 MG DAILY 05/20 1000 AC 05/25 PO 0913 Atorvastatin Calcium 80 MG 1700 05/20 1700 AC 05/24 PO 1710 Benzonatate 100 MG TID 05/22 1000 AC 05/25 PO 0913 Citalopram 40 MG DAILY 05/20 1000 AC 05/25 Hydrobromide PO 0913 Cyclobenzaprine HCl 5 MG .STK-MED ONE 05/24 2100 DC PO 05/24 2101 Cyclobenzaprine HCl 5 MG TIDPRN PRN 05/20 0445 AC 05/24 PO 210 Enoxaparin Sodium 40 MG DAILY 05/20 1000 AC SC Hydroxyzine HCl 25 MG 4 TIMES/DAY 05/25 1000 AC 05/25 PO 0521 Hydroxyzine HCl 50 MG TID 05/24 1600 DC 05/24 PO 2051 Hydroxyzine HCl 25 MG TID 05/22 1000 DC 05/24 PO 0927 Lidocaine 1 PAT DAILY 05/20 1000 AC 05/25 EXT 0910 Melatonin 3 MG AT BEDTIME 05/20 2200 AC 05/24 PO 2051 Methylprednisolone 40 MG Q12 05/21 2200 AC 05/25 IV 0912 Metoprolol Tartrate 12.5 MG BID 05/20 1000 AC 05/25 PO 0913 Nicotine 21 MG DAILY 05/21 1000 AC 05/25 TOP 0910 Omeprazole 40 MG DAILY AC 05/20 0700 AC 05/25 PO 0521 Primidone 50 MG AT BEDTIME 05/20 2200 AC 05/24 PO 205 Tiotropium [place] 1 PUF DAILY 05/20 1343 AC 05/24 INH 0926 Tramadol HCl 25 MG TIDPRN PRN 05/22 1000 AC 05/25 PO 0923 Vital Signs & I&O Last 24 Hrs of Vitals and I&O: Vital Signs Date Time Temp Pulse Resp B/P B/P Pulse O2 O2 Flow FiO2 Mean Ox Delivery Rate 05/25 0845 97 Nasal 1.5L Cannula 05/25 0633 97.4 83 20 102/64 95 05/25 0523 96 Nasal 3.0L Cannula 05/25 0000 99 Nasal 1.0L Cannula 05/24 2221 98.2 73 18 114/70 99 Nasal 1.0L Cannula 05/24 2052 73 114/70 05/24 1623 97 Nasal 1.0L Cannula 05/24 1351 98.5 68 20 120/72 96 Nasal 1.0L Cannula Intake & Output 05/25 1600 05/25 0800 05/25 0000 Intake Total 250 260 Output Total 350 Balance -100 260 Intake, IV 10 20 Intake, Oral 240 240 Output, Urine 350 Oxygen saturation 1.5 L 97% exam of his chest shows markedly diminished breath sounds are no wheezes cardiac exam shows regular S1 and S2 without murmurs Impression/Plan Impression/Plan Impression/Plan: 62-year-old with oxygen-dependent COPD is slowly improving after admission for exacerbation Recommendations: Decrease steroids to 30 mg every 12 hours Taper FiO2 his saturations allow increase mobility psychiatric follow-up regarding persistent anxiety
[2017-05-25 14:03] VITALS: BP 102/60
[2017-05-25 22:54] VITALS: BP 116/66
[2017-05-26 07:38] VITALS: BP 111/72
[2017-05-26 08:35] LABS: ABSOLUTE BASOPHIL COUNT 0 /CUMM (0.0-0.2); ABSOLUTE EOSINOPHIL COUNT 0 /CUMM (0.0-0.7); ABSOLUTE GRANULOCYTE CT 6.9 /CUMM (1.4-6.5); ABSOLUTE LYMPH COUNT 1.4 /CUMM (1.2-3.4); ABSOLUTE MONOCYTE COUNT 0.5 /CUMM (0.10-0.60); BASOPHIL % 0.3 % (0.0-2.0); EOSINOPHIL % 0.2 % (0-5); GRANULOCYTE % 78.2 % (42.2-75.2); MEAN CORPUSCULAR HGB 30.1 PG (27.0-31.0); MEAN CORPUSCULAR HGB CONC 33.6 G/DL (33.0-37.0); MEAN CORPUSCULAR VOLUME 89.6 FL (80.0-94.0); MEAN PLATELET VOLUME 6.8 FL (7.4-10.4); PLATELET COUNT 254 /CUMM (130-400); RED BLOOD CELL CT 4.57 /CUMM (4.70-6.10); WHITE BLOOD CELL COUNT 8.9 /CUMM (4.8-10.8)
--- NOTE | 2017-05-26 11:01 | PN- Pulmonary ---
Subjective HPI/Critical Care Issues: Respiratory status remains stable he continues complain of anxiety Objective Current Medications: Current Medications Sig/Adrián Start time Last Medication Dose Route Stop Time Status Admin Acetaminophen 650 MG Q8 05/20 0600 AC 05/26 PO 0646 Albuterol Sulfate 3 ML EVERY 4 HRS/AWAKE 05/20 1600 AC 05/26 INH 0813 Albuterol Sulfate 3 ML Q4 HRS NEEDED PRN 05/20 0430 AC 05/20 INH 0833 Aspirin 325 MG DAILY 05/20 1000 AC 05/26 PO 1037 Atorvastatin Calcium 80 MG 1700 05/20 1700 AC 05/25 PO 1705 Benzonatate 100 MG TID 05/22 1000 AC 05/26 PO 1038 Citalopram 40 MG DAILY 05/20 1000 AC 05/26 Hydrobromide PO 1038 Cyclobenzaprine HCl 5 MG .STK-MED ONE 05/259 DC PO 05/25 2130 Cyclobenzaprine HCl 5 MG TIDPRN PRN 05/20 0445 AC 05/25 PO 2131 Enoxaparin Sodium 40 MG DAILY 05/20 1000 AC SC Hydroxyzine HCl 25 MG 4 TIMES/DAY 05/25 1000 AC 05/26 PO 0646 Lidocaine 1 PAT DAILY 05/20 1000 AC 05/26 EXT 1038 Lorazepam 0.5 MG 0800 PRN 05/25 1900 AC 05/26 PO 06/01 1859 0656 Melatonin 5 MG ONCE ONE 05/25 2345 DC 05/25 PO 05/25 2346 2350 Melatonin 3 MG AT BEDTIME 05/20 2200 AC 05/25 PO 2132 Methylprednisolone 30 MG Q12 05/25 2200 DC 05/25 IV 2132 Methylprednisolone 40 MG Q12 05/21 2200 DC 05/25 IV 0912 Metoprolol Tartrate 12.5 MG BID 05/20 1000 AC 05/26 PO 1037 Nicotine 21 MG DAILY 05/21 1000 AC 05/26 TOP 1039 Omeprazole 40 MG DAILY AC 05/20 0700 AC 05/26 PO 0646 Prednisone 60 MG DAILY 05/26 1011 AC PO Primidone 50 MG AT BEDTIME 05/20 2200 AC 05/25 PO 2132 Tiotropium [place] 1 PUF DAILY 05/20 1343 AC 05/26 INH 1039 Tramadol HCl 25 MG TIDPRN PRN 05/22 1000 AC 05/26 PO 0648 Vital Signs & I&O Last 24 Hrs of Vitals and I&O: Vital Signs Date Time Temp Pulse Resp B/P B/P Pulse O2 O2 Flow FiO2 Mean Ox Delivery Rate 05/26 0738 97.9 68 22 111/72 98 Nasal 1.5L Cannula 05/26 0000 98 Nasal 2.0L Cannula 05/25 2254 98.2 80 20 116/66 98 Nasal 2.0L Cannula 05/25 1645 94 Nasal 1.0L Cannula 05/25 1600 95 Nasal 1.5L Cannula 05/25 1403 98.1 71 20 102/60 98 Nasal Cannula Intake & Output 05/26 1600 05/26 0800 05/26 0000 Intake Total 250 490 Output Total 300 300 Balance -50 190 Intake, IV 10 10 Intake, Oral 240 480 Output, Urine 300 300 Oxygen saturation 1.5 L 98% exam of his chest shows diminished breath sounds are no wheezes or crackles cardiac exam shows regular S1 and S2 without murmurs Impression/Plan Impression/Plan Impression/Plan: 62-year-old with oxygen-dependent COPD is slowly improving after admission for exacerbation anxiety remains as a issue of concern to him Recommendations: Decrease steroids to 30 mg every 12 hours Taper FiO2 his saturations allow increase mobility psychiatric follow-up regarding persistent anxiety which persists
[2017-05-26 14:02] VITALS: BP 102/60
--- NOTE | 2017-05-26 14:02 | PN- Att Addend ---
Attending Addendum Attending Brief Note Patient seen and examined, still feels anxious. Claims that lorazepam this morning helped some. Gets short of breath with anxiety. Vital Signs Date Time Temp Pulse Resp B/P B/P Pulse O2 O2 Flow FiO2 Mean Ox Delivery Rate 05/26 0800 Nasal 1.5L Cannula 05/26 0738 97.9 68 22 111/72 98 Nasal 1.5L Cannula 05/26 0000 98 Nasal 2.0L Cannula 05/25 2254 98.2 80 20 116/66 98 Nasal 2.0L Cannula 05/25 1645 94 Nasal 1.0L Cannula 05/25 1600 95 Nasal 1.5L Cannula 05/25 1403 98.1 71 20 102/60 98 Nasal Cannula on exam; aox3, nad. cv; s1,s2, rrr resp; clear b ut decreased bs overall. abd; soft, nt, bs+ ext; no edema. Laboratory Tests 05/26 0740 Chemistry Sodium (137 - 145 mmol/L) 138 Potassium (3.5 - 5.1 mmol/L) 4.4 Chloride (98 - 107 mmol/L) 95 L Carbon Dioxide (22 - 30 mmol/L) 34 H Anion Gap (5 - 16) 9 BUN (9 - 20 mg/dL) 29 H Creatinine (0.7 - 1.2 mg/dL) 0.7 Estimated GFR (>60 ml/min) > 60 BUN/Creatinine Ratio (7 - 25 %) 41.4 H Hematology CBC w Diff NO MAN DIFF REQ WBC (4.8 - 10.8 /CUMM) 8.9 RBC (4.70 - 6.10 /CUMM) 4.57 L Hgb (14.0 - 18.0 G/DL) 13.8 L Hct (42 - 52 %) 41.0 L MCV (80.0 - 94.0 FL) 89.6 MCH (27.0 - 31.0 PG) 30.1 MCHC (33.0 - 37.0 G/DL) 33.6 RDW (11.5 - 14.5 %) 15.0 H Plt Count (130 - 400 /CUMM) 254 MPV (7.4 - 10.4 FL) 6.8 L Gran % (42.2 - 75.2 %) 78.2 H Lymphocytes % (20.5 - 51.1 %) 15.5 L Monocytes % (1.7 - 9.3 %) 5.8 Eosinophils % (0 - 5 %) 0.2 Basophils % (0.0 - 2.0 %) 0.3 Absolute Granulocytes (1.4 - 6.5 /CUMM) 6.9 H Absolute Lymphocytes (1.2 - 3.4 /CUMM) 1.4 Absolute Monocytes (0.10 - 0.60 /CUMM) 0.5 Absolute Eosinophils (0.0 - 0.7 /CUMM) 0 Absolute Basophils (0.0 - 0.2 /CUMM) 0 A/P; 62 y/o M with pmh sig for ch resp failure, COPD on 1.5 L of oxygen at home , right upper lobe mass (stable), CAD status post stent placement, 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 No need to repeat labs every day. Please increase lorazepam to 0.5 mg twice a day when necessary. Steroids have been switched to by mouth prednisone. We will do a slow taper. Continue TRC nebs at rest of the medications. DVT prophylaxis: Lovenox. Likely discharge home tomorrow.
[2017-05-26 19:02] VITALS: BP 120/80
[2017-05-26 22:06] VITALS: BP 110/64
[2017-05-27 05:49] VITALS: BP 124/62
--- NOTE | 2017-05-27 08:14 | PN- Housestaff ---
[facility] 05/27/17 0814: Subjective Follow-up For: COPD exacerbation Severe anxiety Musculoskeletal pain Subjective: Patient was seen and examined this morning. He was still complaining of shortness of breath and was not able to slept well last night due to anxiety/ shortness of breath. Otherwise he remained hemodynamically stable with oxygen requirement at his baseline. We will request psych to reevaluate him for dosing of anxiolytics and discharge medications Review of Systems Constitutional: Denies: chills, diaphoresis. Cardiovascular: Denies: chest pain, edema. Respiratory: Reports: short of breath. Gastrointestinal: Denies: bloating, constipation. Genitourinary: Denies: discharge, frequency. Objective Last 24 Hrs of Vital Signs/I&O Vital Signs Date Time Temp Pulse Resp B/P B/P Pulse O2 O2 Flow FiO2 Mean Ox Delivery Rate 05/27 1605 97 Nasal 1.5L Cannula 05/27 1513 97.5 66 20 110/70 96 Nasal 1.5L Cannula 05/27 1133 95 Nasal 1.5L Cannula 05/27 0946 84 126/72 05/27 0805 95 Nasal 2.0L Cannula 05/27 0800 95 Nasal 1.5L Cannula 05/27 0549 98.0 66 20 124/62 95 Nasal 1.5L Cannula 05/27 0000 Nasal 1.5L Cannula 05/26 2214 85 110/64 05/26 2206 97.9 85 20 110/64 94 05/26 1902 120/80 Intake & Output 05/27 1600 05/27 0800 05/27 0000 Intake Total 720 Output Total 986 094 5359 Balance 220 -300 -1000 Intake, Oral 720 Output, Urine 810 582 3964 Physical Exam General Appearance: Alert, Oriented X3, Cooperative, Mild Distress Cardiovascular: Regular Rate, Normal S1, Normal S2 Lungs: mild wheezing Abdomen: Soft, No Tenderness Current Medications: Current Medications Sig/Adrián Start time Last Medication Dose Route Stop Time Status Admin Acetaminophen 650 MG Q8 05/20 0600 AC 05/27 PO 1305 Albuterol Sulfate 3 ML EVERY 4 HRS/AWAKE 05/20 1600 05/27 INH 1605 Albuterol Sulfate 3 ML Q4 HRS NEEDED PRN 05/20 0430 AC 05/20 INH 0833 Aspirin 325 MG DAILY 05/20 1000 AC 05/27 PO 0946 Atorvastatin Calcium 80 MG 1700 05/20 1700 AC 05/27 PO 1717 Benzonatate 100 MG TID 05/22 1000 AC 05/27 PO 1717 Citalopram 40 MG DAILY 05/20 1000 AC 05/27 Hydrobromide PO 0945 Cyclobenzaprine HCl 5 MG TIDPRN PRN 05/20 0445 AC 05/25 PO 2131 Enoxaparin Sodium 40 MG DAILY 05/20 1000 AC SC Hydroxyzine HCl 25 MG 4 TIMES/DAY 05/25 1000 AC 05/27 PO 1717 Ibuprofen 600 MG ONCE ONE 05/27 1000 DC 05/27 PO 05/27 1001 1118 Lidocaine 1 PAT DAILY 05/20 1000 AC 05/27 EXT 0827 Lorazepam 1 MG Q8P PRN 05/27 1615 AC PO Lorazepam 0.5 MG BID PRN 05/26 1137 DC 05/27 PO 06/02 1136 0605 Melatonin 3 MG AT BEDTIME 05/20 2200 AC 05/26 PO 2213 Metoprolol Tartrate 12.5 MG BID 05/20 1000 AC 05/27 PO 0946 Nicotine 21 MG DAILY 05/21 1000 AC 05/27 TOP 0947 Omeprazole 40 MG DAILY AC 05/20 0700 AC 05/27 PO 0538 Prednisone 60 MG DAILY 05/26 1011 AC 05/27 PO 0946 Primidone 50 MG AT BEDTIME 05/20 2200 AC 05/26 PO 2214 Tiotropium [place] 1 PUF DAILY 05/20 1343 AC 05/27 INH 0947 Tramadol HCl 25 MG TIDPRN PRN 05/22 1000 AC 05/27 PO 0815 Assessment/Plan Assessment: His 62-year-old man with moderate to severe COPD on 1.5 L of oxygen by nasal cannula as needed at home, tobacco dependence enrolled in LDCT program in [place], stable RUL mass, coronary artery disease status post [place] with PCI in 1998 and severe anxiety presented to ER and found to be in acute on chronic hypoxic respiratory failure likely secondary to COPD exacerbation and he is very anxious that might be contributing factor in his respiratory status. Patient was admitted on general medical floor and we will address following problems Acute on chronic hypoxic respiratory failure due to COPD exacerbation and underlying lung mass: -Supplemental oxygen as needed to maintain saturation above 90% -He was started on prednisone 60 mg daily and we will send him home tomorrow on tapering course of steroid -TRC nebulization as needed -We will follow the pulmonology recommendations Severe anxiety and depression: -Patient was evaluated by psych intermittently and medications were adjusted accordingly. His Atarax was changed to 25 mg 4 times a day and also he was started on lorazepam and dose was increased from 0.5 mg to 1 mg 3 times a day when necessary. We will give his recommended dose today and most probably we would send him tomorrow. The patient has an intake appointment at [facility] on 06/05/17 at 10:15 AM, at [address] [place] [address], , with Dr. Weston. Generalized body aches including shoulder blades and lower back pain. Patient has severe body spasms most likely due to underlying severe anxiety and depression. We will start him on tramadol as high dose of ibuprofen was giving him epigastric pain. We will continue his proton pump inhibitors. Of note on reviewing his CAT scan from April 03 with radiologist acute rib fracture was noticed on that imaging study . Radiologist were requested to dictate an addendum. We will manage it conservatively with pain management Chronic issues including abdominal aortic aneurysm He is stable abdominal aortic aneurysm, he had recent CAT scan showed stable aortic aneurysm which could be follow-up as outpatient. positive blood cultures Blood cultures were coagulase negative most likely contamination and his vancomycin was discontinued. CODE STATUS: Full Code DVT prophylaxis: Mechanical and Lovenox Problem List: 1. Anxiety 2. Acute exacerbation of chronic obstructive airways disease Pain Ratin Pain Location: back pain Pain Goal: Remain pain free Pain Plan: ibuprufen Tomorrow's Labs & Rationales: none Renetta Carreon MD 05/27/17 1116: Attending MD Review Statement Attending Statement Attending MD Statement: examined this patient, discuss w/resident/PA/ASSISTANT PROFESSOR OF MARINE BIOLOGY, agreed w/resident/PA/ASSISTANT PROFESSOR OF MARINE BIOLOGY, reviewed EMR data (avail), discussed with nursing, discussed with case mgmt, reviewed images, amended to note Attending Assessment/Plan: Patient seen and examined, continues to have and ID. Breathing is okay and continues to complain of some pain. We'll give him some ibuprofen for his back pain. I spoke with Modesto Walden from psychiatry and I asked him to adjust his medications. Patient is otherwise medically stable for discharge home today on prednisone taper. We can give him hydroxyzine, tramadol, Flexeril and Lidoderm patch for pain control. We can also provide him prescription for lorazepam as needed. Psych to adjust his medications further and then will follow the recommendations. Patient will be discharged home later today.
[2017-05-27] MEDS ORDERED: ATIVAN0.5 M1 PO (10:59)
[2017-05-27] MEDS ORDERED: HYDROXYZINE HCL25 M2 PO (10:59)
[2017-05-27] MEDS ORDERED: PREDNISONE10 M2 PO (11:03)
--- NOTE | 2017-05-27 11:06 | Patient Discharge Instructions ---
See Addendum Discharge Instructions General Discharge Information You were seen/treated for: COPD EXACERBATION ANXIETY Special Instructions: [facility] PLEASE FOLLOW UP WITH MANAGER [facility]CTIONAL IN A WEEK OF DISCHARGE. PLEASE FOLLOW UP WITH OUTPATIENT PSYCHIATRY OUT PATIENT. Please call outpatient psychiatry at a number [phone] make an appointment. Diet Recommended Diet: Heart Healthy Activity Additional ACTIVITY Info: TOLERATED Acute Coronary Syndrome Inclusion Criteria At DC or during hospital stay patient has or had the following: ACS DIAGNOSIS No Discharge Core Measures Meds if any: Prescribed or Continued at Discharge Meds if any: NOT Prescribed or Continued at Discharge Congestive Heart Failure Inclusion Criteria At DC or during hospital stay patient has or had the following: CHF DIAGNOSIS No Discharge Core Measures Meds if any: Prescribed or Continued at Discharge Meds if any: NOT Prescribed or Continued at Discharge Cerebrovascular accident Inclusion Criteria At DC or during hospital stay patient has or had the following: CVA/TIA Diagnosis No Discharge Core Measures Meds if any: Prescribed or Continued at Discharge Meds if any: NOT Prescribed or Continued at Discharge Venous thromboembolism Inclusion Criteria VTE Diagnosis No VTE Type NONE VTE Confirmed by (Test) NONE Discharge Core Measures - Per Current guidelines, there needs to be overlap - treatment for the first 5 days of Warfarin therapy. - If discharged on Warfarin prior to 5 days of - overlap therapy, the patient will need to be - assessed for post discharge needs including - *Post discharge parental anticoagulation - *Warfarin and/or parental anticoagulation education - *Follow up date to check INR post discharge At least 5 days overlap therapy as Inpatient No Meds if any: Prescribed or Continued at Discharge Note: Overlap Therapy is Warfarin and Anticoagulant Meds if any: NOT Prescribed or Continued at Discharge
--- NOTE | 2017-05-27 12:20 | PN- Pulmonary ---
Subjective HPI/Critical Care Issues: Patient seen and examined this morning. He appears to still have significant anxiety and shortness of breath. Objective Current Medications: Current Medications Sig/Adrián Start time Last Medication Dose Route Stop Time Status Admin Acetaminophen 650 MG Q8 05/20 0600 AC 05/27 PO 0538 Albuterol Sulfate 3 ML EVERY 4 HRS/AWAKE 05/20 1600 AC 05/27 INH 1131 Albuterol Sulfate 3 ML Q4 HRS NEEDED PRN 05/20 0430 AC 05/20 INH 0833 Aspirin 325 MG DAILY 05/20 1000 AC 05/27 PO 0946 Atorvastatin Calcium 80 MG 1700 05/20 1700 AC 05/26 PO 1627 Benzonatate 100 MG TID 05/22 1000 AC 05/27 PO 0947 Citalopram 40 MG DAILY 05/20 1000 AC 05/27 Hydrobromide PO 0945 Cyclobenzaprine HCl 5 MG TIDPRN PRN 05/20 0445 AC 05/25 PO 2131 Enoxaparin Sodium 40 MG DAILY 05/20 1000 AC SC Hydroxyzine HCl 25 MG 4 TIMES/DAY 05/25 1000 AC 05/27 PO 0949 Ibuprofen 600 MG ONCE ONE 05/27 1000 DC 05/27 PO 05/27 1001 1118 Lidocaine 1 PAT DAILY 05/20 1000 AC 05/27 EXT 0827 Lorazepam 0.5 MG BID PRN 05/26 1137 AC 05/27 PO 06/02 1136 0605 Melatonin 3 MG AT BEDTIME 05/20 2200 AC 05/26 PO 2213 Metoprolol Tartrate 12.5 MG BID 05/20 1000 AC 05/27 PO 0946 Nicotine 21 MG DAILY 05/21 1000 AC 05/27 TOP 0947 Omeprazole 40 MG DAILY AC 05/20 0700 AC 05/27 PO 0538 Prednisone 60 MG DAILY 05/26 1011 AC 05/27 PO 0946 Primidone 50 MG AT BEDTIME 05/20 2200 AC 05/26 PO 2214 Tiotropium [place] 1 PUF DAILY 05/20 1343 AC 05/27 INH 0947 Tramadol HCl 25 MG TIDPRN PRN 05/22 1000 AC 05/27 PO 0815 Vital Signs & I&O Last 24 Hrs of Vitals and I&O: Vital Signs Date Time Temp Pulse Resp B/P B/P Pulse O2 O2 Flow FiO2 Mean Ox Delivery Rate 05/27 1133 95 Nasal 1.5L Cannula 05/27 0946 84 126/72 05/27 0805 95 Nasal 2.0L Cannula 05/27 0800 95 Nasal 1.5L Cannula 05/27 0549 98.0 66 20 124/62 95 Nasal 1.5L Cannula 05/27 0000 Nasal 1.5L Cannula 05/26 2214 85 110/64 05/26 2206 97.9 85 20 110/64 94 05/26 1902 120/80 05/26 1645 95 Nasal 1.5L Cannula 05/26 1600 Nasal 1.5L Cannula 05/26 1402 98.0 66 20 102/60 99 Nasal 1.5L Cannula 05/26 1312 96 Nasal 1.5L Cannula Intake & Output 05/27 1600 05/27 0800 05/27 0000 Intake Total Output Total 300 1000 Balance -300 -1000 Output, Urine 300 1000 Exam Other Physical Findings: Gen - alert and awake HEENT - NCAT CVS - S1, S2, no murmurs, rubs or gallops Lungs - rare bibasilar rhonchi Abdomen - soft, non-tender, bs+ Ext - no edema, no cyanosis Impression/Plan Impression/Plan Impression/Plan: Impression 62 year old man * Exacerbation of COPD * Tobacco dependence * Anxiety/depression Plan -cont prednisone - if still dyspneic, would given an extra dose of solumedrol 40mg iv once -Continue trc and nebs -Enrolled in LDCT program -Follow up with psychiatry -just completed course of zithromax -smoking cessation counseled DVT prophylaxis at all times
--- NOTE | 2017-05-27 14:47 | PN- Infect Dx ---
Subjective Subjective: Afebrile on steroids. He continues to complain of anxiety. Objective Last 24 Hrs of Vital Signs/I&O Vital Signs Date Time Temp Pulse Resp B/P B/P Pulse O2 O2 Flow FiO2 Mean Ox Delivery Rate 05/27 1133 95 Nasal 1.5L Cannula 05/27 0946 84 126/72 05/27 0805 95 Nasal 2.0L Cannula 05/27 0800 95 Nasal 1.5L Cannula 05/27 0549 98.0 66 20 124/62 95 Nasal 1.5L Cannula 05/27 0000 Nasal 1.5L Cannula 05/26 2214 85 110/64 05/26 2206 97.9 85 20 110/64 94 05/26 1902 120/80 05/26 1645 95 Nasal 1.5L Cannula 05/26 1600 Nasal 1.5L Cannula Intake & Output 05/27 1600 05/27 0800 05/27 0000 Intake Total 720 Output Total 326 737 0383 Balance 220 -300 -1000 Intake, Oral 720 Output, Urine 527 758 2439 Physical Exam Other Physical Findings: He is anxious but in no acute distress Lungs decreased breath sounds bilaterally Heart regular rhythm with no murmur Extremities no cyanosis, clubbing or edema Results Last 24 Hours of Lab Results: Laboratory Tests 05/26 0740 Chemistry Sodium (137 - 145 mmol/L) 138 Potassium (3.5 - 5.1 mmol/L) 4.4 Chloride (98 - 107 mmol/L) 95 L Carbon Dioxide (22 - 30 mmol/L) 34 H Anion Gap (5 - 16) 9 BUN (9 - 20 mg/dL) 29 H Creatinine (0.7 - 1.2 mg/dL) 0.7 Estimated GFR (>60 ml/min) > 60 BUN/Creatinine Ratio (7 - 25 %) 41.4 H Hematology CBC w Diff NO MAN DIFF REQ WBC (4.8 - 10.8 /CUMM) 8.9 RBC (4.70 - 6.10 /CUMM) 4.57 L Hgb (14.0 - 18.0 G/DL) 13.8 L Hct (42 - 52 %) 41.0 L MCV (80.0 - 94.0 FL) 89.6 MCH (27.0 - 31.0 PG) 30.1 MCHC (33.0 - 37.0 G/DL) 33.6 RDW (11.5 - 14.5 %) 15.0 H Plt Count (130 - 400 /CUMM) 254 MPV (7.4 - 10.4 FL) 6.8 L Gran % (42.2 - 75.2 %) 78.2 H Lymphocytes % (20.5 - 51.1 %) 15.5 L Monocytes % (1.7 - 9.3 %) 5.8 Eosinophils % (0 - 5 %) 0.2 Basophils % (0.0 - 2.0 %) 0.3 Absolute Granulocytes (1.4 - 6.5 /CUMM) 6.9 H Absolute Lymphocytes (1.2 - 3.4 /CUMM) 1.4 Absolute Monocytes (0.10 - 0.60 /CUMM) 0.5 Absolute Eosinophils (0.0 - 0.7 /CUMM) 0 Absolute Basophils (0.0 - 0.2 /CUMM) 0 Last 24 Hours of [place] Results: No new cultures Assessment/Plan Impression: Stable, with temperatures and white blood cell count remaining normal (on steroids) off antibiotics, with no evidence of any active infection.. Suggestion: 1. Continue to follow off antibiotics Will no longer follow at this time, but please call with any questions
--- NOTE | 2017-05-27 15:03 | PN- Psychiatry ---
Assessment/Plan Impression: The patient has had little effect from lorazepam 0.5 mg PO 2X/day, as needed for anxiety or panic. He cannot tell if hydroxyzine 25 mg PO 4X/day is helping. He has failed gabapentin last week, as an off-label use for anxiety, which he felt make his tremor worse. We are concerned about the use of benzodiazepines as they can cause or worsen respiratory depression, increase the risk for falls, and cause or worsen delirium, and have tried to avoid them as much as possible. However, the patient's COPD and associated respiratory issues are being worsened by his anxiety, and the anxiety is causing his respiration to worsen. After discussion with Dr. Glen Lockett, security guard supervisor, who is following the patient, resulted in the decision to be more aggressive with the use of lorazepam to try and get control of the anxiety. We will look to possibly change the patient's main anti-anxiety medication, Celexa, as an outpatient, since he hasbeen on it for close to twenty years, and it does not appear to be helping anymore. An increase in lorazepam is indicated to manage the patient's anxiety and panic. The case was reviewed with Dr. Barahona, supervisor mold construction psychiatrist, and Dr. Carreon, attending. Suggestion: Plan: 1. Increase lorazepam to 1 mg PO up to 3X/day, as needed, for severe anxiety or panic. R/B/SE reviewed with the patient, who verbalizes understanding. This was discussed with Dr. Lockett. 2. Continue hydroxyzine 25 mg PO 4X/day for anxiety. 3. The patient has an intake appointment at [facility] on 06/05/17 at 10:15 AM, at [address] [place] [address], , with Dr. Weston. We will continue to follow along with you. Subjective Subjective: The patient is calm and cooperative, sitting in his chair with NC oxygen and performing pursed lip breathing. He is alert and oriented. Denies AH or VH; presents no angel delusions. He reports vivid dreams, that are not nightmares for the last two weeks. He is very anxious and has had 1 panic attack yesterday, and two smaller ones today. He denies suicidal or homicidal ideation. Review of Systems Neurological/Psychological: Reports: anxiety. Objective Last 24 Hrs of Vital Signs/I&O Vital Signs Date Time Temp Pulse Resp B/P B/P Pulse O2 O2 Flow FiO2 Mean Ox Delivery Rate 05/27 1133 95 Nasal 1.5L Cannula 05/27 0946 84 126/72 05/27 0805 95 Nasal 2.0L Cannula 05/27 0800 95 Nasal 1.5L Cannula 05/27 0549 98.0 66 20 124/62 95 Nasal 1.5L Cannula 05/27 0000 Nasal 1.5L Cannula 05/26 2214 85 110/64 05/26 2206 97.9 85 20 110/64 94 05/26 1902 120/80 05/26 1645 95 Nasal 1.5L Cannula 05/26 1600 Nasal 1.5L Cannula Intake & Output 05/27 1600 05/27 0800 05/27 0000 Intake Total 720 Output Total 917 742 2323 Balance 220 -300 -1000 Intake, Oral 720 Output, Urine 280 212 6893 Physical Exam: Not performed Physical Exam General Appearance: alert, awake, anxious, mild distress Current Medications: Current Medications Sig/Adrián Start time Last Medication Dose Route Stop Time Status Admin Acetaminophen 650 MG Q8 05/20 0600 AC 05/27 PO 1305 Albuterol Sulfate 3 ML EVERY 4 HRS/AWAKE 05/20 1600 AC 05/27 INH 1131 Albuterol Sulfate 3 ML Q4 HRS NEEDED PRN 05/20 0430 AC 05/20 INH 0833 Aspirin 325 MG DAILY 05/20 1000 AC 05/27 PO 0946 Atorvastatin Calcium 80 MG 1700 05/20 1700 AC 05/26 PO 1627 Benzonatate 100 MG TID 05/22 1000 AC 05/27 PO 0947 Citalopram 40 MG DAILY 05/20 1000 AC 05/27 Hydrobromide PO 0945 Cyclobenzaprine HCl 5 MG TIDPRN PRN 05/20 0445 AC 05/25 PO 2131 Enoxaparin Sodium 40 MG DAILY 05/20 1000 AC SC Hydroxyzine HCl 25 MG 4 TIMES/DAY 05/25 1000 AC 05/27 PO 1305 Ibuprofen 600 MG ONCE ONE 05/27 1000 DC 05/27 PO 05/27 1001 1118 Lidocaine 1 PAT DAILY 05/20 1000 AC 05/27 EXT 0827 Lorazepam 0.5 MG BID PRN 05/26 1137 AC 05/27 PO 06/02 1136 0605 Melatonin 3 MG AT BEDTIME 05/20 2200 AC 05/26 PO 2213 Metoprolol Tartrate 12.5 MG BID 05/20 1000 AC 05/27 PO 0946 Nicotine 21 MG DAILY 05/21 1000 AC 05/27 TOP 0947 Omeprazole 40 MG DAILY AC 05/20 0700 AC 05/27 PO 0538 Prednisone 60 MG DAILY 05/26 1011 AC 05/27 PO 0946 Primidone 50 MG AT BEDTIME 05/20 2200 AC 05/26 PO 2214 Tiotropium [place] 1 PUF DAILY 05/20 1343 AC 05/27 INH 0947 Tramadol HCl 25 MG TIDPRN PRN 05/22 1000 AC 05/27 PO 0815 Results Last 24 Hrs of Labs/Mics: Laboratory Tests 05/26 0740 Chemistry Sodium (137 - 145 mmol/L) 138 Potassium (3.5 - 5.1 mmol/L) 4.4 Chloride (98 - 107 mmol/L) 95 L Carbon Dioxide (22 - 30 mmol/L) 34 H Anion Gap (5 - 16) 9 BUN (9 - 20 mg/dL) 29 H Creatinine (0.7 - 1.2 mg/dL) 0.7 Estimated GFR (>60 ml/min) > 60 BUN/Creatinine Ratio (7 - 25 %) 41.4 H Hematology CBC w Diff NO MAN DIFF REQ WBC (4.8 - 10.8 /CUMM) 8.9 RBC (4.70 - 6.10 /CUMM) 4.57 L Hgb (14.0 - 18.0 G/DL) 13.8 L Hct (42 - 52 %) 41.0 L MCV (80.0 - 94.0 FL) 89.6 MCH (27.0 - 31.0 PG) 30.1 MCHC (33.0 - 37.0 G/DL) 33.6 RDW (11.5 - 14.5 %) 15.0 H Plt Count (130 - 400 /CUMM) 254 MPV (7.4 - 10.4 FL) 6.8 L Gran % (42.2 - 75.2 %) 78.2 H Lymphocytes % (20.5 - 51.1 %) 15.5 L Monocytes % (1.7 - 9.3 %) 5.8 Eosinophils % (0 - 5 %) 0.2 Basophils % (0.0 - 2.0 %) 0.3 Absolute Granulocytes (1.4 - 6.5 /CUMM) 6.9 H Absolute Lymphocytes (1.2 - 3.4 /CUMM) 1.4 Absolute Monocytes (0.10 - 0.60 /CUMM) 0.5 Absolute Eosinophils (0.0 - 0.7 /CUMM) 0 Absolute Basophils (0.0 - 0.2 /CUMM) 0
[2017-05-27 15:13] VITALS: BP 110/70
--- NOTE | 2017-05-27 18:17 | Discharge Summary ---
See Addendum Visit Information Visit Dates Admission Date: 05/20/17 Discharge Date: 06/04/17 Hospital Course Course Attending Physician: Renetta Carreon MD Primary Care Physician: Rene WATTERS,[facility] Hospital Course: His 62-year-old man with moderate to severe COPD on 1.5 L of oxygen by nasal cannula as needed at home, tobacco dependence enrolled in LDCT program in [place], stable RUL mass, coronary artery disease status post DE with PCI in 1998 and severe anxiety presented to ER and found to be in acute on chronic hypoxic respiratory failure likely secondary to COPD exacerbation and he is very anxious that might be contributing factor in his respiratory status. Patient was admitted on general medical floor and we will address following problems Acute on chronic hypoxic respiratory failure due to COPD exacerbation and underlying lung mass: Patient was very short of breath on most part of his hospital stay and very reduced air entry at the beginning and was started on IV Solu-Medrol which we slowly tapered and switched to oral prednisone. We also treated him with regular TRC and nebulization. Chest x-ray showed thick-walled cavity of the right lung apex with an air-fluid level. The findings were discussed in detail with the field representative/health education Dr. Lockett and Tristan Allen MD, likely chronic in nature, for any further treatment/ investigations were held. Bronchoscopy was also not planned as patient couldn't able to tolerate the procedure due to his underlying end-stage COPD. Patient will discharge to short-term rehabilitation with a follow-up with Dr. Lockett as an outpatient. Severe anxiety/depression/panic attacks Patient was evaluated by psych intermittently and medications were adjusted accordingly. His medications were changed to scheduled Ativan and Atarax. Celexa was tapered down, and Effexor was added for his anxiety and depression. Patient was advised to follow-up with outpatient [place] psychiatry(phone number [phone]). He was discharged to rehabilitation on Effexor 75 mg daily, that would be changed to 150 mg daily after 1 week(after being evaluated by psychiatry). Left-sided lower back pain/rib pain/healing rib fracture Of note on reviewing his CAT scan from April 03 with radiologist acute rib fracture was noticed on that imaging study. Radiologist were requested to dictate an addendum.Patient was treated conservatively with systemic and local analgesics. Chronic issues including abdominal aortic aneurysm He is stable abdominal aortic aneurysm, he had recent CAT scan showed stable aortic aneurysm which could be follow-up as outpatient. positive blood cultures Blood cultures were coagulase negative most likely contamination and his vancomycin was discontinued. He was watched off of antibiotics. CODE STATUS: Full Code DVT prophylaxis: Mechanical and Lovenox- however patient has been refusing to get Lovenox Allergies: Coded Allergies: budesonide (From SYMBICORT) (Severe, TOUNGE FELT LIKE A CACTUS 02/16/16) formoterol (From SYMBICORT) (Severe, TOUNGE FELT LIKE A CACTUS 02/16/16) codeine (SHAKEY 02/16/16) morphine (BRADYCARDIC 02/16/16) Significant Procedures: EXAM TYPE: CAT - CTA CHEST-PULMONARY EMBOLISM EXAMINATION: CT ANGIOGRAM OF THE CHEST WITH AND WITHOUT CONTRAST (CT PULMONARY ANGIOGRAM FOR PE) CLINICAL INFORMATION: ACUTE SOB COMPARISON: CTA of chest 04/01/2017 TECHNIQUE: Prior to contrast administration, noncontrast localization images were obtained. Subsequently, multidetector volumetric imaging was performed from the thoracic inlet to below the diaphragms following the administration of 80 mL Omnipaque 350 intravenous contrast. No contrast reaction reported. Sagittal, coronal, and MIP oblique sagittal reformatted images were obtained on the CT workstation, uploaded to PACS, and reviewed. Total exam dose-length product 341.95 mGy-cm. FINDINGS: QUALITY OF STUDY/CONTRAST BOLUS: Satisfactory PULMONARY ARTERIES: No central or segmental pulmonary emboli. THORACIC AORTA: Atherosclerotic vascular wall calcifications of aorta without aneurysm. LUNG: Severe grimes emphysematous changes of lung. Cavitary lesion in the right upper lobe with air-fluid level. Lesion was present on the CAT scan of 04/01/2017 but the cavitation is new. The overall size of the mass is similar to the CAT scan of 04/01/2017. This lesion was nearly entirely air filled on the CAT scan of 05/17/2015. No new lung lesions. There is some volume loss with crowding of the bronchovascular markings of the right upper lobe which is stable since prior exam as well. PLEURA: No pleural effusion or pneumothorax. MEDIASTINUM: There are small shotty lymph nodes in the mediastinum but no bulky adenopathy. There is no pericardial effusion. No evidence of septal bowing or right heart strain. CHEST WALL/AXILLA: No axillary or internal mammary lymphadenopathy. OSSEOUS STRUCTURES: No acute or suspicious osseous abnormality. UPPER ABDOMEN: Unremarkable. No reflux of contrast into the hepatic veins to suggest elevated right heart pressures. IMPRESSION: 1. No evidence of pulmonary embolism. 2. Severe emphysematous changes of lung. 3. Stable large mass in right upper lobe. This now demonstrates an air-fluid level. VTE: negative DICTATED BY: Dariel Aviles MD DATE/TIME DICTATED:05/29/171557 CUSTOM GRINDER:MARGOT DATE/TIME TRANSCRIBED:05/29/171557 CONFIDENTIAL, DO NOT COPY WITHOUT APPROPRIATE AUTHORIZATION. <Electronically signed in Other Vendor System> SIGNED BY: Dariel Aviles MD 05/29/17 1610 Disposition Summary Disposition Principal Diagnosis: Acute on chronic hypoxic respiratory failure due to COPD exacerbation and underlying lung mass Additional Diagnosis: Severe anxiety and depression Discharge Disposition: SNF Discharge Instructions General Discharge Information Code Status: Full Code Patient's Diet: Heart healthy diet Patient's Activity: As tolerated Follow-Up Instructions/Appts: PLZ FOLLOW UP WITH PCP IN [facility]. PLEASE FOLLOW UP WITH [employer] IN A WEEK OF DISCHARGE. PLEASE FOLLOW UP WITH OUTPATIENT PSYCHIATRY OUT PATIENT. PLEASE FOLLOW UP WITH OUTPATIENT PSYCHIATRY OUT PATIENT. Please call outpatient psychiatry at a number [phone] make an appointment. Medications at Discharge Discharge Medications: Stop taking the following medications: Citalopram Hydrobromide (Citalopram HBr) 40 MG TABLET ORAL Every night Ibuprofen (Ibuprofen) 800 MG TABLET ORAL EVERY 8 HOURS as needed for PAIN SCALE 4-6 (MODERATE) Qty = 15 Continue taking these medications: Aspirin (Aspirin*) 325 MG TABLET 1 Tablet ORAL DAILY Comments: Last Taken: 06/04/17 Time: 0900AM [place]-3S/Dha/Epa/Fish Oil ([place]-3 Fish Oil 1,000 MG Sfgl) 300-1,000MG CAPSULE 1 Capsule ORAL Every night Comments: NOT GIVEN IN HOSPITAL Tiotropium [place] (Spiriva) 18 MCG CAP.W.DEV 1 Capsule Inhale through mouth DAILY Comments: Last Taken: 05/16/17 Time: 0900 AM Albuterol Sulfate (Proair Hfa) 90 MCG HFA.AER.AD 2 Puff Inhale through mouth As Directed as needed for COPD Comments: NOT GIVEN IN HOSPITAL Fluticasone/Vilanterol (Breo Ellipta 100-25 Mcg INH) 100 MCG-25 MCG/DOSE BLST.W.DEV 1 PUFF Inhale through mouth Every Morning Qty = 60 Comments: NOT GIVEN IN HOSPITAL Albuterol Sulfate (Albuterol Sulfate) 2.5 MG/3 ML (0.083 %) VIAL.NEB 1 Vial Inhale Solution 5XDAILY Comments: Last Taken: 06/04/17 Time: 0900AM Cholecalciferol (Vitamin D3) (Vitamin D) 2,000 UNIT CAPSULE 1 Capsule ORAL Every Morning Comments: NOT GIVEN IN HOSPITAL Melatonin (Melatonin) 3 MG TABLET 1 Tablet ORAL TAKE AT BEDTIME Comments: Last Taken: 06/03/17 Time: 2200PM Primidone (Primidone) 50 MG TABLET 50 Milligram ORAL AT BEDTIME Qty = 30 Instructions: . Comments: Last Taken:06/03/17 Time:2100PM Metoprolol Tartrate (Metoprolol Tartrate) 25 MG TABLET 12.5 Milligram ORAL TWICE DAILY Qty = 60 Instructions: . Comments: Last Taken: 06/04/17 Time: 0900AM Atorvastatin Calcium (Atorvastatin Calcium) 80 MG TABLET 80 Milligram ORAL 5 PM Qty = 30 Instructions: . Comments: Last Taken: 06/03/17 Time: 1700PM Lidocaine (Lidoderm) 5 % ADH..PATCH 1 Patch ON SKIN DAILY Qty = 30 Comments: Last Taken: 06/04/17 Time: 0900AM Cyclobenzaprine HCl (Cyclobenzaprine HCl) 5 MG TABLET 5 Milligram ORAL THREE TIMES A DAY NEEDED as needed for pain Qty = 14 Comments: Last Taken: 06/02/17 Time: 1540PM Omeprazole (Omeprazole) 40 MG CAPSULE.DR 1 Capsule ORAL DAILY Qty = 14 Comments: Last Taken: 06/04/17 Time: 0600AM Start taking the following new medications: Prednisone (Prednisone) 10 MG TABLET 6 Tablet ORAL DAILY Qty = 63 No Refills Instructions: 6 TABSX 2 DAYS,THEN 5 TABS X 3 DAYS,4 TABS X 3 DAYS,3 TABS X 3 DAYS,2 TABS X 3 DAYS THEN 1 TAB X 3 DAYS AND STOP Comments: PREDNISONE 60MG PO LAST GIVEN 06/04/17 @0900AM Lorazepam (Ativan) 0.5 MG TABLET 1 Milligram ORAL THREE TIMES DAILY Qty = 30 No Refills Comments: Last Taken: 06/04/17 Time: 0900AM Tramadol HCl (Tramadol HCl) 50 MG TABLET 25 Milligram ORAL THREE TIMES A DAY NEEDED as needed for PAIN SCALE 4-6 ( MODERATE) Qty = 30 No Refills Comments: NOT GIVEN IN HOSPITAL Benzonatate (Benzonatate) 100 MG CAPSULE 100 Milligram ORAL THREE TIMES DAILY Qty = 30 No Refills Comments: Last Taken: 06/04/17 Time: 0900AM Hydroxyzine Hydrochloride (Atarax) 25 MG TAB 25 Milligram ORAL 4 TIMES A DAY Qty = 30 Refills = 2 Comments: Last Taken: 06/04/17 Time: 0900AM Citalopram Hydrobromide (Citalopram HBr) 20 MG TABLET 1 Tablet ORAL SEE INSTRUCTIONS Qty = 60 No Refills Instructions: PLEASE TAKE 20 MG (1 TAB DAILY )FOR 1 WEEK. THEN 10 MG (0.5 TAB DAILY) FOR A WEEK AND THEN STOP ..... Comments: Last Taken: 06/04/17 Time: 0900AM Venlafaxine HCl (Effexor XR) 75 MG CAP.ER.24H 1 Tablet ORAL DAILY Qty = 30 No Refills Comments: Last Taken: 06/04/17 Time: 0900AM Copies To: Rene WATTERS,Nabila Attending MD Review Statement Documenting Attending: Renetta Carreon MD
[2017-05-27 22:35] VITALS: BP 132/72
[2017-05-28 04:30] VITALS: BP 172/92
--- NOTE | 2017-05-28 05:54 | Event Note ---
Event Note Event Note: pt desatting in 70'2 off o2, agitated went in and evaluated the pt. Pt states he cannot breath, sensation of airways closing. severely agitated, eyes closed , shaking his legs. no chest pain lungs clear S1,S2 tachycardic Appears to be PANIC ATTACK Repiratory paged -Pt recieved neb treatment back to 1.5L NC, satting in 90's -Feeling better -IV Ativan 0.5mg given -Pt re-evaluated resting comfortably improved Psyh consult in am
[2017-05-28 06:45] VITALS: BP 158/56
--- NOTE | 2017-05-28 08:00 | PN- Housestaff ---
Kiki Loomis 05/28/17 0800: Subjective Follow-up For: COPD exacerbation Severe anxiety Acute on chronic hypoxic respiratory failure Subjective: Patient was seen and examined this morning. He had a panic attack early this morning where he was tachycardic and desaturated to 70s. He still feels very short of breath and not comfortable going home. On ambulation he dropped his saturation and we will send him to rehabilitation for pulmonary rehabilitation. Review of Systems Constitutional: Denies: chills, fever. Cardiovascular: Denies: chest pain, orthopena. Respiratory: Reports: hemoptysis, short of breath. Gastrointestinal: Denies: bloating, diarrhea. Genitourinary: Denies: frequency, hematuria. Musculoskeletal: Reports: muscle pain. Objective Last 24 Hrs of Vital Signs/I&O Vital Signs Date Time Temp Pulse Resp B/P B/P Pulse O2 O2 Flow FiO2 Mean Ox Delivery Rate 05/28 1401 97.4 74 18 100/61 94 Nasal 2.0L Cannula 05/28 1203 98 Nasal 2.0L Cannula 05/28 0945 94 158/56 05/28 0800 91 Nasal 1.5L Cannula 05/28 0645 94 158/56 91 05/28 0433 95 Nasal 1.5L Cannula 05/28 0430 97.4 140 20 172/92 94 05/28 0000 Nasal 1.5L Cannula 05/27 2235 98.0 73 18 132/72 96 Nasal 2.0L Cannula 05/27 2136 73 132/72 05/27 1605 97 Nasal 1.5L Cannula Intake & Output 05/28 1600 05/28 0800 05/28 0000 Intake Total 400 260 250 Output Total 450 750 600 Balance -50 -490 -350 Intake, IV 20 10 Intake, Oral 400 240 240 Number 0 0 Bowel Movements Output, Urine 450 750 600 Physical Exam General Appearance: Alert, Oriented X3, Cooperative, Mild Distress Cardiovascular: Regular Rate, Normal S1, Normal S2, No Murmurs Lungs: reduced air entry Abdomen: Soft, No Tenderness Current Medications: Current Medications Sig/Adrián Start time Last Medication Dose Route Stop Time Status Admin Acetaminophen 650 MG Q8 05/20 0600 AC 05/28 PO 1331 Albuterol Sulfate 3 ML EVERY 4 HRS/AWAKE 05/20 1600 AC 05/28 INH 1202 Albuterol Sulfate 3 ML Q4 HRS NEEDED PRN 05/20 0430 AC 05/20 INH 0833 Aspirin 325 MG DAILY 05/20 1000 AC 05/28 PO 0945 Atorvastatin Calcium 80 MG 1700 05/20 1700 AC 05/27 PO 1717 Benzonatate 100 MG TID 05/22 1000 AC 05/28 PO 0944 Citalopram 40 MG DAILY 05/20 1000 AC 05/28 Hydrobromide PO 0945 Cyclobenzaprine HCl 5 MG .STK-MED ONE 05/27 2000 DC PO 05/27 2001 Cyclobenzaprine HCl 5 MG TIDPRN PRN 05/20 0445 AC 05/27 PO 2001 Enoxaparin Sodium 40 MG DAILY 05/20 1000 AC SC Hydroxyzine HCl 25 MG 4 TIMES/DAY 05/25 1000 AC 05/28 PO 1331 Lidocaine 1 PAT DAILY 05/20 1000 AC 05/28 EXT 0945 Lorazepam 1 MG ONCE ONE 05/28 0445 DC 05/28 IV 05/28 0446 0444 Lorazepam 1 MG Q8P PRN 05/27 1615 AC 05/27 PO 1954 Lorazepam 0.5 MG BID PRN 05/26 1137 DC 05/27 PO 06/02 1136 0605 Melatonin 3 MG AT BEDTIME 05/20 2200 AC 05/27 PO 2136 Metoprolol Tartrate 12.5 MG BID 05/20 1000 AC 05/28 PO 0945 Nicotine 21 MG DAILY 05/21 1000 AC 05/28 TOP 0944 Omeprazole 40 MG DAILY AC 05/20 0700 AC 05/28 PO 0444 Prednisone 60 MG DAILY 05/26 1011 AC 05/28 PO 0944 Primidone 50 MG AT BEDTIME 05/20 2200 AC 05/27 PO 2137 Tiotropium [place] 1 PUF DAILY 05/20 1343 AC 05/28 INH 0945 Tramadol HCl 25 MG TIDPRN PRN 05/22 1000 AC 05/28 PO 1149 Assessment/Plan Assessment: His 62-year-old man with moderate to severe COPD on 1.5 L of oxygen by nasal cannula as needed at home, tobacco dependence enrolled in LDCT program in [place], stable RUL mass, coronary artery disease status post MD with PCI in 1998 and severe anxiety presented to ER and found to be in acute on chronic hypoxic respiratory failure likely secondary to COPD exacerbation and he is very anxious that might be contributing factor in his respiratory status. Patient was admitted on general medical floor and we will address following problems Acute on chronic hypoxic respiratory failure due to COPD exacerbation and underlying lung mass: -Supplemental oxygen as needed to maintain saturation above 90% -He was started on prednisone 60 mg daily and we will send him home tomorrow on tapering course of steroid -TRC nebulization as needed -We will follow the pulmonology recommendations * He desaturate on ambulation to 70s to 80s today and is seen was made to send him to rehabilitation for pulmonary rehabilitation. Most likely she would be discharged to [facility] if bed available. Severe anxiety and depression: -Patient was evaluated by psych intermittently and medications were adjusted accordingly. His Atarax was changed to 25 mg 4 times a day and also he was started on lorazepam and dose was increased from 0.5 mg to 1 mg 3 times a day when necessary. We will give his recommended dose today and most probably we would send him tomorrow. The patient has an intake appointment at [facility] on 06/05/17 at 10:15 AM, at [address] [place] [address], , with Dr. Weston. This morning Modesto Harrell schedule him for tomorrow but now as he will be discharged to short- term rehabilitation we will check with the director of casework department if they can arrange for this intake tomorrow or we can increase that she'll him again. Generalized body aches including shoulder blades and lower back pain. Patient has severe body spasms most likely due to underlying severe anxiety and depression. We will start him on tramadol as high dose of ibuprofen was giving him epigastric pain. We will continue his proton pump inhibitors. Of note on reviewing his CAT scan from April 03 with radiologist acute rib fracture was noticed on that imaging study . Radiologist were requested to dictate an addendum. We will manage it conservatively with pain management Chronic issues including abdominal aortic aneurysm He is stable abdominal aortic aneurysm, he had recent CAT scan showed stable aortic aneurysm which could be follow-up as outpatient. positive blood cultures Blood cultures were coagulase negative most likely contamination and his vancomycin was discontinued. CODE STATUS: Full Code DVT prophylaxis: Mechanical and Lovenox Problem List: 1. Acute exacerbation of chronic obstructive airways disease 2. Anxiety Pain Ratin Pain Location: Not applicable Pain Goal: Remain pain free Pain Plan: Tylenol Tomorrow's Labs & Rationales: None Lauri WATTERS,Renetta 05/28/17 1305: Attending MD Review Statement Attending Statement Attending MD Statement: examined this patient, discuss w/resident/PA/FRENCH DRAWER, agreed w/resident/PA/FRENCH DRAWER, reviewed EMR data (avail), discussed with nursing, discussed with case mgmt, reviewed images, amended to note Attending Assessment/Plan: Patient seen and examined, feels very anxious. Patient walked with oxygen and he desatted to 85% on 2 L. Had a very bad panic attack this morning and required Ativan. Vital Signs Date Time Temp Pulse Resp B/P B/P Pulse O2 O2 Flow FiO2 Mean Ox Delivery Rate 05/28 1203 98 Nasal 2.0L Cannula 05/28 0945 94 158/56 05/28 0800 91 Nasal 1.5L Cannula 05/28 0645 94 158/56 91 05/28 0433 95 Nasal 1.5L Cannula 05/28 0430 97.4 140 20 172/92 94 05/28 0000 Nasal 1.5L Cannula 05/27 2235 98.0 73 18 132/72 96 Nasal 2.0L Cannula 05/27 2136 73 132/72 05/27 1605 97 Nasal 1.5L Cannula 05/27 1513 97.5 66 20 110/70 96 Nasal 1.5L Cannula on exam; aox3, anxious. cv; s1,s2, rrr resp; decreased breath sounds overall. abd; soft, nt, bs+ ext; no edema. 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 Patient descending on ambulation and oxygen. Remains very anxious and having panic attacks. As discussed with psychiatry, will keep him on hydroxyzine and Ativan as needed. Patient has an intake appointment with psychiatry for tomorrow. Unfortunately that patient be setting he is not medically safe to be discharged home. He would benefit by going to pulmonary rehabilitation. I asked the case management to Dr. gruber about that. Continue the rest of the management. Patient on Lovenox for DVT prophylaxis. Continue current dose of prednisone. Discussed with psychiatry Modesto Walden as well as pulmonology Dr. Lockett.
--- NOTE | 2017-05-28 10:34 | PN- Psychiatry ---
Assessment/Plan Impression: The patient has received lorazepam/Ativan 1 mg PO q 8 hours for one dose at 8:00 PM yesterday, and required a one-time dose of Ativan 1 mg via IV this morning at 0445, due to a panic attack. As we mentioned yesterday, we are concerned about the use of benzodiazepines as they can cause or worsen respiratory depression, increase the risk for falls, and cause or worsen delirium. He is also reporting seeing "spotted bears" during the last two evenings. This is likely not psychiatric in origin, and more likely due to poor sleep, changes in oxygenation or medication changes. Nevertheless, if these persist after correcting the underlying cause, a medication, such as Seroquel XR 12.5 mg in the evening may help. R/B/SE were reviewed with the patient today, including risk of sudden in the elderly, though we will probably not start this in the hospital. Citalopram/Celexa, prescribed for close to twenty years, does not appear to be helping anymore. We do not recommend another increase in Ativan, as this time. While with the patient today, we practiced some guided imagery, specifically listening to the birds on the beach, which helped calm the patient and reduce his mildly labored breathing. Suggestion: Plan: 1. Continue lorazepam to 1 mg PO up to 3X/day, as needed, for severe anxiety or panic. 2. Continue hydroxyzine 25 mg PO 4X/day for anxiety. 3. New intake appointment at [facility], tomorrow, 05/29/17 at 10:15 AM, at [address] [place] [address], , with Radha. We will try to get the patient in to see a prescriber as soon as possible to try and avoid another ED visit. 4. Please repeat the EKG, as there is a likely change in medications looming in the next few days, which could affect QTc. We will continue to follow along with you. Subjective Subjective: Alert and oriented, but off by one day and date, "May 27." He reports, "I never could understand how someone could think of ending it, but after these last two weeks, with what I've been through I can understand." He denies any current suicidal ideation. He endorses a safety plan to call 911 or come to the nearest emergency room immediately. He promises to remain safe. He reports that he has been seeing "spotted bears" during the last two evenings, which are making him fearful. We discussed the likely cause, such as poor sleep, change in oxygenation or change in medications. He denies auditory or tactile hallucinations, and presents no angel delusions, but remains frightened of going home. Review of Systems Neurological/Psychological: Reports: anxiety. Objective Last 24 Hrs of Vital Signs/I&O Vital Signs Date Time Temp Pulse Resp B/P B/P Pulse O2 O2 Flow FiO2 Mean Ox Delivery Rate 05/28 0945 94 158/56 05/28 0645 94 158/56 91 05/28 0433 95 Nasal 1.5L Cannula 05/28 043 97.4 140 20 172/92 94 05/28 0000 Nasal 1.5L Cannula 05/27 2235 98.0 73 18 132/72 96 Nasal 2.0L Cannula 05/27 2136 73 132/72 05/27 1605 97 Nasal 1.5L Cannula 05/27 1513 97.5 66 20 110/70 96 Nasal 1.5L Cannula 05/27 1133 95 Nasal 1.5L Cannula Intake & Output 05/28 1600 05/28 0800 05/28 0000 Intake Total 260 250 Output Total 750 600 Balance -490 -350 Intake, IV 20 10 Intake, Oral 240 240 Number 0 0 Bowel Movements Output, Urine 750 600 Physical Exam: Not performed Physical Exam General Appearance: alert, awake, anxious, mild distress Current Medications: Current Medications Sig/Adrián Start time Last Medication Dose Route Stop Time Status Admin Acetaminophen 650 MG Q8 05/20 0600 AC 05/28 PO 0444 Albuterol Sulfate 3 ML EVERY 4 HRS/AWAKE 05/20 1600 AC 05/28 INH 0846 Albuterol Sulfate 3 ML Q4 HRS NEEDED PRN 05/20 0430 AC 05/20 INH 0833 Aspirin 325 MG DAILY 05/20 1000 AC 05/28 PO 0945 Atorvastatin Calcium 80 MG 1700 05/20 1700 AC 05/27 PO 1717 Benzonatate 100 MG TID 05/22 1000 AC 05/28 PO 0944 Citalopram 40 MG DAILY 05/20 1000 AC 05/28 Hydrobromide PO 0945 Cyclobenzaprine HCl 5 MG .STK-MED ONE 05/27 2000 DC PO 01/29 2002 Cyclobenzaprine HCl 5 MG TIDPRN PRN 05/20 0445 AC 05/27 PO 2001 Enoxaparin Sodium 40 MG DAILY 05/20 1000 AC SC Hydroxyzine HCl 25 MG 4 TIMES/DAY 05/25 1000 AC 05/28 PO 0945 Lidocaine 1 PAT DAILY 05/20 1000 AC 05/28 EXT 0945 Lorazepam 1 MG ONCE ONE 05/28 0445 DC 05/28 IV 05/28 0446 0444 Lorazepam 1 MG Q8P PRN 05/27 1615 AC 05/27 PO 1954 Lorazepam 0.5 MG BID PRN 05/26 1137 DC 05/27 PO 06/02 1136 0605 Melatonin 3 MG AT BEDTIME 05/20 2200 AC 05/27 PO 2136 Metoprolol Tartrate 12.5 MG BID 05/20 1000 AC 05/28 PO 0945 Nicotine 21 MG DAILY 05/21 1000 AC 05/28 TOP 0944 Omeprazole 40 MG DAILY AC 05/20 0700 AC 05/28 PO 0444 Prednisone 60 MG DAILY 05/26 1011 AC 05/28 PO 0944 Primidone 50 MG AT BEDTIME 05/20 2200 AC 05/27 PO 2137 Tiotropium [place] 1 PUF DAILY 05/20 1343 AC 05/28 INH 0945 Tramadol HCl 25 MG TIDPRN PRN 05/22 1000 AC 05/27 PO 0815 Results Last 24 Hrs of Labs/Mics: Laboratory Tests 05/26 0740 Chemistry Sodium (137 - 145 mmol/L) 138 Potassium (3.5 - 5.1 mmol/L) 4.4 Chloride (98 - 107 mmol/L) 95 L Carbon Dioxide (22 - 30 mmol/L) 34 H Anion Gap (5 - 16) 9 BUN (9 - 20 mg/dL) 29 H Creatinine (0.7 - 1.2 mg/dL) 0.7 Estimated GFR (>60 ml/min) > 60 BUN/Creatinine Ratio (7 - 25 %) 41.4 H Hematology CBC w Diff NO MAN DIFF REQ WBC (4.8 - 10.8 /CUMM) 8.9 RBC (4.70 - 6.10 /CUMM) 4.57 L Hgb (14.0 - 18.0 G/DL) 13.8 L Hct (42 - 52 %) 41.0 L MCV (80.0 - 94.0 FL) 89.6 MCH (27.0 - 31.0 PG) 30.1 MCHC (33.0 - 37.0 G/DL) 33.6 RDW (11.5 - 14.5 %) 15.0 H Plt Count (130 - 400 /CUMM) 254 MPV (7.4 - 10.4 FL) 6.8 L Gran % (42.2 - 75.2 %) 78.2 H Lymphocytes % (20.5 - 51.1 %) 15.5 L Monocytes % (1.7 - 9.3 %) 5.8 Eosinophils % (0 - 5 %) 0.2 Basophils % (0.0 - 2.0 %) 0.3 Absolute Granulocytes (1.4 - 6.5 /CUMM) 6.9 H Absolute Lymphocytes (1.2 - 3.4 /CUMM) 1.4 Absolute Monocytes (0.10 - 0.60 /CUMM) 0.5 Absolute Eosinophils (0.0 - 0.7 /CUMM) 0 Absolute Basophils (0.0 - 0.2 /CUMM) 0
--- NOTE | 2017-05-28 12:41 | PN- Pulmonary ---
Subjective HPI/Critical Care Issues: Patient seen and examined. He has desaturated with ambulation. Objective Current Medications: Current Medications Sig/Adrián Start time Last Medication Dose Route Stop Time Status Admin Acetaminophen 650 MG Q8 05/20 0600 AC 05/28 PO 0444 Albuterol Sulfate 3 ML EVERY 4 HRS/AWAKE 05/20 1600 AC 05/28 INH 1202 Albuterol Sulfate 3 ML Q4 HRS NEEDED PRN 05/20 0430 AC 05/20 INH 0833 Aspirin 325 MG DAILY 05/20 1000 AC 05/28 PO 0945 Atorvastatin Calcium 80 MG 1700 05/20 1700 AC 05/27 PO 1717 Benzonatate 100 MG TID 05/22 1000 AC 05/28 PO 0944 Citalopram 40 MG DAILY 05/20 1000 AC 05/28 Hydrobromide PO 0945 Cyclobenzaprine HCl 5 MG .STK-MED ONE 05/27 2000 DC PO 05/27 2002 Cyclobenzaprine HCl 5 MG TIDPRN PRN 05/20 0445 AC 05/27 PO 2001 Enoxaparin Sodium 40 MG DAILY 05/20 1000 AC SC Hydroxyzine HCl 25 MG 4 TIMES/DAY 05/25 1000 AC 05/28 PO 0945 Lidocaine 1 PAT DAILY 05/20 1000 AC 05/28 EXT 0945 Lorazepam 1 MG ONCE ONE 05/28 0445 DC 05/28 IV 05/28 0446 0444 Lorazepam 1 MG Q8P PRN 05/27 1615 AC 05/27 PO 1954 Lorazepam 0.5 MG BID PRN 05/26 1137 DC 05/27 PO 06/02 1136 0605 Melatonin 3 MG AT BEDTIME 05/20 2200 AC 05/27 PO 2136 Metoprolol Tartrate 12.5 MG BID 05/20 1000 AC 05/28 PO 0945 Nicotine 21 MG DAILY 05/21 1000 AC 05/28 TOP 0944 Omeprazole 40 MG DAILY AC 05/20 0700 AC 05/28 PO 0444 Prednisone 60 MG DAILY 05/26 1011 AC 05/28 PO 0944 Primidone 50 MG AT BEDTIME 05/20 2200 AC 05/27 PO 2137 Tiotropium [place] 1 PUF DAILY 05/20 1343 AC 05/28 INH 0945 Tramadol HCl 25 MG TIDPRN PRN 05/22 1000 AC 05/28 PO 1149 Vital Signs & I&O Last 24 Hrs of Vitals and I&O: Vital Signs Date Time Temp Pulse Resp B/P B/P Pulse O2 O2 Flow FiO2 Mean Ox Delivery Rate 05/28 1203 98 Nasal 2.0L Cannula 05/28 0945 94 158/56 05/28 0800 91 Nasal 1.5L Cannula 05/28 0645 94 158/56 91 05/28 0433 95 Nasal 1.5L Cannula 05/28 0430 97.4 140 20 172/92 94 05/28 0000 Nasal 1.5L Cannula 05/27 2235 98.0 73 18 132/72 96 Nasal 2.0L Cannula 05/27 2136 73 132/72 05/27 1605 97 Nasal 1.5L Cannula 05/27 1513 97.5 66 20 110/70 96 Nasal 1.5L Cannula Intake & Output 05/28 1600 05/28 0800 05/28 0000 Intake Total 260 250 Output Total 750 600 Balance -490 -350 Intake, IV 20 10 Intake, Oral 240 240 Number 0 0 Bowel Movements Output, Urine 750 600 Exam Other Physical Findings: Gen - alert and awake HEENT - NCAT CVS - S1, S2, no murmurs, rubs or gallops Lungs - rare bibasilar rhonchi Abdomen - soft, non-tender, bs+ Ext - no edema, no cyanosis Impression/Plan Impression/Plan Impression/Plan: Impression 62 year old man * Exacerbation of COPD * Tobacco dependence * Anxiety/depression Plan -cont steroids -Continue trc and nebs -Enrolled in LDCT program -Follow up with psychiatry -s/p abx -smoking cessation counseled -desaturated with exertion -declines rehab however would benefit DVT prophylaxis at all times
[2017-05-28 14:01] VITALS: BP 100/61
[2017-05-28 23:35] VITALS: BP 110/60
[2017-05-29 07:35] VITALS: BP 113/73
--- NOTE | 2017-05-29 07:36 | PN- Housestaff ---
Nazia Ravi 05/29/17 0736: Subjective Follow-up For: COPD exacerbation Severe anxiety Acute on chronic hypoxic respiratory failure Subjective: Patient is seen and examined this morning, vitals were stable, he was lying comfortably in the bed. Reported some shortness of breath with left upper quadrant discomfort. At around 2:30 PM, rapid response was called in, patient was found to be in acute respiratory distress, desaturated to 80%, blood pressure was 230/120. After receiving albuterol treatment, breathing improved. Stat labs including troponin were ordered, EKG and chest x-ray was ordered along with ABGs. Patient was initially planned to be discharged to rehabilitation today but due to having acute respiratory distress episode discharge was canceled, will reevaluate the patient tomorrow. Review of Systems Constitutional: Denies: chills, diaphoresis, fever, malaise. EENTM: Denies: blurred vision, double vision, visual changes, eye pain. Cardiovascular: Denies: chest pain, edema, orthopena. Respiratory: Denies: cough, hemoptysis, orthopnea. Gastrointestinal: Denies: abdominal pain, bloating, constipation, diarrhea, distention. Genitourinary: Denies: dysuria, frequency, hematuria. Musculoskeletal: Denies: back pain, gout, joint pain. Objective Last 24 Hrs of Vital Signs/I&O Vital Signs Date Time Temp Pulse Resp B/P B/P Pulse O2 O2 Flow FiO2 Mean Ox Delivery Rate 05/29 1304 98.0 68 24 132/80 96 Nasal 3.0L Cannula 05/29 0931 132/80 05/29 0925 Nasal 3.0L Cannula 05/29 0917 Nasal 3.0L Cannula 05/29 0800 95 Nasal 3.0L Cannula 05/29 0752 99 Nasal 3.0L Cannula 05/29 0735 98.0 65 20 113/73 99 Nasal 3.0L Cannula 05/29 0211 90 Nasal 1.5L Cannula 05/29 0000 Nasal 1.5L Cannula 05/28 2335 97.7 85 20 110/60 97 Nasal 1.5L Cannula 05/28 2215 85 110/60 05/28 2055 94 Nasal 1.5L Cannula 05/28 1600 Nasal 1.5L Cannula Intake & Output 05/29 1600 05/29 0800 05/29 0000 Intake Total 930 240 Output Total 550 Balance 930 240 -550 Intake, IV 30 Intake, Oral 900 240 Number 0 Bowel Movements Output, Urine 550 Physical Exam General Appearance: Alert, Oriented X3 Skin: No Rashes, No Breakdown Skin Temp/Moisture Exam: Warm/Dry Cardiovascular: Regular Rate, Normal S1, Normal S2 Lungs: Clear to Auscultation, Normal Air Movement Abdomen: Normal Bowel Sounds, Soft, No Tenderness Current Medications: Current Medications Sig/Adrián Start time Last Medication Dose Route Stop Time Status Admin Acetaminophen 650 MG Q8 05/20 0600 AC 05/29 PO 1302 Albuterol Sulfate 3 ML EVERY 4 HRS/AWAKE 05/20 1600 AC 05/29 INH 1434 Albuterol Sulfate 3 ML Q4 HRS NEEDED PRN 05/20 0430 AC 05/20 INH 0833 Aspirin 325 MG DAILY 05/20 1000 AC 05/29 PO 0931 Atorvastatin Calcium 80 MG 1700 05/20 1700 AC 05/28 PO 1707 Benzonatate 100 MG TID 05/22 1000 AC 05/29 PO 0931 Citalopram 40 MG DAILY 05/20 1000 AC 05/29 Hydrobromide PO 0931 Cyclobenzaprine HCl 5 MG TIDPRN PRN 05/20 0445 AC 05/29 PO 1303 Enoxaparin Sodium 40 MG DAILY 05/20 1000 AC SC Hydroxyzine HCl 25 MG 4 TIMES/DAY 05/25 1000 AC 05/29 PO 1302 Ibuprofen 200 MG ONCE ONE 05/29 1045 DC 05/29 PO 05/29 1046 1147 Ibuprofen 400 MG ONCE ONE 05/29 1015 DC 05/29 PO 05/29 1016 1012 Ibuprofen 600 MG ONCE ONE 05/29 1015 CAN PO 05/29 1016 Lidocaine 1 PAT DAILY 05/20 1000 AC 05/29 EXT 0931 Lorazepam 1 MG Q8P PRN 05/27 1615 AC 05/29 PO 1012 Melatonin 3 MG AT BEDTIME 05/20 2200 AC 05/28 PO 2210 Methylprednisolone 40 MG ONCE ONE 05/29 1000 DC 05/29 IV 05/29 1001 1012 Metoprolol Tartrate 12.5 MG BID 05/20 1000 AC 05/29 PO 0931 Nicotine 21 MG DAILY 05/21 1000 AC 05/29 TOP 0932 Omeprazole 40 MG DAILY AC 05/20 0700 AC 05/29 PO 0516 Patient Medication 1 ED ONE ONE 05/29 1015 DC 05/29 Teaching ED 05/29 1016 1045 Prednisone 60 MG DAILY 05/26 1011 AC 05/29 PO 0931 Primidone 50 MG AT BEDTIME 05/20 2200 AC 05/28 PO 2210 Tiotropium [place] 1 PUF DAILY 05/20 1343 AC 05/29 INH 0932 Tramadol HCl 25 MG TIDPRN PRN 05/22 1000 DC 05/28 PO 1149 Last 24 Hrs of Lab/Poncho Results Last 24 Hrs of Labs/Mics: Laboratory Tests 05/29/17 1442: Troponin I Pending Assessment/Plan Assessment: His 62-year-old man with moderate to severe COPD on 1.5 L of oxygen by nasal cannula as needed at home, tobacco dependence enrolled in LDCT program in [place], stable RUL mass, coronary artery disease status post [place] with PCI in 1998 and severe anxiety presented to ER and found to be in acute on chronic hypoxic respiratory failure likely secondary to COPD exacerbation and he is very anxious that might be contributing factor in his respiratory status. Patient was admitted on general medical floor and we will address following problems Acute on chronic hypoxic respiratory failure due to COPD exacerbation and underlying lung mass: -At around 2:30 PM, rapid response was called in, patient was found to be in acute respiratory distress, desaturated to 80%, blood pressure was 230/120. After receiving albuterol treatment, breathing improved. Stat labs including troponin were ordered, EKG and chest x-ray was ordered along with ABGs. -Continue Supplemental oxygen as needed to maintain saturation above 90% -Patient has been on prednisone 60 mg daily -TRC nebulization as needed -Patient was initially planned to be discharged to rehabilitation today but due to having acute respiratory distress episode discharge was canceled, will reevaluate the patient tomorrow. Severe anxiety and depression: -Patient was evaluated by psych intermittently and medications were adjusted accordingly. His Atarax was changed to 25 mg 4 times a day. -Ativan dose has been increased to 1 mg 3 times a day, still patient has been having panic attacks will obtain psych consult again for further evaluation and recommendations. Generalized body aches including shoulder blades and lower back pain. Patient has severe body spasms most likely due to underlying severe anxiety and depression. Patient has been refusing tramadol , we will consider ibuprofen as needed for severe pain along with Tylenol .continue with PPI . Of note on reviewing his CAT scan from April 03 with radiologist acute rib fracture was noticed on that imaging study . Radiologist were requested to dictate an addendum. We will manage it conservatively with pain management Chronic issues including abdominal aortic aneurysm He is stable abdominal aortic aneurysm, he had recent CAT scan showed stable aortic aneurysm which could be follow-up as outpatient. positive blood cultures Blood cultures were coagulase negative most likely contamination and his vancomycin was discontinued. CODE STATUS: Full Code DVT prophylaxis: Mechanical and Lovenox Problem List: 1. Acute exacerbation of chronic obstructive airways disease 2. Acute respiratory failure with hypoxia Pain Ratin Pain Location: Left upper quadrant pain Pain Goal: Pain 4 or less Pain Plan: When necessary ibuprofen and Tylenol Tomorrow's Labs & Rationales: CBC AND BEP Renetta Carreon MD 05/29/17 1120: Attending MD Review Statement Attending Statement Attending MD Statement: examined this patient, discuss w/resident/PA/GANG PLANK WORKMAN, agreed w/resident/PA/GANG PLANK WORKMAN, reviewed EMR data (avail), discussed with nursing, discussed with case mgmt, reviewed images, amended to note Attending Assessment/Plan: Patient seen and examined, he was anxious this morning. I told patient's RN to give him Ativan. He was also complaining of some rib pain. Patient will be receiving ibuprofen, I did a patch, Flexeril and Tylenol. He is refusing tramadol. He was seen by Dr. Lockett and he has finally agreed for the rehabilitation. From Cathryn also recommended giving him an extra dose of IV Solu-Medrol which I have ordered. Patient can be discharged to rehabilitation today if there is a bed available. He will be discharged on pain regimen, Ativan, hydroxyzine as needed, steroid taper. He should be seen by outpatient psychiatry. He will also follow-up with Dr. Lockett and his primary care doctor as an outpatient.
[2017-05-29] MEDS ORDERED: ATIVAN0.5 M1 PO (10:30)
--- NOTE | 2017-05-29 11:44 | PN- Pulmonary ---
Subjective HPI/Critical Care Issues: Patient seen and examined this morning. He is amenable to rehabilitation Objective Current Medications: Current Medications Sig/Adrián Start time Last Medication Dose Route Stop Time Status Admin Acetaminophen 650 MG Q8 05/20 0600 AC 05/29 PO 0516 Albuterol Sulfate 3 ML EVERY 4 HRS/AWAKE 05/20 1600 AC 05/29 INH 0750 Albuterol Sulfate 3 ML Q4 HRS NEEDED PRN 05/20 0430 AC 05/20 INH 0833 Aspirin 325 MG DAILY 05/20 1000 AC 05/29 PO 0931 Atorvastatin Calcium 80 MG 1700 05/20 1700 AC 05/28 PO 1707 Benzonatate 100 MG TID 05/22 1000 AC 05/29 PO 0931 Citalopram 40 MG DAILY 05/20 1000 AC 05/29 Hydrobromide PO 0931 Cyclobenzaprine HCl 5 MG TIDPRN PRN 05/20 0445 AC 05/29 PO 0223 Enoxaparin Sodium 40 MG DAILY 05/20 1000 AC SC Hydroxyzine HCl 25 MG 4 TIMES/DAY 05/25 1000 AC 05/29 PO 0931 Ibuprofen 200 MG ONCE ONE 05/29 1045 DC PO 05/29 1046 Ibuprofen 400 MG ONCE ONE 05/29 1015 DC 05/29 PO 05/29 1016 1012 Ibuprofen 600 MG ONCE ONE 05/29 1015 CAN PO 05/29 1016 Lidocaine 1 PAT DAILY 05/20 1000 AC 05/29 EXT 0931 Lorazepam 1 MG Q8P PRN 05/27 1615 AC 05/29 PO 1012 Melatonin 3 MG AT BEDTIME 05/20 2200 AC 05/28 PO 2210 Methylprednisolone 40 MG ONCE ONE 05/29 1000 DC 05/29 IV 05/29 1001 1012 Metoprolol Tartrate 12.5 MG BID 05/20 1000 AC 05/29 PO 0931 Nicotine 21 MG DAILY 05/21 1000 AC 05/29 TOP 0932 Omeprazole 40 MG DAILY AC 05/20 0700 AC 05/29 PO 0516 Patient Medication 1 ED ONE ONE 05/29 1015 DC 05/29 Teaching ED 05/29 1016 1045 Prednisone 60 MG DAILY 05/26 1011 AC 05/29 PO 0931 Primidone 50 MG AT BEDTIME 05/20 2200 AC 05/28 PO 2210 Tiotropium [place] 1 PUF DAILY 05/20 1343 AC 05/29 INH 0932 Tramadol HCl 25 MG TIDPRN PRN 05/22 1000 DC 05/28 PO 1149 Vital Signs & I&O Last 24 Hrs of Vitals and I&O: Vital Signs Date Time Temp Pulse Resp B/P B/P Pulse O2 O2 Flow FiO2 Mean Ox Delivery Rate 05/29 0931 132/80 05/29 0925 Nasal 3.0L Cannula 05/29 0917 Nasal 3.0L Cannula 05/29 0752 99 Nasal 3.0L Cannula 05/29 0735 98.0 65 20 113/73 99 Nasal 3.0L Cannula 05/29 0211 90 Nasal 1.5L Cannula 05/29 0000 Nasal 1.5L Cannula 05/28 2335 97.7 85 20 110/60 97 Nasal 1.5L Cannula 05/28 2215 85 110/60 05/28 2055 94 Nasal 1.5L Cannula 05/28 1600 Nasal 1.5L Cannula 05/28 1401 97.4 74 18 100/61 94 Nasal 2.0L Cannula 05/28 1203 98 Nasal 2.0L Cannula Intake & Output 05/29 1600 05/29 0800 05/29 0000 Intake Total 240 Output Total 550 Balance 240 -550 Intake, Oral 240 Output, Urine 550 Exam Other Physical Findings: Gen - alert and awake HEENT - NCAT CVS - S1, S2, no murmurs, rubs or gallops Lungs - rare bibasilar rhonchi Abdomen - soft, non-tender, bs+ Ext - no edema, no cyanosis Impression/Plan Impression/Plan Impression/Plan: Impression 62 year old man * Exacerbation of COPD * Tobacco dependence * Anxiety/depression Plan -cont steroids - give extra dose of solumedrol 40mg iv once today -Continue trc and nebs -Enrolled in LDCT program -Follow up with psychiatry -s/p abx -smoking cessation counseled -desaturated with exertion -amenable to rehab dc planning DVT prophylaxis at all times
[2017-05-29 13:04] VITALS: BP 132/80
[2017-05-29 14:30] VITALS: BP 230/110
[2017-05-29 14:40] VITALS: BP 146/90
--- NOTE | 2017-05-29 15:01 | Event Note ---
Event Note Event Note: At around 2:30 PM, rapid response was called in, patient was found to be in acute respiratory distress, desaturated to 80%, blood pressure was 230/120. After receiving albuterol treatment, breathing improved. Stat labs including troponin were ordered, EKG and chest x-ray was ordered along with ABGs. Will do CTA of the chest to rule out any underlying pulmonary embolism Start the patient on IV Solu-Medrol 40 mg every 8 We'll start him on scheduled Ativan 1 mg 3 times a day(discussed with psychiatry ). Patient was initially planned to be discharged to rehabilitation today but due to having acute respiratory distress episode discharge was canceled, will reevaluate the patient tomorrow
--- NOTE | 2017-05-29 15:32 | RADIOLOGY REPORT ---
EXAMINATION: XR CHEST CLINICAL INFORMATION: Shortness of breath on exertion. COPD. Assess for fluid overload or pulmonary edema. COMPARISON: Chest x-ray 05/20/2017. CTA scan of the chest 04/01/2017. TECHNIQUE: An 85 degree semiupright frontal view of the chest was obtained. The lower right chest is not included on the available image. FINDINGS: The lungs are hyperexpanded bilaterally. There are emphysematous changes with bullae, most prominent in the right upper lobe. There is an irregular mass in the right upper lobe, demonstrated on prior imaging. There are linear opacities at the left base consistent with atelectasis. The cardiac silhouette is normal in size. The aortic arch is slightly unfolded. Mild prominence of the pulmonary arteries is consistent with pulmonary hypertension. There are degenerative changes at the right acromioclavicular joint. There are no acute osseous findings. IMPRESSION: 1. The lungs are hyperexpanded, consistent with COPD. There are emphysematous changes. 2. There is a mass at the right apex, demonstrated on prior imaging. 3. There is no evidence of congestive heart failure or new focal consolidation.
--- NOTE | 2017-05-29 16:10 | CT SCAN REPORT ---
EXAMINATION: CT ANGIOGRAM OF THE CHEST WITH AND WITHOUT CONTRAST (CT PULMONARY ANGIOGRAM FOR PE) CLINICAL INFORMATION: ACUTE SOB COMPARISON: CTA of chest 04/01/2017 TECHNIQUE: Prior to contrast administration, noncontrast localization images were obtained. Subsequently, multidetector volumetric imaging was performed from the thoracic inlet to below the diaphragms following the administration of 80 mL Omnipaque 350 intravenous contrast. No contrast reaction reported. Sagittal, coronal, and MIP oblique sagittal reformatted images were obtained on the CT workstation, uploaded to PACS, and reviewed. Total exam dose-length product 341.95 mGy-cm. FINDINGS: QUALITY OF STUDY/CONTRAST BOLUS: Satisfactory PULMONARY ARTERIES: No central or segmental pulmonary emboli. THORACIC AORTA: Atherosclerotic vascular wall calcifications of aorta without aneurysm. LUNG: Severe grimes emphysematous changes of lung. Cavitary lesion in the right upper lobe with air-fluid level. Lesion was present on the CAT scan of 04/01/2017 but the cavitation is new. The overall size of the mass is similar to the CAT scan of 04/01/2017. This lesion was nearly entirely air filled on the CAT scan of 05/17/2015. No new lung lesions. There is some volume loss with crowding of the bronchovascular markings of the right upper lobe which is stable since prior exam as well. PLEURA: No pleural effusion or pneumothorax. MEDIASTINUM: There are small shotty lymph nodes in the mediastinum but no bulky adenopathy. There is no pericardial effusion. No evidence of septal bowing or right heart strain. CHEST WALL/AXILLA: No axillary or internal mammary lymphadenopathy. OSSEOUS STRUCTURES: No acute or suspicious osseous abnormality. UPPER ABDOMEN: Unremarkable. No reflux of contrast into the hepatic veins to suggest elevated right heart pressures. IMPRESSION: 1. No evidence of pulmonary embolism. 2. Severe emphysematous changes of lung. 3. Stable large mass in right upper lobe. This now demonstrates an air-fluid level. VTE: negative
[2017-05-29 22:21] VITALS: BP 120/78
[2017-05-30 06:33] VITALS: BP 115/76
--- NOTE | 2017-05-30 07:40 | PN- Housestaff ---
Nazia Ravi 05/30/17 0740: Subjective Follow-up For: COPD exacerbation Severe anxiety Acute on chronic hypoxic respiratory failure Subjective: Patient is seen and examined this morning, sitting comfortably in the bed still reports some shortness of breath. Vitals are stable. Patient reported that he couldn't able to sleep well at night had another panic attack, he has been started on scheduled Ativan 1 mg 3 times a day Yesterday patient was in acute respiratory distress along with severe panic attack, CTA chest was done that ruled out any underlying PE but showed severe Severe emphysematous changes of lung. Patient has been started on IV Solu- Medrol 40 minutes every 8. Review of Systems Constitutional: Denies: diaphoresis, fever, weakness. EENTM: Denies: double vision, visual changes, eye pain. Cardiovascular: Denies: chest pain, orthopena, palpitations. Respiratory: Reports: short of breath. Denies: cough, hemoptysis, orthopnea. Gastrointestinal: Denies: abdominal pain, bloating, constipation. Genitourinary: Denies: discharge, dysuria, frequency. Objective Last 24 Hrs of Vital Signs/I&O Vital Signs Date Time Temp Pulse Resp B/P B/P Pulse O2 O2 Flow FiO2 Mean Ox Delivery Rate 05/30 1350 97.8 73 18 110/70 96 Nasal 2.0L Cannula 05/30 1205 90 24 130/80 94 Nasal 2.0L Cannula 05/30 0913 76 132/80 05/30 0800 95 Nasal 2.0L Cannula 05/30 0633 97.6 88 20 115/76 99 Nasal 2.0L Cannula 05/30 0555 96 Nasal 2.0L Cannula 05/30 0000 Nasal 2.0L Cannula 05/29 2221 97.5 80 20 120/78 97 Nasal 2.0L Cannula 05/29 2118 80 120/78 05/29 1700 96 Nasal 2.0L Cannula 05/29 1600 Nasal 3.5L Cannula Intake & Output 05/30 1600 05/30 0800 05/30 0000 Intake Total 920 800 Output Total 400 Balance 920 -400 800 Intake, IV 20 Intake, Oral 900 800 Number 0 Bowel Movements Output, Urine 400 Physical Exam General Appearance: Alert, Oriented X3 Skin: No Rashes, No Breakdown Skin Temp/Moisture Exam: Cool/Dry HEENT: Atraumatic, PERRLA Cardiovascular: Regular Rate, Normal S1, Normal S2 Lungs: Clear to Auscultation, Normal Air Movement Abdomen: Normal Bowel Sounds, Soft, No Tenderness Current Medications: Current Medications Sig/Adrián Start time Last Medication Dose Route Stop Time Status Admin Acetaminophen 650 MG .STK-MED ONE 05/30 0539 DC PO 05/30 0540 Acetaminophen 650 MG Q8 05/20 0600 AC 05/30 PO 1333 Albuterol Sulfate 3 ML EVERY 4 HRS/AWAKE 05/20 1600 AC 05/30 INH 1135 Albuterol Sulfate 3 ML Q4 HRS NEEDED PRN 05/20 0430 AC 05/20 INH 0833 Aspirin 325 MG DAILY 05/20 1000 AC 05/30 PO 0913 Atorvastatin Calcium 80 MG 1700 05/20 1700 AC 05/29 PO 1613 Benzonatate 100 MG TID 05/22 1000 AC 05/30 PO 0913 Citalopram 40 MG DAILY 05/20 1000 AC 05/30 Hydrobromide PO 0913 Cyclobenzaprine HCl 5 MG TIDPRN PRN 05/20 0445 AC 05/29 PO 1303 Enoxaparin Sodium 40 MG DAILY 05/20 1000 AC SC Hydroxyzine HCl 25 MG 4 TIMES/DAY 05/25 1000 AC 05/30 PO 1333 Lidocaine 1 PAT DAILY 05/31 1000 AC EXT Lidocaine 1 PAT DAILY 05/20 1000 DC 05/30 EXT 0914 Lorazepam 1 MG ONE ONE 05/30 1215 DC 05/30 PO 05/30 1216 1209 Lorazepam 1 MG TID 05/29 1600 AC 05/30 PO 0913 Lorazepam 1 MG Q8P PRN 05/27 1615 DC 05/29 PO 1012 Melatonin 3 MG AT BEDTIME 05/200 AC 05/29 PO 2118 Methylprednisolone 40 MG BID 05/30 2199 UNVr IV Methylprednisolone 40 MG Q8H 05/29 1800 DC 05/30 IV 0914 Metoprolol Tartrate 12.5 MG BID 05/20 1000 AC 05/30 PO 0913 Nicotine 21 MG DAILY 05/21 1000 AC 05/30 TOP 0914 Omeprazole 40 MG DAILY AC 05/20 0700 AC 05/30 PO 0540 Prednisone 60 MG DAILY 05/26 1011 DC 05/29 PO 0931 Primidone 50 MG AT BEDTIME 05/20 2200 AC 05/29 PO 2118 Tiotropium [place] 1 PUF DAILY 05/20 1343 AC 05/30 INH 0914 Assessment/Plan Assessment: His 62-year-old man with moderate to severe COPD on 1.5 L of oxygen by nasal cannula as needed at home, tobacco dependence enrolled in LDCT program in [place], stable RUL mass, coronary artery disease status post [place] with PCI in 1998 and severe anxiety presented to ER and found to be in acute on chronic hypoxic respiratory failure likely secondary to COPD exacerbation and he is very anxious that might be contributing factor in his respiratory status. Patient was admitted on general medical floor and we will address following problems Acute on chronic hypoxic respiratory failure due to COPD exacerbation and underlying lung mass: * Yesterday patient was in acute respiratory distress along with severe panic attack, CTA chest was done that ruled out any underlying PE but showed severe Severe emphysematous changes of lung. Patient has been started on IV Solu- Medrol 40 mg every 8 hours * Continue Supplemental oxygen as needed to maintain saturation above 90% * TRC nebulization as needed * We'll continue to follow Dr. Lockett recommendations. Severe anxiety and depression: * Psych was consulted today as per recommendations we will decrease the dose of decrease of Celexa to 20 mg daily and adding Effexor XR 75 mg daily(starting tomorrow) * Continue scheduled Ativan and Atarax for now. Generalized body aches including shoulder blades and lower back pain. Patient has severe body spasms most likely due to underlying severe anxiety and depression. Patient has been refusing tramadol , we will consider ibuprofen as needed for severe pain along with Tylenol .continue with PPI . Of note on reviewing his CAT scan from April 03 with radiologist acute rib fracture was noticed on that imaging study . Radiologist were requested to dictate an addendum. We will manage it conservatively with pain management Chronic issues including abdominal aortic aneurysm He is stable abdominal aortic aneurysm, he had recent CAT scan showed stable aortic aneurysm which could be follow-up as outpatient. positive blood cultures Blood cultures were coagulase negative most likely contamination and his vancomycin was discontinued. CODE STATUS: Full Code DVT prophylaxis: Mechanical and Lovenox Problem List: 1. Acute exacerbation of chronic obstructive airways disease Pain Ratin Pain Location: left upper quardrant pain Pain Goal: Remain pain free Pain Plan: Tylenol Tomorrow's Labs & Rationales: ATOMIC PHYSICS TEACHER and BEP tomorrow Lauri WATTERS,Renetta 05/30/17 1202: Attending MD Review Statement Attending Statement Attending MD Statement: examined this patient, discuss w/resident/PA/CORE ASSEMBLY SUPERVISOR, agreed w/resident/PA/CORE ASSEMBLY SUPERVISOR, reviewed EMR data (avail), discussed with nursing, discussed with case mgmt, reviewed images, amended to note Attending Assessment/Plan: Patient seen and examined, continues to c/o sob, anxiety. Vital Signs Date Time Temp Pulse Resp B/P B/P Pulse O2 O2 Flow FiO2 Mean Ox Delivery Rate 05/30 0913 76 132/80 05/30 0800 95 Nasal 2.0L Cannula 05/30 0633 97.6 88 20 115/76 99 Nasal 2.0L Cannula 05/30 0555 96 Nasal 2.0L Cannula 05/30 0000 Nasal 2.0L Cannula 05/29 2221 97.5 80 20 120/78 97 Nasal 2.0L Cannula 05/29 2118 80 120/78 05/29 1700 96 Nasal 2.0L Cannula 05/29 1600 Nasal 3.5L Cannula 05/29 1440 80 24 146/90 96 Nasal 3.0L Cannula 05/29 1430 112 28 230/110 82 Nasal 3.0L Cannula 05/29 1304 98.0 68 24 132/80 96 Nasal 3.0L Cannula on exam; aox3, nad. 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 Patient was medically stable for discharge yesterday when he had a panic attack. We pursued a workup with getting a CT of the chest which was negative for PE. He has this lung mass which is chronic. I discussed with Dr. Lockett about that and currently no interventions planned. Troponin was negative. Patient was kept on hydroxyzine as well as Ativan which is now scheduled. 5 discussed with Modesto Walden who is recommending to decrease the dose of Celexa to 20 mg daily and adding Effexor XR 75 mg daily. We will make those changes starting tomorrow as patient had already received his regular dose Celexa 40 mg today. We'll continue hydroxyzine and Ativan scheduled. Patient remains on IV steroids per pulmonology. Continue TRC nebs. Continue current pain management. DVT px; Lovenox but patient kept on refusing.
--- NOTE | 2017-05-30 10:29 | PN- Pulmonary ---
Subjective HPI/Critical Care Issues: pt seen and examined ct reviewed still with dyspnea and anxiety Objective Current Medications: Current Medications Sig/Adrián Start time Last Medication Dose Route Stop Time Status Admin Acetaminophen 650 MG Q8 05/20 0600 AC 05/30 PO 0541 Albuterol Sulfate 3 ML EVERY 4 HRS/AWAKE 05/20 1600 AC 05/30 INH 0753 Albuterol Sulfate 3 ML Q4 HRS NEEDED PRN 05/20 0430 AC 05/20 INH 0833 Aspirin 325 MG DAILY 05/20 1000 AC 05/30 PO 0913 Atorvastatin Calcium 80 MG 1700 05/20 1700 AC 05/29 PO 1613 Benzonatate 100 MG TID 05/22 1000 AC 05/30 PO 0913 Citalopram 40 MG DAILY 05/20 1000 AC 05/30 Hydrobromide PO 0913 Cyclobenzaprine HCl 5 MG TIDPRN PRN 05/20 0445 AC 05/29 PO 1303 Enoxaparin Sodium 40 MG DAILY 05/20 1000 AC SC Hydroxyzine HCl 25 MG 4 TIMES/DAY 05/25 1000 AC 05/30 PO 0913 Ibuprofen 200 MG ONCE ONE 05/29 1045 DC 05/29 PO 05/29 1046 1147 Ibuprofen 600 MG ONCE ONE 05/29 1015 CAN PO 05/29 1016 Lidocaine 1 PAT DAILY 05/31 1000 UNVr EXT Lidocaine 1 PAT DAILY 05/20 1000 DC 05/30 EXT 0914 Lorazepam 1 MG TID 05/29 1600 AC 05/30 PO 0913 Lorazepam 1 MG Q8P PRN 05/27 1615 DC 05/29 PO 1012 Melatonin 3 MG AT BEDTIME 05/20 2200 AC 05/29 PO 2118 Methylprednisolone 40 MG Q8H 05/29 1800 AC 05/30 IV 0914 Metoprolol Tartrate 12.5 MG BID 05/20 1000 AC 05/30 PO 0913 Nicotine 21 MG DAILY 05/21 1000 AC 05/30 TOP 0914 Omeprazole 40 MG DAILY AC 05/20 0700 AC 05/30 PO 0540 Prednisone 60 MG DAILY 05/26 1011 DC 05/29 PO 0931 Primidone 50 MG AT BEDTIME 05/20 2200 AC 05/29 PO 2118 Tiotropium [place] 1 PUF DAILY 05/20 1343 AC 05/30 INH 0914 Vital Signs & I&O Last 24 Hrs of Vitals and I&O: Vital Signs Date Time Temp Pulse Resp B/P B/P Pulse O2 O2 Flow FiO2 Mean Ox Delivery Rate 05/30 0913 76 132/80 05/30 0633 97.6 88 20 115/76 99 Nasal 2.0L Cannula 05/30 0555 96 Nasal 2.0L Cannula 05/30 0000 Nasal 2.0L Cannula 05/29 2221 97.5 80 20 120/78 97 Nasal 2.0L Cannula 05/29 2118 80 120/78 05/29 1700 96 Nasal 2.0L Cannula 05/29 1600 Nasal 3.5L Cannula 05/29 1440 80 24 146/90 96 Nasal 3.0L Cannula 05/29 1430 112 28 230/110 82 Nasal 3.0L Cannula 05/29 1304 98.0 68 24 132/80 96 Nasal 3.0L Cannula Intake & Output 05/30 1600 05/30 0800 05/30 0000 Intake Total 800 Output Total 400 Balance -400 800 Intake, Oral 800 Output, Urine 400 Exam Other Physical Findings: Gen - alert and awake HEENT - NCAT CVS - S1, S2, no murmurs, rubs or gallops Lungs - rare bibasilar rhonchi Abdomen - soft, non-tender, bs+ Ext - no edema, no cyanosis Results Last 24 Hrs of Lab Results: Laboratory Tests 05/29/17 1442: Troponin I 0.02 Impression/Plan Impression/Plan Impression/Plan: Impression 62 year old man * Exacerbation of COPD * Tobacco dependence * Anxiety/depression * known rul lesion now with air vs fluid - unclear clinical significance Plan -cont solumedrol 40mg iv q8h -Continue trc and nebs -Follow up with psychiatry -smoking cessation counseled -overal dc planning to rehab DVT prophylaxis at all times
[2017-05-30 12:05] VITALS: BP 130/80
[2017-05-30 13:50] VITALS: BP 110/70
[2017-05-30 22:28] VITALS: BP 100/72
[2017-05-31 05:49] VITALS: BP 118/64
--- NOTE | 2017-05-31 07:46 | PN- Housestaff ---
Nazia Ravi 05/31/17 0746: Subjective Follow-up For: COPD exacerbation Severe anxiety Acute on chronic hypoxic respiratory failure Subjective: Patient is seen and examined this morning, sitting comfortably in the bed still reports some shortness of breath. Vitals are stable, saturating around 92% on 1.5 L. Will discontinue Solu-Medrol today and start the patient on tapered prednisone. If patient remains stable will consider discharging the patient today/tomorrow Review of Systems Constitutional: Denies: diaphoresis, fever, malaise. EENTM: Denies: blurred vision, double vision, visual changes. Cardiovascular: Denies: chest pain, edema, orthopena. Respiratory: Reports: short of breath. Denies: cough, hemoptysis, orthopnea. Gastrointestinal: Denies: abdominal pain, constipation, diarrhea. Genitourinary: Denies: dysuria, frequency. Objective Last 24 Hrs of Vital Signs/I&O Vital Signs Date Time Temp Pulse Resp B/P B/P Pulse O2 O2 Flow FiO2 Mean Ox Delivery Rate 05/31 0944 104/64 05/31 0800 Nasal 1.5L Cannula 05/31 0549 98.5 62 20 118/64 97 Room Air 05/31 0010 Nasal 1.5L Cannula 05/31 0000 96 Nasal 1.5L Cannula 05/30 2228 97.4 72 18 100/72 95 Nasal 2.0L Cannula 05/30 2130 72 100/74 02 1634 96 Nasal 1.5L Cannula 05/30 1600 94 Nasal 2.0L Cannula 05/30 1350 97.8 73 18 110/70 96 Nasal 2.0L Cannula 05/30 1205 90 24 130/80 94 Nasal 2.0L Cannula Intake & Output 05/31 1600 05/31 0800 05/31 0000 Intake Total 240 1020 Output Total 1200 Balance 240 -180 Intake, IV 20 Intake, Oral 240 1000 Output, Urine 1200 Physical Exam General Appearance: Alert, Oriented X3 Skin: No Rashes, No Breakdown Skin Temp/Moisture Exam: Cool/Dry HEENT: Atraumatic, PERRLA, EOMI Neck: Supple, No JVD Cardiovascular: Regular Rate, Normal S1 Lungs: Clear to Auscultation Current Medications: Current Medications Sig/Adrián Start time Last Medication Dose Route Stop Time Status Admin Acetaminophen 650 MG Q8 05/20 0600 AC 05/31 PO 0503 Albuterol Sulfate 3 ML EVERY 4 HRS/AWAKE 05/20 1600 AC 05/31 INH 0855 Albuterol Sulfate 3 ML Q4 HRS NEEDED PRN 05/20 0430 AC 05/20 INH 0833 Alprazolam 0.5 MG ONCE ONE 05/31 0015 DC 05/31 PO 05/31 0016 0009 Aspirin 325 MG DAILY 05/20 1000 AC 05/31 PO 0945 Atorvastatin Calcium 80 MG 1700 05/20 1700 AC 05/30 PO 1627 Benzonatate 100 MG TID 05/22 1000 AC 05/31 PO 0944 Citalopram 20 MG DAILY 05/31 1000 AC 05/31 Hydrobromide PO 0944 Citalopram 40 MG DAILY 05/20 1000 DC 05/30 Hydrobromide PO 0913 Cyclobenzaprine HCl 5 MG TIDPRN PRN 05/20 0445 AC 05/30 PO 2308 Enoxaparin Sodium 40 MG DAILY 05/20 1000 AC SC Hydroxyzine HCl 25 MG 4 TIMES/DAY 05/25 1000 AC 05/31 PO 0944 Ketorolac 30 MG ONCE ONE 05/30 1830 DC 05/30 Tromethamine IV 05/30 1831 1905 Lidocaine 1 PAT DAILY 05/31 1000 AC 05/31 EXT 0940 Lorazepam 1 MG ONE ONE 05/30 1215 DC 05/30 PO 05/30 1216 1209 Lorazepam 1 MG TID 05/29 1600 AC 05/31 PO 0944 Melatonin 3 MG AT BEDTIME 05/20 2200 AC 05/30 PO 2131 Methylprednisolone 40 MG BID 05/30 2200 AC 05/31 IV 0938 Methylprednisolone 40 MG Q8H 05/29 1800 DC 05/30 IV 0914 Metoprolol Tartrate 12.5 MG BID 05/20 1000 AC 05/31 PO 0944 Nicotine 21 MG DAILY 05/21 1000 AC 05/31 TOP 0940 Omeprazole 40 MG DAILY AC 05/20 0700 AC 05/31 PO 0503 Primidone 50 MG AT BEDTIME 05/20 2200 AC 05/30 PO 2131 Tiotropium [place] 1 PUF DAILY 05/20 1343 AC 05/31 INH 0939 Venlafaxine HCl 75 MG DAILY 05/31 1000 AC 05/31 PO 0945 Last 24 Hrs of Lab/Poncho Results Last 24 Hrs of Labs/Mics: Laboratory Tests 05/31/17 0726: Anion Gap 10, Estimated GFR > 60, BUN/Creatinine Ratio 54.3 H, CBC w Diff NO MAN DIFF REQ, RBC 4.55 L, MCV 90.3, MCH 30.0, MCHC 33.2, RDW 15.4 H, MPV 6.8 L, Gran % 89.4 H, Lymphocytes % 4.1 L, Monocytes % 6.4, Eosinophils % 0, Basophils % 0.1, Absolute Granulocytes 19.9 H, Absolute Lymphocytes 0.9 L, Absolute Monocytes 1.4 H, Absolute Eosinophils 0, Absolute Basophils 0 Assessment/Plan Assessment: His 62-year-old man with moderate to severe COPD on 1.5 L of oxygen by nasal cannula as needed at home, tobacco dependence enrolled in LDCT program in [place], stable RUL mass, coronary artery disease status post OK with PCI in 1998 and severe anxiety presented to ER and found to be in acute on chronic hypoxic respiratory failure likely secondary to COPD exacerbation and he is very anxious that might be contributing factor in his respiratory status. Patient was admitted on general medical floor and we will address following problems Acute on chronic hypoxic respiratory failure due to COPD exacerbation and underlying lung mass: * Patient is more comfortable today saturating around 1.5 L. * We will discontinue IV Solu-Medrol and switch him to taper prednisone. * Leukocytosis on recent labs , repeat chest x-ray and blood cultures. * Continue Supplemental oxygen as needed to maintain saturation above 90% * TRC nebulization as needed * We'll continue to follow Dr. Lockett recommendations. Severe anxiety and depression: * Psych was consulted yesterday as per recommendations ,we will decrease the dose of decrease of Celexa to 20 mg daily and adding Effexor XR 75 mg daily( starting tomorrow) * Continue scheduled Ativan and Atarax for now. Generalized body aches including shoulder blades and lower back pain. Patient has severe body spasms most likely due to underlying severe anxiety and depression. Patient has been refusing tramadol , we will consider ibuprofen as needed for severe pain along with Tylenol .continue with PPI . Of note on reviewing his CAT scan from April 03 with radiologist acute rib fracture was noticed on that imaging study . Radiologist were requested to dictate an addendum. We will manage it conservatively with pain management Chronic issues including abdominal aortic aneurysm He is stable abdominal aortic aneurysm, he had recent CAT scan showed stable aortic aneurysm which could be follow-up as outpatient. positive blood cultures Blood cultures were coagulase negative most likely contamination and his vancomycin was discontinued. CODE STATUS: Full Code DVT prophylaxis: Mechanical and Lovenox- however patient has been refusing to get Lovenox Problem List: 1. Acute exacerbation of chronic obstructive airways disease 2. Anxiety Pain Ratin Pain Location: Left lower quadrant pain Pain Goal: Remain pain free Pain Plan: When necessary Tylenol and ibuprofen Tomorrow's Labs & Rationales: cbc ane bep tomorrow Lauri WATTERS,Renetta 05/31/17 1201: Attending MD Review Statement Attending Statement Attending MD Statement: examined this patient, discuss w/resident/PA/CONTRACT CLERK, agreed w/resident/PA/CONTRACT CLERK, reviewed EMR data (avail), discussed with nursing, discussed with case mgmt, reviewed images, amended to note Attending Assessment/Plan: Patient seen and examined, feels ok. Was feeling slightly better this am. We have started the patient on Effexor Xr per Psych Modesto Walden's recommendation while we taper the Celexa. Vital Signs Date Time Temp Pulse Resp B/P B/P Pulse O2 O2 Flow FiO2 Mean Ox Delivery Rate 05/31 0944 104/64 05/31 0855 97 Nasal 1.5L Cannula 05/31 0800 Nasal 1.5L Cannula 05/31 0549 98.5 62 20 118/64 97 Room Air 05/31 0010 Nasal 1.5L Cannula 05/31 0000 96 Nasal 1.5L Cannula 05/30 2228 97.4 72 18 100/72 95 Nasal 2.0L Cannula 05/30 2130 72 100/74 05/30 1634 96 Nasal 1.5L Cannula 05/30 1600 94 Nasal 2.0L Cannula 05/30 1350 97.8 73 18 110/70 96 Nasal 2.0L Cannula 05/30 1205 90 24 130/80 94 Nasal 2.0L Cannula on exam; aox3, nad. cv; s1,s2, rrr resp; overall decraesed bs abd; soft, nt, bs+ ext; no edema. Laboratory Tests 05/31 0726 Chemistry Sodium (137 - 145 mmol/L) 139 Potassium (3.5 - 5.1 mmol/L) 4.5 Chloride (98 - 107 mmol/L) 97 L Carbon Dioxide (22 - 30 mmol/L) 32 H Anion Gap (5 - 16) 10 BUN (9 - 20 mg/dL) 38 H Creatinine (0.7 - 1.2 mg/dL) 0.7 Estimated GFR (>60 ml/min) > 60 BUN/Creatinine Ratio (7 - 25 %) 54.3 H Hematology CBC w Diff NO MAN DIFF REQ WBC (4.8 - 10.8 /CUMM) 22.3 H RBC (4.70 - 6.10 /CUMM) 4.55 L Hgb (14.0 - 18.0 G/DL) 13.7 L Hct (42 - 52 %) 41.1 L MCV (80.0 - 94.0 FL) 90.3 MCH (27.0 - 31.0 PG) 30.0 MCHC (33.0 - 37.0 G/DL) 33.2 RDW (11.5 - 14.5 %) 15.4 H Plt Count (130 - 400 /CUMM) 266 MPV (7.4 - 10.4 FL) 6.8 L Gran % (42.2 - 75.2 %) 89.4 H Lymphocytes % (20.5 - 51.1 %) 4.1 L Monocytes % (1.7 - 9.3 %) 6.4 Eosinophils % (0 - 5 %) 0 Basophils % (0.0 - 2.0 %) 0.1 Absolute Granulocytes (1.4 - 6.5 /CUMM) 19.9 H Absolute Lymphocytes (1.2 - 3.4 /CUMM) 0.9 L Absolute Monocytes (0.10 - 0.60 /CUMM) 1.4 H Absolute Eosinophils (0.0 - 0.7 /CUMM) 0 Absolute Basophils (0.0 - 0.2 /CUMM) 0 A/P; 62 y/o M with pmh sig for ch resp failure, COPD on 1.5 L of oxygen at home , right upper lobe mass (stable), CAD status post stent placement, 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 Patient has been kept on IV steroids. Patient has significant leukocytosis today. This could be related to steroids but we will repeat his chest x-ray today. We will repeat his blood cultures to make sure there is no additional infection. Patient will remain on IV steroids but per neurology recommendations. We have also started him on Effexor XR while we are tapering his Celexa per psych recommendations. Continue hydroxyzine and Ativan scheduled. Continue TRC nebs. DVT prophylaxis: Lovenox but patient is refusing. He had a negative chest CTA 2 days ago.
[2017-05-31 08:20] LABS: ABSOLUTE BASOPHIL COUNT 0 /CUMM (0.0-0.2); ABSOLUTE EOSINOPHIL COUNT 0 /CUMM (0.0-0.7); ABSOLUTE GRANULOCYTE CT 19.9 /CUMM (1.4-6.5); ABSOLUTE LYMPH COUNT 0.9 /CUMM (1.2-3.4); ABSOLUTE MONOCYTE COUNT 1.4 /CUMM (0.10-0.60); BASOPHIL % 0.1 % (0.0-2.0); EOSINOPHIL % 0 % (0-5); GRANULOCYTE % 89.4 % (42.2-75.2); HEMATOCRIT 41.1 % (42-52); MEAN CORPUSCULAR HGB CONC 33.2 G/DL (33.0-37.0); MEAN CORPUSCULAR VOLUME 90.3 FL (80.0-94.0); MEAN PLATELET VOLUME 6.8 FL (7.4-10.4); PLATELET COUNT 266 /CUMM (130-400); RBC DISTRIBUTION WIDTH 15.4 % (11.5-14.5); RED BLOOD CELL CT 4.55 /CUMM (4.70-6.10)
[2017-05-31 09:00] LABS: WHITE BLOOD CELL COUNT 22.3 /CUMM (4.8-10.8)
--- NOTE | 2017-05-31 10:55 | PN- Pulmonary ---
Subjective HPI/Critical Care Issues: Patient seen and examined. He had a decent night's sleep however he continues to be short of breath. Objective Current Medications: Current Medications Sig/Adrián Start time Last Medication Dose Route Stop Time Status Admin Acetaminophen 650 MG Q8 05/20 0600 AC 05/31 PO 0503 Albuterol Sulfate 3 ML EVERY 4 HRS/AWAKE 05/20 1600 AC 05/31 INH 0855 Albuterol Sulfate 3 ML Q4 HRS NEEDED PRN 05/20 0430 AC 05/20 INH 0833 Alprazolam 0.5 MG ONCE ONE 05/31 0015 DC 05/31 PO 05/31 0016 0009 Aspirin 325 MG DAILY 05/20 1000 AC 05/31 PO 0945 Atorvastatin Calcium 80 MG 1700 05/20 1700 AC 05/30 PO 1627 Benzonatate 100 MG TID 05/22 1000 AC 05/31 PO 0944 Citalopram 20 MG DAILY 05/31 1000 AC 05/31 Hydrobromide PO 0944 Citalopram 40 MG DAILY 05/20 1000 DC 05/30 Hydrobromide PO 0913 Cyclobenzaprine HCl 5 MG TIDPRN PRN 05/20 0445 AC 05/30 PO 2308 Enoxaparin Sodium 40 MG DAILY 05/20 1000 AC SC Hydroxyzine HCl 25 MG 4 TIMES/DAY 05/25 1000 AC 05/31 PO 0944 Ketorolac 30 MG ONCE ONE 05/30 1830 DC 05/30 Tromethamine IV 05/30 1831 1905 Lidocaine 1 PAT DAILY 05/31 1000 AC 05/31 EXT 0940 Lorazepam 1 MG ONE ONE 05/30 1215 DC 05/30 PO 05/30 1216 1209 Lorazepam 1 MG TID 05/29 1600 AC 05/31 PO 0944 Melatonin 3 MG AT BEDTIME 05/20 2200 AC 05/30 PO 2131 Methylprednisolone 40 MG BID 05/30 2200 AC 05/31 IV 0938 Methylprednisolone 40 MG Q8H 05/29 1800 DC 05/30 IV 0914 Metoprolol Tartrate 12.5 MG BID 05/20 1000 AC 05/31 PO 0944 Nicotine 21 MG DAILY 05/21 1000 AC 05/31 TOP 0940 Omeprazole 40 MG DAILY AC 05/20 0700 AC 05/31 PO 0503 Primidone 50 MG AT BEDTIME 05/20 2200 AC 05/30 PO 2131 Tiotropium [place] 1 PUF DAILY 05/20 1343 AC 05/31 INH 0939 Venlafaxine HCl 75 MG DAILY 05/31 1000 AC 05/31 PO 0945 Vital Signs & I&O Last 24 Hrs of Vitals and I&O: Vital Signs Date Time Temp Pulse Resp B/P B/P Pulse O2 O2 Flow FiO2 Mean Ox Delivery Rate 05/31 0944 104/64 05/31 0800 Nasal 1.5L Cannula 05/31 0549 98.5 62 20 118/64 97 Room Air 05/31 0010 Nasal 1.5L Cannula 05/31 0000 96 Nasal 1.5L Cannula 05/30 2228 97.4 72 18 100/72 95 Nasal 2.0L Cannula 05/30 2130 72 100/74 05/30 1634 96 Nasal 1.5L Cannula 05/30 1600 94 Nasal 2.0L Cannula 05/30 1350 97.8 73 18 110/70 96 Nasal 2.0L Cannula 05/30 1205 90 24 130/80 94 Nasal 2.0L Cannula Intake & Output 05/31 1600 05/31 0800 05/31 0000 Intake Total 240 1020 Output Total 1200 Balance 240 -180 Intake, IV 20 Intake, Oral 240 1000 Output, Urine 1200 Exam Other Physical Findings: Gen - alert and awake HEENT - NCAT CVS - S1, S2, no murmurs, rubs or gallops Lungs - rare bibasilar rhonchi Abdomen - soft, non-tender, bs+ Ext - no edema, no cyanosis Results Last 24 Hrs of Lab Results: Laboratory Tests 05/31/17 0726: Anion Gap 10, Estimated GFR > 60, BUN/Creatinine Ratio 54.3 H, CBC w Diff NO MAN DIFF REQ, RBC 4.55 L, MCV 90.3, MCH 30.0, MCHC 33.2, RDW 15.4 H, MPV 6.8 L, Gran % 89.4 H, Lymphocytes % 4.1 L, Monocytes % 6.4, Eosinophils % 0, Basophils % 0.1, Absolute Granulocytes 19.9 H, Absolute Lymphocytes 0.9 L, Absolute Monocytes 1.4 H, Absolute Eosinophils 0, Absolute Basophils 0 Impression/Plan Impression/Plan Impression/Plan: Impression 62 year old man * Exacerbation of COPD * Tobacco dependence * Anxiety/depression * known rul lesion now with air vs fluid - unclear clinical significance * leukocytosis - can be steroid related Plan -REDUCE solumedrol 40mg iv q12h, check cbc tomorrow -Continue trc and nebs -Follow up with psychiatry -smoking cessation counseled -overal dc planning to rehab DVT prophylaxis at all times
[2017-05-31 12:09] VITALS: BP 186/114
[2017-05-31 12:32] VITALS: BP 112/74
[2017-05-31 15:35] VITALS: BP 112/66
--- NOTE | 2017-05-31 16:51 | RADIOLOGY REPORT ---
EXAMINATION: XR CHEST CLINICAL INFORMATION: Shortness of breath. COMPARISON: 05/29/2017 TECHNIQUE: 2 views of the chest were obtained. FINDINGS: Severe pulmonary emphysema. The chronic, thick-walled cavity of the lung lung apex now demonstrates an air-fluid level. This air-fluid levels was also seen on the chest CT of 05/29/2017. Chronic reticular opacities with subpleural honeycombing of the lower lobes. Cardiac silhouette remains normal in size. Pulmonary arteries are chronically enlarged, suggestive of arterial hypertension. The mildly displaced, subacute fracture of the left lateral eighth rib is excluded from the [id number]. Also, the subacute fracture of the left lateral ninth rib is suboptimally visualized. IMPRESSION: 1. Severe pulmonary emphysema. 2. Chronic interstitial disease with honeycombing at the lung bases. 3. Pulmonary arteries are enlarged, suggestive of pulmonary arterial hypertension. 4. The thick-walled cavity of the right lung apex has an air-fluid level (i.e., possible infection of the cavity).
[2017-05-31 22:29] VITALS: BP 120/80
[2017-06-01 06:46] VITALS: BP 134/80
[2017-06-01 09:06] LABS: ABSOLUTE BASOPHIL COUNT 0 /CUMM (0.0-0.2); ABSOLUTE EOSINOPHIL COUNT 0 /CUMM (0.0-0.7); ABSOLUTE GRANULOCYTE CT 15.6 /CUMM (1.4-6.5); ABSOLUTE LYMPH COUNT 0.8 /CUMM (1.2-3.4); ABSOLUTE MONOCYTE COUNT 1.1 /CUMM (0.10-0.60); BASOPHIL % 0.2 % (0.0-2.0); EOSINOPHIL % 0 % (0-5); GRANULOCYTE % 88.8 % (42.2-75.2); HEMATOCRIT 40.3 % (42-52); MEAN CORPUSCULAR HGB 30.1 PG (27.0-31.0); MEAN CORPUSCULAR HGB CONC 33.3 G/DL (33.0-37.0); MEAN CORPUSCULAR VOLUME 90.4 FL (80.0-94.0); MEAN PLATELET VOLUME 7.2 FL (7.4-10.4); PLATELET COUNT 266 /CUMM (130-400); RBC DISTRIBUTION WIDTH 15.3 % (11.5-14.5); RED BLOOD CELL CT 4.45 /CUMM (4.70-6.10); WHITE BLOOD CELL COUNT 17.6 /CUMM (4.8-10.8)
[2017-06-01 14:26] VITALS: BP 140/83
--- NOTE | 2017-06-01 14:58 | PN- Att Addend ---
Attending Addendum Attending Brief Note Patient seen and examined. He remains very anxious and short of breath. On exam he is afebrile on steroids, blood pressures 140/83, breathing at 16-18 and pulse of 78-88. Lungs have decreased breath sounds bilaterally, heart is S1-S2 regular, abdomen is soft He is a 62-year-old fairly complex male with advanced emphysema with interstitial lung disease and honeycombing on his chest x-ray. Chronic right upper lobe mass that now has an air-fluid level and as per pulmonary of unclear clinical significance. He was treated for a copd exacerbation and the plan was to switch him to by mouth steroids but because of ongoing anxiety and difficulty breathing is back on IV steroids. His white count is 22,000 yesterday and 17 today and we'll trend it to make sure it's going down. He has severe anxiety, he's on a benzodiazepine and his emotional status is complicated by recent of his daughter . Right now the plan is tentatively for rehabilitation on Saturday if clinically stable.
--- NOTE | 2017-06-01 15:02 | PN- Pulmonary ---
Subjective HPI/Critical Care Issues: Patient seen and examined. Continues to be short of breath and has significant anxiety. Objective Current Medications: Current Medications Sig/Adrián Start time Last Medication Dose Route Stop Time Status Admin Acetaminophen 650 MG Q8 05/20 0600 AC 06/01 PO 1358 Albuterol Sulfate 3 ML EVERY 4 HRS/AWAKE 05/20 1600 AC 06/01 INH 1227 Albuterol Sulfate 3 ML Q4 HRS NEEDED PRN 05/20 0430 AC 05/20 INH 0833 Aspirin 325 MG DAILY 05/20 1000 AC 06/01 PO 1000 Atorvastatin Calcium 80 MG 1700 05/20 1700 AC 05/31 PO 1704 Benzonatate 100 MG TID 05/22 1000 AC 06/01 PO 1000 Citalopram 20 MG DAILY 05/31 1000 AC 06/01 Hydrobromide PO 1000 Cyclobenzaprine HCl 5 MG TIDPRN PRN 05/20 0445 AC 05/30 PO 2308 Enoxaparin Sodium 40 MG DAILY 05/20 1000 AC SC Hydroxyzine HCl 25 MG 4 TIMES/DAY 05/25 1000 AC 06/01 PO 1358 Lidocaine 1 PAT DAILY 05/31 1000 AC 06/01 EXT 1002 Lorazepam 1 MG TID 05/29 1600 AC 06/01 PO 1001 Melatonin 3 MG AT BEDTIME 05/20 2200 AC 05/31 PO 2113 Methylprednisolone 40 MG BID 05/30 220 AC 06/01 IV 1001 Metoprolol Tartrate 12.5 MG BID 05/20 1000 AC 06/01 PO 1000 Nicotine 21 MG DAILY 05/21 1000 AC 06/01 TOP 1001 Omeprazole 40 MG DAILY AC 05/20 0700 AC 06/01 PO 0608 Primidone 50 MG AT BEDTIME 05/20 2200 AC 05/31 PO 2113 Tiotropium [place] 1 PUF DAILY 05/20 1343 AC 06/01 INH 1001 Venlafaxine HCl 75 MG DAILY 05/31 1000 AC 06/01 PO 1000 Vital Signs & I&O Last 24 Hrs of Vitals and I&O: Vital Signs Date Time Temp Pulse Resp B/P B/P Pulse O2 O2 Flow FiO2 Mean Ox Delivery Rate 06/01 1426 98.1 85 20 140/83 94 Nasal 1.5L Cannula 06/01 1000 92 124/68 06/01 0825 95 Nasal 1.5L Cannula 06/01 0800 95 Nasal 1.5L Cannula 06/01 0646 98.1 82 20 134/80 95 / 0356 Nasal 1.5L Cannula 06/01 0000 Nasal 1.5L Cannula 05/31 2229 98.8 78 18 120/80 98 Nasal 1.5L Cannula 05/31 2113 78 120/80 05/31 1603 94 Nasal 1.5L Cannula 05/31 1600 Nasal 1.5L Cannula 05/31 1535 98.3 68 18 112/66 96 Intake & Output 06/01 1600 06/01 0800 06/01 0000 Intake Total 750 480 910 Output Total 1050 375 Balance -300 105 910 Intake, IV 30 10 Intake, Oral 720 480 900 Number 1 Bowel Movements Output, Urine 1050 375 Exam Other Physical Findings: Gen - alert and awake HEENT - NCAT CVS - S1, S2, no murmurs, rubs or gallops Lungs - rare bibasilar rhonchi Abdomen - soft, non-tender, bs+ Ext - no edema, no cyanosis Results Last 24 Hrs of Lab Results: Laboratory Tests 06/01/17 07: CBC w Diff NO MAN DIFF REQ, RBC 4.45 L, MCV 90.4, MCH 30.1, MCHC 33.3, RDW 15.3 H, MPV 7.2 L, Gran % 88.8 H, Lymphocytes % 4.5 L, Monocytes % 6.5, Eosinophils % 0, Basophils % 0.2, Absolute Granulocytes 15.6 H, Absolute Lymphocytes 0.8 L, Absolute Monocytes 1.1 H, Absolute Eosinophils 0, Absolute Basophils 0 Impression/Plan Impression/Plan Impression/Plan: Impression 62 year old man * Exacerbation of COPD * Tobacco dependence * Anxiety/depression * known rul lesion now with air vs fluid - unclear clinical significance * leukocytosis - can be steroid related Plan -Continue solumedrol 40mg iv q12h, monitor white count -Continue trc and nebs -Follow up with psychiatry -smoking cessation counseled -overal dc planning to rehab DVT prophylaxis at all times
[2017-06-01 21:26] VITALS: BP 128/78
[2017-06-02 06:48] VITALS: BP 118/76
[2017-06-02 08:41] LABS: ABSOLUTE BASOPHIL COUNT 0 /CUMM (0.0-0.2); ABSOLUTE EOSINOPHIL COUNT 0 /CUMM (0.0-0.7); ABSOLUTE GRANULOCYTE CT 18.7 /CUMM (1.4-6.5); ABSOLUTE LYMPH COUNT 0.9 /CUMM (1.2-3.4); ABSOLUTE MONOCYTE COUNT 1.3 /CUMM (0.10-0.60); BASOPHIL % 0.1 % (0.0-2.0); EOSINOPHIL % 0 % (0-5); GRANULOCYTE % 89.2 % (42.2-75.2); HEMATOCRIT 41.3 % (42-52); MEAN CORPUSCULAR HGB 30.2 PG (27.0-31.0); MEAN CORPUSCULAR HGB CONC 33.3 G/DL (33.0-37.0); MEAN CORPUSCULAR VOLUME 90.9 FL (80.0-94.0); MEAN PLATELET VOLUME 7.1 FL (7.4-10.4); PLATELET COUNT 279 /CUMM (130-400); RBC DISTRIBUTION WIDTH 15.7 % (11.5-14.5); RED BLOOD CELL CT 4.54 /CUMM (4.70-6.10)
--- NOTE | 2017-06-02 13:29 | PN- Att Addend ---
Attending Addendum Attending Brief Note Patient seen and examined. He remains very anxious and short of breath. Now he is anxious about the rehabilitation plans as well. On exam he is afebrile on steroids, blood pressures 128/83, PR64, breathing at 18-20 and pulse of 80-88. Lungs have decreased breath sounds bilaterally, heart is S1-S2 regular, abdomen is soft He is a 62-year-old fairly complex male with advanced emphysema with interstitial lung disease and honeycombing on his chest x-ray. Chronic right upper lobe mass that now has an air-fluid level and as per pulmonary of unclear clinical significance. He was treated for a copd exacerbation and the plan was to switch him to by mouth steroids but because of ongoing anxiety and difficulty breathing is back on IV steroids. His white count is covering in the 17-20 range. And we'll trend it to make sure it's going down. He has severe anxiety, he's on a benzodiazepine and his emotional status is complicated by recent of his daughter . Right now the plan is tentatively for rehabilitation on Saturday if clinically stable.
--- NOTE | 2017-06-02 13:39 | PN- Pulmonary ---
Subjective HPI/Critical Care Issues: Patient seen and examined this morning. She continues to be short of breath cough has been easier to produce. Objective Current Medications: Current Medications Sig/Adrián Start time Last Medication Dose Route Stop Time Status Admin Acetaminophen 650 MG Q8 05/20 0600 AC 06/02 PO 1327 Albuterol Sulfate 3 ML EVERY 4 HRS/AWAKE 05/20 1600 AC 06/02 INH 1202 Albuterol Sulfate 3 ML Q4 HRS NEEDED PRN 05/20 0430 AC 05/20 INH 0833 Aspirin 325 MG DAILY 05/20 1000 AC 06/02 PO 0957 Atorvastatin Calcium 80 MG 1700 05/20 1700 AC 06/01 PO 1605 Benzonatate 100 MG TID 05/22 1000 AC 06/02 PO 0955 Citalopram 20 MG DAILY 05/31 1000 AC 06/02 Hydrobromide PO 0957 Cyclobenzaprine HCl 5 MG TIDPRN PRN 05/20 0445 AC 05/30 PO 2308 Enoxaparin Sodium 40 MG DAILY 05/20 1000 AC SC Hydroxyzine HCl 25 MG 4 TIMES/DAY 05/25 1000 AC 06/02 PO 1327 Lidocaine 1 PAT DAILY 05/31 1000 AC 06/02 EXT 0955 Lorazepam 1 MG TID 05/29 1600 AC 06/02 PO 0957 Melatonin 3 MG AT BEDTIME 05/20 2200 AC 06/01 PO 2118 Methylprednisolone 40 MG BID 05/30 2200 AC 06/02 IV 0955 Metoprolol Tartrate 12.5 MG BID 05/20 1000 AC 06/02 PO 0955 Nicotine 21 MG DAILY 05/21 1000 AC 06/02 TOP 0955 Omeprazole 40 MG DAILY AC 05/20 0700 AC 06/02 PO 0553 Primidone 50 MG AT BEDTIME 05/20 2200 AC 06/01 PO 2119 Tiotropium [employer] 1 PUF DAILY 05/20 1343 AC 06/02 INH 0957 Venlafaxine HCl 75 MG DAILY 05/31 1000 AC 06/02 PO 0957 Vital Signs & I&O Last 24 Hrs of Vitals and I&O: Vital Signs Date Time Temp Pulse Resp B/P B/P Pulse O2 O2 Flow FiO2 Mean Ox Delivery Rate 06/02 954 88 128/64 06/02 0848 94 Nasal 1.5L Cannula 06/02 0548 98.1 68 20 118/76 97 06/02 0428 95 Nasal 1.5L Cannula 06/02 0000 Nasal 1.5L Cannula 06/01 2126 98.5 100 20 128/78 93 Nasal 1.5L Cannula 06/01 2119 100 128/78 06/01 1644 97 Nasal 1.5L Cannula 06/01 1600 Nasal 1.0L Cannula 06/01 1426 98.1 85 20 140/83 94 Nasal 1.5L Cannula Intake & Output 06/02 1600 06/02 0800 06/02 0000 Intake Total Output Total 1150 Balance -1150 Output, Urine 1150 Exam Other Physical Findings: Gen - alert and awake HEENT - NCAT CVS - S1, S2, no murmurs, rubs or gallops Lungs - rare bibasilar rhonchi Abdomen - soft, non-tender, bs+ Ext - no edema, no cyanosis Results Last 24 Hrs of Lab Results: Laboratory Tests 06/02/17 0710: CBC w Diff NO MAN DIFF REQ, RBC 4.54 L, MCV 90.9, MCH 30.2, MCHC 33.3, RDW 15.7 H, MPV 7.1 L, Gran % 89.2 H, Lymphocytes % 4.4 L, Monocytes % 6.3, Eosinophils % 0, Basophils % 0.1, Absolute Granulocytes 18.7 H, Absolute Lymphocytes 0.9 L, Absolute Monocytes 1.3 H, Absolute Eosinophils 0, Absolute Basophils 0 Impression/Plan Impression/Plan Impression/Plan: Impression 62 year old man * Exacerbation of COPD * Tobacco dependence * Anxiety/depression * known rul lesion now with air vs fluid - unclear clinical significance * leukocytosis - can be steroid related Plan -check BNP - per pt request to ensure no cardiac contribution, please alert Dr. Romero if possible to see the patient -Continue solumedrol 40mg iv q12h, monitor white count -Continue trc and nebs -Follow up with psychiatry -smoking cessation counseled -overal dc planning to rehab DVT prophylaxis at all times
[2017-06-02 15:50] VITALS: BP 130/68
[2017-06-02 22:00] VITALS: BP 120/76
[2017-06-03 06:36] VITALS: BP 112/74
--- NOTE | 2017-06-03 07:56 | PN- Housestaff ---
Nazia Ravi 06/03/17 0756: Subjective Follow-up For: Follow-up For: COPD exacerbation Severe anxiety Acute on chronic hypoxic respiratory failure Subjective: Patient is seen and examined this morning, seems stable, on his baseline oxygen. Still reports shortness of breath on ambulation, denies any chest discomfort palpitations. Vitals are stable. Denied any nausea vomiting abdominal discomfort, left lower quadrant pain is much better. Review of Systems Constitutional: Denies: chills, diaphoresis, fever. EENTM: Denies: blurred vision, double vision, visual changes, eye pain, eye drainage. Cardiovascular: Denies: chest pain, edema, orthopena. Respiratory: Denies: cough, hemoptysis, orthopnea. Gastrointestinal: Denies: abdominal pain, constipation, diarrhea. Objective Last 24 Hrs of Vital Signs/I&O Vital Signs Date Time Temp Pulse Resp B/P B/P Pulse O2 O2 Flow FiO2 Mean Ox Delivery Rate 06/03 0922 94 Nasal 1.5L Cannula 06/03 0915 78 122/80 06/03 0800 94 Nasal 1.5L Cannula 06/03 0636 97.8 72 20 112/74 96 06/03 0500 98 Nasal 1.5L Cannula 06/03 0000 Nasal 1.5L Cannula 06/02 2200 97.4 88 20 120/76 96 Nasal 1.5L Cannula 06/02 2135 88 120/76 02 1941 94 Nasal 1.5L Cannula 06/02 1600 95 Nasal 1.5L Cannula 06/02 1550 98.4 73 20 130/68 95 Nasal 1.5L Cannula Intake & Output 06/03 1600 06/03 0800 06/03 0000 Intake Total 920 750 Output Total Balance 920 750 Intake, IV 20 30 Intake, Oral 900 720 Number 0 Bowel Movements Physical Exam General Appearance: Alert, Oriented X3 Skin: No Rashes, No Breakdown Skin Temp/Moisture Exam: Warm/Dry HEENT: Atraumatic, PERRLA Neck: Supple, No JVD Cardiovascular: Regular Rate, Normal S1, Normal S2 Lungs: Clear to Auscultation Abdomen: Normal Bowel Sounds, Soft, No Tenderness Neurological: Normal Gait, Normal Speech Extremities: No Clubbing, No Cyanosis Current Medications: Current Medications Sig/Adrián Start time Last Medication Dose Route Stop Time Status Admin Acetaminophen 650 MG Q8 05/20 0600 AC 06/03 PO 1416 Albuterol Sulfate 3 ML EVERY 4 HRS/AWAKE 05/20 1600 AC 06/03 INH 1344 Albuterol Sulfate 3 ML Q4 HRS NEEDED PRN 05/20 0430 AC 05/20 INH 0833 Aspirin 325 MG DAILY 05/20 1000 AC 06/03 PO 0915 Atorvastatin Calcium 80 MG 1700 05/20 1700 AC 06/02 PO 1606 Benzonatate 100 MG TID 05/22 1000 AC 06/03 PO 0915 Citalopram 20 MG DAILY 05/31 1000 AC 06/03 Hydrobromide PO 0915 Cyclobenzaprine HCl 5 MG .STK-MED ONE 06/02 1539 DC PO 06/02 1540 Cyclobenzaprine HCl 5 MG TIDPRN PRN 05/20 0445 AC 06/02 PO 1540 Enoxaparin Sodium 40 MG DAILY 05/20 1000 AC SC Hydroxyzine HCl 25 MG 4 TIMES/DAY 05/25 1000 AC 06/03 PO 1414 Lidocaine 1 PAT DAILY 05/31 1000 AC 06/03 EXT 0915 Lorazepam 1 MG TID 05/29 1600 AC 06/03 PO 0915 Melatonin 3 MG AT BEDTIME 05/20 2200 AC 06/02 PO 2135 Methylprednisolone 40 MG BID 05/30 2200 DC 06/03 IV 0914 Metoprolol Tartrate 12.5 MG BID 05/20 1000 AC 06/03 PO 0915 Nicotine 21 MG DAILY 05/21 1000 AC 06/03 TOP 0915 Omeprazole 40 MG DAILY AC 05/20 0700 AC 06/03 PO 0536 Prednisone 60 MG DAILY 06/04 1000 AC PO Primidone 50 MG AT BEDTIME 05/20 2200 AC 06/02 PO 2135 Tiotropium [place] 1 PUF DAILY 05/20 1343 AC 06/03 INH 0914 Venlafaxine HCl 75 MG DAILY 05/31 1000 AC 06/03 PO 0915 Last 24 Hrs of Lab/Poncho Results Last 24 Hrs of Labs/Mics: Laboratory Tests 06/03/17 0638: Anion Gap 12, Estimated GFR > 60, BUN/Creatinine Ratio 45.0 H, CBC w Diff MAN DIFF ORDERED, RBC 4.73, MCV 91.1, MCH 30.1, MCHC 33.0, RDW 15.5 H, MPV 7.1 L, Gran % 92.0 H, Lymphocytes % 3.4 L, Monocytes % 4.5, Eosinophils % 0, Basophils % 0.1, Absolute Granulocytes 19.6 H, Absolute Lymphocytes 0.7 L, Absolute Monocytes 1.0 H, Absolute Eosinophils 0, Absolute Basophils 0, Platelet Estimate ADEQUATE, Normocytic RBCs VERIFIED, Normochromic RBCs VERIFIED Assessment/Plan Assessment: His 62-year-old man with moderate to severe COPD on 1.5 L of oxygen by nasal cannula as needed at home, tobacco dependence enrolled in LDCT program in [place], stable RUL mass, coronary artery disease status post [place] with PCI in 1998 and severe anxiety presented to ER and found to be in acute on chronic hypoxic respiratory failure likely secondary to COPD exacerbation and he is very anxious that might be contributing factor in his respiratory status. Patient was admitted on general medical floor and we will address following problems Acute on chronic hypoxic respiratory failure due to COPD exacerbation and underlying lung mass: * Patient is more comfortable today saturating around 1.5 L. * We will discontinue IV Solu-Medrol and switch him to taper prednisone. * Patient continues to have persistent leukocytosis , with a chest x-ray findings showing thick-walled cavity of the right lung apex with an air-fluid level. * The findings have been discussed in detail with the assignment agent Dr. Lockett and Tristan Allen MD, likely chronic in nature, so we are not going to initiate any antibiotic treatment for now. * Continue to monitor CBCs * Continue Supplemental oxygen as needed to maintain saturation above 90% * TRC nebulization as needed * We'll continue to follow Dr. Lockett recommendations. Severe anxiety and depression: * Psych was consulted sahara per recommendations ,, patient has been started on Effexor XR 75 mg daily. * Has been decreased to Celexa to 20 mg daily for total of 1 week, then 10 mg one week and stop it afterwards. * Continue scheduled Ativan and Atarax for now. Generalized body aches including shoulder blades and lower back pain. Patient has severe body spasms most likely due to underlying severe anxiety and depression. Patient has been refusing tramadol , we will consider ibuprofen as needed for severe pain along with Tylenol .continue with PPI . Of note on reviewing his CAT scan from April 03 with radiologist acute rib fracture was noticed on that imaging study . Radiologist were requested to dictate an addendum. We will manage it conservatively with pain management Chronic issues including abdominal aortic aneurysm He is stable abdominal aortic aneurysm, he had recent CAT scan showed stable aortic aneurysm which could be follow-up as outpatient. positive blood cultures Blood cultures were coagulase negative most likely contamination and his vancomycin was discontinued. CODE STATUS: Full Code DVT prophylaxis: Mechanical and Lovenox- however patient has been refusing to get Lovenox Problem List: 1. Lung mass 2. Acute respiratory failure with hypoxia Pain Ratin Pain Location: Left lower quadrant pain Pain Goal: Remain pain free Pain Plan: When necessary tramadol and Tylenol Tomorrow's Labs & Rationales: CBC due to persistent leukocytosis Renetta Carreon MD 06/03/17 1249: Attending MD Review Statement Attending Statement Attending MD Statement: examined this patient, discuss w/resident/PA/FOAM RUBBER CURER, agreed w/resident/PA/FOAM RUBBER CURER, reviewed EMR data (avail), discussed with nursing, discussed with case mgmt, reviewed images, amended to note Attending Assessment/Plan: Patient seen and examined, continues to complain of shortness of breath and anxiety. I discussed with Dr. Lockett at length. Patient has consistent leukocytosis. I discussed about the finding off chest x-ray which shows a cavity with the air-fluid level. I discussed this with both pulmonology as well as infectious disease. This apparently has been a chronic issue. Pulmonology does not think that this needs to be further evaluated due to high risk profile patient. Patient likely will not be able to tolerate bronchoscopy with is extensive emphysema. Patient has been watched off of antibiotics. He remains on IV steroids. Dr. Lockett also recommended cardiology evaluation to make sure there is no other cause for discharge as of breath. He will be available to by cardiology. If no further recommendations then likely his steroids can be switched to oral tomorrow and he will be discharged to rehabilitation. He has been getting his Effexor for his anxiety.
[2017-06-03 10:30] LABS: ABSOLUTE BASOPHIL COUNT 0 /CUMM (0.0-0.2); ABSOLUTE EOSINOPHIL COUNT 0 /CUMM (0.0-0.7); BASOPHIL % 0.1 % (0.0-2.0); EOSINOPHIL % 0 % (0-5); HEMATOCRIT 43.1 % (42-52); MEAN CORPUSCULAR HGB 30.1 PG (27.0-31.0); MEAN CORPUSCULAR VOLUME 91.1 FL (80.0-94.0); MEAN PLATELET VOLUME 7.1 FL (7.4-10.4); PLATELET COUNT 273 /CUMM (130-400); RBC DISTRIBUTION WIDTH 15.5 % (11.5-14.5); RED BLOOD CELL CT 4.73 /CUMM (4.70-6.10); WHITE BLOOD CELL COUNT 21.4 /CUMM (4.8-10.8)
[2017-06-03 10:57] LABS: ABSOLUTE GRANULOCYTE CT 19.6 /CUMM (1.4-6.5); ABSOLUTE LYMPH COUNT 0.7 /CUMM (1.2-3.4)
--- NOTE | 2017-06-03 11:09 | PN- Pulmonary ---
Subjective HPI/Critical Care Issues: Patient seen and examined. His white count is likely secondary to Solu-Medrol. His mass in the right upper lobe having an air-fluid level is stable overall and unclear significance doubtful to be an abscess. Objective Current Medications: Current Medications Sig/Adrián Start time Last Medication Dose Route Stop Time Status Admin Acetaminophen 650 MG Q8 05/20 0600 AC 06/03 PO 0536 Albuterol Sulfate 3 ML EVERY 4 HRS/AWAKE 05/20 1600 AC 06/03 INH 0922 Albuterol Sulfate 3 ML Q4 HRS NEEDED PRN 05/20 0430 AC 05/20 INH 0833 Aspirin 325 MG DAILY 05/20 1000 AC 06/03 PO 0915 Atorvastatin Calcium 80 MG 1700 05/20 1700 AC 06/02 PO 1606 Benzonatate 100 MG TID 05/22 1000 AC 06/03 PO 0915 Citalopram 20 MG DAILY 05/31 1000 AC 06/03 Hydrobromide PO 0915 Cyclobenzaprine HCl 5 MG .STK-MED ONE 06/02 1539 DC PO 06/02 1540 Cyclobenzaprine HCl 5 MG TIDPRN PRN 05/20 0445 AC 06/02 PO 1540 Enoxaparin Sodium 40 MG DAILY 05/20 1000 AC SC Hydroxyzine HCl 25 MG 4 TIMES/DAY 05/25 1000 AC 06/03 PO 0915 Lidocaine 1 PAT DAILY 05/31 1000 AC 06/03 EXT 0915 Lorazepam 1 MG TID 05/29 1600 AC 06/03 PO 0915 Melatonin 3 MG AT BEDTIME 05/20 2200 AC 06/02 PO 2135 Methylprednisolone 40 MG BID 05/30 2200 AC 06/03 IV 0914 Metoprolol Tartrate 12.5 MG BID 05/20 1000 AC 06/03 PO 0915 Nicotine 21 MG DAILY 05/21 1000 AC 06/03 TOP 0915 Omeprazole 40 MG DAILY AC 05/20 0700 AC 06/03 PO 0536 Primidone 50 MG AT BEDTIME 05/20 2200 AC 06/02 PO 2135 Tiotropium [place] 1 PUF DAILY 05/20 1343 AC 06/03 INH 0914 Venlafaxine HCl 75 MG DAILY 05/31 1000 AC 06/03 PO 0915 Vital Signs & I&O Last 24 Hrs of Vitals and I&O: Vital Signs Date Time Temp Pulse Resp B/P B/P Pulse O2 O2 Flow FiO2 Mean Ox Delivery Rate 06/03 0922 94 Nasal 1.5L Cannula 06/03 0915 78 122/80 06/03 0800 94 Nasal 1.5L Cannula 06/03 0636 97.8 72 20 112/74 96 06/03 0500 98 Nasal 1.5L Cannula 06/03 0000 Nasal 1.5L Cannula 06/02 2200 97.4 88 20 120/76 96 Nasal 1.5L Cannula 06/02 2135 88 120/76 06/02 1941 94 Nasal 1.5L Cannula 06/02 1600 95 Nasal 1.5L Cannula 06/02 1550 98.4 73 20 130/68 95 Nasal 1.5L Cannula Intake & Output 06/03 1600 06/03 0800 06/03 0000 Intake Total 750 Output Total Balance 750 Intake, IV 30 Intake, Oral 720 Exam Other Physical Findings: Gen - alert and awake HEENT - NCAT CVS - S1, S2, no murmurs, rubs or gallops Lungs - rare bibasilar rhonchi Abdomen - soft, non-tender, bs+ Ext - no edema, no cyanosis Results Last 24 Hrs of Lab Results: Laboratory Tests 06/03/17 0638: Anion Gap 12, Estimated GFR > 60, BUN/Creatinine Ratio 45.0 H, CBC w Diff MAN DIFF ORDERED, WBC Pending, RBC Pending, Hgb Pending, Hct Pending, MCV Pending, MCH Pending, MCHC Pending, RDW Pending, Plt Count Pending, MPV Pending, Gran % Pending, Lymphocytes % Pending, Monocytes % Pending, Eosinophils % Pending, Basophils % Pending, Absolute Granulocytes Pending, Segmented Neutrophils Pending, Absolute Lymphocytes Pending, Absolute Monocytes Pending, Absolute Eosinophils Pending, Absolute Basophils Pending Impression/Plan Impression/Plan Impression/Plan: Impression 62 year old man * Exacerbation of COPD * Tobacco dependence * Anxiety/depression * known rul lesion now with air vs fluid - unclear clinical significance * leukocytosis - can be steroid related His white count is likely secondary to Solu-Medrol. His mass in the right upper lobe having an air-fluid level is stable overall and unclear significance doubtful to be an abscess. Plan -Continue solumedrol 40mg iv q12h, monitor white count -Continue trc and nebs -Follow up with psychiatry -smoking cessation counseled -overal dc planning to rehab -pt requests to contact Dr. Romero DVT prophylaxis at all times
[2017-06-03] MEDS ORDERED: PREDNISONE10 M2 PO (14:43)
[2017-06-03] MEDS ORDERED: CITALOPRAM HBR20 MG PO (14:43)
[2017-06-03] MEDS ORDERED: EFFEXOR XR75 M1 PO (14:43)
[2017-06-03 14:54] VITALS: BP 114/80
[2017-06-03] MEDS ORDERED: ATIVAN0.5 M1 PO (17:02)
--- NOTE | 2017-06-03 18:58 | Cons- Cardiology ---
General Information and HPI Consulting Request Date of Consult: 06/03/17 Requested By: Renetta Carreon MD Reason for Consult: Shortness of breath History of Present Illness: The patient is a 62-year-old male with history of severe COPD, tobacco abuse, anxiety, CAD. He is status post inferior wall myocardial infarction in 1998 with stenting of the RCA. Subsequently in the same year he had stenting of the LAD. He has a stable right upper lobe lung mass, and he is on 1.5 L of home oxygen for his COPD. He was admitted on May 20 for acute COPD exacerbation. His shortness of breath is somewhat better, however improvement has been slow. He complains of left sided rib pain which has been intermittent over the past few weeks. No other chest pain. He is known to have a right upper lobe lung lesion which is noted to have an air-fluid level. I am consulted to evaluate for possible cardiac etiology for his shortness of breath. No palpitations. No diaphoresis. No orthopnea. No nausea or vomiting. No lightheadedness or dizziness. Allergies/Medications Allergies: Coded Allergies: budesonide (From SYMBICORT) (Severe, TOUNGE FELT LIKE A CACTUS 02/16/16) formoterol (From SYMBICORT) (Severe, TOUNGE FELT LIKE A CACTUS 02/16/16) codeine (SHAKEY 02/16/16) morphine (BRADYCARDIC 02/16/16) Home Med List: Albuterol Sulfate (Proair Hfa) 90 MCG HFA.AER.AD 2 PUF INH AD PRN COPD ( Reported) Albuterol Sulfate 2.5 MG/3 ML (0.083 %) VIAL.NEB 1 Vial INH/SHE 5XDAILY COPD (Reported) Aspirin (Aspirin*) 325 MG TABLET 1 TAB PO DAILY HEART HEALTH (Reported) Atorvastatin Calcium 80 MG TABLET 80 MG PO 1700 HYPERLIPIDEMIA . Benzonatate 100 MG CAPSULE 100 MG PO TID COUGH Cholecalciferol (Vitamin D3) (Vitamin D) 2,000 UNIT CAPSULE 1 CAP PO QAM SUPPLEMENT (Reported) Citalopram Hydrobromide (Citalopram HBr) 40 MG TABLET 1 TAB PO QPM ANXIETY ( Reported) Citalopram Hydrobromide (Citalopram HBr) 20 MG TABLET 1 TAB PO SEE ADMIN CRITERIA ANXIETY PLEASE TAKE 20 MG (1 TAB DAILY )FOR 1 WEEK. THEN 10 MG (0.5 TAB DAILY) FOR A WEEK AND THEN STOP ..... Cyclobenzaprine HCl 5 MG TABLET 5 MG PO TIDPRN PRN pain Fluticasone/Vilanterol (Breo Ellipta 100-25 Mcg INH) 100 MCG-25 MCG/DOSE BLST.W.DEV 1 PUFF INH QAM COPD (Reported) Hydroxyzine Hydrochloride (Atarax) 25 MG TAB 25 MG PO 4 TIMES/DAY ANXIETY Ibuprofen 800 MG TABLET 800 MG PO Q8 PRN PAIN SCALE 4-6 (MODERATE) Lidocaine (Lidoderm) 5 % ADH..PATCH 1 PAT EXT DAILY MUSCLE PAIN Lorazepam (Ativan) 0.5 MG TABLET 1 MG PO TID ANXIETY Melatonin 3 MG TABLET 1 TAB PO QHS SUPPLEMENT (Reported) Metoprolol Tartrate 25 MG TABLET 12.5 MG PO BID HEART . [place]-3S/Dha/Epa/Fish Oil ([place]-3 Fish Oil 1,000 MG Sfgl) 300-1,000MG CAPSULE 1 CAP PO QPM SUPPLEMENT (Reported) Omeprazole 40 MG CAPSULE.DR 1 CAP PO DAILY ACID REFLUX Prednisone 10 MG TABLET 6 TAB PO DAILY COPD 6 TABSX 2 DAYS,THEN 5 TABS X 3 DAYS,4 TABS X 3 DAYS,3 TABS X 3 DAYS,2 TABS X 3 DAYS THEN 1 TAB X 3 DAYS AND STOP Primidone 50 MG TABLET 50 MG PO AT BEDTIME tremors . Tiotropium [place] (Spiriva) 18 MCG CAP.W.DEV 1 CAP INH DAILY BREATHING PROBLEMS (Reported) Tramadol HCl 50 MG TABLET 25 MG PO TIDPRN PRN PAIN SCALE 4-6 (MODERATE) Venlafaxine HCl (Effexor XR) 75 MG CAP.ER.24H 1 TAB PO DAILY ANXIETY / DEPRESSION Current Medications: Current Medications Sig/Adrián Start time Last Medication Dose Route Stop Time Status Admin Acetaminophen 650 MG Q8 05/20 0600 AC 06/03 PO 1416 Albuterol Sulfate 3 ML EVERY 4 HRS/AWAKE 05/20 1600 AC 06/03 INH 1931 Albuterol Sulfate 3 ML Q4 HRS NEEDED PRN 05/20 0430 AC 05/20 INH 0833 Aspirin 325 MG DAILY 05/20 1000 AC 06/03 PO 0915 Atorvastatin Calcium 80 MG 1700 05/20 1700 AC 06/03 PO 1719 Benzonatate 100 MG TID 05/22 1000 AC 06/03 PO 1719 Citalopram 20 MG DAILY 05/31 1000 AC 06/03 Hydrobromide PO 0915 Cyclobenzaprine HCl 5 MG TIDPRN PRN 05/20 0445 AC 06/02 PO 1540 Enoxaparin Sodium 40 MG DAILY 05/20 1000 AC SC Hydroxyzine HCl 25 MG 4 TIMES/DAY 05/25 1000 AC 06/03 PO 1414 Lidocaine 1 PAT DAILY 05/31 1000 AC 06/03 EXT 0915 Lorazepam 1 MG TID 05/29 1600 AC 06/03 PO 1718 Melatonin 3 MG AT BEDTIME 05/20 2200 AC 06/02 PO 2135 Methylprednisolone 40 MG BID 05/30 2200 DC 06/03 IV 0914 Metoprolol Tartrate 12.5 MG BID 05/20 1000 AC 06/03 PO 0915 Nicotine 21 MG DAILY 05/21 1000 AC 06/03 TOP 0915 Omeprazole 40 MG DAILY AC 05/20 0700 AC 06/03 PO 0536 Prednisone 60 MG DAILY 06/04 1000 AC PO Primidone 50 MG AT BEDTIME 05/20 2200 AC 06/02 PO 2135 Tiotropium [place] 1 PUF DAILY 05/20 1343 AC 06/03 INH 0914 Venlafaxine HCl 75 MG DAILY 05/31 1000 AC 06/03 PO 0915 Review of Systems Review of Systems: No rash. No tremor. No melena. All other systems were reviewed, and were noted to be negative. Past History Travel History Traveled to [place] past 21 day No Medical History Blood Transfusion Hx: No Neurological: NONE EENT: NONE Cardiovascular: CAD (stent 1998), hypertension, hyperlipidemia, myocardial infarction, CAD s/p stents placement Respiratory: COPD, emphysema, pneumonia, chronic RUL cavity/mass Gastrointestinal: NONE Hepatic: NONE Renal: NONE Musculoskeletal: NONE Psychiatric: anxiety Endocrine: NONE Blood Disorders: NONE Cancer(s): NONE PCAT INSTRUCTOR/Reproductive: NONE Surgical History Surgical History: left knee surgery for torn cartilage Tonsillectomy Family History Relations & Conditions If Any: (fallopian tube cancer ). FATHER (heart attack x 2). MOTHER (lymphoma and alzheimers). DAUGHTER (Lupus nephritis ). Psychosocial History Where Do You Live? Home Who Do You Live With? self Services at Home: None Primary Language: Tamazight Smoking Status: Current Some Day Smoker ETOH Use: denies use Illicit Drug Use: denies illicit drug use Living Will? no Functional Ability ADLs Independent: dressing, eating, toileting, bathing. Ambulation: independent IADLs Independent: shopping, housework, finances, food prep, telephone, transportation , medication admin. Exam & Diagnostic Data Vital Signs and I&O Vital Signs Date Time Temp Pulse Resp B/P B/P Pulse O2 O2 Flow FiO2 Mean Ox Delivery Rate 06/03 1934 98 Nasal 1.5L Cannula 06/03 1454 98.3 76 20 114/80 95 Nasal 1.5L Cannula 06/03 0922 94 Nasal 1.5L Cannula 06/03 0915 78 122/80 06/03 0800 94 Nasal 1.5L Cannula 06/03 0636 97.8 72 20 112/74 96 06/03 0500 98 Nasal 1.5L Cannula 06/03 0000 Nasal 1.5L Cannula 06/02 2200 97.4 88 20 120/76 96 Nasal 1.5L Cannula 06/02 2135 88 120/76 Intake & Output 06/03 1600 06/03 0806/03 0000 06/02 1600 06/02 0800 06/02 0000 Intake Total 920 750 750 Output Total 650 1150 Balance 920 750 100 -1150 Intake, IV 20 30 30 Intake, Oral 900 720 720 Number 0 Bowel Movements Output, Urine 650 1150 Physical Exam: Gen: The patient is in no acute distress HEENT: Normal nose, ears, and oropharynx. Pupils equal bilaterally. Conjunctiva normal. Neck: Supple with no JVD, no masses, and no thyromegaly Lungs: Scattered rhonchi bilaterally with normal respiratory effort Heart: RRR, S1, S2, no murmurs. No peripheral edema, 2+ pulses in the lower extremities bilaterally Abdomen: Soft, nontender, no masses. No hepatomegaly. No splenomegaly Extremities: No clubbing or cyanosis. Normal muscle strength in the upper and lower extremities Skin: Normal skin turgor with no skin ulcers or lesions noted. Neuro: Cranial nerves intact. Sensation intact Psych: Alert and oriented - 3 with appropriate affect Labs/Poncho Results: Laboratory Tests 06/03 06/02 0638 0710 Chemistry Sodium (137 - 145 mmol/L) 140 Potassium (3.5 - 5.1 mmol/L) 4.4 Chloride (98 - 107 mmol/L) 94 L Carbon Dioxide (22 - 30 mmol/L) 34 H Anion Gap (5 - 16) 12 BUN (9 - 20 mg/dL) 27 H Creatinine (0.7 - 1.2 mg/dL) 0.6 L Estimated GFR (>60 ml/min) > 60 BUN/Creatinine Ratio (7 - 25 %) 45.0 H Hematology CBC w Diff MAN DIFF ORDERED NO MAN DIFF REQ WBC (4.8 - 10.8 /CUMM) 21.4 H 21.0 H RBC (4.70 - 6.10 /CUMM) 4.73 4.54 L Hgb (14.0 - 18.0 G/DL) 14.3 13.7 L Hct (42 - 52 %) 43.1 41.3 L MCV (80.0 - 94.0 FL) 91.1 90.9 MCH (27.0 - 31.0 PG) 30.1 30.2 MCHC (33.0 - 37.0 G/DL) 33.0 33.3 RDW (11.5 - 14.5 %) 15.5 H 15.7 H Plt Count (130 - 400 /CUMM) 273 279 MPV (7.4 - 10.4 FL) 7.1 L 7.1 L Gran % (42.2 - 75.2 %) 92.0 H 89.2 H Lymphocytes % (20.5 - 51.1 %) 3.4 L 4.4 L Monocytes % (1.7 - 9.3 %) 4.5 6.3 Eosinophils % (0 - 5 %) 0 0 Basophils % (0.0 - 2.0 %) 0.1 0.1 Absolute Granulocytes (1.4 - 6.5 /CUMM) 19.6 H 18.7 H Absolute Lymphocytes (1.2 - 3.4 /CUMM) 0.7 L 0.9 L Absolute Monocytes (0.10 - 0.60 /CUMM) 1.0 H 1.3 H Absolute Eosinophils (0.0 - 0.7 /CUMM) 0 0 Absolute Basophils (0.0 - 0.2 /CUMM) 0 0 Platelet Estimate (ADEQUATE) ADEQUATE Normocytic RBCs VERIFIED Normochromic RBCs VERIFIED Diagnostic Data EKG Results EKG tracing from 05/29/17 is independently reviewed, and reveals normal sinus rhythm at 77 CXR Results The chronic, thick-walled cavity of the lung lung apex now demonstrates an air-fluid level. This air-fluid levels was also seen on the chest CT of 05/29/2017. Chronic reticular opacities with subpleural honeycombing of the lower lobes. Cardiac silhouette remains normal in size. Pulmonary arteries are chronically enlarged, suggestive of arterial hypertension. The mildly displaced, subacute fracture of the left lateral eighth rib is excluded from the [id number]. Also, the subacute fracture of the left lateral ninth rib is suboptimally visualized. IMPRESSION: 1. Severe pulmonary emphysema. 2. Chronic interstitial disease with honeycombing at the lung bases. 3. Pulmonary arteries are enlarged, suggestive of pulmonary arterial hypertension. 4. The thick-walled cavity of the right lung apex has an air-fluid level (i.e., possible infection of the cavity). Other Results CTA chest: 1. No evidence of pulmonary embolism. 2. Severe emphysematous changes of lung. 3. Stable large mass in right upper lobe. This now demonstrates an air-fluid level. Echocardiogram 03/17/17: 1. This was a technically difficult examination 2. Mild to moderate aortic sclerosis is present with no valvular stenosis or insufficiency. 3. Mitral leaflet thickening is present with mild to moderate mitral insufficiency and mild to moderate left atrial enlargement. 4. There is no significant pericardial fluid present. 5. The left ventricular chamber size and systolic function are normal. Abnormal septal motion is present. 6. Enlargement of the right heart chambers is present with mild tricuspid insufficiency, minimal pulmonic insufficiency. The RV systolic pressure could not be accurately assessed. Assessment/Plan Assessment/Plan The patient is a 62-year-old male with history of CAD, status post remote history of stent placement in LAD and RCA, presenting with acute COPD exacerbation. He is noted to have a right upper lobe lung mass which is apparently chronic. Troponin levels have been negative. EKG G from May 29 did not reveal any evidence of ischemic changes. ProBNP on May 31 was normal at 106. There is no indication at this time of a cardiac etiology for these symptoms, however to rule out cardiac issue I recommend repeating an EKG and echocardiogram. Recommendations: * Repeat EKG * Echocardiogram * Continue current cardiac meds. Consult Acknowledgment - Thank you for your consult request.
[2017-06-03 22:31] VITALS: BP 120/68
[2017-06-04 05:24] VITALS: BP 130/86
--- NOTE | 2017-06-04 08:09 | PN- Housestaff ---
Nazia Ravi 06/04/17 0809: Subjective Follow-up For: COPD exacerbation Severe anxiety Acute on chronic hypoxic respiratory failure Subjective: Patient is seen and examined this morning, seems stable, on his baseline oxygen. Breathing improved, denies any chest discomfort palpitations, still reports some anxiety. Vitals are stable.Denied any nausea vomiting abdominal discomfort , left lower quadrant pain is much better. Cardiology was also involved regarding management of patient's current respiratory status, recommended to continue with the current cardiac medications , patient will have echocardiogram as an outpatient and follow-up with Dr. Romero Review of Systems Constitutional: Denies: diaphoresis, fever, malaise. Respiratory: Denies: hemoptysis, short of breath. Gastrointestinal: Denies: bloating. Objective Last 24 Hrs of Vital Signs/I&O Vital Signs Date Time Temp Pulse Resp B/P B/P Pulse O2 O2 Flow FiO2 Mean Ox Delivery Rate 06/04 1159 22 94 Nasal 1.5L Cannula 06/04 1003 22 93 Nasal 1.5L Cannula 06/04 1003 22 96 Nasal 3.0L Cannula 06/04 0907 80 132/80 06/04 0838 96 Nasal 3.0L Cannula 06/04 0800 96 Nasal 3.0L Cannula 06/04 0524 97.7 98 22 130/86 96 Nasal 3.5L Cannula 06/04 0425 74 Room Air 06/04 0000 95 Nasal 3.0L Cannula 06/03 2231 98.2 82 20 120/68 97 Nasal 1.5L Cannula 06/03 2056 80 120/70 02 1934 98 Nasal 1.5L Cannula 06/03 1600 95 Nasal 1.5L Cannula 06/03 1454 98.3 76 20 114/80 95 Nasal 1.5L Cannula Intake & Output 06/04 1600 06 0800 06/04 0000 Intake Total 320 1020 Output Total 450 200 Balance -130 820 Intake, IV 20 Intake, Oral 320 1000 Number 0 Bowel Movements Output, Urine 450 200 Physical Exam General Appearance: Alert, Oriented X3 Skin: No Rashes, No Breakdown Skin Temp/Moisture Exam: Warm/Dry HEENT: Atraumatic, PERRLA, EOMI Neck: Supple, No JVD Cardiovascular: Regular Rate, Normal S1, Normal S2 Lungs: Clear to Auscultation, Normal Air Movement Assessment/Plan Assessment: His 62-year-old man with moderate to severe COPD on 1.5 L of oxygen by nasal cannula as needed at home, tobacco dependence enrolled in LDCT program in [place], stable RUL mass, coronary artery disease status post MO with PCI in 1998 and severe anxiety presented to ER and found to be in acute on chronic hypoxic respiratory failure likely secondary to COPD exacerbation and he is very anxious that might be contributing factor in his respiratory status. Patient was admitted on general medical floor and we will address following problems Acute on chronic hypoxic respiratory failure due to COPD exacerbation and underlying lung mass: * Patient is more comfortable today saturating around 1.5 L. * Breathing better today and has been switched to tapered prednisone. * Patient continues to have persistent leukocytosis , with a chest x-ray findings showing thick-walled cavity of the right lung apex with an air-fluid level. * The findings have been discussed in detail with the allergist/pediatric pulmonologist Dr. Lockett and Tristan Allen MD, likely chronic in nature, so we are not going to initiate any antibioticS. * Cardiology was also involved regarding management of patient's current respiratory status, recommended to continue with the current cardiac medications , patient will have echocardiogram as an outpatient and follow-up with Dr. Heather de leon for now. * If patient remains stable will discharge the patient to rehabilitation today * He will follow up follow Dr. Lockett recommendations. Severe anxiety and depression: * Psych was consulted sahara per recommendations ,, patient has been started on Effexor XR 75 mg daily. * Has been decreased to Celexa to 20 mg daily for total of 1 week, then 10 mg one week and stop it afterwards. * Continue scheduled Ativan and Atarax for now. Generalized body aches including shoulder blades and lower back pain. Patient has severe body spasms most likely due to underlying severe anxiety and depression. Patient has been refusing tramadol , we will consider ibuprofen as needed for severe pain along with Tylenol .continue with PPI . Of note on reviewing his CAT scan from April 03 with radiologist acute rib fracture was noticed on that imaging study . Radiologist were requested to dictate an addendum. We will manage it conservatively with pain management Chronic issues including abdominal aortic aneurysm He is stable abdominal aortic aneurysm, he had recent CAT scan showed stable aortic aneurysm which could be follow-up as outpatient. positive blood cultures Blood cultures were coagulase negative most likely contamination and his vancomycin was discontinued. CODE STATUS: Full Code DVT prophylaxis: Mechanical and Lovenox- however patient has been refusing to get Lovenox Problem List: 1. Atypical chest pain 2. Acute respiratory failure with hypoxia Pain Ratin Pain Location: LLQ pain Pain Goal: Remain pain free Pain Plan: tramadol. Tomorrow's Labs & Rationales: no need of labs today. Renetta Carreon MD 06/04/17 1200: Attending MD Review Statement Attending Statement Attending MD Statement: examined this patient, discuss w/resident/PA/TARPER, agreed w/resident/PA/TARPER, reviewed EMR data (avail), discussed with nursing, discussed with case mgmt, reviewed images, amended to note Attending Assessment/Plan: Patient seen and examined, he had another anxiety attack last night. He required more oxygen but in the morning he is feeling slightly better although still anxious. I'll note his oxygen to 1.5 L which is his baseline. His oxygen saturations remained in 93-94% range. Patient has been switched to oral prednisone. He is medically stable for discharge to rehabilitation today. Cardiology saw the patient and recommended repeating his echo. His echo will be done before he leaves. Results can be followed as an outpatient with Dr. Romero.
[2017-06-04 09:49] LABS: ABSOLUTE BASOPHIL COUNT 0 /CUMM (0.0-0.2); ABSOLUTE EOSINOPHIL COUNT 0 /CUMM (0.0-0.7); ABSOLUTE GRANULOCYTE CT 24.1 /CUMM (1.4-6.5); ABSOLUTE LYMPH COUNT 1.3 /CUMM (1.2-3.4); ABSOLUTE MONOCYTE COUNT 2.8 /CUMM (0.10-0.60); BASOPHIL % 0.2 % (0.0-2.0); EOSINOPHIL % 0.1 % (0-5); GRANULOCYTE % 85.1 % (42.2-75.2); HEMATOCRIT 46.7 % (42-52); MEAN CORPUSCULAR HGB CONC 33.1 G/DL (33.0-37.0); MEAN CORPUSCULAR VOLUME 90.5 FL (80.0-94.0); MEAN PLATELET VOLUME 7.3 FL (7.4-10.4); PLATELET COUNT 335 /CUMM (130-400); RBC DISTRIBUTION WIDTH 15.2 % (11.5-14.5); RED BLOOD CELL CT 5.16 /CUMM (4.70-6.10); WHITE BLOOD CELL COUNT 28.3 /CUMM (4.8-10.8)
--- NOTE | 2017-06-04 12:24 | PN- Cardiology ---
Subjective Subjective: Shortness of breath is somewhat better. No chest pain. No palpitations. No diaphoresis. No nausea or vomiting. No lightheadedness or dizziness. Objective Vital Signs and I&Os Vital Signs Date Time Temp Pulse Resp B/P B/P Pulse O2 O2 Flow FiO2 Mean Ox Delivery Rate 06/04 1159 22 94 Nasal 1.5L Cannula 06/04 1003 22 93 Nasal 1.5L Cannula 06/04 1003 22 96 Nasal 3.0L Cannula 06/04 0907 80 132/80 06/04 0838 96 Nasal 3.0L Cannula 06/04 0800 96 Nasal 3.0L Cannula 06/04 0524 97.7 98 22 130/86 96 Nasal 3.5L Cannula 06/04 0425 74 Room Air 06/04 0000 95 Nasal 3.0L Cannula 06/03 2231 98.2 82 20 120/68 97 Nasal 1.5L Cannula 06/03 2056 80 120/70 06/03 1934 98 Nasal 1.5L Cannula 06/03 1600 95 Nasal 1.5L Cannula 06/03 1454 98.3 76 20 114/80 95 Nasal 1.5L Cannula Intake & Output 06/04 1600 06/04 0800 06/04 0000 06/03 1600 06/03 0800 06/03 0000 Intake Total 320 1020 920 750 Output Total 450 200 Balance -130 820 920 750 Intake, IV 20 20 30 Intake, Oral 320 1000 900 720 Number 0 0 Bowel Movements Output, Urine 450 200 Physical Exam: Gen: The patient is in no acute distress HEENT: Normal nose, ears, and oropharynx. Pupils equal bilaterally. Conjunctiva normal. Neck: Supple with no JVD, no masses, and no thyromegaly Lungs: Scattered rhonchi bilaterally with normal respiratory effort Heart: RRR, S1, S2, no murmurs. No peripheral edema, 2+ pulses in the lower extremities bilaterally Abdomen: Soft, nontender, no masses. No hepatomegaly. No splenomegaly Extremities: No clubbing or cyanosis. Normal muscle strength in the upper and lower extremities Skin: Normal skin turgor with no skin ulcers or lesions noted. Neuro: Cranial nerves intact. Sensation intact Current Medications: Current Medications Sig/Adrián Start time Last Medication Dose Route Stop Time Status Admin Acetaminophen 650 MG .STK-MED ONE 06/03 1415 DC PO 02/05 1416 Acetaminophen 650 MG Q8 05/20 0600 AC 06/04 PO 0609 Albuterol Sulfate 3 ML EVERY 4 HRS/AWAKE 05/20 1600 AC 06/04 INH 1216 Albuterol Sulfate 3 ML Q4 HRS NEEDED PRN 05/20 0430 AC 05/20 INH 0833 Aspirin 325 MG DAILY 05/20 1000 AC 06/04 PO 0907 Atorvastatin Calcium 80 MG 1700 05/20 1700 AC 06/03 PO 1719 Benzonatate 100 MG TID 05/22 1000 AC 06/04 PO 0907 Citalopram 20 MG DAILY 05/31 1000 AC 06/04 Hydrobromide PO 0906 Cyclobenzaprine HCl 5 MG TIDPRN PRN 05/20 0445 AC 06/02 PO 1540 Enoxaparin Sodium 40 MG DAILY 05/20 1000 AC SC Hydroxyzine HCl 25 MG 4 TIMES/DAY 05/25 1000 AC 06/04 PO 0907 Lidocaine 1 PAT DAILY 05/31 1000 AC 06/04 EXT 0907 Lorazepam 1 MG TID 05/29 1600 AC 06/04 PO 0906 Melatonin 3 MG AT BEDTIME 05/20 2200 AC 06/03 PO 2056 Methylprednisolone 40 MG BID 05/30 2200 DC 06/03 IV 0914 Metoprolol Tartrate 12.5 MG BID 05/20 1000 AC 06/04 PO 0907 Nicotine 21 MG DAILY 05/21 1000 AC 06/04 TOP 0907 Omeprazole 40 MG DAILY AC 05/20 0700 AC 06/04 PO 0607 Prednisone 60 MG DAILY 06/04 1000 AC 06/04 PO 0906 Primidone 50 MG AT BEDTIME 05/20 2200 AC 06/03 PO 205 Tiotropium [place] 1 PUF DAILY 05/20 1343 AC 06/04 INH 0907 Venlafaxine HCl 75 MG DAILY 05/31 1000 AC 06/04 PO 0907 Results Last 48 Hrs of Labs/Mics: Laboratory Tests 06/04/17 0737: CBC w Diff MAN DIFF ORDERED, RBC 5.16, MCV 90.5, MCH 30.0, MCHC 33.1, RDW 15.2 H, MPV 7.3 L, Gran % 85.1 H, Lymphocytes % 4.6 L, Monocytes % 10.0 H, Eosinophils % 0.1, Basophils % 0.2, Absolute Granulocytes 24.1 H, Segmented Neutrophils 73, Band Neutrophils 9 H, Absolute Lymphocytes 1.3, Lymphocytes 10 L, Monocytes 8, Absolute Monocytes 2.8 H, Absolute Eosinophils 0, Absolute Basophils 0, Platelet Estimate ADEQUATE, Normocytic RBCs VERIFIED, Normochromic RBCs VERIFIED 06/03/17 0638: Anion Gap 12, Estimated GFR > 60, BUN/Creatinine Ratio 45.0 H, CBC w Diff MAN DIFF ORDERED, RBC 4.73, MCV 91.1, MCH 30.1, MCHC 33.0, RDW 15.5 H, MPV 7.1 L, Gran % 92.0 H, Lymphocytes % 3.4 L, Monocytes % 4.5, Eosinophils % 0, Basophils % 0.1, Absolute Granulocytes 19.6 H, Absolute Lymphocytes 0.7 L, Absolute Monocytes 1.0 H, Absolute Eosinophils 0, Absolute Basophils 0, Platelet Estimate ADEQUATE, Normocytic RBCs VERIFIED, Normochromic RBCs VERIFIED Assessment/Plan Assessment/Plan Assessment: 1. CAD, with remote history of stent placement in LAD and RCA 2. Acute COPD exacerbation. No evidence of acute congestive heart failure. Recommendations: * Echocardiogram pending. If not completed while in the hospital, the echocardiogram could be done as an outpatient * Follow up with Dr. Romero in 2 weeks discharge Continue telemetry? Not applicable
--- NOTE | 2017-06-04 13:25 | PN- Pulmonary ---
Subjective HPI/Critical Care Issues: Patient seen and examined this morning. He continues to be short of breath and remains this way. It seems to be somewhat out of proportion to his physical findings and is episodic. Objective Current Medications: Current Medications Sig/Adrián Start time Last Medication Dose Route Stop Time Status Admin Acetaminophen 650 MG .STK-MED ONE 06/03 1415 DC PO 06/03 1416 Acetaminophen 650 MG Q8 05/20 0600 AC 06/04 PO 0609 Albuterol Sulfate 3 ML EVERY 4 HRS/AWAKE 05/20 1600 AC 06/04 INH 1216 Albuterol Sulfate 3 ML Q4 HRS NEEDED PRN 05/20 0430 AC 05/20 INH 0833 Aspirin 325 MG DAILY 05/20 1000 AC 06/04 PO 0907 Atorvastatin Calcium 80 MG 1700 05/20 1700 AC 06/03 PO 1719 Benzonatate 100 MG TID 05/22 1000 AC 06/04 PO 0907 Citalopram 20 MG DAILY 05/31 1000 AC 06/04 Hydrobromide PO 0906 Cyclobenzaprine HCl 5 MG TIDPRN PRN 05/20 0445 AC 06/02 PO 1540 Enoxaparin Sodium 40 MG DAILY 05/20 1000 AC SC Hydroxyzine HCl 25 MG 4 TIMES/DAY 05/25 1000 AC 06/04 PO 0907 Lidocaine 1 PAT DAILY 05/31 1000 AC 06/04 EXT 0907 Lorazepam 1 MG TID 05/29 1600 AC 06/04 PO 0906 Melatonin 3 MG AT BEDTIME 05/20 2200 AC 06/03 PO 2056 Methylprednisolone 40 MG BID 05/30 2200 DC 06/03 IV 0914 Metoprolol Tartrate 12.5 MG BID 05/20 1000 AC 06/04 PO 0907 Nicotine 21 MG DAILY 05/21 1000 AC 06/04 TOP 0907 Omeprazole 40 MG DAILY AC 05/20 0700 AC 06/04 PO 0607 Prednisone 60 MG DAILY 06/04 1000 AC 06/04 PO 0906 Primidone 50 MG AT BEDTIME 05/20 2200 AC 06/03 PO 205 Tiotropium [place] 1 PUF DAILY 05/20 1343 AC 06/04 INH 0907 Venlafaxine HCl 75 MG DAILY 05/31 1000 AC 06/04 PO 0907 Vital Signs & I&O Last 24 Hrs of Vitals and I&O: Vital Signs Date Time Temp Pulse Resp B/P B/P Pulse O2 O2 Flow FiO2 Mean Ox Delivery Rate 06/04 1159 22 94 Nasal 1.5L Cannula 06/04 1003 22 93 Nasal 1.5L Cannula 06/04 1003 22 96 Nasal 3.0L Cannula 06/04 0907 80 132/80 06/04 0838 96 Nasal 3.0L Cannula 06/04 0800 96 Nasal 3.0L Cannula 06/04 0524 97.7 98 22 130/86 96 Nasal 3.5L Cannula 06/04 0425 74 Room Air 06/04 0000 95 Nasal 3.0L Cannula 06/03 2231 98.2 82 20 120/68 97 Nasal 1.5L Cannula 06/03 2056 80 120/70 06/03 1934 98 Nasal 1.5L Cannula 06/03 1600 95 Nasal 1.5L Cannula 06/03 1454 98.3 76 20 114/80 95 Nasal 1.5L Cannula Intake & Output 06/04 1600 06/04 0800 06/04 0000 Intake Total 320 1020 Output Total 450 200 Balance -130 820 Intake, IV 20 Intake, Oral 320 1000 Number 0 Bowel Movements Output, Urine 450 200 Exam Other Physical Findings: Gen - alert and awake HEENT - NCAT CVS - S1, S2, no murmurs, rubs or gallops Lungs - rare bibasilar rhonchi Abdomen - soft, non-tender, bs+ Ext - no edema, no cyanosis Results Last 24 Hrs of Lab Results: Laboratory Tests 06/04/17 0737: CBC w Diff MAN DIFF ORDERED, RBC 5.16, MCV 90.5, MCH 30.0, MCHC 33.1, RDW 15.2 H, MPV 7.3 L, Gran % 85.1 H, Lymphocytes % 4.6 L, Monocytes % 10.0 H, Eosinophils % 0.1, Basophils % 0.2, Absolute Granulocytes 24.1 H, Segmented Neutrophils 73, Band Neutrophils 9 H, Absolute Lymphocytes 1.3, Lymphocytes 10 L, Monocytes 8, Absolute Monocytes 2.8 H, Absolute Eosinophils 0, Absolute Basophils 0, Platelet Estimate ADEQUATE, Normocytic RBCs VERIFIED, Normochromic RBCs VERIFIED Impression/Plan Impression/Plan Impression/Plan: Impression 62 year old man * Exacerbation of COPD * Tobacco dependence * Anxiety/depression * known rul lesion now with air vs fluid - unclear clinical significance * leukocytosis His white count is likely secondary to Solu-Medrol. His mass in the right upper lobe having an air-fluid level is stable overall and unclear significance doubtful to be an abscess. Plan -d/c solumedrol, begin prednisone 60mg po, monitor white count -Continue trc and nebs -Follow up with psychiatry -smoking cessation counseled -overal dc planning to rehab -cardiology follow up, ECHO -unclear cause of leukocytosis, can be steroid related, but it is rising, the air fluid level in his ct is in a known mass, we may consider reimaging chest ct with iv contrast, if there is no downward trend, his respiratory status is too tenous to consider any bronchoscopy DVT prophylaxis at all times
[2017-06-04 14:27] VITALS: BP 132/80
== END 2017-06-04 14:38 | DRG 140 ==
LOC: ERH 00:10 → 2NB 06:10 → ERHI 06:10 → ENTRNSPT 08:07 → EDTRNSPT 08:38 → EDTRNSPTSTS 08:52 → EDTRNSPT 08:52 → 2NB 08:57 → CMPTRNSPT 09:02 → 2NB 13:17 → ENPENDDIS 06-04 12:23 → 2NB 06-04 14:38
PROVIDERS: Internal Medicine; Pediatrics; Student in an Organized Health Care Education/Training Program
DX: J44.1 Chronic obstructive pulmonary disease with (acute) exacerbation (principal); J96.21 Acute and chronic respiratory failure with hypoxia; I10 Essential (primary) hypertension; E78.5 Hyperlipidemia, unspecified; I25.10 Atherosclerotic heart disease of native coronary artery without angina pectoris; Z95.5 Presence of coronary angioplasty implant and graft; F17.210 Nicotine dependence, cigarettes, uncomplicated; B44.9 Aspergillosis, unspecified; G25.1 Drug-induced tremor; T42.6X5A Adverse effect of other antiepileptic and sedative-hypnotic drugs, initial encounter; Y92.239 Unspecified place in hospital as the place of occurrence of the external cause; F40.01 Agoraphobia with panic disorder; F32.89 Other specified depressive episodes; F43.23 Adjustment disorder with mixed anxiety and depressed mood; R44.0 Auditory hallucinations; R44.2 Other hallucinations; I25.2 Old myocardial infarction; M84.48XA Pathological fracture, other site, initial encounter for fracture; I71.4 Abdominal aortic aneurysm, without rupture
CPT/HCPCS: 2NBSP; 2NSBP; 87184; 36415; 71045; 71046; 82436; 87040; 87070; 87147; 87804; 87804-59; 93005; 93010; 94799; 96374; 96375; 99232; 99291; J0456; J0696; J1650; J1885; J2060; J2920; J2930; J3370; J7040; J7060

== ENCOUNTER 2017-09-11 03:51 | Emergency (ER) | payer OTHER ==
[~2017-09-11 03:51] MED LIST changes: +ATIVAN0.5 M1 PO; +BENZONATATE100 M1 PO; +CITALOPRAM HBR20 MG PO; +EFFEXOR XR75 M1 PO; +HYDROXYZINE HCL25 M2 PO; +HYDROXYZINE HCL50 M1 PO; +TRAMADOL HCL50 M1 PO
--- NOTE | 2017-09-11 04:05 | ED DYSPNEA/ASTHMA COMPLAINT ---
See Addendum History of Present Illness General Chief Complaint: Dyspnea (COPD, CHF, Other) Stated Complaint: BIBA SOB Source: patient, old records Exam Limitations: no limitations Vital Signs & Intake/Output Vital Signs & Intake/Output Vital Signs Date Time Temp Pulse Resp B/P B/P Pulse O2 O2 Flow FiO2 Mean Ox Delivery Rate 09/11 1714 96 Nasal 1.5L Cannula 09/11 1402 98.2 72 16 124/68 97 Nasal 1.5L Cannula 09/11 1156 78 18 131/70 96 Nasal 2.0L Cannula 09/11 0859 96 Nasal 1.5L Cannula 09/11 0626 96 Nasal 1.5L Cannula 09/11 0408 97 Nasal 1.5L Cannula 09/11 0357 98.3 80 20 129/99 97 Nasal 1.5L Cannula Allergies Coded Allergies: budesonide (From SYMBICORT) (Severe, TOUNGE FELT LIKE A CACTUS 02/16/16) formoterol (From SYMBICORT) (Severe, TOUNGE FELT LIKE A CACTUS 02/16/16) codeine (SHAKEY 02/16/16) morphine (BRADYCARDIC 02/16/16) Triage Note: PT BIBA FROM HOME, PT LOST POWER AT HOME AND RAN OUT OF O2. WAITED 1 HR TO CALL EMS, IS NORMALLY ON 1.5L NC. EN ROUTE PT RECIEVED ALBUTEROL NEB, DUONEB, AND 125MG SOLUMEDROL. PT REPORTS FEELING LESS SOB AT THIS TIME, O2 SAT 96% ON 1.5L Triage Nurses Notes Reviewed? yes HPI: Patient is O2 dependent COPD and is supposed uses nebulizers every 4 hours. Patient lost his power so he ran out of oxygen and he was unable to use his nebulizer. Patient called them 01. Patient was feeling very short of breath and wheezy upon his dictation. Patient was given 2 nebulizers en route to the emergency department and is currently feeling better. Patient denies any chest pain or chest tightness. There are no fevers or chills. Has a nonproductive cough which is chronic. There is no anorexia. (Dixon WATTERS,Frederick Clancy) Reconcile Medications Albuterol Sulfate (Proair Hfa) 90 MCG HFA.AER.AD 2 PUF INH AD PRN COPD ( Reported) Aspirin (Aspirin*) 325 MG TABLET 1 TAB PO DAILY HEART HEALTH (Reported) Atorvastatin Calcium 80 MG TABLET 80 MG PO 1700 HYPERLIPIDEMIA . Cholecalciferol (Vitamin D3) (Vitamin D) 2,000 UNIT CAPSULE 1 CAP PO QAM SUPPLEMENT (Reported) Fluticasone/Vilanterol (Breo Ellipta 100-25 Mcg INH) 100 MCG-25 MCG/DOSE BLST.W.DEV 1 PUFF INH QAM COPD (Reported) Ipratropium/Albuterol Sulfate (Iprat-Albut 0.5-3(2.5) MG/3 Ml) 0.5 MG-3 MG (2.5 MG BASE)/3 ML AMPUL.NEB 1 VIAL PO DAILY BREATHING PROBLEMS (Reported) LORazepam (Ativan) 1 MG TAB 1 TAB PO DAILY ANXIETY (Reported) Melatonin 3 MG TABLET 1 TAB PO QHS SUPPLEMENT (Reported) Metoprolol Tartrate 25 MG TABLET 12.5 MG PO BID HEART . Mirtazapine 7.5 MG TABLET 1 TAB PO QPM SLEEP (Reported) [place]-3S/Dha/Epa/Fish Oil ([place]-3 Fish Oil 1,000 MG Sfgl) 300-1,000MG CAPSULE 1 CAP PO QPM SUPPLEMENT (Reported) Primidone 50 MG TABLET 50 MG PO AT BEDTIME tremors . Venlafaxine HCl (Venlafaxine HCl ER) 150 MG CAP.ER.24H 1 CAP PO DAILY MENTAL HEALTH (Reported) (Pritesh Stuart DO) Past History Travel History Traveled to [place] past 21 day No Medical History Any Pertinent Medical History? see below for history Neurological: NONE EENT: NONE Cardiovascular: CAD (stent 1998), hypertension, hyperlipidemia, myocardial infarction, CAD s/p stents placement Respiratory: COPD, emphysema, pneumonia, chronic RUL cavity/mass Gastrointestinal: NONE Hepatic: NONE Renal: NONE Musculoskeletal: NONE Psychiatric: anxiety Endocrine: NONE Blood Disorders: NONE Cancer(s): NONE VAULT TELLER/Reproductive: NONE History of MRSA: No History of VRE: No History of CDIFF: No Influenza Vaccine: 03/29/17 Surgical History Surgical History: left knee surgery for torn cartilage Tonsillectomy Psychosocial History Who do you live with Patient/Self Services at Home None What is your primary language Greenlandic Tobacco Use: Quit >30 days ago ETOH Use: denies use Illicit Drug Use: denies illicit drug use Family History Family History, If Any: (fallopian tube cancer ). FATHER (heart attack x 2). MOTHER (lymphoma and alzheimers). DAUGHTER (Lupus nephritis ). Hx Contributory? No (Dixon WATTERS,Frederick Clancy) Review of Systems Review of Systems Constitutional: Reports: no symptoms. EENTM: Reports: no symptoms. Respiratory: Reports: see HPI, cough, short of breath. Cardiovascular: Reports: no symptoms. GI: Reports: no symptoms. Genitourinary: Reports: no symptoms. Musculoskeletal: Reports: no symptoms. Skin: Reports: no symptoms. Neurological/Psychological: Reports: no symptoms. Hematologic/Endocrine: Reports: no symptoms. Immunologic/Allergic: Reports: no symptoms. All Other Systems: Reviewed and Negative (Dixon WATTERS,Frederick Clancy) Physical Exam Physical Exam General Appearance: well developed/nourished, alert, awake, mild distress Head: atraumatic, normal appearance Eyes: Bilateral: PERRL, EOMI. Ears, Nose, Throat: normal pharynx, normal ENT inspection, hearing grossly normal Neck: normal inspection, supple, full range of motion Respiratory: decreased breath sounds, wheezing Cardiovascular: regular rate/rhythm, normal peripheral pulses Gastrointestinal: normal bowel sounds, soft, non-tender Extremities: normal inspection, normal capillary refill, normal range of motion, no edema Neurologic/Psych: no motor/sensory deficits, awake, alert, oriented x 3, normal gait, normal mood/affect Core Measures ACS in differential dx? No CVA/TIA Diagnosis No Sepsis Present: No Sepsis Focused Exam Completed? No (Dixon WATTERS,Frederick Clancy) Progress Differential Diagnosis: asthma, bronchitis, COPD, pneumonia Plan of Care: Orders Procedure Date/time Status Heart Healthy Diet 09/11 B Active Current Medications Sig/Adrián Start time Last Medication Dose Stop Time Status Admin Atorvastatin Calcium 80 MG 1700 09/11 1700 UNVr (Lipitor) Aspirin 325 MG DAILY 09/11 09 UNVr (Aspirin) Benzonatate 100 MG TID 09/11 899 UNVr 09/11 (Tessalon Capsule) 1551 Lorazepam 1 MG TID 09/11 09 UNVr 09/11 (Ativan) 09/18 0859 0903 Metoprolol Tartrate 12.5 MG BID 09/11 899 UNVr (Lopressor) Tiotropium [place] 1 PUF DAILY 09/11 899 UNVr (Spiriva) Venlafaxine HCl 75 MG DAILY 09/11 09 UNVr (Effexor Xr) Albuterol Sulfate 3 ML .[5XDAILY] 09/12 399 UNVr 09/11 (Proventil) 1714 Citalopram 20 MG SEE ADMIN CRITERIA 09/12 399 UNVr Hydrobromide (Celexa) Melatonin 3 MG .[QHS] 09/12 399 UNVr (Melatonin) Diagnostic Imaging: Viewed by Me: Radiology Read. Discussed w/RAD: Radiology Read. CXR Impression: PATIENT: JORGE A SANTOYO PRESENT AGE: 62 PATIENT ACCOUNT NO: [id number] : 53 LOCATION: [facility] ORDERING PHYSICIAN: Frederick Metcalf MD SERVICE DATE: 09/11/17 EXAM TYPE: RAD - XRY- PORTABLE CHEST XRAY EXAMINATION: CHEST 1 VIEW CLINICAL INFORMATION: Shortness of breath. Pneumonia. COMPARISON: May 31, 2017. TECHNIQUE: An AP view of the chest is provided. FINDINGS: The cardiac silhouette is not enlarged. The mediastinal and hilar contours are unremarkable. There are neither pleural effusions nor pneumothoraces. The lungs are hyperinflated. There is stable bibasilar scarring. As well, there is a stable rounded opacity within the right apex. The osseous structures are stable with healed lateral left rib fractures. IMPRESSION: Stable chronic changes without evidence of acute airspace disease. DICTATED BY: Luan Luong MD DATE/TIME DICTATED:09/11/17431 IMPACT HAMMER OPERATOR:MARGOT DATE/TIME TRANSCRIBED:09/11/17431 CONFIDENTIAL, DO NOT COPY WITHOUT APPROPRIATE AUTHORIZATION. <Electronically signed in Other Vendor System> SIGNED BY: Luan Luong MD 09/11/17436 Initial ED EKG: none Hand-Off Endorsed To: Pritesh Stuart DO Endorsed Time: 0700 Pending: other (Frederick Metcalf MD) Departure Departure Disposition: HOME OR SELF CARE Condition: Stable Clinical Impression Primary Impression: COPD (chronic obstructive pulmonary disease) Referrals: Bernie Madera MD (PCP/Family) Additional Instructions: RETURN FOR ANY CONCERNS Departure Forms: Customer Survey General Discharge Information (Frederick Metcalf MD) Departure Comments 09/11/17 7 PM The patient remains pending chcf with power. He was signed out to Dr. Mcknight at 7 PM. (Pritesh Stuart DO) Critical Care Note Critical Care Note Critical Care Time: non-applicable (Dixon WATTERS,Frederick Clancy)
--- NOTE | 2017-09-11 04:37 | RADIOLOGY REPORT ---
EXAMINATION: CHEST 1 VIEW CLINICAL INFORMATION: Shortness of breath. Pneumonia. COMPARISON: May 31, 2017. TECHNIQUE: An AP view of the chest is provided. FINDINGS: The cardiac silhouette is not enlarged. The mediastinal and hilar contours are unremarkable. There are neither pleural effusions nor pneumothoraces. The lungs are hyperinflated. There is stable bibasilar scarring. As well, there is a stable rounded opacity within the right apex. The osseous structures are stable with healed lateral left rib fractures. IMPRESSION: Stable chronic changes without evidence of acute airspace disease.
[2017-09-11] MEDS ORDERED: IPRAT-ALBUT 0.5-3 ML PO (08:09)
[2017-09-11] MEDS ORDERED: VENLAFAXINE HC150 MG PO (08:10)
[2017-09-11] MEDS ORDERED: ATIVAN1 M1 PO (08:11)
[2017-09-11] MEDS ORDERED: MIRTAZAPINE7.5 M1 PO (08:12)
[2017-09-13 11:32] VITALS: BP 136/74
== END 2017-09-13 10:49 ==
LOC: ERH 03:51
DX: J44.9 Chronic obstructive pulmonary disease, unspecified (principal); Z87.891 Personal history of nicotine dependence
CPT/HCPCS: 1263; 71045